=== PATIENT | female | born 1935 | race Caucasian/White ===

== ENCOUNTER → 2017-07-22 09:02 | Outpatient (CLI) | payer MEDICARE, OTHER, SELFPAY ==
[2017-07-22 09:34] LABS: Add Manual Diff / Slide Review NO; Basophils Percent Auto 1.2 % (0-2); Eosinophils Percent Auto 1.8 % (2-4); Hematocrit 43.6 % (36-46); Lymphocytes Percent Auto 38.6 % (25-40); Mean Corpuscular HGB Conc 34.5 % (30-36); Mean Corpuscular Hemoglobin 30.7 PG (26-34); Monocytes Percent Auto 12.3 % (3-14); Neutrophils Absolute Auto 3900 /uL (3000-5900); Neutrophils Percent Auto 46.1 % (50-75); Platelet Count 317 X10^3/uL (150-400); Red Cell Distribution Width 13.4 % (11.6-14.8); White Blood Cell Count 8.5 X10^3/uL (4.5-11.0)
[2017-07-22 10:19] LABS: Alanine Aminotransferase 46 IU/L (9-52); Albumin 4.4 g/dL (3.5-5.0); Albumin Globulin Ratio 1.4 (1.0-2.8); Alkaline Phosphatase 74 U/L (38-126); Aspartate Aminotransferase 39 IU/L (14-36); BUN Creatinine Ratio 20.9 (6-22); Bilirubin Total 0.6 mg/dL (0.2-1.3); Blood Urea Nitrogen 23 mg/dL (7-17); Calcium 9.8 mg/dL (8.4-10.2); Carbon Dioxide 26 mmol/L (22-32); Chloride 103 mmol/L (98-107); Cholesterol 198 mg/dL (140-199); Estimated Glomerular Filt Rate 47.8 mL/min (>60); Globulin 3.1 g/dL (1.7-4.1); Glucose 106 mg/dL (80-110); HDL Cholesterol 41 mg/dL (40-60); HEMOLYSIS < 15 (0-50); LDL Cholesterol Calculated 80 mg/dL (<100); Potassium 3.6 mmol/L (3.4-5.1); Sodium 140 mmol/L (137-145); Total Protein 7.5 g/dL (6.3-8.2); Triglycerides 383 mg/dL (35-150)
== END ==
PROVIDERS: Visit Provider Internal Medicine
DX: E78.2 Mixed hyperlipidemia (principal)
CPT/HCPCS: 36415; 80053; 80061; 85025

== ENCOUNTER → 2017-10-02 13:34 | Outpatient (CLI) | payer MEDICARE, OTHER, SELFPAY ==
--- NOTE | 2017-10-02 | DI.MG.S_ITS ---
BILATERAL DIGITAL SCREENING MAMMOGRAM 3D/2D WITH CAD: 10/02/2017 CLINICAL: Routine screening. Personal history of breast cancer. Comparison is made to exams dated: 08/26/2016 mammogram, 12/29/2014 mammogram, and 12/19/2013 mammogram - [facility]. There are scattered fibroglandular elements in both breasts. Current study was also evaluated with a Computer Aided Detection (CAD) system. There is a focal asymmetry in the left breast at 8 o'clock middle depth. No other significant masses, calcifications, or other findings are seen in either breast. IMPRESSION: INCOMPLETE: NEEDS ADDITIONAL IMAGING EVALUATION The focal asymmetry in the left breast is indeterminate. Additional views with possible ultrasound are recommended. This exam was interpreted at Station ID: [id number]. NOTE: For mammograms, a report in lay terms will be sent to the patient. Approximately 15% of breast malignancies will not be visualized mammographically. In the management of a palpable breast mass, a negative mammogram must not discourage biopsy of a clinically suspicious lesion. Electronically Signed By: Qiana krause/florentino:10/02/2017 14:28:06 letter sent: Additional Imaging Needed ACR BI-RADS Category 0: Incomplete [id number]
== END ==
PROVIDERS: Family Provider Family Medicine; PCP Family Medicine; Visit Provider Internal Medicine
DX: Z12.31 Encounter for screening mammogram for malignant neoplasm of breast (principal); Z85.3 Personal history of malignant neoplasm of breast
CPT/HCPCS: 77063; 77067

== ENCOUNTER → 2017-10-24 12:59 | Outpatient (CLI) | payer MEDICARE, OTHER, SELFPAY ==
--- NOTE | 2017-10-24 13:02 | DI.MG.S_ITS ---
UNILATERAL LEFT DIGITAL DIAGNOSTIC MAMMOGRAM 3D/2D WITH ADDITIONAL VIEWS: 10/24/2017 CLINICAL: Additional evaluation requested from prior study. Comparison is made to exams dated: 10/02/2017 mammogram, 08/26/2016 mammogram, and 12/29/2014 mammogram - [facility]. There are scattered fibroglandular elements in the left breast. There is a focal asymmetry in the left breast at 8 o'clock middle depth. This is seen in additional views. No other significant masses or calcifications are seen in the breast. IMPRESSION: INCOMPLETE: NEEDS ADDITIONAL IMAGING EVALUATION The focal asymmetry in the left breast is indeterminate. An ultrasound is recommended. This exam was interpreted at Station ID: [id number]. NOTE: For mammograms, a report in lay terms will be sent to the patient. Approximately 15% of breast malignancies will not be visualized mammographically. In the management of a palpable breast mass, a negative mammogram must not discourage biopsy of a clinically suspicious lesion. Electronically Signed By: Qiana krause/florentino:10/24/2017 14:48:00 letter sent: Additional Imaging Needed ACR BI-RADS Category 0: Incomplete [id number]
--- NOTE | 2017-10-24 13:02 | DI.US.S_ITS ---
ULTRASOUND OF LEFT BREAST: 10/24/2017 CLINICAL: Patient returns for additional imaging over a suspected mass in the left breast. Comparison is made to exams dated: 10/24/2017 mammogram, 10/02/2017 mammogram, and 08/26/2016 mammogram - [facility]. Color flow ultrasound of the left breast was performed on the areas of interest. Kirkland scale images of the real-time examination were reviewed. There is a 0.5 cm x 0.3 cm x 0.4 cm oval cyst in the left breast at 7 o'clock anterior depth. This oval cyst is hypoechoic. This correlates with mammography findings. IMPRESSION: PROBABLY BENIGN - FOLLOW-UP RECOMMENDED The 0.5 cm x 0.3 cm x 0.4 cm oval cyst in the left breast is consistent with a complicated cyst and is probably benign. A follow-up ultrasound in 6 months is recommended to demonstrate stability. This exam was interpreted at Station ID: [id number]. Electronically Signed By: Qiana krause/:10/24/2017 16:45:26 letter sent: Followup Recommended Ultrasound BI-RADS: 3 Probably benign
== END ==
PROVIDERS: Family Provider Family Medicine; PCP Family Medicine; Visit Provider Internal Medicine
DX: R92.8 Other abnormal and inconclusive findings on diagnostic imaging of breast (principal); N60.02 Solitary cyst of left breast
CPT/HCPCS: 76642; 77065; G0279

== ENCOUNTER → 2018-07-05 08:55 | Outpatient (CLI) | payer MEDICARE, OTHER, SELFPAY ==
--- NOTE | 2018-07-05 08:56 | DI.US.S_ITS ---
LIMITED ULTRASOUND OF LEFT BREAST: 07/05/2018 CLINICAL: 6 month f/u lt. Comparison is made to exam dated: 10/24/2017 [facility]. Color flow and real-time ultrasound of the left breast 7-10 o'clock region were performed. Kirkland scale images of the real-time examination were reviewed. There is a stable benign 0.4 cm x 0.6 cm x 0.2 cm oval minimally complicated cyst in the left breast at 9 o'clock middle depth. This oval cyst is hypoechoic. Color flow imaging demonstrates that there is no vascularity present. No suspicious features. IMPRESSION: BENIGN There is no sonographic evidence of malignancy. The 0.4 cm x 0.6 cm x 0.2 cm oval complicated cyst in the left breast is consistent with complicated cysts and is benign. No significant changes or suspicious features. Return to annual mammogram screening schedule is recommended. Findings and recommendations were conveyed to the patient. This exam was interpreted at Station ID: [id number]. Electronically Signed By: Daria march/:07/05/2018 10:04:46 letter sent: Normal Exam Ultrasound BI-RADS: 2 Benign
== END ==
PROVIDERS: PCP Internal Medicine; Visit Provider Internal Medicine
DX: R92.8 Other abnormal and inconclusive findings on diagnostic imaging of breast (principal); N60.02 Solitary cyst of left breast
CPT/HCPCS: 76642

== ENCOUNTER → 2018-08-16 10:12 | Outpatient (CLI) | payer MEDICARE, OTHER, SELFPAY ==
[2018-08-16 11:18] LABS: Alanine Aminotransferase 50 IU/L (9-52); Albumin 4.2 g/dL (3.5-5.0); Albumin Globulin Ratio 1.4 (1.0-2.8); Alkaline Phosphatase 79 U/L (38-126); Aspartate Aminotransferase 33 IU/L (14-36); BUN Creatinine Ratio 21.8 (6-22); Bilirubin Total 0.4 mg/dL (0.2-1.3); Blood Urea Nitrogen 24 mg/dL (7-17); Carbon Dioxide 29 mmol/L (22-32); Chloride 106 mmol/L (98-107); Estimated Glomerular Filt Rate 47.7 mL/min (>60); Globulin 2.9 g/dL (1.7-4.1); Glucose 95 mg/dL (80-110); HEMOLYSIS < 15 (0-50); Potassium 4.3 mmol/L (3.4-5.1); Sodium 143 mmol/L (137-145); Total Protein 7.1 g/dL (6.3-8.2)
[2018-08-16 11:24] LABS: Add Manual Diff / Slide Review NO; Basophils Absolute Auto 100 /uL (0-100); Basophils Percent Auto 0.8 % (0-2); Eosinophils Absolute Auto 100 /uL (0-450); Hematocrit 45.2 % (36-46); Hemoglobin 15.1 g/dL (12.0-16.0); Lymphocytes Absolute Auto 2700 /uL (1100-4500); Lymphocytes Percent Auto 36.1 % (25-40); Mean Corpuscular HGB Conc 33.5 % (30-36); Mean Corpuscular Hemoglobin 30.2 PG (26-34); Mean Corpuscular Volume 90.2 fL (80-100); Monocytes Absolute Auto 900 /uL (0-900); Monocytes Percent Auto 12.1 % (3-14); Neutrophils Absolute Auto 3700 /uL (1500-7000); Platelet Count 289 X10^3/uL (150-400); Red Blood Cell Count 5.01 X10^6/uL (4.0-5.2); Red Cell Distribution Width 13.6 % (11.6-14.8); White Blood Cell Count 7.5 X10^3/uL (4.5-11.0)
[2018-08-16 11:51] LABS: Free T4, Direct Thyroxine 1.38 ng/dL (0.78-2.19)
[2018-08-16 12:04] LABS: Thyroid Stimulating Hormone 1.31 uIU/mL (0.47-4.68)
== END ==
PROVIDERS: PCP Internal Medicine; Visit Provider Internal Medicine
DX: E03.9 Hypothyroidism, unspecified (principal); I12.9 Hypertensive chronic kidney disease with stage 1 through stage 4 chronic kidney disease, or unspecified chronic kidney disease; N18.3 Chronic kidney disease, stage 3 (moderate)
CPT/HCPCS: 36415; 80053; 84439; 84443; 85025

== ENCOUNTER 2018-09-21 18:30 | Inpatient (IN) | payer MEDICARE, OTHER, SELFPAY ==
[2018-09-21] VITALS (7 sets, daily range): BP systolic 130–179; BP diastolic 41–70; PULSE 87–107; RESP 18–31; TEMP 37–38.3; O2SAT 93–98; BMI 25.7
--- NOTE | 2018-09-21 18:40 | DI.RAD.S_ITS ---
PROCEDURE: XR CHEST 1V INDICATIONS: fever, weakness TECHNIQUE: One view of the chest was acquired. COMPARISON: [facility], , CHEST 1 VIEW, 11/02/2015, 7:13. FINDINGS: Surgical changes and devices: Surgical clips in the left axilla are present.. Lungs and pleura: Minimal streaky bibasilar opacities with slight decreased lung volumes. No focal consolidation. Mild elevation of the left hemidiaphragm. No pleural effusions or pneumothorax. Mediastinum: Mediastinal contours appear normal. Heart size is normal. Bones and chest wall: No suspicious bony lesions. Overlying soft tissues appear unremarkable. IMPRESSION: Minimal streaky bibasilar opacities without focal consolidation. In the setting of slightly decreased lung volumes compared to study dated 11/02/2015, this is favored to represent minimal bibasilar atelectasis. Otherwise, no acute cardiopulmonary abnormalities. Dictated by: Rainer Anne M.D. on 09/21/2018 at 19:25 Approved by: Rainer Anne M.D. on 09/21/2018 at 19:26
[2018-09-21 19:03] LABS: Add Manual Diff / Slide Review NO; Basophils Absolute Auto 100 /uL (0-100); Basophils Percent Auto 0.3 % (0-2); Eosinophils Absolute Auto 0 /uL (0-450); Hematocrit 46.4 % (36-46); Hemoglobin 15.5 g/dL (12.0-16.0); Lymphocytes Absolute Auto 1600 /uL (1100-4500); Mean Corpuscular HGB Conc 33.4 % (30-36); Mean Corpuscular Hemoglobin 29.5 PG (26-34); Mean Corpuscular Volume 88.4 fL (80-100); Monocytes Absolute Auto 1400 /uL (0-900); Monocytes Percent Auto 6.4 % (3-14); Neutrophils Absolute Auto 19400 /uL (1500-7000); Neutrophils Percent Auto 86.3 % (50-75); Platelet Count 321 X10^3/uL (150-400); Red Blood Cell Count 5.25 X10^6/uL (4.0-5.2); Red Cell Distribution Width 13.4 % (11.6-14.8); White Blood Cell Count 22.5 X10^3/uL (4.5-11.0)
--- NOTE | 2018-09-21 19:07 | DI.US.S_ITS ---
PROCEDURE: US PERIPH VENOUS UP EXTREM LT INDICATIONS: PAIN, EDEMA, REDNESS; NO INJURY TECHNIQUE: Real-time imaging, as well as color and pulse Doppler interrogation, was performed of the left upper extremity deep veins from the inferior neck to the antecubital fossa. COMPARISON: None. FINDINGS: The internal jugular vein, visualized portions of the subclavian vein, axillary, and brachial veins are free of intraluminal thrombus. Where physically possible, the veins are normally compressible. Color and pulse Doppler demonstrate normal intraluminal flow, with expected phasicity and pulsatility. Additional scanning of the cephalic and basilic veins of the superficial system demonstrate normal compressibility, without thrombus. IMPRESSION: Negative for deep venous thrombosis of the left upper extremity. Dictated by: Rainer Anne M.D. on 09/21/2018 at 21:31 Approved by: Rainer Anne M.D. on 09/21/2018 at 21:31
[2018-09-21 19:11] LABS: Lactate (Lactic Acid) 2.7 mmol/L (0.7-2.1)
[2018-09-21 19:14] LABS: Alanine Aminotransferase 58 IU/L (9-52); Albumin 4.8 g/dL (3.5-5.0); Albumin Globulin Ratio 1.4 (1.0-2.8); Alkaline Phosphatase 86 U/L (38-126); Aspartate Aminotransferase 61 IU/L (14-36); BUN Creatinine Ratio 19.1 (6-22); Bilirubin Total 0.8 mg/dL (0.2-1.3); Blood Urea Nitrogen 21 mg/dL (7-17); Calcium 9.9 mg/dL (8.4-10.2); Carbon Dioxide 24 mmol/L (22-32); Chloride 100 mmol/L (98-107); Estimated Glomerular Filt Rate 47.7 mL/min (>60); Globulin 3.4 g/dL (1.7-4.1); Glucose 171 mg/dL (80-110); HEMOLYSIS 16 (0-50); Potassium 3.1 mmol/L (3.4-5.1); Sodium 139 mmol/L (137-145); Total Protein 8.2 g/dL (6.3-8.2)
[2018-09-21] MEDS: SODIUM CHLORIDE 0.9% 1,000 ML 1000 ML IV (19:17)
[2018-09-21] MEDS: CEFAZOLIN 1 GM/50 ML FROZ.PIGGY IV (19:17)
[2018-09-21 19:31] LABS: Procalcitonin 0.93 ng/mL (<0.5)
--- NOTE | 2018-09-21 20:00 | ED.FEVER ---
HPI - Fever General Chief Complaint: Fever Stated Complaint: right abd pain/n&v/lt arm edema/fever today Time Seen by Provider: 09/21/18 18:35 Source: patient and family Mode of arrival: ambulatory Limitations: no limitations History of Present Illness HPI Narrative: 83-year-old female nonsmoker with history of hypertension and breast cancer with left upper extremity lymphedema and history of cellulitis (most recently 3 years ago) presents with her and a chief complaint of rapid onset of left arm redness, swelling, pain fever and vomiting over the last 6 hours. She denies any runny nose or sore throat. She denies chest pain or shortness of breath. She denies abdominal pain. She has had no dysuria, frequency or urgency. Related Data Home Medications Medication Instructions Recorded Confirmed aspirin 81 mg tablet,delayed 81 mg PO DAILY 10/24/17 09/21/18 release cephalexin 500 mg capsule 500 mg PO BID 08/16/18 09/21/18 triamterene 37.5 1 tab PO Q OTHER DAY tab 08/16/18 09/21/18 mg-hydrochlorothiazide 25 mg tablet cholecalciferol (vitamin D3) 2,000 4,000 unit PO DAILY cap 08/30/18 09/21/18 unit capsule Previous Rx's Medication Instructions Recorded simvastatin 40 mg tablet 20 mg PO Q DAY #45 tab 01/10/18 levothyroxine 100 mcg tablet 100 mcg PO QAM #90 tab 03/12/18 amlodipine 5 mg tablet 5 mg PO DAILY #30 tab 08/16/18 zolpidem 10 mg tablet 10 mg PO HSP PRN #30 tab 08/31/18 Allergies Allergy/AdvReac Type Severity Reaction Status Date / Time morphine AdvReac Severe Nausea Verified 09/21/18 19:00 Review of Systems Constitutional Denies chills, Denies fever(s), Denies lethargy and Denies weakness Eyes Denies change in vision, Denies eye discharge, Denies irritation and Denies loss of vision ENT Ears, Nose, Mouth, and Throat: Denies change in voice, Denies neck pain and Denies sore throat Cardiovascular Denies chest pain, Denies irregular heart rhythm, Denies lightheadedness, Denies palpitations, Denies dyspnea, Denies dyspnea on exertion and Denies orthopnea Respiratory Denies cough, Denies dyspnea, Denies dyspnea on exertion and Denies wheezing Gastrointestinal Gastrointestinal: Denies abdominal pain, Denies change in bowel habits, Denies diarrhea, Denies nausea and Denies vomiting Genitourinary Denies hematuria, Denies flank pain, Denies urinary incontinence and Denies urinary urgency Musculoskeletal Reports joint swelling, Reports limited range of motion and Denies neck pain Integumentary/Breasts Denies pruritus, Reports erythema, Reports rash, Reports skin pain, Reports skin swelling and Denies wounds Neurologic Denies confusion, Denies loss of vision and Denies weakness Psychiatric Denies anxiety, Denies confusion, Denies depression, Denies homicidal ideation and Denies suicidal ideation Endocrine Denies palpitations Hematologic/Lymphatic Denies easy bruising Allergic/Immunologic Denies wheezing [facility] Medical History (Updated 09/22/18 @ 04:24 by Jermaine Rothman DO) Abnormal mammogram (Chronic) Abnormal LFTs (Chronic) Hypothyroidism (acquired) (Chronic 12/22/10) H/O malignant neoplasm of breast (Chronic) 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) Hypercholesteremia (Chronic) 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) Insomnia (Chronic) Benign essential hypertension (Chronic) Stage 3 chronic kidney disease (Chronic) Lymphedema of upper extremity (Chronic 10/16/14) Appendicitis (Acute) Decreased vision (Chronic) Hypertension (Chronic) Hypothyroidism (Chronic) Breast cancer, left breast (Resolved 1998) Surgical History (Updated 09/21/18 @ 21:25 by Kale Arellano RN) History of tonsillectomy (Acute) History of oophorectomy (Resolved) Status post cholecystectomy (Resolved 1997) Status post hysterectomy (Resolved 1990) Family History Brother Coronary artery disease Social History household members: spouse and caregiver Smoking Status: Never smoker alcohol intake: never Family History Brother Coronary artery disease Social History household members: spouse and caregiver Smoking Status: Never smoker alcohol intake: never Exam Narrative Exam Narrative: GENERAL: 83-year-old female appears stated age, obviously ill and in distress HEAD: Atraumatic. Normocephalic. No temporal or scalp tenderness. EYES: Pupils equal round and reactive. Extraocular motions intact. No scleral icterus. No injection or drainage. ENT: Nose without bleeding, purulent drainage or septal hematoma. Throat without erythema, tonsillar hypertrophy or exudate. Uvula midline. Airway patent. NECK: Trachea midline. No JVD or lymphadenopathy. Supple, nontender, no meningeal signs. CARDIOVASCULAR: Tachycardic but regular rhythm without murmurs, gallops, or rubs. RESPIRATORY: Clear to auscultation. Breath sounds equal bilaterally. No wheezes, rales, or rhonchi. GASTROINTESTINAL: Abdomen soft, non-tender, nondistended. No hepato-splenomegaly, or palpable masses. No guarding. EXTREMITIES: Swelling, redness, warmth and pain to left upper extremity, distal pulses and sensation intact BACK: Nontender without deformity or crepitance. No flank tenderness. NEURO: AOx3. SKIN: No rash other than LUE Initial Vital Signs Initial Vital Signs: Vital Signs Temperature 100.9 F H 09/21/18 18:57 Pulse Rate 107 H 09/21/18 18:57 Respiratory Rate 31 H 09/21/18 18:57 Blood Pressure 179/70 H 09/21/18 18:57 Pulse Oximetry 93 09/21/18 18:57 Course Orders Ordered: ED Orders 09/22/18 05:00 Basic Metabolic Panel Stat Complete Blood Count AUTO DIFF Stat Amlodipine Besylate (Norvasc) 5 mg PO DAILY [facility] Aspirin (Aspirin Ec) 81 mg PO DAILY [facility] Cefazolin Sodium/Dextrose (Ancef) 1 gm in 50 mls @ 200 mls/hr IV Q6HR [facility] Last Infusion: 09/22/18 04:02 Dose: 0 mls/hr Admin: 09/22/18 00:48 Dose: 200 mls/hr Sodium Chloride (Normal Saline 0.9%) 1,000 mls @ 125 mls/hr IV CONT [facility] Last Admin: 09/21/18 22:04 Dose: 125 mls/hr Levothyroxine Sodium (Synthroid) 100 mcg PO QACBREAK [facility] Ondansetron HCl (Zofran) 4 mg IV Q4HR PRN PRN Reason: Nausea And Vomiting Simvastatin (Zocor) 20 mg PO DAILY [facility] Triamterene/HCTZ (Maxide 37.5/25) 1 tab PO Q2D YAMILE Discontinued Medications Cefazolin Sodium/Dextrose (Ancef) 1 gm in 50 mls @ 200 mls/hr IV NOW ONE Stop: 09/21/18 18:55 Last Infusion: 09/21/18 19:44 Dose: 0 mls/hr Admin: 09/21/18 19:17 Dose: 200 mls/hr Sodium Chloride (Normal Saline 0.9%) 1,000 mls @ 1,000 mls/hr IV BOLUS ONE Stop: 09/21/18 20:10 Last Infusion: 09/21/18 20:10 Dose: 0 mls/hr Admin: 09/21/18 19:17 Dose: 1,000 mls/hr Consultations Consultation #1: Dr. Garcia happy to accept on behalf of Dr. Steen Vital Signs - 8 hr 09/21/18 20:39 09/21/18 20:42 09/21/18 20:55 Temperature 98.8 F 98.8 F 98.6 F Pulse Rate 89 87 89 Respiratory Rate 18 18 18 Blood Pressure 130/48 L 161/68 H Blood Pressure [Right Arm] 130/48 L Pulse Oximetry 95 94 94 09/21/18 22:55 09/22/18 00:00 09/22/18 04:03 Temperature 98.6 F 99.1 F 98.1 F Pulse Rate 89 84 86 Respiratory Rate 18 18 18 Blood Pressure 161/68 H 133/63 154/65 H Blood Pressure [Right Arm] Pulse Oximetry 94 93 94 MDM - Fever Lab Data Result diagrams: 09/21/18 18:50 09/21/18 18:50 Lab Results 09/21/18 09/21/18 09/21/18 Range/Units 18:50 18:50 18:50 WBC 22.5 H (4.5-11.0) X10^3/uL RBC 5.25 H (4.0-5.2) X10^6/uL Hgb 15.5 (12.0-16.0) g/dL Hct 46.4 H (36-46) % MCV 88.4 (80-100) fL MCH 29.5 (26-34) PG MCHC 33.4 (30-36) % RDW 13.4 (11.6-14.8) % Plt Count 321 (150-400) X10^3/uL Neut % (Auto) 86.3 H (50-75) % Lymph % (Auto) 7.0 L (25-40) % Mckinley % (Auto) 6.4 (3-14) % Eos % (Auto) 0.0 L (2-4) % Baso % (Auto) 0.3 (0-2) % Neut # (Auto) 04978 H (5907-5507) /uL Lymph # (Auto) 1600 (1304-3783) /uL Mckinley # (Auto) 1400 H (0-900) /uL Eos # (Auto) 0 (0-450) /uL Baso # (Auto) 100 (0-100) /uL Sodium 139 (137-145) mmol/L Potassium 3.1 L (3.4-5.1) mmol/L Chloride 100 (98-107) mmol/L Carbon Dioxide 24 (22-32) mmol/L BUN 21 H (7-17) mg/dL Creatinine 1.10 H (0.52-1.04) mg/dL Estimated GFR 47.7 L (>60) mL/min BUN/Creatinine Ratio 19.1 (6-22) Glucose 171 H (80-110) mg/dL Lactate (0.7-2.1) mmol/L Calcium 9.9 (8.4-10.2) mg/dL Total Bilirubin 0.8 (0.2-1.3) mg/dL AST 61 H (14-36) IU/L ALT 58 H (9-52) IU/L Alkaline Phosphatase 86 (38-126) U/L Total Protein 8.2 (6.3-8.2) g/dL Albumin 4.8 (3.5-5.0) g/dL Globulin 3.4 (1.7-4.1) g/dL Albumin/Globulin Ratio 1.4 (1.0-2.8) Procalcitonin 0.93 H (<0.5) ng/mL 09/21/18 09/21/18 Range/Units 18:50 21:15 WBC (4.5-11.0) X10^3/uL RBC (4.0-5.2) X10^6/uL Hgb (12.0-16.0) g/dL Hct (36-46) % MCV (80-100) fL MCH (26-34) PG MCHC (30-36) % RDW (11.6-14.8) % Plt Count (150-400) X10^3/uL Neut % (Auto) (50-75) % Lymph % (Auto) (25-40) % Mckinley % (Auto) (3-14) % Eos % (Auto) (2-4) % Baso % (Auto) (0-2) % Neut # (Auto) (2885-3672) /uL Lymph # (Auto) (3578-1492) /uL Mckinley # (Auto) (0-900) /uL Eos # (Auto) (0-450) /uL Baso # (Auto) (0-100) /uL Sodium (137-145) mmol/L Potassium (3.4-5.1) mmol/L Chloride (98-107) mmol/L Carbon Dioxide (22-32) mmol/L BUN (7-17) mg/dL Creatinine (0.52-1.04) mg/dL Estimated GFR (>60) mL/min BUN/Creatinine Ratio (6-22) Glucose (80-110) mg/dL Lactate 2.7 H 3.1 H (0.7-2.1) mmol/L Calcium (8.4-10.2) mg/dL Total Bilirubin (0.2-1.3) mg/dL AST (14-36) IU/L ALT (9-52) IU/L Alkaline Phosphatase (38-126) U/L Total Protein (6.3-8.2) g/dL Albumin (3.5-5.0) g/dL Globulin (1.7-4.1) g/dL Albumin/Globulin Ratio (1.0-2.8) Procalcitonin (<0.5) ng/mL Discharge Plan Departure Patient Disposition: Admitted As Inpatient Clinical Impression: Acute hypokalemia Cellulitis Qualifiers: Site of cellulitis: extremity Site of cellulitis of extremity: upper extremity Laterality: left Qualified Code(s): L03.114 - Cellulitis of left upper limb Discharge Date/Time: 09/21/18 20:54 Interventions: ED Discharge Assessment Last Done: 09/21/18 20:42 Referrals: Wayne Steen MD [Primary Care Provider] - Admit Date/Time: 09/21/18 20:12 Admit Provider: Wayne Steen
--- NOTE | 2018-09-21 20:36 | ED_ITS ---
HPI - Fever General Chief Complaint: Fever Stated Complaint: right abd pain/n&v/lt arm edema/fever today Time Seen by Provider: 09/21/18 18:35 Source: patient and family Mode of arrival: ambulatory Limitations: no limitations History of Present Illness HPI Narrative: 83-year-old female nonsmoker with history of hypertension and breast cancer with left upper extremity lymphedema and history of cellulitis (most recently 3 years ago) presents with her and a chief complaint of rapid onset of left arm redness, swelling, pain fever and vomiting over the last 6 hours. She denies any runny nose or sore throat. She denies chest pain or shortness of breath. She denies abdominal pain. She has had no dysuria, frequency or urgency. Related Data Home Medications Medication Instructions Recorded Confirmed aspirin 81 mg tablet,delayed 81 mg PO DAILY 10/24/17 09/21/18 release cephalexin 500 mg capsule 500 mg PO BID 08/16/18 09/21/18 triamterene 37.5 1 tab PO Q OTHER DAY tab 08/16/18 09/21/18 mg-hydrochlorothiazide 25 mg tablet cholecalciferol (vitamin D3) 2,000 4,000 unit PO DAILY cap 08/30/18 09/21/18 unit capsule Previous Rx's Medication Instructions Recorded simvastatin 40 mg tablet 20 mg PO Q DAY #45 tab 01/10/18 levothyroxine 100 mcg tablet 100 mcg PO QAM #90 tab 03/12/18 amlodipine 5 mg tablet 5 mg PO DAILY #30 tab 08/16/18 zolpidem 10 mg tablet 10 mg PO HSP PRN #30 tab 08/31/18 Allergies Allergy/AdvReac Type Severity Reaction Status Date / Time morphine AdvReac Severe Nausea Verified 09/21/18 19:00 Review of Systems Constitutional Denies chills, Denies fever(s), Denies lethargy and Denies weakness Eyes Denies change in vision, Denies eye discharge, Denies irritation and Denies loss of vision ENT Ears, Nose, Mouth, and Throat: Denies change in voice, Denies neck pain and Denies sore throat Cardiovascular Denies chest pain, Denies irregular heart rhythm, Denies lightheadedness, Denies palpitations, Denies dyspnea, Denies dyspnea on exertion and Denies orthopnea Respiratory Denies cough, Denies dyspnea, Denies dyspnea on exertion and Denies wheezing Gastrointestinal Gastrointestinal: Denies abdominal pain, Denies change in bowel habits, Denies diarrhea, Denies nausea and Denies vomiting Genitourinary Denies hematuria, Denies flank pain, Denies urinary incontinence and Denies urinary urgency Musculoskeletal Reports joint swelling, Reports limited range of motion and Denies neck pain Integumentary/Breasts Denies pruritus, Reports erythema, Reports rash, Reports skin pain, Reports skin swelling and Denies wounds Neurologic Denies confusion, Denies loss of vision and Denies weakness Psychiatric Denies anxiety, Denies confusion, Denies depression, Denies homicidal ideation and Denies suicidal ideation Endocrine Denies palpitations Hematologic/Lymphatic Denies easy bruising Allergic/Immunologic Denies wheezing [facility] Medical History (Updated 09/22/18 @ 04:24 by Jermaine Rothman DO) Abnormal mammogram (Chronic) Abnormal LFTs (Chronic) Hypothyroidism (acquired) (Chronic 12/22/10) H/O malignant neoplasm of breast (Chronic) 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) Hypercholesteremia (Chronic) 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) Insomnia (Chronic) Benign essential hypertension (Chronic) Stage 3 chronic kidney disease (Chronic) Lymphedema of upper extremity (Chronic 10/16/14) Appendicitis (Acute) Decreased vision (Chronic) Hypertension (Chronic) Hypothyroidism (Chronic) Breast cancer, left breast (Resolved 1998) Surgical History (Updated 09/21/18 @ 21:25 by Kale rAellano RN) History of tonsillectomy (Acute) History of oophorectomy (Resolved) Status post cholecystectomy (Resolved 1997) Status post hysterectomy (Resolved 1990) Family History Brother Coronary artery disease Social History household members: spouse and caregiver Smoking Status: Never smoker alcohol intake: never Family History Brother Coronary artery disease Social History household members: spouse and caregiver Smoking Status: Never smoker alcohol intake: never Exam Narrative Exam Narrative: GENERAL: 83-year-old female appears stated age, obviously ill and in distress HEAD: Atraumatic. Normocephalic. No temporal or scalp tenderness. EYES: Pupils equal round and reactive. Extraocular motions intact. No scleral icterus. No injection or drainage. ENT: Nose without bleeding, purulent drainage or septal hematoma. Throat without erythema, tonsillar hypertrophy or exudate. Uvula midline. Airway patent. NECK: Trachea midline. No JVD or lymphadenopathy. Supple, nontender, no meningeal signs. CARDIOVASCULAR: Tachycardic but regular rhythm without murmurs, gallops, or rubs. RESPIRATORY: Clear to auscultation. Breath sounds equal bilaterally. No wheezes, rales, or rhonchi. GASTROINTESTINAL: Abdomen soft, non-tender, nondistended. No hepato- splenomegaly, or palpable masses. No guarding. EXTREMITIES: Swelling, redness, warmth and pain to left upper extremity, distal pulses and sensation intact BACK: Nontender without deformity or crepitance. No flank tenderness. NEURO: AOx3. SKIN: No rash other than LUE Initial Vital Signs Initial Vital Signs: Vital Signs Temperature 100.9 F H 09/21/18 18:57 Pulse Rate 107 H 09/21/18 18:57 Respiratory Rate 31 H 09/21/18 18:57 Blood Pressure 179/70 H 09/21/18 18:57 Pulse Oximetry 93 09/21/18 18:57 Course Orders Ordered: ED Orders 09/22/18 05:00 Basic Metabolic Panel Stat Complete Blood Count AUTO DIFF Stat Amlodipine Besylate (Norvasc) 5 mg PO DAILY [facility] Aspirin (Aspirin Ec) 81 mg PO DAILY [facility] Cefazolin Sodium/Dextrose (Ancef) 1 gm in 50 mls @ 200 mls/hr IV Q6HR [facility] Last Infusion: 09/22/18 04:02 Dose: 0 mls/hr Admin: 09/22/18 00:48 Dose: 200 mls/hr Sodium Chloride (Normal Saline 0.9%) 1,000 mls @ 125 mls/hr IV CONT [facility] Last Admin: 09/21/18 22:04 Dose: 125 mls/hr Levothyroxine Sodium (Synthroid) 100 mcg PO QACBREAK [facility] Ondansetron HCl (Zofran) 4 mg IV Q4HR PRN PRN Reason: Nausea And Vomiting Simvastatin (Zocor) 20 mg PO DAILY [facility] Triamterene/HCTZ (Maxide 37.5/25) 1 tab PO Q2D YAMILE Discontinued Medications Cefazolin Sodium/Dextrose (Ancef) 1 gm in 50 mls @ 200 mls/hr IV NOW ONE Stop: 09/21/18 18:55 Last Infusion: 09/21/18 19:44 Dose: 0 mls/hr Admin: 09/21/18 19:17 Dose: 200 mls/hr Sodium Chloride (Normal Saline 0.9%) 1,000 mls @ 1,000 mls/hr IV BOLUS ONE Stop: 09/21/18 20:10 Last Infusion: 09/21/18 20:10 Dose: 0 mls/hr Admin: 09/21/18 19:17 Dose: 1,000 mls/hr Consultations Consultation #1: Dr. Garcia happy to accept on behalf of Dr. Steen Vital Signs - 8 hr 09/21/18 20:39 09/21/18 20:42 09/21/18 20:55 Temperature 98.8 F 98.8 F 98.6 F Pulse Rate 89 87 89 Respiratory Rate 18 18 18 Blood Pressure 130/48 L 161/68 H Blood Pressure [Right Arm] 130/48 L Pulse Oximetry 95 94 94 09/21/18 22:55 09/22/18 00:00 09/22/18 04:03 Temperature 98.6 F 99.1 F 98.1 F Pulse Rate 89 84 86 Respiratory Rate 18 18 18 Blood Pressure 161/68 H 133/63 154/65 H Blood Pressure [Right Arm] Pulse Oximetry 94 93 94 MDM - Fever Lab Data Result diagrams: 09/21/18 18:50 09/21/18 18:50 Lab Results 09/21/18 09/21/18 09/21/18 Range/Units 18:50 18:50 18:50 WBC 22.5 H (4.5-11.0) X10^3/uL RBC 5.25 H (4.0-5.2) X10^6/uL Hgb 15.5 (12.0-16.0) g/dL Hct 46.4 H (36-46) % MCV 88.4 (80-100) fL MCH 29.5 (26-34) PG MCHC 33.4 (30-36) % RDW 13.4 (11.6-14.8) % Plt Count 321 (150-400) X10^3/uL Neut % (Auto) 86.3 H (50-75) % Lymph % (Auto) 7.0 L (25-40) % [place] % (Auto) 6.4 (3-14) % Eos % (Auto) 0.0 L (2-4) % Baso % (Auto) 0.3 (0-2) % Neut # (Auto) 31682 H (0086-6063) /uL Lymph # (Auto) 1600 (1751-4533) /uL [place] # (Auto) 1400 H (0-900) /uL Eos # (Auto) 0 (0-450) /uL Baso # (Auto) 100 (0-100) /uL Sodium 139 (137-145) mmol/L Potassium 3.1 L (3.4-5.1) mmol/L Chloride 100 (98-107) mmol/L Carbon Dioxide 24 (22-32) mmol/L BUN 21 H (7-17) mg/dL Creatinine 1.10 H (0.52-1.04) mg/dL Estimated GFR 47.7 L (>60) mL/min BUN/Creatinine Ratio 19.1 (6-22) Glucose 171 H (80-110) mg/dL Lactate (0.7-2.1) mmol/L Calcium 9.9 (8.4-10.2) mg/dL Total Bilirubin 0.8 (0.2-1.3) mg/dL AST 61 H (14-36) IU/L ALT 58 H (9-52) IU/L Alkaline Phosphatase 86 (38-126) U/L Total Protein 8.2 (6.3-8.2) g/dL Albumin 4.8 (3.5-5.0) g/dL Globulin 3.4 (1.7-4.1) g/dL Albumin/Globulin Ratio 1.4 (1.0-2.8) Procalcitonin 0.93 H (<0.5) ng/mL 09/21/18 09/21/18 Range/Units 18:50 21:15 WBC (4.5-11.0) X10^3/uL RBC (4.0-5.2) X10^6/uL Hgb (12.0-16.0) g/dL Hct (36-46) % MCV (80-100) fL MCH (26-34) PG MCHC (30-36) % RDW (11.6-14.8) % Plt Count (150-400) X10^3/uL Neut % (Auto) (50-75) % Lymph % (Auto) (25-40) % [place] % (Auto) (3-14) % Eos % (Auto) (2-4) % Baso % (Auto) (0-2) % Neut # (Auto) (0126-0693) /uL Lymph # (Auto) (7012-5170) /uL [place] # (Auto) (0-900) /uL Eos # (Auto) (0-450) /uL Baso # (Auto) (0-100) /uL Sodium (137-145) mmol/L Potassium (3.4-5.1) mmol/L Chloride (98-107) mmol/L Carbon Dioxide (22-32) mmol/L BUN (7-17) mg/dL Creatinine (0.52-1.04) mg/dL Estimated GFR (>60) mL/min BUN/Creatinine Ratio (6-22) Glucose (80-110) mg/dL Lactate 2.7 H 3.1 H (0.7-2.1) mmol/L Calcium (8.4-10.2) mg/dL Total Bilirubin (0.2-1.3) mg/dL AST (14-36) IU/L ALT (9-52) IU/L Alkaline Phosphatase (38-126) U/L Total Protein (6.3-8.2) g/dL Albumin (3.5-5.0) g/dL Globulin (1.7-4.1) g/dL Albumin/Globulin Ratio (1.0-2.8) Procalcitonin (<0.5) ng/mL Discharge Plan Departure Patient Disposition: Admitted As Inpatient Clinical Impression: Acute hypokalemia Cellulitis Qualifiers: Site of cellulitis: extremity Site of cellulitis of extremity: upper extremity Laterality: left Qualified Code(s): L03.114 - Cellulitis of left upper limb Discharge Date/Time: 09/21/18 20:54 Interventions: ED Discharge Assessment Last Done: 09/21/18 20:42 Referrals: Wayne Steen MD [Primary Care Provider] - Admit Date/Time: 09/21/18 20:12 Admit Provider: Wayne Steen
[2018-09-21 20:59] LABS: Reflexed Lactate in 2 Hours Y
[2018-09-21 21:35] LABS: Lactate 2HR (Lactic Acid Rflx) 3.1 mmol/L (0.7-2.1)
[2018-09-21] MEDS: SODIUM CHLORIDE 0.9% 1,000 ML 125 ML IV (22:04)
[2018-09-22] VITALS (9 sets, daily range): BP systolic 125–154; BP diastolic 59–70; PULSE 75–86; RESP 16–18; TEMP 36.6–37.4; O2SAT 93–97
[2018-09-22] MEDS: CEFAZOLIN 1 GM/50 ML FROZ.PIGGY IV ×5 (00:48→23:51)
[2018-09-22 05:26] LABS: Hematocrit 39.6 % (36-46); Hemoglobin 13.3 g/dL (12.0-16.0); Mean Corpuscular HGB Conc 33.7 % (30-36); Mean Corpuscular Hemoglobin 29.9 PG (26-34); Mean Corpuscular Volume 88.7 fL (80-100); Platelet Count 248 X10^3/uL (150-400); Red Blood Cell Count 4.47 X10^6/uL (4.0-5.2); Red Cell Distribution Width 13.6 % (11.6-14.8); White Blood Cell Count 25.8 X10^3/uL (4.5-11.0)
[2018-09-22 05:27] LABS: Add Manual Diff / Slide Review YES
[2018-09-22 05:48] LABS: Neutrophils Absolute Manual 19866 /uL (3000-5900); RBC Morphology Normal Morphology; Total Cells Counted 100
[2018-09-22 05:55] LABS: BUN Creatinine Ratio 21.1 (6-22); Blood Urea Nitrogen 19 mg/dL (7-17); Carbon Dioxide 25 mmol/L (22-32); Chloride 105 mmol/L (98-107); Estimated Glomerular Filt Rate > 60.0 mL/min (>60); Glucose 121 mg/dL (80-110); Potassium 2.8 mmol/L (3.4-5.1); Sodium 139 mmol/L (137-145)
[2018-09-22 05:56] LABS: Calcium 8.6 mg/dL (8.4-10.2); HEMOLYSIS < 15 (0-50)
[2018-09-22] MEDS: SODIUM CHLORIDE 0.9% 1,000 ML 125 ML IV (06:17)
[2018-09-22] MEDS: LEVOTHYROXINE 100 MCG TABLET PO (06:19)
--- NOTE | 2018-09-22 08:46 | CM.DANOTE ---
DCP: Case received, EMR reviewed and met with patient. , Harris, at bedside as well. Introduced self and role. Was able to obtain baseline health information from patient. DCP assessment completed with information currently available. Patient is an 83 year old female who admitted yesterday evening to the care of the hospitalist team. PCP: Dr. Steen. Payer: confirmed: Medicare/[employer]. Patient came to the hospital via family vehicle secondary to some left upper edema and redness. Patient has a history of lymphedema. She currently holds diagnosis of cellulitis. Patient stated, she has had this before. Met with her in her room. pleasant, alert and oriented. Currently resides here in [place] with her , Harris. She is independent at home, and currently drives. P: DCP to continue to follow. Patient should be able to go home when she is medically stable. Marina Gustafson RN/Firestopper Technician
[2018-09-22] MEDS: TRIAMTERENE/HCTZ 37.5/25 TABLET 1 CAP PO (09:02)
[2018-09-22] MEDS: AMLODIPINE 5 MG TABLET PO (09:02)
[2018-09-22] MEDS: ASPIRIN EC 81 MG TABLET PO (09:02)
[2018-09-22] MEDS: SIMVASTATIN 20 MG TABLET PO (09:02)
--- NOTE | 2018-09-22 10:21 | PM.HP.1 ---
History of Present Illness Date Patient Seen: 09/22/18 Time Patient Seen: 10:22 Chief complaint: right abd pain/n&v/lt arm edema/fever today Narrative: Left arm cellulitis. Patient admitted last night through the ER for left arm cellulitis. Patient was basically well on she was well Monday morning. She developed chills later in the afternoon. And left arm became swollen red and painful. She also vomited. relates she was sort of confused mentally. She was brought to the emergency room last night found to have swollen left arm consistent with cellulitis and admitted. Patient has history of breast cancer on the left. She has history of chronic lymphedema left arm. Also history of recurrent cellulitis left arm she would be she may have had cellulitis of left arm perhaps up to 8 times. Last episode was 3 years ago which time she treated with oral Keflex and the issue went away. She has only been admitted for left arm cellulitis 1st time which was several years ago. Patient is morning has no nausea at the pain left arms decrease the redness decreased but still present has not resolved. Otherwise patient feels well. Otherwise patient has been healthy. Last seen Dr. Steen perhaps a couple months ago for routine follow-up. 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) Insomnia (Chronic) Benign essential hypertension (Chronic) Stage 3 chronic kidney disease (Chronic) Lymphedema of upper extremity (Chronic 10/16/14) Appendicitis (Acute) Decreased vision (Chronic) Hypertension (Chronic) Hypothyroidism (Chronic) Breast cancer, left breast (Resolved 1998) Surgical History History of tonsillectomy (Acute) History of oophorectomy (Resolved) Status post cholecystectomy (Resolved 1997) Status post hysterectomy (Resolved 1990) Family History Brother Coronary artery disease Social History household members: spouse and caregiver Smoking Status: Never smoker alcohol intake: never Family & Social History Family History Brother Coronary artery disease Social History: household members spouse,caregiver Prior Living Arrangements House Safety & Behavioral: Feels Safe in Current Yes Environment Been Physically Hurt or No Threatened By a Person Suicidal Ideation Description None Suicide Plan Description No Plan Tobacco & Substance use: Smoking Status Never smoker alcohol intake never alcohol intake frequency 0-2 drinks per day Substance Use Type does not use Meds Home Medications Medication Instructions Recorded Confirmed Type aspirin 81 mg tablet,delayed 81 mg PO DAILY 10/24/17 09/21/18 History release simvastatin 40 mg tablet 20 mg PO Q DAY #45 tab 01/10/18 09/21/18 Rx levothyroxine 100 mcg tablet 100 mcg PO QAM #90 tab 03/12/18 09/21/18 Rx amlodipine 5 mg tablet 5 mg PO DAILY #30 tab 08/16/18 09/21/18 Rx cephalexin 500 mg capsule 500 mg PO BID 08/16/18 09/21/18 History triamterene 37.5 1 tab PO Q OTHER DAY tab 08/16/18 09/21/18 History mg-hydrochlorothiazide 25 mg tablet cholecalciferol (vitamin D3) 2,000 4,000 unit PO DAILY cap 08/30/18 09/21/18 History unit capsule zolpidem 10 mg tablet 10 mg PO HSP PRN #30 tab 08/31/18 09/21/18 Rx Allergies Allergy/AdvReac Type Severity Reaction Status Date / Time morphine AdvReac Severe Nausea Verified 09/21/18 19:00 Review of Systems Review of Systems All systems reviewed & are unremarkable except as noted in HPI and below Exam Vital Signs (past 8 hours): - 09/22/18 04:03 09/22/18 08:00 Temperature 98.1 F 98.6 F Pulse Rate 86 75 Respiratory Rate 18 18 Blood Pressure 154/65 H 125/60 Pulse Oximetry 94 94 Oxygen Delivery Method Room Air Oxygen Flow Rate 0 Narrative Exam Narrative: Gen.: Skin: Warm well perfused. No prominent lesions. Nonicteric. HEENT: PERRL., normal EOM, external ears canals TMs normal, nasal mucosa normal and midline septum, oropharynx without lesions. Neck: Trachea midline. Thyroid nontender and not enlarged. Carotids without bruits. No lymphadenopathy Back: No obvious deformity or tenderness. Chest: Clear to P&A. Symmetric. CV: RRR no murmur or gallop. No JVD. Abdomen: No masses bruits tenderness or visceromegaly. Neuro: Cranial nerves II through XII grossly intact. Sensory and motor exams intact. Gait normal. Mental status: Intact for screening Extremities: No cyanosis clubbing or edema Musculoskeletal: No gross deformities Lymphatics: Negative for lymphadenopathy, supraclavicular axillary or inguinal. Left arm is obviously swollen but appears consistent with lymphedema. She has swelling from her shoulder all the way down to her wrist. The redness is circumferential from her wrist up to her shoulder. She has splinter spot on her left thumb that may be the entry site. With her or arm itself is warm and minimally tender but more tender than her normal. Objective Labs Result Diagrams: 09/22/18 05:03 09/22/18 05:03 Labs: Laboratory Results - last 24 hr 09/21/18 09/21/18 09/21/18 18:50 18:50 18:50 WBC 22.5 H RBC 5.25 H Hgb 15.5 Hct 46.4 H MCV 88.4 MCH 29.5 MCHC 33.4 RDW 13.4 Plt Count 321 Neut % (Auto) 86.3 H Lymph % (Auto) 7.0 L [place] % (Auto) 6.4 Eos % (Auto) 0.0 L Baso % (Auto) 0.3 Neut # (Auto) 93372 H Lymph # (Auto) 1600 [place] # (Auto) 1400 H Eos # (Auto) 0 Baso # (Auto) 100 Total Counted Seg Neutrophils % Band Neutrophils % Lymphocytes % (Manual) Atypical Lymphs % Monocytes % (Manual) Neutrophils # (Manual) RBC Morphology Sodium 139 Potassium 3.1 L Chloride 100 Carbon Dioxide 24 BUN 21 H Creatinine 1.10 H Estimated GFR 47.7 L BUN/Creatinine Ratio 19.1 Glucose 171 H Lactate Calcium 9.9 Total Bilirubin 0.8 AST 61 H ALT 58 H Alkaline Phosphatase 86 Total Protein 8.2 Albumin 4.8 Globulin 3.4 Albumin/Globulin Ratio 1.4 Procalcitonin 0.93 H 09/21/18 09/21/18 09/22/18 18:50 21:15 05:03 WBC 25.8 H RBC 4.47 Hgb 13.3 Hct 39.6 MCV 88.7 MCH 29.9 MCHC 33.7 RDW 13.6 Plt Count 248 Neut % (Auto) Not Reportable Lymph % (Auto) Not Reportable [place] % (Auto) Not Reportable Eos % (Auto) Not Reportable Baso % (Auto) Not Reportable Neut # (Auto) Lymph # (Auto) Not Reportable [place] # (Auto) Not Reportable Eos # (Auto) Baso # (Auto) Not Reportable Total Counted 100 Seg Neutrophils % 72.0 H Band Neutrophils % 5.0 Lymphocytes % (Manual) 11.0 L Atypical Lymphs % 2.0 H Monocytes % (Manual) 10.0 Neutrophils # (Manual) 77600 H RBC Morphology Normal morphology Sodium Potassium Chloride Carbon Dioxide BUN Creatinine Estimated GFR BUN/Creatinine Ratio Glucose Lactate 2.7 H 3.1 H Calcium Total Bilirubin AST ALT Alkaline Phosphatase Total Protein Albumin Globulin Albumin/Globulin Ratio Procalcitonin 09/22/18 05:03 WBC RBC Hgb Hct MCV MCH MCHC RDW Plt Count Neut % (Auto) Lymph % (Auto) [place] % (Auto) Eos % (Auto) Baso % (Auto) Neut # (Auto) Lymph # (Auto) [place] # (Auto) Eos # (Auto) Baso # (Auto) Total Counted Seg Neutrophils % Band Neutrophils % Lymphocytes % (Manual) Atypical Lymphs % Monocytes % (Manual) Neutrophils # (Manual) RBC Morphology Sodium 139 Potassium 2.8 L Chloride 105 Carbon Dioxide 25 BUN 19 H Creatinine 0.90 Estimated GFR > 60.0 BUN/Creatinine Ratio 21.1 Glucose 121 H Lactate Calcium 8.6 Total Bilirubin AST ALT Alkaline Phosphatase Total Protein Albumin Globulin Albumin/Globulin Ratio Procalcitonin Labs reviewed as above of concern is her white count went up from yesterday. Remainder of labs normal except she has a potassium of 2.8 cheese will be replaced intravenously. Assessment & Plan Assessment & Plan narrative: 1. Cellulitis of the left arm with pre-existing lymphedema and recurrent cellulitis. Patient has had elevated white count and fever. She does not appear to have issues with sepsis. Primary seem to be localized cellulitis. Discussed with pharmacist about Keflex verses as clindamycin will stay with Kefzol. 2. Pre-existing lymphedema. 3. Pre-existing hyperlipidemia stable. 4. Pre-existing hypertension will withhold her diuretic for the time being as she has hypokalemia. 5. Hypokalemia was to be secondary to her medications. 6. History of left breast cancer. 7. Anticipate another 24 hours of intravenous antibiotics discharge presumably tomorrow on Keflex yet to be determined if her white count goes up then we will change antibiotics Quality VTE Deep Vein Thrombosis/Pulmonary Embolism Present on Admission: No
[2018-09-22] MEDS: POTASSIUM CHLORIDE 60 MEQ in SODIUM CHLORIDE 0.9% 500 ML 88.333 ML IV (11:29)
[2018-09-22] MEDS: ENOXAPARIN 40 MG/0.4 ML SYRINGE SUBCUT (11:29)
--- NOTE | 2018-09-22 16:35 | PC.NURSE ---
Alt skin integrity: Pt reports this is the second time she has had cellulitis. She reports it is taking longer to clear this time then the last time. Lt arm is still swollen and and warm, not overtly red however. Pt reports her arm feels heavy. Denies need of pain meds. Radial pulse present. Lots of family has visited and she has enjoyed them being with her. Cont w/poc.
--- NOTE | 2018-09-22 18:35 | PC.NURSE ---
Evening note: Cindy awake, Ox3, in good spirits, visiting with family. VS stable, RA oxygen 97% Good appetite tonight. Lab came to draw Potassium but her K+ rider is still infusing, about 30 ml to infuse. mri ct tech said she would plan to come back at 1900. Left arm swollen and red, no open wound or drainage observed. RAC IV intact & infusing with no difficutly. Will wait until K+ done before infusing antibiotic (due now) as to not delay potassium or lab draw. Riddhi ambulated to , voided, missing hat. Back to bed. Pt denies current needs/concerns. Encouraged call button use & fall precautions are in place.
[2018-09-22 19:36] LABS: HEMOLYSIS < 15 (0-50); Potassium 3.8 mmol/L (3.4-5.1)
[2018-09-22] MEDS: ZOLPIDEM 5 MG TABLET PO (23:51)
[2018-09-23] VITALS (7 sets, daily range): BP systolic 123–146; BP diastolic 54–71; PULSE 70–75; RESP 16–19; TEMP 36.7–37; O2SAT 92–95
[2018-09-23] MEDS: SODIUM CHLORIDE 0.9% 1,000 ML 125 ML IV (00:50)
[2018-09-23 05:47] LABS: Add Manual Diff / Slide Review NO; Basophils Absolute Auto 100 /uL (0-100); Basophils Percent Auto 0.8 % (0-2); Eosinophils Absolute Auto 0 /uL (0-450); Eosinophils Percent Auto 0.2 % (2-4); Hematocrit 39.3 % (36-46); Hemoglobin 13.1 g/dL (12.0-16.0); Lymphocytes Absolute Auto 3000 /uL (1100-4500); Lymphocytes Percent Auto 17.6 % (25-40); Mean Corpuscular HGB Conc 33.2 % (30-36); Mean Corpuscular Hemoglobin 29.7 PG (26-34); Mean Corpuscular Volume 89.4 fL (80-100); Monocytes Absolute Auto 1600 /uL (0-900); Monocytes Percent Auto 9.4 % (3-14); Neutrophils Absolute Auto 12500 /uL (1500-7000); Platelet Count 230 X10^3/uL (150-400); Red Cell Distribution Width 13.4 % (11.6-14.8); White Blood Cell Count 17.3 X10^3/uL (4.5-11.0)
[2018-09-23] MEDS: CEFAZOLIN 1 GM/50 ML FROZ.PIGGY IV ×3 (05:54→18:32)
[2018-09-23 06:02] LABS: Blood Urea Nitrogen 18 mg/dL (7-17); Calcium 8.5 mg/dL (8.4-10.2); Carbon Dioxide 22 mmol/L (22-32); Chloride 110 mmol/L (98-107); Estimated Glomerular Filt Rate > 60.0 mL/min (>60); Glucose 111 mg/dL (80-110); HEMOLYSIS < 15 (0-50); Potassium 3.6 mmol/L (3.4-5.1); Sodium 140 mmol/L (137-145)
[2018-09-23] MEDS: LEVOTHYROXINE 100 MCG TABLET PO (06:36)
[2018-09-23] MEDS: AMLODIPINE 5 MG TABLET PO (08:55)
[2018-09-23] MEDS: ENOXAPARIN 40 MG/0.4 ML SYRINGE SUBCUT (08:55)
[2018-09-23] MEDS: ASPIRIN EC 81 MG TABLET PO (08:55)
[2018-09-23] MEDS: SIMVASTATIN 20 MG TABLET PO (08:56)
--- NOTE | 2018-09-23 09:54 | PM.PN.1 ---
Subjective Date Patient Seen: 09/23/18 Time Patient Seen: 09:54 Interval history: Cellulitis. Patient feeling better still has some discomfort. Normally she has no discomfort. Additionally left arm is somewhat softer but still has some hard areas in the distal forearm. The redness has decreased. Normally she has no redness. Overall the left arm has improved but has not quite returned to an expected result. Exam Vital Signs (past 8 hours): - 09/23/18 05:00 09/23/18 07:20 Temperature 98.3 F 98.6 F Pulse Rate 70 71 Respiratory Rate 16 16 Blood Pressure 129/57 L 123/61 Pulse Oximetry 92 93 Oxygen Delivery Method Room Air Oxygen Flow Rate 0 Narrative Exam Narrative: Left arm is examined. There is decreased redness decreased erythema the entire arm still some persistence in the distal forearm. Palpation of they are met tender of the forearm the upper arms nontender upper arm is soft the forearm is still moderately tense she has good pulses and appears normal otherwise as per usual. Objective Labs Result Diagrams: 09/23/18 05:26 09/23/18 05:26 Labs: Laboratory Results - last 24 hr 09/22/18 09/23/18 09/23/18 19:15 05:26 05:26 WBC 17.3 H RBC 4.40 Hgb 13.1 Hct 39.3 MCV 89.4 MCH 29.7 MCHC 33.2 RDW 13.4 Plt Count 230 Neut % (Auto) 72.0 Lymph % (Auto) 17.6 L [place] % (Auto) 9.4 Eos % (Auto) 0.2 L Baso % (Auto) 0.8 Neut # (Auto) 39045 H Lymph # (Auto) 3000 [place] # (Auto) 1600 H Eos # (Auto) 0 Baso # (Auto) 100 Sodium 140 Potassium 3.8 3.6 Chloride 110 H Carbon Dioxide 22 BUN 18 H Creatinine 0.90 Estimated GFR > 60.0 BUN/Creatinine Ratio 20.0 Glucose 111 H Calcium 8.5 white count is noted decreased still elevated. Her potassium has normalized Assessment & Plan Assessment & Plan narrative: 1. Left arm cellulitis has improved responding to IV antibiotics. Would benefit from another 24 hours of intravenous antibiotics and then placed on p.o. Keflex and she is discharged tomorrow. Temperature has been normal. Her white count has improved exam general exam has improved but felt like another day of parental antibiotics would be appropriate. 2. Hypokalemia is resolved have discontinued her diuretic. Quality VTE Deep Vein Thrombosis/Pulmonary Embolism Present on Admission: No
--- NOTE | 2018-09-23 16:02 | PC.NURSE ---
Tissue impairment: Lt arm remains swollen and sl pink. Pt thinks it does feel softer and not so heavy. She is moving her arm easier. Has been up in room w/sba and no unsteadiness seen. WBC is improving and that makes her happy. Arm is sl tender but denies need for pain medication. Cont w/poc.
[2018-09-23] MEDS: SODIUM CHLORIDE 0.9% FLUSH 10 ML IV (19:00)
--- NOTE | 2018-09-23 19:40 | PC.NURSE ---
Addendum entered by Bernice Turner R.N. 09/23/18 23:36: No concerns or complaints verbalized this shift. Pt was given ambien for sleep per request. Original Note: Multiple family members present with pt in pt's room. Pt denies pain. Erythema and edema to LUE. Strong tobacco dipper to left hand and palpable radial pulse. IV antibiotic infused as per emar without difficulty. Encouraged to call for needs.
[2018-09-23] MEDS: ZOLPIDEM 5 MG TABLET PO (21:45)
[2018-09-24] VITALS: BP 140/59; PULSE 72; RESP 26; TEMP 36.8; O2SAT 92
[2018-09-24] MEDS: SODIUM CHLORIDE 0.9% FLUSH 10 ML IV ×2 (00:01→09:23)
[2018-09-24 00:57] VITALS: O2SAT 92
[2018-09-24 05:25] VITALS: BP 134/80; PULSE 78; RESP 19; TEMP 36.6; O2SAT 97
[2018-09-24] MEDS: CEFAZOLIN 1 GM/50 ML FROZ.PIGGY IV ×2 (05:44)
[2018-09-24] MEDS: LEVOTHYROXINE 100 MCG TABLET PO (05:49)
[2018-09-24 07:44] VITALS: BP 136/65; PULSE 73; RESP 15; TEMP 36.6; O2SAT 93
[2018-09-24 07:48] VITALS: O2SAT 93
--- NOTE | 2018-09-24 08:27 | PM.DS.1 ---
History of Present Illness Date Patient Seen: 09/24/18 Time Patient Seen: 08:30 Chief complaint: right abd pain/n&v/lt arm edema/fever today Narrative: Patient admitted last night through the ER for left arm cellulitis. Patient was basically well on she was well Monday morning. She developed chills later in the afternoon. And left arm became swollen red and painful. She also vomited. relates she was sort of confused mentally. She was brought to the emergency room last night found to have swollen left arm consistent with cellulitis and admitted. Patient has history of breast cancer on the left. She has history of chronic lymphedema left arm. Also history of recurrent cellulitis left arm she would be she may have had cellulitis of left arm perhaps up to 8 times. Last episode was 3 years ago which time she treated with oral Keflex and the issue went away. She has only been admitted for left arm cellulitis 1st time which was several years ago. Patient is morning has no nausea at the pain left arms decrease the redness decreased but still present has not resolved. Otherwise patient feels well. Otherwise patient has been healthy. {from Dr. Garcia's H&P, 09/22/18} Discharge Providers Date of admission: 09/21/18 20:12 Discharge Date: 09/24/18 Primary care physician: Wayne Steen MD Discharge provider: Wayne Steen MD Summary Discharge Diagnosis: 1. Cellulitis 2. Lymphedema left arm status post mastectomy with lymph node dissection 3. Personal history breast cancer, status post left mastectomy with lymph node dissection left arm 4. Acquired hypothyroidism 5. Hypertension 6. Acute hypokalemia Hospital Course: Patient was admitted after presenting quite ill from her infection which was felt to be due to cellulitis in her arm. She is experience multiple their episodes of similar likely related to her prior lymph node dissection and persistent lymphedema She was placed on IV antibiotics and had rapid improvement in her clinical symptoms. She initially had a low-grade fever and had no further fevers. White count was initially quite elevated but this was improving during the course for hospitalization By the day of discharge the erythema was completely gone. The discomfort was not completely gone but almost. Patient will continue on oral antibiotics as an outpatient to complete 1 weeks additional therapy beyond the IV antibiotics Patient is also minimally hypokalemic upon admission. This was corrected via additional supplementation, and had normalized prior to discharge Patient be seen in clinic in about 1 week following discharge as well Patient's other medical issues were stable no evidence of complication she will continue her usual medications Status at Discharge Cognitive/behavioral status at discharge: at baseline, oriented Functional status at discharge: independent ambulation Overall status at discharge: patient is progressing back to baseline Exam Vital Signs (past 8 hours): - 09/24/18 00:57 09/24/18 05:25 09/24/18 07:44 Temperature 98 F 97.9 F Pulse Rate 78 73 Respiratory Rate 19 15 Blood Pressure 134/80 136/65 Pulse Oximetry 92 97 93 09/24/18 07:48 Temperature Pulse Rate Respiratory Rate Blood Pressure Pulse Oximetry 93 Oxygen Delivery Method Room Air Oxygen Flow Rate 0 Objective Labs Result Diagrams: 09/23/18 05:26 09/23/18 05:26 Discharge Plan Discharge Plan Patient Disposition: Home Discharge Med Rec/Prescriptions Prescriptions: Continued simvastatin [Zocor] 40 mg tablet 20 mg PO Q DAY Qty: 45 RF: 3 levothyroxine 100 mcg tablet 100 mcg PO QAM Qty: 90 RF: 3 zolpidem [Ambien] 10 mg tablet 10 mg PO HSP PRN (Reason: insomnia) Qty: 30 RF: 0 aspirin [Adult Low Dose Aspirin] 81 mg tablet,delayed release (DR/EC) 81 mg PO DAILY RF: 0 cholecalciferol (vitamin D3) 2,000 unit capsule 4,000 unit PO DAILY RF: 0 triamterene-hydrochlorothiazid 37.5-25 mg tablet 1 tab PO Q OTHER DAY RF: 0 amlodipine 5 mg tablet 5 mg PO DAILY Qty: 30 RF: 6 Changed cephalexin 500 mg capsule 500 mg PO QID Qty: 28 RF: 0 Follow up/Referrals: Wayne Steen MD [Primary Care Provider] - 1 Week Provider Discharge Instructions Diet: Diet as Tolerated Skin/Wound/Dressing Care Report to your healthcare provider any signs of infection, such as:: chills, fever, night sweats, increased pain and unusual redness Discharge Data Primary Care Provider: Wayne Steen Attending Provider: Wayne Steen Admit Date/Time: 09/21/18 20:12 Quality VTE Deep Vein Thrombosis/Pulmonary Embolism Present on Admission: No
[2018-09-24] MEDS: ASPIRIN EC 81 MG TABLET PO (09:25)
[2018-09-24] MEDS: AMLODIPINE 5 MG TABLET PO (09:25)
[2018-09-24] MEDS: SIMVASTATIN 20 MG TABLET PO (09:37)
[2018-09-24] MEDS: TRIAMTERENE/HCTZ 37.5/25 TABLET 1 CAP PO (09:37)
--- NOTE | 2018-09-24 09:53 | PC.NURSE ---
Discharge: IV dc'd intact. Reviewed all d/c instructions thoroughly with patient and family. She already has PO Cephalexin at home and understands to take it QID (for as long as Dr Steen told her to take it). Given follow up info and s/sx to call MD with if they arise prior to follow up. Patient verbalized understanding of d/c info and stated no further questions. All personal belongings sent with patient. Taken out to private vehicle via wheelchair by nursing staff.
--- NOTE | 2018-09-24 12:38 | CM.DPC ---
DCP: note: case received today and discussed in Team Rounds. By end of rounds a d/c order had been put in and pt had already left for home/see BOUBACAR Espinal's note.
== END 2018-09-24 09:57 | disposition home or self-care (01) | DRG 603 ==
LOC: ED 20:00 → AC 20:44
PROVIDERS: Family Medicine; Admitting Provider Internal Medicine; Emergency Provider Emergency Medicine; PCP Internal Medicine; Visit Provider Internal Medicine
DX: L03.114 Cellulitis of left upper limb (principal); I97.2 Postmastectomy lymphedema syndrome; E87.6 Hypokalemia; I12.9 Hypertensive chronic kidney disease with stage 1 through stage 4 chronic kidney disease, or unspecified chronic kidney disease; N18.3 Chronic kidney disease, stage 3 (moderate); E03.9 Hypothyroidism, unspecified; E78.5 Hyperlipidemia, unspecified
CPT/HCPCS: 36415; 36591; 71045; 80048; 80053; 83605; 84132; 84145; 85025; 87040; 93005; 93971; 96365; 99284; J1650; J3480

== ENCOUNTER → 2018-11-01 08:54 | Outpatient (CLI) | payer MEDICARE, OTHER, SELFPAY ==
[2018-09-24 08:46] VITALS: BMI 25.7
--- NOTE | 2018-11-01 | DI.MG.S_ITS ---
BILATERAL DIGITAL SCREENING MAMMOGRAM 3D/2D WITH CAD POST LUMPECTOMY: 11/01/2018 CLINICAL: Routine screening. Personal history of left breast cancer. Comparison is made to exams dated: 10/02/2017 mammogram, 08/26/2016 mammogram, and 12/29/2014 mammogram - [facility]. There are scattered fibroglandular elements in both breasts. Current study was also evaluated with a Computer Aided Detection (CAD) system. There are benign calcifications in both breasts. There also are benign post operative findings in the left breast. No significant masses, calcifications, or other findings are seen in either breast. There has been no significant interval change. IMPRESSION: There is no mammographic evidence of malignancy. A 1 year screening mammogram is recommended. This exam was interpreted at Station ID: [id number]. NOTE: For mammograms, a report in lay terms will be sent to the patient. Approximately 15% of breast malignancies will not be visualized mammographically. In the management of a palpable breast mass, a negative mammogram must not discourage biopsy of a clinically suspicious lesion. Electronically Signed By: Rainer siddiqui/florentino:11/01/2018 12:17:40 letter sent: Normal Exam ACR BI-RADS Category 2: Benign Finding(s) 3342F
== END ==
PROVIDERS: PCP Internal Medicine; Visit Provider Internal Medicine
DX: Z12.31 Encounter for screening mammogram for malignant neoplasm of breast (principal); Z85.3 Personal history of malignant neoplasm of breast
CPT/HCPCS: 77063; 77067

== ENCOUNTER 2018-11-21 09:24 | Day surgery (SDC) | payer MEDICARE, OTHER, SELFPAY ==
[2018-09-24 08:46] VITALS: BMI 25.7
--- NOTE | 2018-11-17 13:51 | PM.PREOP ---
Pre-operative Note Interval Note History & Physical reviewed/Exam performed by Physician: Yes Changes to H&P: No
--- NOTE | 2018-11-17 13:51 | PM.OP.1 ---
Operative Date/Time/Diagnoses Date of procedure: 11/21/18 Time of procedure: 10:45 Procedure & Clinicians Procedure: Preoperative diagnoses: 1. Right nuclear sclerotic and cortical cataract. 2. Graves disease. 3. Hypertension. 4. Post treatment for breast cancer 5. Long-term extended contact lens wear use. Postoperative diagnoses: 1. Right cataract removed by phacoemulsification with placement of posterior chamber intraocular lens Procedure: Phacoemulsification with posterior chamber intraocular lens implant Surgeon: Claudette Ardon MD Complications: none Specimen: None Implant: ZCBOO+17.5 Blood loss: None Anesthesia: Retrobulbar with monitored standby Description of procedure: Patient presents with a complaint of decreased vision due to cataract which is affecting activities of daily living. She has problems driving and her has reduced vision. The patient wants surgery to improve vision. The patient was taken to the operating room and given IV sedation. A retrobulbar block consisting of 6 cc of 2% xylocaine without epinephrine mixed half and half with 0.5% Marcaine with 1 cc of hyaluronidase added is placed between the medial and lateral 1/3 of the inferior orbital rim. The eye is manually massaged for 30 sec, prepped using Betadine solution, and draped in the usual sterile fashion. Temporal approach was made, a 1 mm side-port incision was made 90? from the proposed clear corneal incision position. Phenylephrine 1.5% mixed with 1% xylocaine 0.2 cc was placed into the anterior chamber. Viscoat followed by Healon was then placed. A 2.6 mm clear incision with a 2.6 mm blade was placed. She did have persistent ooze from a pannus peripheral capillary due to extended contact lens use. This remained during the case but did not impede surgery. A 360 degree capsulorrhexis style capsulotomy was then performed with a cystitome needle on a Healon. Hydrodelineation and hydrodissection were performed. The phacoemulsification unit is introduced, and sculpting notice used to groove the central lens. It is then removed in chopping mode. Epi nucleus is removed with epinuclear mode and irrigation aspiration was used to remove the peripheral cortex. The posterior capsule is polished. The intraocular lens is selected, inspected, power confirmed, and placed in the posterior chamber. The wound was stromally hydrated and tested for leaks, there was none and it was left sutureless. Vigamox 0.1 cc was placed into the anterior chamber. Kenalog 0.2 cc was placed in the superior subconjunctival space. A drop of antibiotic and was placed and the eye was patched and shielded. The patient was stable and returned to the recovery room in excellent condition. Dictated by: Claudette Ardon MD Copy to: [facility]
[2018-11-21] MEDS: PROPARACAINE 0.5% OPHTH SOL 2 DROPS EYE-OP (09:55)
[2018-11-21] MEDS: CATARACT EYE COMPOUND (10 DROPS/SYRINGE) 3 DROPS EYE-OP (09:58)
[2018-11-21 10:00] VITALS: BP 155/72; PULSE 67; RESP 20; TEMP 36.2; O2SAT 97
[2018-11-21 10:13] VITALS: BMI 25.2
[2018-11-21] MEDS: ERYTHROMYCIN OPHTH 1 GM OINT 1 APPLIC EYE-RIGHT (11:31)
[2018-11-21] MEDS: PHENYLEPHRINE/LIDOCAINE VIAL (OR) 0.2 ML EYE-OP (11:31)
[2018-11-21] MEDS: TRIAMCINOLONE 50 MG/5 ML VIAL INJ (11:31)
[2018-11-21] MEDS: HYALURONATE SODIUM 10 MG/ML SYRINGE INJ (11:32)
[2018-11-21] MEDS: CHONDROIDTIN/SOD HYALURONATE 1.05 ML SYRINGE INTRAOCULA (11:32)
[2018-11-21] MEDS: BALANCED SALT IRRIG SOLN NO.2 500 ML, EPINEPHrine 1 MG IRR (11:33)
[2018-11-21] MEDS: LIDOCAINE 2% 4 ML, BUPIVACAINE 0.5% (PF) 4 ML, HYALURONIDASE 150 UNIT INJ (11:33)
[2018-11-21] MEDS: MOXIFLOXACIN INJ 5 MG/ML VIAL EYE-OP (11:34)
[2018-11-21 12:04] VITALS: BP 156/64; PULSE 66; RESP 15; TEMP 36.1; O2SAT 99
== END 2018-11-21 12:18 | disposition home or self-care (01) ==
LOC: OR 09:25
PROVIDERS: PCP Internal Medicine; Visit Provider Ophthalmology
PROC: (CPT 66984; principal; 2018-11-21 10:45)
DX: H25.811 Combined forms of age-related cataract, right eye (principal); E05.00 Thyrotoxicosis with diffuse goiter without thyrotoxic crisis or storm; I10 Essential (primary) hypertension
CPT/HCPCS: 66984; J0171; J2704; J3301; J3470

== ENCOUNTER → 2019-11-20 08:19 | Outpatient (CLI) | payer MEDICARE, OTHER, SELFPAY ==
[2018-09-24 08:46] VITALS: BMI 25.7
--- NOTE | 2019-11-20 | DI.MG.S_ITS ---
BILATERAL DIGITAL SCREENING MAMMOGRAM 3D/2D WITH CAD POST LUMPECTOMY: 11/20/2019 CLINICAL: Routine screening. Personal history of left breast cancer. Comparison is made to exams dated: 11/01/2018 mammogram, 10/02/2017 mammogram, and 08/26/2016 mammogram - [facility]. There are scattered fibroglandular elements in both breasts. Current study was also evaluated with a Computer Aided Detection (CAD) system. There are benign calcifications in both breasts. There also are benign post operative findings in the left breast. No significant masses, calcifications, or other findings are seen in either breast. There has been no significant interval change. IMPRESSION: BENIGN There is no mammographic evidence of malignancy. A 1 year screening mammogram is recommended. This exam was interpreted at Station ID: [id number]. NOTE: For mammograms, a report in lay terms will be sent to the patient. Approximately 15% of breast malignancies will not be visualized mammographically. In the management of a palpable breast mass, a negative mammogram must not discourage biopsy of a clinically suspicious lesion. Electronically Signed By: Son Sands M.D., jr/florentino:11/20/2019 08:55:04 letter sent: Normal Exam ACR BI-RADS Category 2: Benign Finding(s) 3342F
== END ==
PROVIDERS: PCP Internal Medicine; Referring Provider Internal Medicine; Visit Provider Internal Medicine
DX: Z12.31 Encounter for screening mammogram for malignant neoplasm of breast (principal); Z85.3 Personal history of malignant neoplasm of breast
CPT/HCPCS: 77063; 77067

== ENCOUNTER → 2019-11-29 09:41 | Outpatient (CLI) | payer MEDICARE, OTHER, SELFPAY ==
[2018-09-24 08:46] VITALS: BMI 25.7
[2019-11-29 10:58] LABS: Erythrocyte Sedimentation Rate 1 MM/HR (0-20)
[2019-11-29 11:03] LABS: Alanine Aminotransferase 61 IU/L (<35); Albumin 4.5 g/dL (3.5-5.0); Albumin Globulin Ratio 1.4 (1.0-2.8); Alkaline Phosphatase 88 U/L (38-126); Aspartate Aminotransferase 73 IU/L (14-36); BUN Creatinine Ratio 25.6 (6-22); Bilirubin Total 0.6 mg/dL (0.2-1.3); Bilirubin Unconjugated 0.4 mg/dL (0.0-1.1); Blood Urea Nitrogen 31 mg/dL (7-17); Calcium 10.1 mg/dL (8.4-10.2); Carbon Dioxide 27 mmol/L (22-32); Chloride 105 mmol/L (98-107); Cholesterol 172 mg/dL (140-199); Estimated Glomerular Filt Rate 42.6 mL/min (>60); Globulin 3.2 g/dL (1.7-4.1); Glucose 107 mg/dL (80-110); HDL Cholesterol 36 mg/dL (40-60); HEMOLYSIS < 15 (0-50); LDL Cholesterol Calculated 69 mg/dL (<100); Potassium 3.6 mmol/L (3.4-5.1); Sodium 142 mmol/L (137-145); Total Protein 7.7 g/dL (6.3-8.2); Triglycerides 334 mg/dL (35-150)
[2019-11-29 11:05] LABS: C-Reactive Protein Quant < 0.5 mg/dL (<1.0)
[2019-11-29 12:03] LABS: Free T4, Direct Thyroxine 1.34 ng/dL (0.78-2.19)
[2019-11-29 12:17] LABS: Thyroid Stimulating Hormone 7.26 uIU/mL (0.47-4.68)
== END ==
PROVIDERS: PCP Internal Medicine; Referring Provider Internal Medicine; Visit Provider Internal Medicine
DX: E03.9 Hypothyroidism, unspecified (principal); E78.00 Pure hypercholesterolemia, unspecified; I10 Essential (primary) hypertension; N18.30 Chronic kidney disease, stage 3 unspecified; R94.5 Abnormal results of liver function studies
CPT/HCPCS: 36415; 80048; 80061; 80076; 84439; 84443; 85651; 86140

== ENCOUNTER 2020-02-19 09:00 | Outpatient (RCR) | payer MEDICARE, OTHER, SELFPAY ==
[2018-09-24 08:46] VITALS: BMI 25.7
--- NOTE | 2019-12-26 18:13 | PT.OIE ---
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) Breast cancer, left breast (Resolved 1998) Decreased vision (Chronic) H/O malignant neoplasm of breast (Chronic) Hypercholesteremia (Chronic) Hypertension (Chronic) Hypothyroidism (Chronic) Hypothyroidism (acquired) (Chronic 12/22/10) Insomnia (Chronic) Lymphedema of upper extremity (Chronic 10/16/14) Stage 3 chronic kidney disease (Chronic) 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 Hadley Mckeon DPM Attending Provider Physician Referring Provider Specialty: Podiatry Address: [address] [place] [address], [id number] Email: [email or web address] [facility] Initial Evaluation PT-OP-A Visit Information Start: 12/25/19 15:35 Freq: Status: Active Protocol: Document 12/26/19 11:05 [facility] (Rec: 12/26/19 12:12 [facility] [id number]) Out-Patient Physical Therapy Visit Information Visit Information Visit Type Initial Evaluation Visit Note 03/01 Visit Start Time 11:25 Visit Stop Time 12:00 Total Visit Minutes 35 Visit Number 1 Number of FIELD INVESTIGATOR Visits 0 PT-OP-B Current Condition Start: 12/25/19 15:35 Freq: Status: Active Protocol: Document 12/26/19 11:05 [facility] (Rec: 12/26/19 12:12 [facility] [id number]) Current Condition History of Current Condition Current Complaints gait issues, balance dec History of Current Condition Pt thinks she has a little neuropathy d/t toes numb. Pt saw MD d/t thinking she had plantar fasicitis but it was better by the time seeing the doctor. After seeing MD, pt noted B heel pain after. Pt lives at [facility] so meals and cleaning are taken care of. Sp treprots in general activity is dec d/t laziness' and lack of things going on d/t COVID. reports she does wobble around sometimes. pt reprots heel pain is intermittent. She noted pain during the night in heels. 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 Pt reports sometimes feels like clouds up there (referring to head). Pt does feel like balance is getting a little worse w/wobbling when walking. Pt reports she plays cards with family in high chair and dgt is always concerned about her balance when getting up. Treatment Goals Patient/Caregiver Goals Feel confident with mobility, be able to have greater ease with lower body dressing Personal Factors Other Personal Factors That May Effect back and foot pain, neck pain, Therapy/Recovery dizziness, possible TIAs PT-OP-C Subjective Start: 12/25/19 15:35 Freq: Status: Active Protocol: Document 12/26/19 11:05 [facility] (Rec: 12/26/19 12:12 [facility] [id number]) OP-PT Pain Assessment Location LBP Pain Location Details lumbar region Intensity 4 Scale Used Numeric (0 - 10) Description- Other stiff Frequency Intermittent Other Pain Aggravating Factors staying still and starting moving again Other Pain Alleviating Factors moving around B heel pain Pain Location Details post heel Intensity 4 Scale Used Numeric (0 - 10) Description- Other a couple episodes where pain was bad enough shoe could not be put on Frequency Occasional Other Pain Aggravating Factors get up at night Other Pain Alleviating Factors salve for arthritis PT-OP-D Balance Start: 12/25/19 15:35 Freq: Status: Active Protocol: Document 12/26/19 11:05 [facility] (Rec: 12/26/19 12:12 [facility] [id number]) Balance Tests Robles Balance Test Robles Balance Test Score 44/56 Robles Impairment Rating 20 to 39% Impaired (Score 34- 44) PT-OP-E Functional Tests Start: 12/25/19 15:35 Freq: Status: Active Protocol: Document 12/26/19 11:05 [facility] (Rec: 12/26/19 12:12 [facility] [id number]) Functional Tests 30 Second Sit to Stand Test Score 7 Comments rod chair Dynamic Gait Index (DGI) Score 17/24 DGI Impairment Rating 20 to <40% Impaired (Score 15- 19) Five Times Sit to Stand Test Score 20 sec Comments rod chair Functional Gait Assessment Score 17/30 Functional Gait Assessment Impairment 40 to <60% Impaired (Score 13- Rating 18) PT-OP-G Mobility & Gait Start: 12/25/19 15:35 Freq: Status: Active Protocol: Document 12/26/19 11:05 [facility] (Rec: 12/26/19 12:12 [facility] [id number]) OP Gait Assessment Comments Gait Comments Pt amb with some lat lean w/ occasional vearing off course PT-OP-M Strength Start: 12/25/19 15:35 Freq: Status: Active Protocol: Document 12/26/19 11:05 [facility] (Rec: 12/26/19 12:12 [facility] [id number]) Hip Strength Hip Manual Muscle Testing Right Flexion (L2) 3+ Fair+ Extension (S1) 4 Good External Rotation 4 Good Internal Rotation 4- Good- Left Flexion (L2) 3+ Fair+ Abduction 4- Good- External Rotation 4- Good- Internal Rotation 4 Good Knee Strength Knee Manual Muscle Testing Right Flexion (S2) 5 Normal Extension (L3) 4+ Good+ Left Flexion (S2) 5 Normal Extension (L3) 4+ Good+ Ankle/Foot Strength Ankle and Foot Manual Muscle Testing Right Dorsiflexion (L4) 4 Good Left Dorsiflexion (L4) 4 Good PT-OP-T Assessment and Plan Start: 12/25/19 15:35 Freq: Status: Active Protocol: Document 12/26/19 11:05 [facility] (Rec: 12/26/19 12:12 [facility] [id number]) Physical Therapy Assessment Rehab Potential Rehabilitation Potential Good Evaluation Complexity Number of Personal Factors/Comorbidities 3 or More Number of Body Systems Impaired 4 or More Clinical Presentation at Evaluation Evolving Impairments Impairments Activity Tolerance,Balance, Functional Activities, Functional Mobility,Gait,Pain, Posture,ROM,Soft Tissue Mobility,Strength Goals activities Intermediate Goal (LTG) Pt will report no difficulty with lower body dressing. LTG Duration 02/25/20 strength Short Term Goal (STG) Pt will be indep with HEP STG Duration 01/25/20 Nocturnist Physician Goal (LTG) pt will score at least 4+/5 in all planes of LE MMT to show improved strength in order to give pt more confidence and stability with all of her mobility. LTG Duration 02/25/20 ROBLES Nocturnist Physician Goal (LTG) Pt will improve score to 50/56 to show less liekly to fall in outdoors and community ambulation w/o AD. LTG Duration 02/25/20 balance Short Term Goal (STG) Pt will improve DGI to score of at least 20 to show low risk for falls. STG Duration 01/25/20 Nocturnist Physician Goal (LTG) Pt will improve FGA to 23/30 to show low risk for falls LTG Duration 02/25/20 sit to stand Short Term Goal (STG) Pt will improve 30 sec sit to stand test to able to do 10 in 30 sec. STG Duration 01/25/20 Intermediate Goal (LTG) Pt will be able to do 5x sit to stand test in less than 12 sec to dec risk for falls and show improvement in functional ability LTG Duration 02/25/20 Assessment Summary Assessment Pt presents with intermittent LBP and B foot pain,which MD referred pt for gait training & balance d/t this potentially being the cause of pain. She does show signs of dec balance and dec overall strengtha nd flexibiltiy which likely contributes to pain and pt's c /o feeling wobbly at times. She shows risk for falls based on DGI, ROBLES and FGA and has less than norm average w/sit to stand testing. Pt would benefit from skilled PT to address these deficits. Physical Therapy Plan Frequency and Duration Frequency of Treatment 2x/Week Duration of Treatment 2 months Plan of Care Start Date 12/26/19 Plan of Care End Date 02/25/20 Therapeutic Interventions Therapeutic Interventions Aquatic Therapy,Balance Training,Gait Training,Home Exercise Program,Joint Mobilizations,Manual Therapy, Neuromuscular Re-education, Patient/Caregiver Education, Self-Care/Home Management,Soft Tissue Mobilization,Taping, Therapeutic Activities, Therapeutic Exercises Modalities Cold Pack/Ice Massage,Hot Packs Next Visit Focus/Plan Next Note Type Treatment Note Next Visit Plan set up HEP (standing hip abd, ext, sit to stands, marches by counter or other hip strengthening in pt prefered position), balance exercises, stepper
--- NOTE | 2019-12-26 18:13 | PT.OPPOC ---
Physical, Occupational & Speech Therapy At [facility] Current Diagnoses Low back pain (12/26/19) Pain in right foot (12/26/19) Pain in left foot (12/26/19) Difficulty in walking, not elsewhere classified (12/26/19) Other symptoms and signs involving the nervous system (12/26/19) Weakness (12/26/19) Visit Care Team Role Provider Type Wayne Steen MD Primary Care Provider Physician Specialty: Internal Medicine Address: [address] [place] [address], [address], [address] Email: [email or web address] Hadley Mckeon DPM Attending Provider Physician Referring Provider Specialty: Podiatry Address: [address] [place] [address], [id number] Email: [email or web address] Plan Of Care PT-OP-T Assessment and Plan Start: 12/25/19 15:35 Freq: Status: Active Protocol: Document 12/26/19 11:05 [facility] (Rec: 12/26/19 12:12 [facility] [id number]) Physical Therapy Assessment Rehab Potential Rehabilitation Potential Good Evaluation Complexity Number of Personal Factors/Comorbidities 3 or More Number of Body Systems Impaired 4 or More Clinical Presentation at Evaluation Evolving Impairments Impairments Activity Tolerance,Balance, Functional Activities, Functional Mobility,Gait,Pain, Posture,ROM,Soft Tissue Mobility,Strength Goals activities Residential Goal (LTG) Pt will report no difficulty with lower body dressing. LTG Duration 02/25/20 strength Short Term Goal (STG) Pt will be indep with HEP STG Duration 01/25/20 Glue Maker Goal (LTG) pt will score at least 4+/5 in all planes of LE MMT to show improved strength in order to give pt more confidence and stability with all of her mobility. LTG Duration 02/25/20 ROBLES Residential Goal (LTG) Pt will improve score to 50/56 to show less liekly to fall in outdoors and community ambulation w/o AD. LTG Duration 02/25/20 balance Short Term Goal (STG) Pt will improve DGI to score of at least 20 to show low risk for falls. STG Duration 01/25/20 Glue Maker Goal (LTG) Pt will improve FGA to 23/30 to show low risk for falls LTG Duration 02/25/20 sit to stand Short Term Goal (STG) Pt will improve 30 sec sit to stand test to able to do 10 in 30 sec. STG Duration 01/25/20 Glue Maker Goal (LTG) Pt will be able to do 5x sit to stand test in less than 12 sec to dec risk for falls and show improvement in functional ability LTG Duration 02/25/20 Assessment Summary Assessment Pt presents with intermittent LBP and B foot pain,which MD referred pt for gait training & balance d/t this potentially being the cause of pain. She does show signs of dec balance and dec overall strengtha nd flexibiltiy which likely contributes to pain and pt's c /o feeling wobbly at times. She shows risk for falls based on DGI, ROBLES and FGA and has less than norm average w/sit to stand testing. Pt would benefit from skilled PT to address these deficits. Physical Therapy Plan Frequency and Duration Frequency of Treatment 2x/Week Duration of Treatment 2 months Plan of Care Start Date 12/26/19 Plan of Care End Date 02/25/20 Therapeutic Interventions Therapeutic Interventions Aquatic Therapy,Balance Training,Gait Training,Home Exercise Program,Joint Mobilizations,Manual Therapy, Neuromuscular Re-education, Patient/Caregiver Education, Self-Care/Home Management,Soft Tissue Mobilization,Taping, Therapeutic Activities, Therapeutic Exercises Modalities Cold Pack/Ice Massage,Hot Packs Next Visit Focus/Plan Next Note Type Treatment Note Next Visit Plan set up HEP (standing hip abd, ext, sit to stands, marches by counter or other hip strengthening in pt prefered position), balance exercises, stepper Plan of Care Dates Plan of Care Start Date 12/26/19 Plan of Care End Date 02/25/20 Electronically Signed by: Tasha Lagos, PT 12/26/19 [id number] Please Sign and Return: I have reviewed this Plan of Care and certify that the skilled therapy services above are required to meet the patient?s needs. Physician Signature Date Printed Name and Credentials Clinical Instructor Signature Printed Name and Credentials
--- NOTE | 2019-12-30 10:34 | PT.OTN ---
Current Diagnoses Low back pain (12/30/19) Pain in right foot (12/30/19) Pain in left foot (12/30/19) Difficulty in walking, not elsewhere classified (12/30/19) Other symptoms and signs involving the nervous system (12/30/19) Weakness (12/30/19) Physical Therapy Treatment Note PT-OP-A Visit Information Start: 12/25/19 15:35 Freq: Status: Active Protocol: Document 12/30/19 10:20 MA (Rec: 12/30/19 10:34 MA [id number]) Out-Patient Physical Therapy Visit Information Visit Information Visit Type Treatment Note Visit Start Time 09:28 Visit Stop Time 10:15 Total Visit Minutes 47 Visit Number 2 Number of PROFESSIONAL POKER PLAYER Visits 1 PT-OP-B Current Condition Start: 12/25/19 15:35 Freq: Status: Active Protocol: Document 12/26/19 11:05 [facility] (Rec: 12/26/19 12:12 [facility] [id number]) Current Condition History of Current Condition Current Complaints gait issues, balance dec History of Current Condition Pt thinks she has a little neuropathy d/t toes numb. Pt saw MD d/t thinking she had plantar fasicitis but it was better by the time seeing the doctor. After seeing MD, pt noted B heel pain after. Pt lives at [facility] so meals and cleaning are taken care of. Sp treprots in general activity is dec d/t laziness' and lack of things going on d/t COVID. reports she does wobble around sometimes. pt reprots heel pain is intermittent. She noted pain during the night in heels. 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 Pt reports sometimes feels like clouds up there (referring to head). Pt does feel like balance is getting a little worse w/wobbling when walking. Pt reports she plays cards with family in high chair and dgt is always concerned about her balance when getting up. Treatment Goals Patient/Caregiver Goals Feel confident with mobility, be able to have greater ease with lower body dressing Personal Factors Other Personal Factors That May Effect back and foot pain, neck pain, Therapy/Recovery dizziness, possible TIAs PT-OP-C Subjective Start: 12/25/19 15:35 Freq: Status: Active Protocol: Document 12/30/19 10:20 MA (Rec: 12/30/19 10:34 MA [id number]) OP-PT Subjective Patient Comments Patient Comments Pt has felt lightheaded this morning. She reports trying to walk with her friend over the weekend but after 4 blocks she was too tired and dizzy to continue. Pt states that she used to go to the pool several times a week to work out and feels like since covid happened and the pool closed, she has gotten more out of shape. PT-OP-D Balance Start: 12/25/19 15:35 Freq: Status: Active Protocol: Document 12/26/19 11:05 [facility] (Rec: 12/26/19 12:12 [facility] [id number]) Balance Tests Robles Balance Test Robles Balance Test Score 44/56 Robles Impairment Rating 20 to 39% Impaired (Score 34- 44) PT-OP-E Functional Tests Start: 12/25/19 15:35 Freq: Status: Active Protocol: Document 12/26/19 11:05 [facility] (Rec: 12/26/19 12:12 [facility] [id number]) Functional Tests 30 Second Sit to Stand Test Score 7 Comments rod chair Dynamic Gait Index (DGI) Score 17/24 DGI Impairment Rating 20 to <40% Impaired (Score 15- 19) Five Times Sit to Stand Test Score 20 sec Comments rod chair Functional Gait Assessment Score 17/30 Functional Gait Assessment Impairment 40 to <60% Impaired (Score 13- Rating 18) PT-OP-G Mobility & Gait Start: 12/25/19 15:35 Freq: Status: Active Protocol: Document 12/26/19 11:05 [facility] (Rec: 12/26/19 12:12 [facility] [id number]) OP Gait Assessment Comments Gait Comments Pt amb with some lat lean w/ occasional vearing off course PT-OP-M Strength Start: 12/25/19 15:35 Freq: Status: Active Protocol: Document 12/26/19 11:05 [facility] (Rec: 12/26/19 12:12 [facility] [id number]) Hip Strength Hip Manual Muscle Testing Right Flexion (L2) 3+ Fair+ Extension (S1) 4 Good External Rotation 4 Good Internal Rotation 4- Good- Left Flexion (L2) 3+ Fair+ Abduction 4- Good- External Rotation 4- Good- Internal Rotation 4 Good Knee Strength Knee Manual Muscle Testing Right Flexion (S2) 5 Normal Extension (L3) 4+ Good+ Left Flexion (S2) 5 Normal Extension (L3) 4+ Good+ Ankle/Foot Strength Ankle and Foot Manual Muscle Testing Right Dorsiflexion (L4) 4 Good Left Dorsiflexion (L4) 4 Good PT-OP-Q Treatments Start: 12/25/19 15:35 Freq: Status: Active Protocol: Document 12/30/19 10:20 MA (Rec: 12/30/19 10:34 MA [id number]) Cardio Equipment Recumbent Elliptical (Biodex) Duration (Minutes) 6 Resistance 5 Seat Position 6 Therapeutic Exercises Supine Exercises Piriformis Stretch Side bilateral Reps/Minutes 60 sec sher Comments Tightness L>R Oscar Stretch Side bilateral Reps/Minutes 60 sec sher Bridges Reps/Minutes 2x8 Comments during second set had hip pain and could not continue Prone Exercises Quad Stretch Prone Exercise Name Passive quad stretch by PROFESSIONAL POKER PLAYER Side bilateral Comments L quad is significantly tighter than R Sidelying Exercises Clamshell Side bilateral Reps/Minutes 2x8 each side Comments Left side had mild hip pain which decreased when decreasing ROM Standing Exercises Extension Standing Exercise Name Hip Ext. Side bilateral Reps/Minutes 2x8 Comments Cues to avoid flexing forward Abduction Standing Exercise Name Hip ABD Side bilateral Equipment Used Holding chair back Reps/Minutes 2x8 each side Comments cues to avoid lateral lean Self-Care/Home Management Treatment Education Other Education Added clamshells, hip ext & ABD, oscra stretch, and piriformis stretch to HEP PT-OP-T Assessment and Plan Start: 12/25/19 15:35 Freq: Status: Active Protocol: Document 12/30/19 10:20 MA (Rec: 12/30/19 10:34 MA [id number]) Physical Therapy Assessment Goals activities Buttermaker Helper Goal (LTG) Pt will report no difficulty with lower body dressing. LTG Duration 02/25/20 strength Short Term Goal (STG) Pt will be indep with HEP STG Duration 01/25/20 Halfway Goal (LTG) pt will score at least 4+/5 in all planes of LE MMT to show improved strength in order to give pt more confidence and stability with all of her mobility. LTG Duration 02/25/20 ROBLES Buttermaker Helper Goal (LTG) Pt will improve score to 50/56 to show less liekly to fall in outdoors and community ambulation w/o AD. LTG Duration 02/25/20 balance Short Term Goal (STG) Pt will improve DGI to score of at least 20 to show low risk for falls. STG Duration 01/25/20 Buttermaker Helper Goal (LTG) Pt will improve FGA to 23/30 to show low risk for falls LTG Duration 02/25/20 sit to stand Short Term Goal (STG) Pt will improve 30 sec sit to stand test to able to do 10 in 30 sec. STG Duration 01/25/20 Buttermaker Helper Goal (LTG) Pt will be able to do 5x sit to stand test in less than 12 sec to dec risk for falls and show improvement in functional ability LTG Duration 02/25/20 Assessment Summary Assessment Pt had minor sher hip pain stating it is most likely due to her arthritis and L knee pain over anterior patella. Passive quad stretch showed tightness in L>R. Due to pt feeling light headed, most of session was spent supine. Added hip ext, abd, clamshells , oscar stretch, and piriformis stretch to HEP Physical Therapy Plan Frequency and Duration Frequency of Treatment 2x/Week Duration of Treatment 2 months Plan of Care Start Date 12/26/19 Plan of Care End Date 02/25/20 Therapeutic Interventions Therapeutic Interventions Aquatic Therapy,Balance Training,Gait Training,Home Exercise Program,Joint Mobilizations,Manual Therapy, Neuromuscular Re-education, Patient/Caregiver Education, Self-Care/Home Management,Soft Tissue Mobilization,Taping, Therapeutic Activities, Therapeutic Exercises Modalities Cold Pack/Ice Massage,Hot Packs Next Visit Focus/Plan Next Note Type Treatment Note Next Visit Plan Review HEP; try marches, balance activities, and continue stretching to decrease L knee pain
--- NOTE | 2020-01-03 10:30 | PT.OTN ---
Current Diagnoses Low back pain (01/03/20) Pain in right foot (01/03/20) Pain in left foot (01/03/20) Difficulty in walking, not elsewhere classified (01/03/20) Other symptoms and signs involving the nervous system (01/03/20) Weakness (01/03/20) Physical Therapy Treatment Note PT-OP-A Visit Information Start: 12/25/19 15:35 Freq: Status: Active Protocol: Document 01/03/20 09:56 MA (Rec: 01/03/20 10:45 MA [id number]) Out-Patient Physical Therapy Visit Information Visit Information Visit Type Treatment Note Visit Start Time 09:52 Visit Stop Time 10:30 Total Visit Minutes 38 Visit Number 3 Number of ASSURANCE AUDITOR Visits 2 PT-OP-B Current Condition Start: 12/25/19 15:35 Freq: Status: Active Protocol: Document 12/26/19 11:05 [facility] (Rec: 12/26/19 12:12 [facility] [id number]) Current Condition History of Current Condition Current Complaints gait issues, balance dec History of Current Condition Pt thinks she has a little neuropathy d/t toes numb. Pt saw MD d/t thinking she had plantar fasicitis but it was better by the time seeing the doctor. After seeing MD, pt noted B heel pain after. Pt lives at [facility] so meals and cleaning are taken care of. Sp treprots in general activity is dec d/t laziness' and lack of things going on d/t COVID. reports she does wobble around sometimes. pt reprots heel pain is intermittent. She noted pain during the night in heels. 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 Pt reports sometimes feels like clouds up there (referring to head). Pt does feel like balance is getting a little worse w/wobbling when walking. Pt reports she plays cards with family in high chair and dgt is always concerned about her balance when getting up. 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 When asked about pain today, pt says she always has aches and pains but nothing new to report. Pt had stitches taken out of thumb but says hand stitches are actually disolvable so they did no ttake them out PT-OP-D Balance Start: 12/25/19 15:35 Freq: Status: Active Protocol: Document 12/26/19 11:05 [facility] (Rec: 12/26/19 12:12 [facility] [id number]) Balance Tests Robles Balance Test Robles Balance Test Score 44/56 Robles Impairment Rating 20 to 39% Impaired (Score 34- 44) PT-OP-E Functional Tests Start: 12/25/19 15:35 Freq: Status: Active Protocol: Document 12/26/19 11:05 [facility] (Rec: 12/26/19 12:12 [facility] [id number]) Functional Tests 30 Second Sit to Stand Test Score 7 Comments rod chair Dynamic Gait Index (DGI) Score 17/24 DGI Impairment Rating 20 to <40% Impaired (Score 15- 19) Five Times Sit to Stand Test Score 20 sec Comments rod chair Functional Gait Assessment Score 17/30 Functional Gait Assessment Impairment 40 to <60% Impaired (Score 13- Rating 18) PT-OP-G Mobility & Gait Start: 12/25/19 15:35 Freq: Status: Active Protocol: Document 12/26/19 11:05 [facility] (Rec: 12/26/19 12:12 [facility] [id number]) OP Gait Assessment Comments Gait Comments Pt amb with some lat lean w/ occasional vearing off course PT-OP-M Strength Start: 12/25/19 15:35 Freq: Status: Active Protocol: Document 12/26/19 11:05 [facility] (Rec: 12/26/19 12:12 [facility] [id number]) Hip Strength Hip Manual Muscle Testing Right Flexion (L2) 3+ Fair+ Extension (S1) 4 Good External Rotation 4 Good Internal Rotation 4- Good- Left Flexion (L2) 3+ Fair+ Abduction 4- Good- External Rotation 4- Good- Internal Rotation 4 Good Knee Strength Knee Manual Muscle Testing Right Flexion (S2) 5 Normal Extension (L3) 4+ Good+ Left Flexion (S2) 5 Normal Extension (L3) 4+ Good+ Ankle/Foot Strength Ankle and Foot Manual Muscle Testing Right Dorsiflexion (L4) 4 Good Left Dorsiflexion (L4) 4 Good PT-OP-Q Treatments Start: 12/25/19 15:35 Freq: Status: Active Protocol: Document 01/03/20 09:56 MA (Rec: 01/03/20 10:45 MA [id number]) Cardio Equipment Recumbent Elliptical (Biodex) Duration (Minutes) 6 Resistance 5 Seat Position 6 Other 434 Therapeutic Exercises Supine Exercises Oscar Stretch Side bilateral Reps/Minutes 60 sec sher Standing Exercises Marches Reps/Minutes x20 Comments increased discomfort in L ant. hip Extension Standing Exercise Name Hip Ext. Side bilateral Reps/Minutes 2x10 Comments Cues to avoid flexing forward, decreased ROM on L due to P Abduction Standing Exercise Name Hip ABD Side bilateral Equipment Used Holding chair back Reps/Minutes 2x10 each side Comments cues to avoid lateral lean Manual Therapy Treatment Soft Tissue Mobilization Quads Body Location L Quad Mobilization Type Myofascial Release,Sustained Pressure,Trigger Point Release Intensity/Depth Moderate Body Position Supine PT-OP-T Assessment and Plan Start: 12/25/19 15:35 Freq: Status: Active Protocol: Document 01/03/20 09:56 MA (Rec: 01/03/20 10:45 MA [id number]) Physical Therapy Assessment Goals activities Usp Goal (LTG) Pt will report no difficulty with lower body dressing. LTG Duration 02/25/20 strength Short Term Goal (STG) Pt will be indep with HEP STG Duration 01/25/20 Usp Goal (LTG) pt will score at least 4+/5 in all planes of LE MMT to show improved strength in order to give pt more confidence and stability with all of her mobility. LTG Duration 02/25/20 ROBLES Usp Goal (LTG) Pt will improve score to 50/56 to show less liekly to fall in outdoors and community ambulation w/o AD. LTG Duration 02/25/20 balance Short Term Goal (STG) Pt will improve DGI to score of at least 20 to show low risk for falls. STG Duration 01/25/20 Usp Goal (LTG) Pt will improve FGA to 23/30 to show low risk for falls LTG Duration 02/25/20 sit to stand Short Term Goal (STG) Pt will improve 30 sec sit to stand test to able to do 10 in 30 sec. STG Duration 01/25/20 Machine Assembler Supervisor Goal (LTG) Pt will be able to do 5x sit to stand test in less than 12 sec to dec risk for falls and show improvement in functional ability LTG Duration 02/25/20 Assessment Summary Assessment Pt had anterior hip pain left during standing exercises today and needed verbal cues not to forward flex trunk. After STM, pt had some relief. Added rolling pin self manipulaton to HEP. Physical Therapy Plan Frequency and Duration Frequency of Treatment 2x/Week Duration of Treatment 2 months Plan of Care Start Date 12/26/19 Plan of Care End Date 02/25/20 Therapeutic Interventions Therapeutic Interventions Aquatic Therapy,Balance Training,Gait Training,Home Exercise Program,Joint Mobilizations,Manual Therapy, Neuromuscular Re-education, Patient/Caregiver Education, Self-Care/Home Management,Soft Tissue Mobilization,Taping, Therapeutic Activities, Therapeutic Exercises Modalities Cold Pack/Ice Massage,Hot Packs Next Visit Focus/Plan Next Note Type Treatment Note Next Visit Plan Review HEP, work on balance activities, continue STM to quads to decrease L knee pain
--- NOTE | 2020-01-09 16:50 | PT.OTN ---
Current Diagnoses Low back pain (01/09/20) Pain in right foot (01/09/20) Pain in left foot (01/09/20) Difficulty in walking, not elsewhere classified (01/09/20) Other symptoms and signs involving the nervous system (01/09/20) Weakness (01/09/20) Physical Therapy Treatment Note PT-OP-A Visit Information Start: 12/25/19 15:35 Freq: Status: Active Protocol: Document 01/09/20 16:08 [facility] (Rec: 01/09/20 16:50 [facility] [id number]) Out-Patient Physical Therapy Visit Information Visit Information Visit Type Treatment Note Visit Start Time 16:06 Visit Stop Time 16:45 Total Visit Minutes 39 Visit Number 4 Number of FORESTRY FIRE AID Visits 0 PT-OP-B Current Condition Start: 12/25/19 15:35 Freq: Status: Active Protocol: Document 12/26/19 11:05 [facility] (Rec: 12/26/19 12:12 [facility] [id number]) Current Condition History of Current Condition Current Complaints gait issues, balance dec History of Current Condition Pt thinks she has a little neuropathy d/t toes numb. Pt saw MD d/t thinking she had plantar fasicitis but it was better by the time seeing the doctor. After seeing MD, pt noted B heel pain after. Pt lives at [facility] so meals and cleaning are taken care of. Sp treprots in general activity is dec d/t laziness' and lack of things going on d/t COVID. reports she does wobble around sometimes. pt reprots heel pain is intermittent. She noted pain during the night in heels. 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 Pt reports sometimes feels like clouds up there (referring to head). Pt does feel like balance is getting a little worse w/wobbling when walking. Pt reports she plays cards with family in high chair and dgt is always concerned about her balance when getting up. Treatment Goals Patient/Caregiver Goals Feel confident with mobility, be able to have greater ease with lower body dressing Personal Factors Other Personal Factors That May Effect back and foot pain, neck pain, Therapy/Recovery dizziness, possible TIAs PT-OP-C Subjective Start: 12/25/19 15:35 Freq: Status: Active Protocol: Document 01/09/20 16:08 [facility] (Rec: 01/09/20 16:50 [facility] [id number]) OP-PT Subjective Patient Comments Patient Comments I may not be your most compliant patient PT-OP-D Balance Start: 12/25/19 15:35 Freq: Status: Active Protocol: Document 12/26/19 11:05 [facility] (Rec: 12/26/19 12:12 [facility] [id number]) Balance Tests Robles Balance Test Robles Balance Test Score 44/56 Robles Impairment Rating 20 to 39% Impaired (Score 34- 44) PT-OP-E Functional Tests Start: 12/25/19 15:35 Freq: Status: Active Protocol: Document 12/26/19 11:05 [facility] (Rec: 12/26/19 12:12 [facility] [id number]) Functional Tests 30 Second Sit to Stand Test Score 7 Comments rod chair Dynamic Gait Index (DGI) Score 17/24 DGI Impairment Rating 20 to <40% Impaired (Score 15- 19) Five Times Sit to Stand Test Score 20 sec Comments rod chair Functional Gait Assessment Score 17/30 Functional Gait Assessment Impairment 40 to <60% Impaired (Score 13- Rating 18) PT-OP-G Mobility & Gait Start: 12/25/19 15:35 Freq: Status: Active Protocol: Document 12/26/19 11:05 [facility] (Rec: 12/26/19 12:12 [facility] [id number]) OP Gait Assessment Comments Gait Comments Pt amb with some lat lean w/ occasional vearing off course PT-OP-M Strength Start: 12/25/19 15:35 Freq: Status: Active Protocol: Document 12/26/19 11:05 [facility] (Rec: 12/26/19 12:12 [facility] [id number]) Hip Strength Hip Manual Muscle Testing Right Flexion (L2) 3+ Fair+ Extension (S1) 4 Good External Rotation 4 Good Internal Rotation 4- Good- Left Flexion (L2) 3+ Fair+ Abduction 4- Good- External Rotation 4- Good- Internal Rotation 4 Good Knee Strength Knee Manual Muscle Testing Right Flexion (S2) 5 Normal Extension (L3) 4+ Good+ Left Flexion (S2) 5 Normal Extension (L3) 4+ Good+ Ankle/Foot Strength Ankle and Foot Manual Muscle Testing Right Dorsiflexion (L4) 4 Good Left Dorsiflexion (L4) 4 Good PT-OP-Q Treatments Start: 12/25/19 15:35 Freq: Status: Active Protocol: Document 01/09/20 16:08 [facility] (Rec: 01/09/20 16:50 [facility] [id number]) Cardio Equipment Recumbent Elliptical (Biodex) Duration (Minutes) 6 Resistance 5-6 Seat Position 6 Gym Equipment Shuttle Balance red clips Details fwd & side: WBOS & NBOS Therapeutic Exercises Supine Exercises Piriformis Stretch Side left Comments attempted but stopped d/t pain Standing Exercises stretch Standing Exercise Name hip flexor Side left Reps/Minutes 30 sec Marches Reps/Minutes x20 Extension Standing Exercise Name Hip Ext. Side bilateral Resistance rail Equipment Used L1 Reps/Minutes 2x10 Comments Cues to avoid flexing forward, decreased ROM on L due to P Abduction Standing Exercise Name Hip ABD Side bilateral Equipment Used rail L1 Reps/Minutes 2x10 each side Comments cues to avoid lateral lean Manual Therapy Treatment Soft Tissue Mobilization glutes Body Location L Mobilization Type Rolling Intensity/Depth Moderate Body Position Sidelying Quads Body Location L Quad & ITB Mobilization Type Myofascial Release,Sustained Pressure,Trigger Point Release Intensity/Depth Moderate Body Position Supine Joint Mobilizations hip Joint L Direction inf glide Grade II PT-OP-T Assessment and Plan Start: 12/25/19 15:35 Freq: Status: Active Protocol: Document 01/09/20 16:08 [facility] (Rec: 01/09/20 16:50 [facility] [id number]) Physical Therapy Assessment Goals activities Custodial Goal (LTG) Pt will report no difficulty with lower body dressing. LTG Duration 02/25/20 strength Short Term Goal (STG) Pt will be indep with HEP STG Duration 01/25/20 Cognos Consultant Goal (LTG) pt will score at least 4+/5 in all planes of LE MMT to show improved strength in order to give pt more confidence and stability with all of her mobility. LTG Duration 02/25/20 ROBLES Cognos Consultant Goal (LTG) Pt will improve score to 50/56 to show less liekly to fall in outdoors and community ambulation w/o AD. LTG Duration 02/25/20 balance Short Term Goal (STG) Pt will improve DGI to score of at least 20 to show low risk for falls. STG Duration 01/25/20 Custodial Goal (LTG) Pt will improve FGA to 23/30 to show low risk for falls LTG Duration 02/25/20 sit to stand Short Term Goal (STG) Pt will improve 30 sec sit to stand test to able to do 10 in 30 sec. STG Duration 01/25/20 Cognos Consultant Goal (LTG) Pt will be able to do 5x sit to stand test in less than 12 sec to dec risk for falls and show improvement in functional ability LTG Duration 02/25/20 Assessment Summary Assessment Pt had improved hip ROM after manual treatment but still did have some pinching in L ant hip. Pt did better with exercise and was able to with better form today. Physical Therapy Plan Frequency and Duration Frequency of Treatment 2x/Week Duration of Treatment 2 months Plan of Care Start Date 12/26/19 Plan of Care End Date 02/25/20 Next Visit Focus/Plan Next Note Type Treatment Note Next Visit Plan work on balance activities, continue STM to quads to decrease L knee pain
--- NOTE | 2020-01-24 11:15 | PT.OTN ---
Current Diagnoses Low back pain (01/24/20) Pain in right foot (01/24/20) Pain in left foot (01/24/20) Difficulty in walking, not elsewhere classified (01/24/20) Other symptoms and signs involving the nervous system (01/24/20) Weakness (01/24/20) Physical Therapy Treatment Note PT-OP-A Visit Information Start: 12/25/19 15:35 Freq: Status: Active Protocol: Document 01/24/20 12:25 MA (Rec: 01/24/20 12:48 MA [email or web address]) Out-Patient Physical Therapy Visit Information Visit Information Visit Type Treatment Note Visit Start Time 10:30 Visit Stop Time 11:13 Total Visit Minutes 43 Visit Number 5 Number of GYM INSTRUCTOR Visits 1 PT-OP-B Current Condition Start: 12/25/19 15:35 Freq: Status: Active Protocol: Document 12/26/19 11:05 [facility] (Rec: 12/26/19 12:12 [facility] [id number]) Current Condition History of Current Condition Current Complaints gait issues, balance dec History of Current Condition Pt thinks she has a little neuropathy d/t toes numb. Pt saw MD d/t thinking she had plantar fasicitis but it was better by the time seeing the doctor. After seeing MD, pt noted B heel pain after. Pt lives at [facility] so meals and cleaning are taken care of. Sp treprots in general activity is dec d/t laziness' and lack of things going on d/t COVID. reports she does wobble around sometimes. pt reprots heel pain is intermittent. She noted pain during the night in heels. 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 Pt reports sometimes feels like clouds up there (referring to head). Pt does feel like balance is getting a little worse w/wobbling when walking. Pt reports she plays cards with family in high chair and dgt is always concerned about her balance when getting up. Treatment Goals Patient/Caregiver Goals Feel confident with mobility, be able to have greater ease with lower body dressing Personal Factors Other Personal Factors That May Effect back and foot pain, neck pain, Therapy/Recovery dizziness, possible TIAs PT-OP-C Subjective Start: 12/25/19 15:35 Freq: Status: Active Protocol: Document 01/24/20 12:25 MA (Rec: 01/24/20 12:48 MA [email or web address]) OP-PT Subjective Patient Comments Patient Comments Pt states she has not been doing HEP at home and had a sore throat earlier this week which is why she had to cancel , but she is feeling better now. She fell off her bed but was able to get back up from royer floor. She got down to the floor once and had a lot of trouble getting herself back up-had to use fridge to pull up. PT-OP-D Balance Start: 12/25/19 15:35 Freq: Status: Active Protocol: Document 12/26/19 11:05 [facility] (Rec: 12/26/19 12:12 [facility] [id number]) Balance Tests Robles Balance Test Robles Balance Test Score 44/56 Robles Impairment Rating 20 to 39% Impaired (Score 34- 44) PT-OP-E Functional Tests Start: 12/25/19 15:35 Freq: Status: Active Protocol: Document 01/24/20 12:25 MA (Rec: 01/24/20 12:48 MA [email or web address]) Functional Tests 30 Second Sit to Stand Test Score 8 Comments L knee pain reported Dynamic Gait Index (DGI) Score 17/24 PT-OP-G Mobility & Gait Start: 12/25/19 15:35 Freq: Status: Active Protocol: Document 12/26/19 11:05 [facility] (Rec: 12/26/19 12:12 [facility] [id number]) OP Gait Assessment Comments Gait Comments Pt amb with some lat lean w/ occasional vearing off course PT-OP-M Strength Start: 12/25/19 15:35 Freq: Status: Active Protocol: Document 12/26/19 11:05 [facility] (Rec: 12/26/19 12:12 [facility] [id number]) Hip Strength Hip Manual Muscle Testing Right Flexion (L2) 3+ Fair+ Extension (S1) 4 Good External Rotation 4 Good Internal Rotation 4- Good- Left Flexion (L2) 3+ Fair+ Abduction 4- Good- External Rotation 4- Good- Internal Rotation 4 Good Knee Strength Knee Manual Muscle Testing Right Flexion (S2) 5 Normal Extension (L3) 4+ Good+ Left Flexion (S2) 5 Normal Extension (L3) 4+ Good+ Ankle/Foot Strength Ankle and Foot Manual Muscle Testing Right Dorsiflexion (L4) 4 Good Left Dorsiflexion (L4) 4 Good PT-OP-Q Treatments Start: 12/25/19 15:35 Freq: Status: Active Protocol: Document 01/24/20 12:25 MA (Rec: 01/24/20 12:48 MA [email or web address]) Cardio Equipment Recumbent Elliptical (Biodex) Duration (Minutes) 6 Resistance 4 Seat Position 6 Other 474 Therapeutic Exercises Supine Exercises Oscar Stretch Side left Reps/Minutes 60 sec sher Comments pain in L hip-discont. from HEP Prone Exercises Quad Stretch Prone Exercise Name Passive quad stretch by GYM INSTRUCTOR Side bilateral Reps/Minutes 60 sec Comments Added to HEP instead of Oscar stretch with assist Standing Exercises stretch Standing Exercise Name gastroc stretch Side bilateral Reps/Minutes 2x30 sec Comments help with plantar fascia tightness Manual Therapy Treatment Soft Tissue Mobilization Quads Body Location L Quad & ITB Mobilization Type Myofascial Release,Sustained Pressure,Trigger Point Release Intensity/Depth Moderate Body Position Supine Neuro Re-Education Treatment Balance Activities Airex Details SLS, Double leg eyes open/ closed Surface airex Reps/Duration 2x30 sec SL, 60 sec double leg Comments moderate sway with EC and increased difficulty standing on LLE>RLE. Self-Care/Home Management Treatment Education Patient Education Home Exercise Program,Pain Management Other Education educated pt on importance of HEP and exercise at home. Pt admits she has not been doing anything at home and tends to sit all day. Educated pt on standing gastroc stretch. PT-OP-T Assessment and Plan Start: 12/25/19 15:35 Freq: Status: Active Protocol: Document 01/24/20 12:25 MA (Rec: 01/24/20 12:48 MA [email or web address]) Physical Therapy Assessment Goals activities Longterm Goal (LTG) Pt will report no difficulty with lower body dressing. LTG Duration 02/25/20 strength Short Term Goal (STG) Pt will be indep with HEP 01/24/20- pt is not compliant with HEP exercises STG Duration 01/25/20 Longterm Goal (LTG) pt will score at least 4+/5 in all planes of LE MMT to show improved strength in order to give pt more confidence and stability with all of her mobility. LTG Duration 02/25/20 ROBLES Longterm Goal (LTG) Pt will improve score to 50/56 to show less liekly to fall in outdoors and community ambulation w/o AD. LTG Duration 02/25/20 balance Short Term Goal (STG) Pt will improve DGI to score of at least 20 to show low risk for falls. 01/24/20-pt scored 17/20 on DGI showing she has maintained but not improved STG Duration 01/25/20 Esl Instructor Goal (LTG) Pt will improve FGA to 23/30 to show low risk for falls LTG Duration 02/25/20 sit to stand Short Term Goal (STG) Pt will improve 30 sec sit to stand test to able to do 10 in 30 sec. 01/25/2054-LMSCAQJMFIK-ly increased from 7 to 8 sit<> stands in 30 sec STG Duration 01/25/20 Longterm Goal (LTG) Pt will be able to do 5x sit to stand test in less than 12 sec to dec risk for falls and show improvement in functional ability LTG Duration 02/25/20 Assessment Summary Assessment Pt had increased LOB throughout session. She has been congested this week and stated that she has felt more off balance than usual. Educated pt on how congestion can sometimes affect balance and on the importance of doing HEP to increase strength, endurance, and balance. Pt scored the same on DGI as she did one month ago. Pt was able to increase sit<>stands to 8/ 10 in 30 seconds from 7/10 previously. Pt tends to have more difficulty balancing when turing head horizontally and when closing eyes. Added prone quad stretch with assisting to HEP and discontinued Oscar stretch due to pain. Pt would benefit from therapy to increase endurance and improve dynamic balance Physical Therapy Plan Frequency and Duration Frequency of Treatment 2x/Week Duration of Treatment 2 months Plan of Care Start Date 12/26/19 Plan of Care End Date 02/25/20 Therapeutic Interventions Therapeutic Interventions Aquatic Therapy,Balance Training,Gait Training,Home Exercise Program,Joint Mobilizations,Manual Therapy, Neuromuscular Re-education, Patient/Caregiver Education, Self-Care/Home Management,Soft Tissue Mobilization,Taping, Therapeutic Activities, Therapeutic Exercises Modalities Cold Pack/Ice Massage,Hot Packs Next Visit Focus/Plan Next Note Type Treatment Note Next Visit Plan Check how prone quad stretch with went. Continue working on dynamic balance activities and STM to quads
--- NOTE | 2020-01-30 10:40 | PT.OTN ---
Current Diagnoses Low back pain (01/30/20) Pain in right foot (01/30/20) Pain in left foot (01/30/20) Difficulty in walking, not elsewhere classified (01/30/20) Other symptoms and signs involving the nervous system (01/30/20) Weakness (01/30/20) Physical Therapy Treatment Note PT-OP-A Visit Information Start: 12/25/19 15:35 Freq: Status: Active Protocol: Document 01/30/20 09:11 [facility] (Rec: 01/30/20 10:40 [facility] [id number]) Out-Patient Physical Therapy Visit Information Visit Information Visit Type Treatment Note Visit Note 07/30 Visit Start Time 09:50 Visit Stop Time 10:30 Total Visit Minutes 40 Visit Number 6 Number of ENVELOPE PRESS OPERATOR Visits 0 PT-OP-B Current Condition Start: 12/25/19 15:35 Freq: Status: Active Protocol: Document 12/26/19 11:05 [facility] (Rec: 12/26/19 12:12 [facility] [id number]) Current Condition History of Current Condition Current Complaints gait issues, balance dec History of Current Condition Pt thinks she has a little neuropathy d/t toes numb. Pt saw MD d/t thinking she had plantar fasicitis but it was better by the time seeing the doctor. After seeing MD, pt noted B heel pain after. Pt lives at [facility] so meals and cleaning are taken care of. Sp treprots in general activity is dec d/t laziness' and lack of things going on d/t COVID. reports she does wobble around sometimes. pt reprots heel pain is intermittent. She noted pain during the night in heels. 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 Pt reports sometimes feels like clouds up there (referring to head). Pt does feel like balance is getting a little worse w/wobbling when walking. Pt reports she plays cards with family in high chair and dgt is always concerned about her balance when getting up. Treatment Goals Patient/Caregiver Goals Feel confident with mobility, be able to have greater ease with lower body dressing Personal Factors Other Personal Factors That May Effect back and foot pain, neck pain, Therapy/Recovery dizziness, possible TIAs PT-OP-C Subjective Start: 12/25/19 15:35 Freq: Status: Active Protocol: Document 01/30/20 09:11 [facility] (Rec: 01/30/20 10:40 [facility] [id number]) OP-PT Subjective Patient Comments Patient Comments Pt reprots quad stretch went well Patient Reported Progress Same PT-OP-D Balance Start: 12/25/19 15:35 Freq: Status: Active Protocol: Document 12/26/19 11:05 [facility] (Rec: 12/26/19 12:12 [facility] [id number]) Balance Tests Robles Balance Test Robles Balance Test Score 44/56 Robles Impairment Rating 20 to 39% Impaired (Score 34- 44) PT-OP-E Functional Tests Start: 12/25/19 15:35 Freq: Status: Active Protocol: Document 01/24/20 12:25 MA (Rec: 01/24/20 12:48 MA [email or web address]) Functional Tests 30 Second Sit to Stand Test Score 8 Comments L knee pain reported Dynamic Gait Index (DGI) Score 17/24 PT-OP-G Mobility & Gait Start: 12/25/19 15:35 Freq: Status: Active Protocol: Document 12/26/19 11:05 [facility] (Rec: 12/26/19 12:12 [facility] [id number]) OP Gait Assessment Comments Gait Comments Pt amb with some lat lean w/ occasional vearing off course PT-OP-M Strength Start: 12/25/19 15:35 Freq: Status: Active Protocol: Document 12/26/19 11:05 [facility] (Rec: 12/26/19 12:12 [facility] [id number]) Hip Strength Hip Manual Muscle Testing Right Flexion (L2) 3+ Fair+ Extension (S1) 4 Good External Rotation 4 Good Internal Rotation 4- Good- Left Flexion (L2) 3+ Fair+ Abduction 4- Good- External Rotation 4- Good- Internal Rotation 4 Good Knee Strength Knee Manual Muscle Testing Right Flexion (S2) 5 Normal Extension (L3) 4+ Good+ Left Flexion (S2) 5 Normal Extension (L3) 4+ Good+ Ankle/Foot Strength Ankle and Foot Manual Muscle Testing Right Dorsiflexion (L4) 4 Good Left Dorsiflexion (L4) 4 Good PT-OP-Q Treatments Start: 12/25/19 15:35 Freq: Status: Active Protocol: Document 01/30/20 09:11 [facility] (Rec: 01/30/20 10:40 [facility] [id number]) Cardio Equipment Recumbent Elliptical (Biodex) Duration (Minutes) 6 Resistance 7 Seat Position 6 Gym Equipment Shuttle Balance red clips Details fwd & side: WBOS & NBOS Therapeutic Exercises Standing Exercises Abduction Standing Exercise Name sidestep @rail Side bilateral Reps/Minutes 20ft Manual Therapy Treatment Soft Tissue Mobilization Quads Body Location L Quad medially along VMO & ITB Mobilization Type Myofascial Release,Sustained Pressure,Trigger Point Release Intensity/Depth Moderate Body Position Supine Neuro Re-Education Treatment Balance Activities staggered stance Details B Surface firm Reps/Duration EC & head turn trials head turns Details fwd walking w/horizontal & vertical head turns Reps/Duration 50ft x4 Airex Details SLS then WBOS & NBOS w/EC Surface conti foam PT-OP-T Assessment and Plan Start: 12/25/19 15:35 Freq: Status: Active Protocol: Document 01/30/20 09:11 [facility] (Rec: 01/30/20 10:40 [facility] [id number]) Physical Therapy Assessment Goals activities Assisted Goal (LTG) Pt will report no difficulty with lower body dressing. LTG Duration 02/25/20 strength Short Term Goal (STG) Pt will be indep with HEP 01/24/20- pt is not compliant with HEP exercises STG Duration 01/25/20 Assisted Goal (LTG) pt will score at least 4+/5 in all planes of LE MMT to show improved strength in order to give pt more confidence and stability with all of her mobility. LTG Duration 02/25/20 ROBLES Cold Press Operator Goal (LTG) Pt will improve score to 50/56 to show less liekly to fall in outdoors and community ambulation w/o AD. LTG Duration 02/25/20 balance Short Term Goal (STG) Pt will improve DGI to score of at least 20 to show low risk for falls. 01/24/20-pt scored 17/20 on DGI showing she has maintained but not improved STG Duration 01/25/20 Cold Press Operator Goal (LTG) Pt will improve FGA to 23/30 to show low risk for falls LTG Duration 02/25/20 sit to stand Short Term Goal (STG) Pt will improve 30 sec sit to stand test to able to do 10 in 30 sec. 01/25/2074-[id number] increased from 7 to 8 sit<> stands in 30 sec STG Duration 01/25/20 Cold Press Operator Goal (LTG) Pt will be able to do 5x sit to stand test in less than 12 sec to dec risk for falls and show improvement in functional ability LTG Duration 02/25/20 Assessment Summary Assessment Pt did well with activities today but is most challenged by uneven surfaces. She did well with staggered stance even w/EC & head turn trials but had more LOB during airex and balance board activities. Physical Therapy Plan Frequency and Duration Frequency of Treatment 2x/Week Duration of Treatment 2 months Plan of Care Start Date 12/26/19 Plan of Care End Date 02/25/20 Next Visit Focus/Plan Next Note Type Treatment Note Next Visit Plan work on balance activities, continue STM to quads to decrease L knee pain
--- NOTE | 2020-02-03 13:43 | PT.OTN ---
Current Diagnoses Low back pain (02/03/20) Pain in right foot (02/03/20) Pain in left foot (02/03/20) Difficulty in walking, not elsewhere classified (02/03/20) Other symptoms and signs involving the nervous system (02/03/20) Weakness (02/03/20) Physical Therapy Treatment Note PT-OP-A Visit Information Start: 12/25/19 15:35 Freq: Status: Active Protocol: Document 02/03/20 13:05 [facility] (Rec: 02/03/20 13:43 [facility] [id number]) Out-Patient Physical Therapy Visit Information Visit Information Visit Type Treatment Note Visit Note 08/29 Visit Start Time 13:00 Visit Stop Time 13:41 Total Visit Minutes 41 Visit Number 7 Number of ANIMAL CARE GIVER Visits 0 PT-OP-B Current Condition Start: 12/25/19 15:35 Freq: Status: Active Protocol: Document 12/26/19 11:05 [facility] (Rec: 12/26/19 12:12 [facility] [id number]) Current Condition History of Current Condition Current Complaints gait issues, balance dec History of Current Condition Pt thinks she has a little neuropathy d/t toes numb. Pt saw MD d/t thinking she had plantar fasicitis but it was better by the time seeing the doctor. After seeing MD, pt noted B heel pain after. Pt lives at [facility], [place] so meals and cleaning are taken care of. Sp treprots in general activity is dec d/t laziness' and lack of things going on d/t COVID. reports she does wobble around sometimes. pt reprots heel pain is intermittent. She noted pain during the night in heels. 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 Pt reports sometimes feels like clouds up there (referring to head). Pt does feel like balance is getting a little worse w/wobbling when walking. Pt reports she plays cards with family in high chair and dgt is always concerned about her balance when getting up. Treatment Goals Patient/Caregiver Goals Feel confident with mobility, be able to have greater ease with lower body dressing Personal Factors Other Personal Factors That May Effect back and foot pain, neck pain, Therapy/Recovery dizziness, possible TIAs PT-OP-C Subjective Start: 12/25/19 15:35 Freq: Status: Active Protocol: Document 02/03/20 13:05 [facility] (Rec: 02/03/20 13:43 [facility] [id number]) OP-PT Subjective Patient Comments Patient Comments Pt reports she feels like kaela has been getting her steps in d/t ahving to check in on brother in law down the [place] PT-OP-D Balance Start: 12/25/19 15:35 Freq: Status: Active Protocol: Document 12/26/19 11:05 [facility] (Rec: 12/26/19 12:12 [facility] [id number]) Balance Tests Robles Balance Test Robles Balance Test Score 44/56 Robles Impairment Rating 20 to 39% Impaired (Score 34- 44) PT-OP-E Functional Tests Start: 12/25/19 15:35 Freq: Status: Active Protocol: Document 01/24/20 12:25 MA (Rec: 01/24/20 12:48 MA [email or web address]) Functional Tests 30 Second Sit to Stand Test Score 8 Comments L knee pain reported Dynamic Gait Index (DGI) Score 17/24 PT-OP-G Mobility & Gait Start: 12/25/19 15:35 Freq: Status: Active Protocol: Document 12/26/19 11:05 [facility] (Rec: 12/26/19 12:12 [facility] [id number]) OP Gait Assessment Comments Gait Comments Pt amb with some lat lean w/ occasional vearing off course PT-OP-M Strength Start: 12/25/19 15:35 Freq: Status: Active Protocol: Document 12/26/19 11:05 [facility] (Rec: 12/26/19 12:12 [facility] [id number]) Hip Strength Hip Manual Muscle Testing Right Flexion (L2) 3+ Fair+ Extension (S1) 4 Good External Rotation 4 Good Internal Rotation 4- Good- Left Flexion (L2) 3+ Fair+ Abduction 4- Good- External Rotation 4- Good- Internal Rotation 4 Good Knee Strength Knee Manual Muscle Testing Right Flexion (S2) 5 Normal Extension (L3) 4+ Good+ Left Flexion (S2) 5 Normal Extension (L3) 4+ Good+ Ankle/Foot Strength Ankle and Foot Manual Muscle Testing Right Dorsiflexion (L4) 4 Good Left Dorsiflexion (L4) 4 Good PT-OP-Q Treatments Start: 12/25/19 15:35 Freq: Status: Active Protocol: Document 02/03/20 13:05 [facility] (Rec: 02/03/20 13:43 [facility] [id number]) Cardio Equipment Recumbent Elliptical (Biodex) Duration (Minutes) 6 Resistance 7 Seat Position 6 Gym Equipment Shuttle Balance red clips Comments fwd & side: WBOS & NBOS & wt shifts Therapeutic Exercises Standing Exercises Abduction Standing Exercise Name sidestep @rail Side bilateral Reps/Minutes 20ftx2 Manual Therapy Treatment Soft Tissue Mobilization Quads Body Location L Quad & ITB Mobilization Type Myofascial Release,Sustained Pressure,Trigger Point Release Intensity/Depth Moderate Body Position Supine Neuro Re-Education Treatment Balance Activities tandem Details stance B staggered stance Details B Surface firm Reps/Duration EC & head turn trials head turns Details fwd walking w/horizontal & vertical head turns Reps/Duration 50ft x4 Airex Details SLS then WBOS & NBOS w/EC Surface conti foam PT-OP-T Assessment and Plan Start: 12/25/19 15:35 Freq: Status: Active Protocol: Document 02/03/20 13:05 [facility] (Rec: 02/03/20 13:43 [facility] [id number]) Physical Therapy Assessment Goals activities Usp Goal (LTG) Pt will report no difficulty with lower body dressing. LTG Duration 02/25/20 strength Short Term Goal (STG) Pt will be indep with HEP 01/24/20- pt is not compliant with HEP exercises STG Duration 01/25/20 Production Aide Goal (LTG) pt will score at least 4+/5 in all planes of LE MMT to show improved strength in order to give pt more confidence and stability with all of her mobility. LTG Duration 02/25/20 ROBLES Production Aide Goal (LTG) Pt will improve score to 50/56 to show less liekly to fall in outdoors and community ambulation w/o AD. LTG Duration 02/25/20 balance Short Term Goal (STG) Pt will improve DGI to score of at least 20 to show low risk for falls. 01/24/20-pt scored 17/20 on DGI showing she has maintained but not improved STG Duration 01/25/20 Production Aide Goal (LTG) Pt will improve FGA to 23/30 to show low risk for falls LTG Duration 02/25/20 sit to stand Short Term Goal (STG) Pt will improve 30 sec sit to stand test to able to do 10 in 30 sec. 01/25/2098-[id number] increased from 7 to 8 sit<> stands in 30 sec STG Duration 01/25/20 Production Aide Goal (LTG) Pt will be able to do 5x sit to stand test in less than 12 sec to dec risk for falls and show improvement in functional ability LTG Duration 02/25/20 Assessment Summary Assessment Pt had pain mid balance exercises so did manual mid session which relieved her pain and she performed better with blaance. She does well on firm ground but still is challenged by uneven surfaces or with horizontal head turns with gait Physical Therapy Plan Frequency and Duration Frequency of Treatment 2x/Week Duration of Treatment 2 months Plan of Care Start Date 12/26/19 Plan of Care End Date 02/25/20 Next Visit Focus/Plan Next Note Type Treatment Note Next Visit Plan work on balance activities, continue STM to quads to decrease L knee pain
--- NOTE | 2020-02-05 10:40 | PT.OTN ---
Current Diagnoses Low back pain (02/05/20) Pain in right foot (02/05/20) Pain in left foot (02/05/20) Difficulty in walking, not elsewhere classified (02/05/20) Other symptoms and signs involving the nervous system (02/05/20) Weakness (02/05/20) Physical Therapy Treatment Note PT-OP-A Visit Information Start: 12/25/19 15:35 Freq: Status: Active Protocol: Document 02/05/20 09:53 [facility] (Rec: 02/05/20 10:40 [facility] [id number]) Out-Patient Physical Therapy Visit Information Visit Information Visit Type Treatment Note Visit Note 09/29 Visit Start Time 09:48 Visit Stop Time 10:28 Total Visit Minutes 40 Visit Number 8 Number of COMPUTER TECHNICAL SPECIALIST Visits 0 PT-OP-B Current Condition Start: 12/25/19 15:35 Freq: Status: Active Protocol: Document 12/26/19 11:05 [facility] (Rec: 12/26/19 12:12 [facility] [id number]) Current Condition History of Current Condition Current Complaints gait issues, balance dec History of Current Condition Pt thinks she has a little neuropathy d/t toes numb. Pt saw MD d/t thinking she had plantar fasicitis but it was better by the time seeing the doctor. After seeing MD, pt noted B heel pain after. Pt lives at [facility] so meals and cleaning are taken care of. Sp treprots in general activity is dec d/t laziness' and lack of things going on d/t COVID. reports she does wobble around sometimes. pt reprots heel pain is intermittent. She noted pain during the night in heels. 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 Pt reports sometimes feels like clouds up there (referring to head). Pt does feel like balance is getting a little worse w/wobbling when walking. Pt reports she plays cards with family in high chair and dgt is always concerned about her balance when getting up. Treatment Goals Patient/Caregiver Goals Feel confident with mobility, be able to have greater ease with lower body dressing Personal Factors Other Personal Factors That May Effect back and foot pain, neck pain, Therapy/Recovery dizziness, possible TIAs PT-OP-C Subjective Start: 12/25/19 15:35 Freq: Status: Active Protocol: Document 02/05/20 09:53 [facility] (Rec: 02/05/20 10:40 [facility] [id number]) OP-PT Subjective Patient Comments Patient Comments Pt reports L knee is givng her some trouble. She feels like seh should start using her cream she has at home PT-OP-D Balance Start: 12/25/19 15:35 Freq: Status: Active Protocol: Document 12/26/19 11:05 [facility] (Rec: 12/26/19 12:12 [facility] [id number]) Balance Tests Robles Balance Test Robles Balance Test Score 44/56 Robles Impairment Rating 20 to 39% Impaired (Score 34- 44) PT-OP-E Functional Tests Start: 12/25/19 15:35 Freq: Status: Active Protocol: Document 01/24/20 12:25 [facility] (Rec: 01/24/20 12:48 [facility] [id number]) Functional Tests 30 Second Sit to Stand Test Score 8 Comments L knee pain reported Dynamic Gait Index (DGI) Score 17/24 PT-OP-G Mobility & Gait Start: 12/25/19 15:35 Freq: Status: Active Protocol: Document 12/26/19 11:05 [facility] (Rec: 12/26/19 12:12 [facility] [id number]) OP Gait Assessment Comments Gait Comments Pt amb with some lat lean w/ occasional vearing off course PT-OP-M Strength Start: 12/25/19 15:35 Freq: Status: Active Protocol: Document 12/26/19 11:05 [facility] (Rec: 12/26/19 12:12 [facility] [id number]) Hip Strength Hip Manual Muscle Testing Right Flexion (L2) 3+ Fair+ Extension (S1) 4 Good External Rotation 4 Good Internal Rotation 4- Good- Left Flexion (L2) 3+ Fair+ Abduction 4- Good- External Rotation 4- Good- Internal Rotation 4 Good Knee Strength Knee Manual Muscle Testing Right Flexion (S2) 5 Normal Extension (L3) 4+ Good+ Left Flexion (S2) 5 Normal Extension (L3) 4+ Good+ Ankle/Foot Strength Ankle and Foot Manual Muscle Testing Right Dorsiflexion (L4) 4 Good Left Dorsiflexion (L4) 4 Good PT-OP-Q Treatments Start: 12/25/19 15:35 Freq: Status: Active Protocol: Document 02/05/20 09:53 [facility] (Rec: 02/05/20 10:40 [facility] [id number]) Cardio Equipment Recumbent Stepper (Sci-Fit) Duration (Minutes) 6 Resistance 5 Seat Position 8 Gym Equipment Shuttle Balance red clips Comments fwd & side: WBOS & NBOS fwd: staggered stance B Therapeutic Exercises Standing Exercises Extension Standing Exercise Name Hip Ext. Side bilateral Resistance rail Equipment Used yellow Reps/Minutes 2x10 Comments Cues to avoid flexing forward Abduction Standing Exercise Name sidestep @rail Side bilateral Reps/Minutes 20ftx2 Manual Therapy Treatment Soft Tissue Mobilization Quads Body Location L Quad & ITB Mobilization Type Myofascial Release,Sustained Pressure,Trigger Point Release Intensity/Depth Moderate Body Position Supine Neuro Re-Education Treatment Balance Activities backwards walk Reps/Duration 50ftx2 EC Details fwd walking Reps/Duration 50ftx2 tandem Details stance B staggered stance Details B Surface firm Reps/Duration EC & head turn trials head turns Details fwd walking w/horizontal & vertical head turns Reps/Duration 50ft x2 PT-OP-T Assessment and Plan Start: 12/25/19 15:35 Freq: Status: Active Protocol: Document 02/05/20 09:53 [facility] (Rec: 02/05/20 10:40 [facility] [id number]) Physical Therapy Assessment Goals activities Bridges Supervisor Goal (LTG) Pt will report no difficulty with lower body dressing. LTG Duration 02/25/20 strength Short Term Goal (STG) Pt will be indep with HEP 01/24/20- pt is not compliant with HEP exercises STG Duration 01/25/20 Bridges Supervisor Goal (LTG) pt will score at least 4+/5 in all planes of LE MMT to show improved strength in order to give pt more confidence and stability with all of her mobility. LTG Duration 02/25/20 ROBLES Bridges Supervisor Goal (LTG) Pt will improve score to 50/56 to show less liekly to fall in outdoors and community ambulation w/o AD. LTG Duration 02/25/20 balance Short Term Goal (STG) Pt will improve DGI to score of at least 20 to show low risk for falls. 01/24/20-pt scored 17/20 on DGI showing she has maintained but not improved STG Duration 01/25/20 Custodial Goal (LTG) Pt will improve FGA to 23/30 to show low risk for falls LTG Duration 02/25/20 sit to stand Short Term Goal (STG) Pt will improve 30 sec sit to stand test to able to do 10 in 30 sec. 01/25/2081-FEABMXATZAF-qi increased from 7 to 8 sit<> stands in 30 sec STG Duration 01/25/20 Custodial Goal (LTG) Pt will be able to do 5x sit to stand test in less than 12 sec to dec risk for falls and show improvement in functional ability LTG Duration 02/25/20 Assessment Summary Assessment Pt did better with balance exercises today and cont to tolerate more standing with less c/o knee pain. Improved soft tissue mobility after manual treatment. Physical Therapy Plan Frequency and Duration Frequency of Treatment 2x/Week Duration of Treatment 2 months Plan of Care Start Date 12/26/19 Plan of Care End Date 02/25/20 Next Visit Focus/Plan Next Note Type Treatment Note Next Visit Plan work on balance activities, continue STM to quads to decrease L knee pain
--- NOTE | 2020-02-10 12:20 | PT.OTN ---
Current Diagnoses Low back pain (02/10/20) Pain in right foot (02/10/20) Pain in left foot (02/10/20) Difficulty in walking, not elsewhere classified (02/10/20) Other symptoms and signs involving the nervous system (02/10/20) Weakness (02/10/20) Physical Therapy Treatment Note PT-OP-A Visit Information Start: 12/25/19 15:35 Freq: Status: Active Protocol: Document 02/10/20 11:21 [facility] (Rec: 02/10/20 11:47 [facility] [id number]) Out-Patient Physical Therapy Visit Information Visit Information Visit Type Progress Note Visit Start Time 11:17 Visit Stop Time 11:57 Total Visit Minutes 40 Visit Number 9 Number of HEARING INSTRUMENT SPECIALIST Visits 0 PT-OP-B Current Condition Start: 12/25/19 15:35 Freq: Status: Active Protocol: Document 12/26/19 11:05 [facility] (Rec: 12/26/19 12:12 [facility] [id number]) Current Condition History of Current Condition Current Complaints gait issues, balance dec History of Current Condition Pt thinks she has a little neuropathy d/t toes numb. Pt saw MD d/t thinking she had plantar fasicitis but it was better by the time seeing the doctor. After seeing MD, pt noted B heel pain after. Pt lives at [facility] so meals and cleaning are taken care of. Sp treprots in general activity is dec d/t laziness' and lack of things going on d/t COVID. reports she does wobble around sometimes. pt reprots heel pain is intermittent. She noted pain during the night in heels. 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 Pt reports sometimes feels like clouds up there (referring to head). Pt does feel like balance is getting a little worse w/wobbling when walking. Pt reports she plays cards with family in high chair and dgt is always concerned about her balance when getting up. Treatment Goals Patient/Caregiver Goals Feel confident with mobility, be able to have greater ease with lower body dressing Personal Factors Other Personal Factors That May Effect back and foot pain, neck pain, Therapy/Recovery dizziness, possible TIAs PT-OP-C Subjective Start: 12/25/19 15:35 Freq: Status: Active Protocol: Document 02/10/20 11:21 [facility] (Rec: 02/10/20 11:47 [facility] [id number]) OP-PT Subjective Patient Comments Patient Comments Pt reprots she was erally sore the day of last appt in legs and hips/knees. PT-OP-D Balance Start: 12/25/19 15:35 Freq: Status: Active Protocol: Document 02/10/20 11:21 [facility] (Rec: 02/10/20 11:47 [facility] [id number]) Balance Tests Robles Balance Test Robles Balance Test Score 54 PT-OP-E Functional Tests Start: 12/25/19 15:35 Freq: Status: Active Protocol: Document 02/10/20 11:21 [facility] (Rec: 02/10/20 11:47 [facility] [id number]) Functional Tests 30 Second Sit to Stand Test Score 8 Comments L knee pain reported Dynamic Gait Index (DGI) Score Five Times Sit to Stand Test Score 18 sec Comments rod chair Functional Gait Assessment Score Functional Gait Assessment Impairment 20 to <40% Impaired (Score 19- Rating 24) PT-OP-G Mobility & Gait Start: 12/25/19 15:35 Freq: Status: Active Protocol: Document 12/26/19 11:05 [facility] (Rec: 12/26/19 12:12 [facility] [id number]) OP Gait Assessment Comments Gait Comments Pt amb with some lat lean w/ occasional vearing off course PT-OP-M Strength Start: 12/25/19 15:35 Freq: Status: Active Protocol: Document 02/10/20 11:21 [facility] (Rec: 02/10/20 11:50 [facility] [id number]) Hip Strength Hip Manual Muscle Testing Right Flexion (L2) 3+ Fair+ Extension (S1) 4- Good- Abduction 4+ Good+ External Rotation 5 Normal Internal Rotation 4+ Good+ Left Flexion (L2) 4- Good- Extension (S1) 3+ Fair+ Abduction 4 Good External Rotation 5 Normal Internal Rotation 4+ Good+ Knee Strength Knee Manual Muscle Testing Right Flexion (S2) 5 Normal Extension (L3) 5 Normal Left Flexion (S2) 5 Normal Extension (L3) 4 Good Ankle/Foot Strength Ankle and Foot Manual Muscle Testing Right Dorsiflexion (L4) 5 Normal Plantarflexion (S1) 5 Normal Comments PF tested seated Left Dorsiflexion (L4) 4 Good Plantarflexion (S1) 5 Normal PT-OP-Q Treatments Start: 12/25/19 15:35 Freq: Status: Active Protocol: Document 02/10/20 11:21 [facility] (Rec: 02/10/20 11:47 [facility] [id number]) Cardio Equipment Recumbent Elliptical (Biodex) Duration (Minutes) 6 Resistance 6 Seat Position 6 Therapeutic Exercises Supine Exercises Oscar Stretch Side left Reps/Minutes 30 sec Comments pull opposite knee to chest Sidelying Exercises Clamshell Side bilateral Reps/Minutes 8 each side Standing Exercises Extension Standing Exercise Name Hip Ext. Side bilateral Resistance rail Reps/Minutes 10 Comments Cues to avoid flexing forward Abduction Standing Exercise Name hip abd Side bilateral Reps/Minutes 10 PT-OP-T Assessment and Plan Start: 12/25/19 15:35 Freq: Status: Active Protocol: Document 02/10/20 11:21 [facility] (Rec: 02/10/20 11:47 [facility] [id number]) Physical Therapy Assessment Goals activities Cable Placer Goal (LTG) Pt will report no difficulty with lower body dressing. LTG Duration no difficulty in seated strength Short Term Goal (STG) Pt will be indep with HEP 01/24/20- pt is not compliant with HEP exercises 02/09-does not do as many reps d/t pain STG Duration 02/25/20 Cable Placer Goal (LTG) pt will score at least 4+/5 in all planes of LE MMT to show improved strength in order to give pt more confidence and stability with all of her mobility. 02/09-improving LTG Duration 04/12/20 ROBELS Mcc Goal (LTG) Pt will improve score to 50/56 to show less liekly to fall in outdoors and community ambulation w/o AD. LTG Duration achieved balance Short Term Goal (STG) Pt will improve DGI to score of at least 20 to show low risk for falls. 01/24/20-pt scored 17/20 on DGI showing she has maintained but not improved STG Duration achieved Mcc Goal (LTG) Pt will improve FGA to 23/30 to show low risk for falls 02/09-improving LTG Duration 04/12 sit to stand Short Term Goal (STG) Pt will improve 30 sec sit to stand test to able to do 10 in 30 sec. 01/25/2083-[id number]-tx increased from 7 to 8 sit<> stands in 30 sec 02/09-8x STG Duration 03/11 Cable Placer Goal (LTG) Pt will be able to do 5x sit to stand test in less than 12 sec to dec risk for falls and show improvement in functional ability 02/09-18 sec slight improvement LTG Duration 04/12 Assessment Summary Assessment Pt is making good improement with her balance and strength but has been discouraged by feeling sore after sessions. She would beneift from cont PT to cont to work on balance and strength in order to dec fall risk especailly with head turns. Physical Therapy Plan Frequency and Duration Frequency of Treatment 2x/Week Duration of Treatment 2 months Plan of Care Start Date 02/10/20 Plan of Care End Date 04/12/20 Therapeutic Interventions Therapeutic Interventions Aquatic Therapy,Balance Training,Gait Training,Home Exercise Program,Joint Mobilizations,Manual Therapy, Neuromuscular Re-education, Patient/Caregiver Education, Self-Care/Home Management,Soft Tissue Mobilization,Taping, Therapeutic Activities, Therapeutic Exercises Modalities Cold Pack/Ice Massage,Hot Packs Next Visit Focus/Plan Next Note Type Treatment Note Next Visit Plan work on balance activities, try gentle hip mobs, stay in comfortable range w/ strengthening
--- NOTE | 2020-02-10 12:20 | PT.OPPOC ---
Physical, Occupational & Speech Therapy At [facility] Current Diagnoses Low back pain (02/10/20) Pain in right foot (02/10/20) Pain in left foot (02/10/20) Difficulty in walking, not elsewhere classified (02/10/20) Other symptoms and signs involving the nervous system (02/10/20) Weakness (02/10/20) Visit Care Team Role Provider Type Wayne Steen MD Primary Care Provider Physician Specialty: Internal Medicine Address: [address] [place] [address], [address], [address] Email: [email or web address] Hadley Mckeon DPM Attending Provider Physician Referring Provider Specialty: Podiatry Address: [address] [place] [address], [id number] Email: [email or web address] Plan Of Care PT-OP-T Assessment and Plan Start: 12/25/19 15:35 Freq: Status: Active Protocol: Document 02/10/20 11:21 [facility] (Rec: 02/10/20 11:47 [facility] [id number]) Physical Therapy Assessment Goals activities Logistics Associate Goal (LTG) Pt will report no difficulty with lower body dressing. LTG Duration no difficulty in seated strength Short Term Goal (STG) Pt will be indep with HEP 01/24/20- pt is not compliant with HEP exercises 02/09-does not do as many reps d/t pain STG Duration 02/25/20 Retirement Goal (LTG) pt will score at least 4+/5 in all planes of LE MMT to show improved strength in order to give pt more confidence and stability with all of her mobility. 02/09-improving LTG Duration 04/12/20 ROBLES Retirement Goal (LTG) Pt will improve score to 50/56 to show less liekly to fall in outdoors and community ambulation w/o AD. LTG Duration achieved balance Short Term Goal (STG) Pt will improve DGI to score of at least 20 to show low risk for falls. 01/24/20-pt scored 17/20 on DGI showing she has maintained but not improved STG Duration achieved Logistics Associate Goal (LTG) Pt will improve FGA to to show low risk for falls 02/09-improving LTG Duration 04/12 sit to stand Short Term Goal (STG) Pt will improve 30 sec sit to stand test to able to do 10 in 30 sec. 01/25/2027-[id number] increased from 7 to 8 sit<> stands in 30 sec 02/09-8x STG Duration 03/11 Logistics Associate Goal (LTG) Pt will be able to do 5x sit to stand test in less than 12 sec to dec risk for falls and show improvement in functional ability 02/09-18 sec slight improvement LTG Duration 04/12 Assessment Summary Assessment Pt is making good improement with her balance and strength but has been discouraged by feeling sore after sessions. She would beneift from cont PT to cont to work on balance and strength in order to dec fall risk especailly with head turns. Physical Therapy Plan Frequency and Duration Frequency of Treatment 2x/Week Duration of Treatment 2 months Plan of Care Start Date 02/10/20 Plan of Care End Date 04/12/20 Therapeutic Interventions Therapeutic Interventions Aquatic Therapy,Balance Training,Gait Training,Home Exercise Program,Joint Mobilizations,Manual Therapy, Neuromuscular Re-education, Patient/Caregiver Education, Self-Care/Home Management,Soft Tissue Mobilization,Taping, Therapeutic Activities, Therapeutic Exercises Modalities Cold Pack/Ice Massage,Hot Packs Next Visit Focus/Plan Next Note Type Treatment Note Next Visit Plan work on balance activities, try gentle hip mobs, stay in comfortable range w/ strengthening Plan of Care Dates Plan of Care Start Date 02/10/20 Plan of Care End Date 04/12/20 Electronically Signed by: Tasha Lagos, PT 02/10/20 [id number] Please Sign and Return: I have reviewed this Plan of Care and certify that the skilled therapy services above are required to meet the patient?s needs. Physician Signature Date Printed Name and Credentials Clinical Instructor Signature Printed Name and Credentials
--- NOTE | 2020-02-12 16:00 | PT.OTN ---
Current Diagnoses Low back pain (02/12/20) Pain in right foot (02/12/20) Pain in left foot (02/12/20) Difficulty in walking, not elsewhere classified (02/12/20) Other symptoms and signs involving the nervous system (02/12/20) Weakness (02/12/20) Physical Therapy Treatment Note PT-OP-A Visit Information Start: 12/25/19 15:35 Freq: Status: Active Protocol: Document 02/12/20 15:19 [facility] (Rec: 02/12/20 16:00 [facility] [id number]) Out-Patient Physical Therapy Visit Information Visit Information Visit Type Treatment Note Visit Note 04/01 Visit Start Time 15:16 Visit Stop Time 15:55 Total Visit Minutes 39 Visit Number 10 Number of CLOTH MEASURER Visits 0 PT-OP-B Current Condition Start: 12/25/19 15:35 Freq: Status: Active Protocol: Document 12/26/19 11:05 [facility] (Rec: 12/26/19 12:12 [facility] [id number]) Current Condition History of Current Condition Current Complaints gait issues, balance dec History of Current Condition Pt thinks she has a little neuropathy d/t toes numb. Pt saw MD d/t thinking she had plantar fasicitis but it was better by the time seeing the doctor. After seeing MD, pt noted B heel pain after. Pt lives at [facility] so meals and cleaning are taken care of. Sp treprots in general activity is dec d/t laziness' and lack of things going on d/t COVID. reports she does wobble around sometimes. pt reprots heel pain is intermittent. She noted pain during the night in heels. 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 Pt reports sometimes feels like clouds up there (referring to head). Pt does feel like balance is getting a little worse w/wobbling when walking. Pt reports she plays cards with family in high chair and dgt is always concerned about her balance when getting up. Treatment Goals Patient/Caregiver Goals Feel confident with mobility, be able to have greater ease with lower body dressing Personal Factors Other Personal Factors That May Effect back and foot pain, neck pain, Therapy/Recovery dizziness, possible TIAs PT-OP-C Subjective Start: 12/25/19 15:35 Freq: Status: Active Protocol: Document 02/12/20 15:19 [facility] (Rec: 02/12/20 16:00 [facility] [id number]) OP-PT Subjective Patient Comments Patient Comments Pt reports he did much better after last session. PT-OP-D Balance Start: 12/25/19 15:35 Freq: Status: Active Protocol: Document 02/10/20 11:21 [facility] (Rec: 02/10/20 11:47 [facility] [id number]) Balance Tests Robles Balance Test Robles Balance Test Score 54 PT-OP-E Functional Tests Start: 12/25/19 15:35 Freq: Status: Active Protocol: Document 02/10/20 11:21 [facility] (Rec: 02/10/20 11:47 [facility] [id number]) Functional Tests 30 Second Sit to Stand Test Score 8 Comments L knee pain reported Dynamic Gait Index (DGI) Score Five Times Sit to Stand Test Score 18 sec Comments rod chair Functional Gait Assessment Score Functional Gait Assessment Impairment 20 to <40% Impaired (Score 19- Rating 24) PT-OP-G Mobility & Gait Start: 12/25/19 15:35 Freq: Status: Active Protocol: Document 12/26/19 11:05 [facility] (Rec: 12/26/19 12:12 [facility] [id number]) OP Gait Assessment Comments Gait Comments Pt amb with some lat lean w/ occasional vearing off course PT-OP-M Strength Start: 12/25/19 15:35 Freq: Status: Active Protocol: Document 02/10/20 11:21 [facility] (Rec: 02/10/20 11:50 [facility] [id number]) Hip Strength Hip Manual Muscle Testing Right Flexion (L2) 3+ Fair+ Extension (S1) 4- Good- Abduction 4+ Good+ External Rotation 5 Normal Internal Rotation 4+ Good+ Left Flexion (L2) 4- Good- Extension (S1) 3+ Fair+ Abduction 4 Good External Rotation 5 Normal Internal Rotation 4+ Good+ Knee Strength Knee Manual Muscle Testing Right Flexion (S2) 5 Normal Extension (L3) 5 Normal Left Flexion (S2) 5 Normal Extension (L3) 4 Good Ankle/Foot Strength Ankle and Foot Manual Muscle Testing Right Dorsiflexion (L4) 5 Normal Plantarflexion (S1) 5 Normal Comments PF tested seated Left Dorsiflexion (L4) 4 Good Plantarflexion (S1) 5 Normal PT-OP-Q Treatments Start: 12/25/19 15:35 Freq: Status: Active Protocol: Document 02/12/20 15:19 [facility] (Rec: 02/12/20 16:00 [facility] [id number]) Cardio Equipment Recumbent Stepper (Sci-Fit) Duration (Minutes) 6 Resistance 4 Seat Position 8 Gym Equipment Shuttle Balance red clips Comments fwd & side: WBOS & NBOS fwd: staggered stance B Therapeutic Exercises Supine Exercises Oscar Stretch Side left Reps/Minutes 30 sec Comments pull opposite knee to chest Standing Exercises stretch Standing Exercise Name hip flexor x30sec B Comments around the world B Extension Standing Exercise Name Hip Ext. Side bilateral Resistance rail Reps/Minutes 10 Comments Cues to avoid flexing forward Abduction Standing Exercise Name hip abd Side bilateral Reps/Minutes 10 Neuro Re-Education Treatment Balance Activities backwards walk Reps/Duration 50ftx2 EC Details fwd walking Reps/Duration 50ftx2 tandem Comments 1. stance 2. fwd walk on line 50ftx 2 3. tandem walk 20ftx2 staggered stance Details B Surface firm Reps/Duration EC & head turn trials head turns Details fwd walking w/horizontal & vertical head turns Reps/Duration 50ft x2 Self-Care/Home Management Treatment Education Other Education BP 172/80 after activity, discussed w/pt to monitor symptoms and have nurse at facility check BP later, Call MD if feels off later or BP still really high PT-OP-T Assessment and Plan Start: 12/25/19 15:35 Freq: Status: Active Protocol: Document 02/12/20 15:19 [facility] (Rec: 02/12/20 16:00 [facility] [id number]) Physical Therapy Assessment Goals activities Halfway Goal (LTG) Pt will report no difficulty with lower body dressing. LTG Duration no difficulty in seated strength Short Term Goal (STG) Pt will be indep with HEP 01/24/20- pt is not compliant with HEP exercises 02/09-does not do as many reps d/t pain STG Duration 02/25/20 Halfway Goal (LTG) pt will score at least 4+/5 in all planes of LE MMT to show improved strength in order to give pt more confidence and stability with all of her mobility. 02/09-improving LTG Duration 04/12/20 ROBLES Strapper Goal (LTG) Pt will improve score to 50/56 to show less liekly to fall in outdoors and community ambulation w/o AD. LTG Duration achieved balance Short Term Goal (STG) Pt will improve DGI to score of at least 20 to show low risk for falls. 01/24/20-pt scored 17/20 on DGI showing she has maintained but not improved STG Duration achieved Strapper Goal (LTG) Pt will improve FGA to 23/30 to show low risk for falls 02/09-improving LTG Duration 04/12 sit to stand Short Term Goal (STG) Pt will improve 30 sec sit to stand test to able to do 10 in 30 sec. 01/25/2051-[id number] increased from 7 to 8 sit<> stands in 30 sec 02/09-8x STG Duration 03/11 Strapper Goal (LTG) Pt will be able to do 5x sit to stand test in less than 12 sec to dec risk for falls and show improvement in functional ability 02/09-18 sec slight improvement LTG Duration 04/12 Assessment Summary Assessment Pt did wll with balance exercises today but did fatigue. Pt noted some nausea at end of session so BP checked and was high. Pt's symptoms did resolve before leaving. Physical Therapy Plan Frequency and Duration Frequency of Treatment 2x/Week Duration of Treatment 2 months Plan of Care Start Date 02/10/20 Plan of Care End Date 04/12/20 Next Visit Focus/Plan Next Note Type Treatment Note Next Visit Plan work on balance activities, stay in comfortable range w/ strengthening
--- NOTE | 2020-02-17 12:01 | PT.OTN ---
Current Diagnoses Low back pain (02/17/20) Pain in right foot (02/17/20) Pain in left foot (02/17/20) Difficulty in walking, not elsewhere classified (02/17/20) Other symptoms and signs involving the nervous system (02/17/20) Weakness (02/17/20) Physical Therapy Treatment Note PT-OP-A Visit Information Start: 12/25/19 15:35 Freq: Status: Active Protocol: Document 02/17/20 11:20 [facility] (Rec: 02/17/20 12:00 [facility] [id number]) Out-Patient Physical Therapy Visit Information Visit Information Visit Type Treatment Note Visit Note 04/29 Visit Start Time 11:18 Visit Stop Time 11:58 Total Visit Minutes 40 Visit Number 11 Number of JOB PLACEMENT COUNSELOR Visits 0 PT-OP-B Current Condition Start: 12/25/19 15:35 Freq: Status: Active Protocol: Document 12/26/19 11:05 [facility] (Rec: 12/26/19 12:12 [facility] [id number]) Current Condition History of Current Condition Current Complaints gait issues, balance dec History of Current Condition Pt thinks she has a little neuropathy d/t toes numb. Pt saw MD d/t thinking she had plantar fasicitis but it was better by the time seeing the doctor. After seeing MD, pt noted B heel pain after. Pt lives at [facility] so meals and cleaning are taken care of. Sp treprots in general activity is dec d/t laziness' and lack of things going on d/t COVID. reports she does wobble around sometimes. pt reprots heel pain is intermittent. She noted pain during the night in heels. 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 Pt reports sometimes feels like clouds up there (referring to head). Pt does feel like balance is getting a little worse w/wobbling when walking. Pt reports she plays cards with family in high chair and dgt is always concerned about her balance when getting up. Treatment Goals Patient/Caregiver Goals Feel confident with mobility, be able to have greater ease with lower body dressing Personal Factors Other Personal Factors That May Effect back and foot pain, neck pain, Therapy/Recovery dizziness, possible TIAs PT-OP-C Subjective Start: 12/25/19 15:35 Freq: Status: Active Protocol: Document 02/17/20 11:20 [facility] (Rec: 02/17/20 12:00 [facility] [id number]) OP-PT Subjective Patient Comments Patient Comments Pt noted no inc soreness after last session. PT-OP-D Balance Start: 12/25/19 15:35 Freq: Status: Active Protocol: Document 02/10/20 11:21 [facility] (Rec: 02/10/20 11:47 [facility] [id number]) Balance Tests Robles Balance Test Robles Balance Test Score 54 PT-OP-E Functional Tests Start: 12/25/19 15:35 Freq: Status: Active Protocol: Document 02/10/20 11:21 [facility] (Rec: 02/10/20 11:47 [facility] [id number]) Functional Tests 30 Second Sit to Stand Test Score 8 Comments L knee pain reported Dynamic Gait Index (DGI) Score Five Times Sit to Stand Test Score 18 sec Comments rod chair Functional Gait Assessment Score Functional Gait Assessment Impairment 20 to <40% Impaired (Score 19- Rating 24) PT-OP-G Mobility & Gait Start: 12/25/19 15:35 Freq: Status: Active Protocol: Document 12/26/19 11:05 [facility] (Rec: 12/26/19 12:12 [facility] [id number]) OP Gait Assessment Comments Gait Comments Pt amb with some lat lean w/ occasional vearing off course PT-OP-M Strength Start: 12/25/19 15:35 Freq: Status: Active Protocol: Document 02/10/20 11:21 [facility] (Rec: 02/10/20 11:50 [facility] [id number]) Hip Strength Hip Manual Muscle Testing Right Flexion (L2) 3+ Fair+ Extension (S1) 4- Good- Abduction 4+ Good+ External Rotation 5 Normal Internal Rotation 4+ Good+ Left Flexion (L2) 4- Good- Extension (S1) 3+ Fair+ Abduction 4 Good External Rotation 5 Normal Internal Rotation 4+ Good+ Knee Strength Knee Manual Muscle Testing Right Flexion (S2) 5 Normal Extension (L3) 5 Normal Left Flexion (S2) 5 Normal Extension (L3) 4 Good Ankle/Foot Strength Ankle and Foot Manual Muscle Testing Right Dorsiflexion (L4) 5 Normal Plantarflexion (S1) 5 Normal Comments PF tested seated Left Dorsiflexion (L4) 4 Good Plantarflexion (S1) 5 Normal PT-OP-Q Treatments Start: 12/25/19 15:35 Freq: Status: Active Protocol: Document 02/17/20 11:20 [facility] (Rec: 02/17/20 12:00 [facility] [id number]) Cardio Equipment Recumbent Elliptical (Biodex) Duration (Minutes) 6 Resistance 6 Seat Position 6 Gym Equipment Shuttle Balance red clips Comments fwd & side: WBOS & NBOS fwd: staggered stance B Therapeutic Exercises Supine Exercises Oscar Stretch Side bilateral Reps/Minutes 30 sec Comments pull opposite knee to chest Sidelying Exercises Clamshell Side bilateral Reps/Minutes 8 each side Sitting Exercises stretch Sitting Exercise Name piriformis & HS Side bilateral Reps/Minutes 45 sec ea Standing Exercises stretch Standing Exercise Name hip flexor x30sec B Comments around the world B Neuro Re-Education Treatment Balance Activities EC Details fwd/back walking Reps/Duration 50ftx2 ea tandem Comments 1. stance 2. fwd walk on line 50ftx 2 3. tandem walk 20ftx2 staggered stance Details B Surface firm Reps/Duration EC & head turn trials head turns Details fwd walking w/horizontal & vertical head turns Reps/Duration 50ft x2 PT-OP-T Assessment and Plan Start: 12/25/19 15:35 Freq: Status: Active Protocol: Document 02/17/20 11:20 [facility] (Rec: 02/17/20 12:00 [facility] [id number]) Physical Therapy Assessment Goals activities [employer] Mill And Carriage Operator Goal (LTG) Pt will report no difficulty with lower body dressing. LTG Duration no difficulty in seated strength Short Term Goal (STG) Pt will be indep with HEP 01/24/20- pt is not compliant with HEP exercises 02/09-does not do as many reps d/t pain STG Duration 02/25/20 [employer] And Carriage Operator Goal (LTG) pt will score at least 4+/5 in all planes of LE MMT to show improved strength in order to give pt more confidence and stability with all of her mobility. 02/09-improving LTG Duration 04/12/20 ROBLES [employer] Mill And Carriage Operator Goal (LTG) Pt will improve score to 50/56 to show less liekly to fall in outdoors and community ambulation w/o AD. LTG Duration achieved balance Short Term Goal (STG) Pt will improve DGI to score of at least 20 to show low risk for falls. 01/24/20-pt scored 17/20 on DGI showing she has maintained but not improved STG Duration achieved [facility]ci Goal (LTG) Pt will improve FGA to to show low risk for falls 02/09-improving LTG Duration 04/12 sit to stand Short Term Goal (STG) Pt will improve 30 sec sit to stand test to able to do 10 in 30 sec. 01/25/2064-[id number] increased from 7 to 8 sit<> stands in 30 sec 02/09-8x STG Duration 03/11 Fci Goal (LTG) Pt will be able to do 5x sit to stand test in less than 12 sec to dec risk for falls and show improvement in functional ability 02/09-18 sec slight improvement LTG Duration 04/12 Assessment Summary Assessment Pt did well with exercises today. Mostly challneged with head turns only when turning R . She has difficulty with NBOS activites. Physical Therapy Plan Frequency and Duration Frequency of Treatment 2x/Week Duration of Treatment 2 months Plan of Care Start Date 02/10/20 Plan of Care End Date 04/12/20 Next Visit Focus/Plan Next Note Type Discharge Summary Next Visit Plan prep for dc
--- NOTE | 2020-02-19 09:43 | PT.OTN ---
Current Diagnoses Low back pain (02/19/20) Pain in right foot (02/19/20) Pain in left foot (02/19/20) Difficulty in walking, not elsewhere classified (02/19/20) Other symptoms and signs involving the nervous system (02/19/20) Weakness (02/19/20) Physical Therapy Treatment Note PT-OP-A Visit Information Start: 12/25/19 15:35 Freq: Status: Active Protocol: Document 02/19/20 07:30 [facility] (Rec: 02/19/20 09:39 [facility] [id number]) Out-Patient Physical Therapy Visit Information Visit Information Visit Type Discharge Summary Visit Start Time 09:00 Visit Stop Time 09:41 Total Visit Minutes 41 Visit Number 12 Number of CLIPPER OPERATOR Visits 0 PT-OP-B Current Condition Start: 12/25/19 15:35 Freq: Status: Active Protocol: Document 12/26/19 11:05 [facility] (Rec: 12/26/19 12:12 [facility] [id number]) Current Condition History of Current Condition Current Complaints gait issues, balance dec History of Current Condition Pt thinks she has a little neuropathy d/t toes numb. Pt saw MD d/t thinking she had plantar fasicitis but it was better by the time seeing the doctor. After seeing MD, pt noted B heel pain after. Pt lives at [facility] so meals and cleaning are taken care of. Sp treprots in general activity is dec d/t laziness' and lack of things going on d/t COVID. reports she does wobble around sometimes. pt reprots heel pain is intermittent. She noted pain during the night in heels. 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 Pt reports sometimes feels like clouds up there (referring to head). Pt does feel like balance is getting a little worse w/wobbling when walking. Pt reports she plays cards with family in high chair and dgt is always concerned about her balance when getting up. Treatment Goals Patient/Caregiver Goals Feel confident with mobility, be able to have greater ease with lower body dressing Personal Factors Other Personal Factors That May Effect back and foot pain, neck pain, Therapy/Recovery dizziness, possible TIAs PT-OP-C Subjective Start: 12/25/19 15:35 Freq: Status: Active Protocol: Document 02/19/20 07:30 [facility] (Rec: 02/19/20 09:39 [facility] [id number]) OP-PT Subjective Patient Comments Patient Comments Pt reports doing exericses yesterday PT-OP-D Balance Start: 12/25/19 15:35 Freq: Status: Active Protocol: Document 02/10/20 11:21 [facility] (Rec: 02/10/20 11:47 [facility] [id number]) Balance Tests Robles Balance Test Rboles Balance Test Score 54 PT-OP-E Functional Tests Start: 12/25/19 15:35 Freq: Status: Active Protocol: Document 02/19/20 07:30 [facility] (Rec: 02/19/20 09:39 [facility] [id number]) Functional Tests 30 Second Sit to Stand Test Score 9 Five Times Sit to Stand Test Score 16sec Functional Gait Assessment Score 24 PT-OP-G Mobility & Gait Start: 12/25/19 15:35 Freq: Status: Active Protocol: Document 12/26/19 11:05 [facility] (Rec: 12/26/19 12:12 [facility] [id number]) OP Gait Assessment Comments Gait Comments Pt amb with some lat lean w/ occasional vearing off course PT-OP-M Strength Start: 12/25/19 15:35 Freq: Status: Active Protocol: Document 02/10/20 11:21 [facility] (Rec: 02/10/20 11:50 [facility] [id number]) Hip Strength Hip Manual Muscle Testing Right Flexion (L2) 3+ Fair+ Extension (S1) 4- Good- Abduction 4+ Good+ External Rotation 5 Normal Internal Rotation 4+ Good+ Left Flexion (L2) 4- Good- Extension (S1) 3+ Fair+ Abduction 4 Good External Rotation 5 Normal Internal Rotation 4+ Good+ Knee Strength Knee Manual Muscle Testing Right Flexion (S2) 5 Normal Extension (L3) 5 Normal Left Flexion (S2) 5 Normal Extension (L3) 4 Good Ankle/Foot Strength Ankle and Foot Manual Muscle Testing Right Dorsiflexion (L4) 5 Normal Plantarflexion (S1) 5 Normal Comments PF tested seated Left Dorsiflexion (L4) 4 Good Plantarflexion (S1) 5 Normal PT-OP-Q Treatments Start: 12/25/19 15:35 Freq: Status: Active Protocol: Document 02/19/20 07:30 [facility] (Rec: 02/19/20 09:39 [facility] [id number]) Cardio Equipment Recumbent Elliptical (Biodex) Duration (Minutes) 6 Resistance 6 Seat Position 6 Gym Equipment Shuttle Balance red clips Comments fwd & side: WBOS & NBOS fwd: staggered stance B Therapeutic Exercises Supine Exercises Oscar Stretch Side bilateral Reps/Minutes 30 sec Comments pull opposite knee to chest Bridges Reps/Minutes 3sec holdx5 Sidelying Exercises Clamshell Side bilateral Reps/Minutes 8 each side Sitting Exercises stretch Sitting Exercise Name piriformis & HS Side bilateral Reps/Minutes 45 sec ea Standing Exercises stretch Standing Exercise Name hip flexor x30sec B Extension Standing Exercise Name Hip Ext. Side bilateral Resistance rail Reps/Minutes 10 Comments Cues to avoid flexing forward Abduction Standing Exercise Name hip abd Side bilateral Reps/Minutes 10 PT-OP-T Assessment and Plan Start: 12/25/19 15:35 Freq: Status: Active Protocol: Document 02/19/20 07:30 [facility] (Rec: 02/19/20 09:39 [facility] [id number]) Physical Therapy Assessment Goals activities Prison Goal (LTG) Pt will report no difficulty with lower body dressing. LTG Duration no difficulty in seated strength Short Term Goal (STG) Pt will be indep with HEP 01/24/20- pt is not compliant with HEP exercises 02/09-does not do as many reps d/t pain STG Duration doing exercises every 3rd day. Planning to use gym at [place] Safety Pin Assembling Machine Operator Goal (LTG) pt will score at least 4+/5 in all planes of LE MMT to show improved strength in order to give pt more confidence and stability with all of her mobility. 02/09-improving LTG Duration 04/12/20 ROBLES Prison Goal (LTG) Pt will improve score to 50/56 to show less liekly to fall in outdoors and community ambulation w/o AD. LTG Duration achieved balance Short Term Goal (STG) Pt will improve DGI to score of at least 20 to show low risk for falls. 01/24/20-pt scored 17/20 on DGI showing she has maintained but not improved STG Duration achieved Prison Goal (LTG) Pt will improve FGA to 23/30 to show low risk for falls 02/09-improving LTG Duration 04/12axchieved sit to stand Short Term Goal (STG) Pt will improve 30 sec sit to stand test to able to do 10 in 30 sec. 01/25/2006-[id number] increased from 7 to 8 sit<> stands in 30 sec 02/09-8x STG Duration 9x today Safety Pin Assembling Machine Operator Goal (LTG) Pt will be able to do 5x sit to stand test in less than 12 sec to dec risk for falls and show improvement in functional ability 02/09-18 sec slight improvement LTG Duration 16 sec Assessment Summary Assessment Pt has made good progress with therapy and has been enocuraged to cont HEP, gym exercises and walking on her own to keep building strength & balance. She has chosen to DC PT at this time to cont on her own. Physical Therapy Plan Discharge Physical Therapy Discharge Reasons Patient Request
== END 2020-02-19 13:50 | disposition home or self-care (01) ==
LOC: PHYS 09:00
PROVIDERS: PCP Internal Medicine; Referring Provider Podiatrist; Visit Provider Podiatrist
DX: R26.2 Difficulty in walking, not elsewhere classified (principal); R29.818 Other symptoms and signs involving the nervous system; R53.1 Weakness; M54.5 Low back pain; M79.672 Pain in left foot; M79.671 Pain in right foot
CPT/HCPCS: 97110; 97112; 97140; 97162; 97535

== ENCOUNTER → 2020-05-21 10:35 | Outpatient (CLI) | payer MEDICARE, OTHER, SELFPAY ==
[2018-09-24 08:46] VITALS: BMI 25.7
--- NOTE | 2020-05-21 10:37 | DI.RAD.S_ITS ---
PROCEDURE: XR ACUTE ABDOMEN SERIES INDICATIONS: obstipation TECHNIQUE: One view chest and two views of the abdomen were acquired. COMPARISON: None. FINDINGS: Surgical changes and devices: Cholecystectomy clips.. Chest: Lungs are clear. Heart size is normal. No pleural effusions. No pneumoperitoneum. Abdomen: Bowel gas pattern is normal. Moderate amount of stool seen throughout the colon. No suspicious calcifications. Visualized solid organ contours appear normal. Bones: No suspicious bony lesions. IMPRESSION: Moderate colonic fecal loading. Dictated by: Jodi Jimenez MD, PhD on 05/21/2020 at 11:53 Approved by: Jodi Jimenez MD, PhD on 05/21/2020 at 11:55
[2020-05-21 11:23] LABS: Add Manual Diff / Slide Review NO; Basophils Absolute Auto 0 /uL (0-100); Basophils Percent Auto 0.2 % (0-2); Eosinophils Absolute Auto 100 /uL (0-450); Hemoglobin 16.2 g/dL (12.0-16.0); Lymphocytes Absolute Auto 3500 /uL (1100-4500); Lymphocytes Percent Auto 36.5 % (25-40); Mean Corpuscular HGB Conc 33.2 % (30-36); Mean Corpuscular Hemoglobin 30.5 PG (26-34); Mean Corpuscular Volume 91.9 fL (80-100); Monocytes Absolute Auto 1200 /uL (0-900); Monocytes Percent Auto 12.1 % (3-14); Neutrophils Absolute Auto 4900 /uL (1500-7000); Neutrophils Percent Auto 50.2 % (50-75); Platelet Count 308 X10^3/uL (150-400); Red Blood Cell Count 5.33 X10^6/uL (4.0-5.2); Red Cell Distribution Width 13.7 % (11.6-14.8); White Blood Cell Count 9.7 X10^3/uL (4.5-11.0)
[2020-05-21 11:33] LABS: Alanine Aminotransferase 67 IU/L (<35); Albumin 4.6 g/dL (3.5-5.0); Albumin Globulin Ratio 1.4 (1.0-2.8); Alkaline Phosphatase 75 U/L (38-126); Amylase 66 U/L (30-110); Aspartate Aminotransferase 103 IU/L (14-36); BUN Creatinine Ratio 21.1 (6-22); Bilirubin Total 0.5 mg/dL (0.2-1.3); Blood Urea Nitrogen 26 mg/dL (7-17); Calcium 11.5 mg/dL (8.4-10.2); Carbon Dioxide 27 mmol/L (22-32); Chloride 105 mmol/L (98-107); Estimated Glomerular Filt Rate 41.7 mL/min (>60); Globulin 3.2 g/dL (1.7-4.1); Glucose 108 mg/dL (80-110); HEMOLYSIS < 15 (0-50); Lipase 124 U/L (23-300); Potassium 3.4 mmol/L (3.4-5.1); Sodium 142 mmol/L (137-145); Total Protein 7.8 g/dL (6.3-8.2)
[2020-05-21 12:00] LABS: Free T4, Direct Thyroxine 1.29 ng/dL (0.78-2.19)
== END ==
PROVIDERS: PCP Internal Medicine; Referring Provider Internal Medicine; Visit Provider Internal Medicine
DX: K59.00 Constipation, unspecified (principal); E03.9 Hypothyroidism, unspecified; I10 Essential (primary) hypertension; E78.00 Pure hypercholesterolemia, unspecified; N18.30 Chronic kidney disease, stage 3 unspecified; R06.00 Dyspnea, unspecified; R10.9 Unspecified abdominal pain
CPT/HCPCS: 36415; 74022; 80053; 82150; 83690; 84439; 84443; 85025

== ENCOUNTER 2020-07-27 17:51 | Inpatient (IN) | payer MEDICARE, OTHER, SELFPAY ==
[2018-09-24 08:46] VITALS: BMI 25.7
[2020-07-27] VITALS (14 sets, daily range): BP systolic 127–149; BP diastolic 58–87; PULSE 62–82; RESP 16–18; TEMP 36.4–38.3; O2SAT 92–98; BMI 25.0; BMI 23.1
--- NOTE | 2020-07-27 18:03 | DI.RAD.S_ITS ---
PROCEDURE: XR CHEST 1V INDICATIONS: suspected sepsis TECHNIQUE: One view of the chest was acquired. COMPARISON: [facility], CR, XR CHEST 1V, 09/21/2018, 19:13. FINDINGS: Surgical changes and devices: Surgical clips in the left breast and axilla. Lungs and pleura: Lungs are clear. No pleural effusions or pneumothorax. Mediastinum: Mediastinal contours appear normal. Heart size is normal. Bones and chest wall: No suspicious bony lesions. Overlying soft tissues appear unremarkable. There may be left clavicular fracture of uncertain chronicity versus artifact. IMPRESSION: No acute cardiopulmonary disease. Dictated by: Mejia Rosenbaum M.D. on 07/27/2020 at 18:23 Approved by: Mejia Rosenbaum M.D. on 07/27/2020 at 18:24
[2020-07-27 18:35] LABS: Add Manual Diff / Slide Review NO; Basophils Absolute Auto 0 /uL (0-100); Basophils Percent Auto 0.3 % (0-2); Eosinophils Absolute Auto 0 /uL (0-450); Eosinophils Percent Auto 0.1 % (2-4); Hematocrit 48.7 % (36-46); Hemoglobin 16.2 g/dL (12.0-16.0); Lymphocytes Absolute Auto 2400 /uL (1100-4500); Lymphocytes Percent Auto 19.3 % (25-40); Mean Corpuscular HGB Conc 33.2 % (30-36); Mean Corpuscular Hemoglobin 30.4 PG (26-34); Mean Corpuscular Volume 91.6 fL (80-100); Monocytes Absolute Auto 1800 /uL (0-900); Monocytes Percent Auto 14.5 % (3-14); Neutrophils Absolute Auto 8200 /uL (1500-7000); Neutrophils Percent Auto 65.8 % (50-75); Platelet Count 275 X10^3/uL (150-400); Red Blood Cell Count 5.32 X10^6/uL (4.0-5.2); Red Cell Distribution Width 13.4 % (11.6-14.8); White Blood Cell Count 12.4 X10^3/uL (4.5-11.0)
[2020-07-27 18:48] LABS: Lactate (Lactic Acid) 1.4 mmol/L (0.7-2.1)
[2020-07-27 18:49] LABS: Alanine Aminotransferase 34 IU/L (<35); Albumin 4.4 g/dL (3.5-5.0); Albumin Globulin Ratio 1.2 (1.0-2.8); Alkaline Phosphatase 73 U/L (38-126); Aspartate Aminotransferase 54 IU/L (14-36); BUN Creatinine Ratio 17.8 (6-22); Bilirubin Total 0.7 mg/dL (0.2-1.3); Blood Urea Nitrogen 24 mg/dL (7-17); Calcium 10.1 mg/dL (8.4-10.2); Carbon Dioxide 28 mmol/L (22-32); Chloride 99 mmol/L (98-107); Estimated Glomerular Filt Rate 37.5 mL/min (>60); Globulin 3.8 g/dL (1.7-4.1); Glucose 111 mg/dL (80-110); HEMOLYSIS < 15 (0-50); Lipase 73 U/L (23-300); Potassium 3.2 mmol/L (3.4-5.1); Sodium 138 mmol/L (137-145); Total Protein 8.2 g/dL (6.3-8.2)
[2020-07-27 19:00] LABS: Creatine Kinase 98 U/L (30-135)
--- NOTE | 2020-07-27 19:04 | ED_ITS ---
HPI - Weakness General Chief complaint: Weakness Stated complaint: Weakness Time Seen by Provider: 07/27/20 18:40 Source: patient, family and EMS Mode of arrival: EMS Limitations: no limitations History of Present Illness HPI Narrative: This is a pleasant 85-year-old female comes emergency department with concern for cellulitis in her left upper extremity. Patient has a history of lymphedema in her left upper extremity after having nodes sampled 20 years ago. Patient states she has had several episodes in the past she states typically starts with chills and her arm will feel hot. She has had chills recently. Her arm felt hot on Monday, 1 day prior. She started taking her oral Keflex which had been prescribed prophylactically and she has had possibly 6 doses total. Patient did develop a fever at 104 T-max with 100.9 F here in the emergency department. She has had a decreased appetite. No nausea or vomiting. She said a mild headache. No neck pain. No chest pain or shortness of breath. She denies any abdominal pain. She describes generalized weakness and had difficulty even reaching the bathroom over the last 24 hours. She states her arm does not typically get painful but it did feel very warm yesterday. She typically does not have any color changes. She denies any major GI changes o ther than constipation and she has chronic urinary incontinence but no new dysuria. Patient takes medication for blood pressure, simvastatin as well as the levothyroxine for hypothyroidism. She takes amlodipine, TM/HCTZ and a daily aspirin. Patient also has known chronic kidney disease. She is accompanied by her . Related Data Home Medications Medication Instructions Recorded Confirmed aspirin 81 mg tablet,delayed 81 mg PO DAILY 10/24/17 07/27/20 release cholecalciferol (vitamin D3) 50 4,000 unit PO DAILY cap 08/30/18 07/27/20 mcg (2,000 unit) capsule Previous Rx's Medication Instructions Recorded diclofenac sodium 1 % topical gel 2 gram TOP QID #100 gram 12/10/18 simvastatin 40 mg tablet 20 mg PO DAILY #45 tab 11/29/19 amlodipine 5 mg tablet 5 mg PO DAILY #90 tab 02/17/20 zolpidem 10 mg tablet 10 mg PO HSP PRN #30 tab 02/28/20 levothyroxine 125 mcg tablet 125 mcg PO DAILY #90 tab 05/26/20 triamterene 37.5 1 tab PO DAILY #90 tab 07/23/20 mg-hydrochlorothiazide 25 mg tablet Allergies Allergy/AdvReac Type Severity Reaction Status Date / Time morphine AdvReac Severe Nausea Verified 05/21/20 10:07 Review of Systems Review of Systems ROS Unobtainable: All systems reviewed & are unremarkable except as noted in HPI and below 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) Breast cancer, left breast (1998) Decreased vision H/O malignant neoplasm of breast Hypercholesteremia Hypothyroidism (acquired) (12/22/10) Insomnia Lymphedema of upper extremity (10/16/14) Stage 3 chronic kidney disease Urinary incontinence due to urethral sphincter incompetence Surgical History History of oophorectomy History of tonsillectomy Status post cholecystectomy (1997) Status post hysterectomy (1990) Family History Brother Coronary artery disease Social History household members: spouse and caregiver Smoking Status: Never smoker alcohol intake: never Smoking Status: Never smoker alcohol intake frequency: 0-2 drinks per day Substance Use Type: does not use Exam Narrative Exam Narrative: GENERAL: Alert and oriented x three, well-nourished elderly female in mild distress. HEENT: Head normocephalic, atraumatic, EOMI, pupils reactive, face symmetric, moist mucous membranes NECK: Supple, full range of motion CARDIOVASCULAR: Regular rate and rhythm without murmurs, rubs or gallops. RESPIRATORY: Breath sounds equal bilaterally, no wheezes rales or rhonchi. No tachypnea accessory muscle use. ABDOMEN: Soft, nontender. Normoactive bowel sounds all 4 quadrants. No guarding or rebound, rigidity, no mass. Nondistended. : No CVA tenderness EXTREMITIES: Normal range of motion, no clubbing. Patient does have edema of her left upper extremity in comparison to her right. It is nontender to palpation. There is no obvious erythema but there is warmth to the left upper extremity in comparison to the right. Patient has 2+ radial pulses bilaterally and full range of motion bilaterally. Neurovascularly intact with normal sensation. NEUROLOGICAL: Cranial nerves II through XII grossly intact. Moving all extremities SKIN: Warm, dry, no petechiae, no rashes or lesions. Initial Vital Signs Initial Vital Signs: Vital Signs Pulse Rate 77 07/27/20 17:57 Pulse Oximetry 94 07/27/20 17:57 Scores GCS [place] coma scale eye opening: Spontaneous Luis coma scale verbal response: Orientated [place] coma scale motor response: Obey commands Luis coma scale total score: 15 Course Orders Ordered: ED Orders 07/27/20 18:03 XR chest 1V Stat EKG-12 Lead Stat 07/27/20 18:10 Complete Blood Count AUTO DIFF Stat Comprehensive Metabolic Panel Stat Lactate (Lactic Acid) Stat Lipase Stat Procalcitonin Stat Troponin & CK Cardiac Panel Stat 07/27/20 18:22 Blood Culture Stat 07/27/20 19:22 US periph venous up extrem lt Stat 07/27/20 19:51 Urine Culture Stat Urine Microscopic Stat 07/27/20 21:29 COVID19 - ADMIT ([employer] swab/PCR) Stat Acetaminophen (Acetaminophen 325 Mg Tablet) 650 mg PO Q6HR PRN PRN Reason: Fever/Mild Pain (1-3) Amlodipine Besylate (Amlodipine 5 Mg Tablet) 5 mg PO DAILY [facility] Aspirin (Aspirin Ec 81 Mg Tablet) 81 mg PO DAILY [facility] Clindamycin Phosphate (Cleocin) 900 mg in 50 mls @ 50 mls/hr IV Q6H YAMILE Last Admin: 07/28/20 01:18 Dose: 50 mls/hr Documented by: AARON Sodium Chloride (Normal Saline 0.9%) 250 mls @ 21 mls/hr IV Q24H PRN PRN Reason: Flush Last Admin: 07/28/20 01:18 Dose: 21 mls/hr Documented by: AARON Levothyroxine Sodium (Levothyroxine 125 Mcg Tablet) 125 mcg PO DAILY@0600 [facility] Ondansetron HCl (Ondansetron 4 Mg/2 Ml Inj) 4 mg IV Q4HR PRN PRN Reason: Nausea And Vomiting Triamterene/Hydrochlorothiazide (Triamterene/Hctz 37.5/25 Capsule) 1 cap PO DAILY [facility] Zolpidem Tartrate (Zolpidem 5 Mg Tablet) 5 mg PO BEDTIME PRN PRN Reason: Sleep Last Admin: 07/28/20 01:19 Dose: 5 mg Documented by: AARON Discontinued Medications Acetaminophen (Acetaminophen 325 Mg Tablet) 650 mg PO NOW ONE Stop: 07/27/20 18:42 Last Admin: 07/27/20 19:13 Dose: 650 mg Documented by: [email or web address] Sodium Chloride (Normal Saline 0.9%) 1,000 mls @ 1,000 mls/hr IV BOLUS ONE Stop: 07/27/20 19:02 Last Infusion: 07/27/20 19:13 Dose: 0 mls/hr Documented by: [email or web address] Admin: 07/27/20 19:12 Dose: 1,000 mls/hr Documented by: [email or web address] Clindamycin Phosphate (Cleocin) 900 mg in 50 mls @ 50 mls/hr IV NOW ONE Stop: 07/27/20 20:20 Last Infusion: 07/27/20 20:27 Dose: 0 mls/hr Documented by: [email or web address] Admin: 07/27/20 19:27 Dose: 50 mls/hr Documented by: [email or web address] Sodium Chloride (Normal Saline 0.9%) 1,000 mls @ 125 mls/hr IV CONT YAMILE Last Admin: 07/28/20 00:52 Dose: Not Given Documented by: AARON Reevaluation(s) Reevaluation #1: Patient has difficulty getting to bathroom even. She does not appear to be septic at this time but would probably be appropriate to keep her. Time: 21:14 Consultations Consultation #1: Dr. Shen accepts for observation for possible cellulitis left upper extremity as well as generalized weakness. Cultures are pending. Patient was started on clindamycin IV. She was responsive to Rocephin in the past but has had 6 doses of cephalexin with continued symptoms. Time: 21:43 Vital Signs Vital signs: Vital Signs - 8 hr 07/27/20 19:00 07/27/20 19:13 07/27/20 19:30 Temperature 100.6 F H Pulse Rate 75 82 Blood Pressure Pulse Oximetry 94 94 07/27/20 20:00 07/27/20 20:30 07/27/20 20:51 Temperature Pulse Rate 67 66 62 Blood Pressure 136/62 Pulse Oximetry 94 94 92 07/27/20 21:00 07/27/20 21:22 Temperature 98 F Pulse Rate 62 Blood Pressure Pulse Oximetry 92 MDM - Weakness Lab Data Attestation: I reviewed the patient's lab results. Result diagrams: 07/27/20 18:10 07/27/20 18:10 Labs: Lab Results 07/27/20 07/27/20 07/27/20 Range/Units 18:10 18:10 18:10 WBC 12.4 H (4.5-11.0) X10^3/uL RBC 5.32 H (4.0-5.2) X10^6/uL Hgb 16.2 H (12.0-16.0) g/dL Hct 48.7 H (36-46) % MCV 91.6 (80-100) fL MCH 30.4 (26-34) PG MCHC 33.2 (30-36) % RDW 13.4 (11.6-14.8) % Plt Count 275 (150-400) X10^3/uL Neut % (Auto) 65.8 (50-75) % Lymph % (Auto) 19.3 L (25-40) % [place] % (Auto) 14.5 H (3-14) % Eos % (Auto) 0.1 L (2-4) % Baso % (Auto) 0.3 (0-2) % Neut # (Auto) 8200 H (8956-5287) /uL Lymph # (Auto) 2400 (5722-0661) /uL [place] # (Auto) 1800 H (0-900) /uL Eos # (Auto) 0 (0-450) /uL Baso # (Auto) 0 (0-100) /uL Sodium 138 (137-145) mmol/L Potassium 3.2 L (3.4-5.1) mmol/L Chloride 99 (98-107) mmol/L Carbon Dioxide 28 (22-32) mmol/L BUN 24 H (7-17) mg/dL Creatinine 1.35 H (0.52-1.04) mg/dL Estimated GFR 37.5 L (>60) mL/min BUN/Creatinine Ratio 17.8 (6-22) Glucose 111 H (80-110) mg/dL Lactate 1.4 (0.7-2.1) mmol/L Calcium 10.1 (8.4-10.2) mg/dL Total Bilirubin 0.7 (0.2-1.3) mg/dL AST 54 H (14-36) IU/L ALT 34 (<35) IU/L Alkaline Phosphatase 73 (38-126) U/L Total Creatine Kinase (30-135) U/L CK-MB (CK-2) CK-MB (CK-2) Rel Index Troponin I (0.01-0.034) ng/mL Total Protein 8.2 (6.3-8.2) g/dL Albumin 4.4 (3.5-5.0) g/dL Globulin 3.8 (1.7-4.1) g/dL Albumin/Globulin Ratio 1.2 (1.0-2.8) Lipase 73 (23-300) U/L Procalcitonin 0.58 H (<0.5) ng/mL Urine RBC (0-5/HPF) Urine WBC (0-5/HPF) Ur Squamous Epith Cells (0-5/HPF) Urine Bacteria (None) Ur Culture Indicated? SARS-CoV-2 (PCR) (Negative) 07/27/20 07/27/20 07/27/20 Range/Units 18:10 19:51 21:29 WBC (4.5-11.0) X10^3/uL RBC (4.0-5.2) X10^6/uL Hgb (12.0-16.0) g/dL Hct (36-46) % MCV (80-100) fL MCH (26-34) PG MCHC (30-36) % RDW (11.6-14.8) % Plt Count (150-400) X10^3/uL Neut % (Auto) (50-75) % Lymph % (Auto) (25-40) % [place] % (Auto) (3-14) % Eos % (Auto) (2-4) % Baso % (Auto) (0-2) % Neut # (Auto) (2568-8325) /uL Lymph # (Auto) (2453-8058) /uL [place] # (Auto) (0-900) /uL Eos # (Auto) (0-450) /uL Baso # (Auto) (0-100) /uL Sodium (137-145) mmol/L Potassium (3.4-5.1) mmol/L Chloride (98-107) mmol/L Carbon Dioxide (22-32) mmol/L BUN (7-17) mg/dL Creatinine (0.52-1.04) mg/dL Estimated GFR (>60) mL/min BUN/Creatinine Ratio (6-22) Glucose (80-110) mg/dL Lactate (0.7-2.1) mmol/L Calcium (8.4-10.2) mg/dL Total Bilirubin (0.2-1.3) mg/dL AST (14-36) IU/L ALT (<35) IU/L Alkaline Phosphatase (38-126) U/L Total Creatine Kinase 98 (30-135) U/L CK-MB (CK-2) TNP CK-MB (CK-2) Rel Index TNP Troponin I 0.014 (0.01-0.034) ng/mL Total Protein (6.3-8.2) g/dL Albumin (3.5-5.0) g/dL Globulin (1.7-4.1) g/dL Albumin/Globulin Ratio (1.0-2.8) Lipase (23-300) U/L Procalcitonin (<0.5) ng/mL Urine RBC 1-5/hpf (0-5/HPF) Urine WBC 5-10/hpf H (0-5/HPF) Ur Squamous Epith Cells 0-1 /hpf (0-5/HPF) Urine Bacteria None seen (None) Ur Culture Indicated? Specimen cultured SARS-CoV-2 (PCR) Negative (Negative) Urine Dip Bedside Urine Glucose Negative Bedside Urine Bilirubin - Negative Bedside Urine Ketone - Negative Urine Specific [place] 1.015 Bedside Urine Occult Blood + Bedside Urine pH 7.0 Bedside Urine Protein - Negative Bedside Urine Urobilinogen - Negative Bedside Urine Nitrite - Negative Bedside Urine Leukocytes - Negative Esterase Imaging Data Chest x-ray: Radiologist Impression: [address] [id number] ReportSigned Patient: Cindy Mishra LMR#: [id number]: 8Acct:[id number]/Sex: 85 / FDate of Service: 07/27/20Loc: EDAccession Number: [id number] Procedure: XR chest 1V Ordering Provider: Siri Pa D.O. PROCEDURE: XR CHEST 1V INDICATIONS: suspected sepsis TECHNIQUE: One view of the chest was acquired. COMPARISON: [facility], XR CHEST 1V, 09/21/2018, 19:13. FINDINGS: Surgical changes and devices: Surgical clips in the left breast and axilla. Lungs and pleura: Lungs are clear. No pleural effusions or pneumothorax. Mediastinum: Mediastinal contours appear normal. Heart size is normal. Bones and chest wall: No suspicious bony lesions. Overlying soft tissues appear unremarkable. There may be left clavicular fracture of uncertain chronicity versus artifact. IMPRESSION: No acute cardiopulmonary disease. Dictated by: Mejia Rosenbaum M.D. on 07/27/2020 at 18:23 Approved by: Mejia Rosenbaum M.D. on 07/27/2020 at 18:24 US - DVT: Radiologist Impression: Cindy Mishra 85 F [address] [id number] ReportSigned Patient: Cindy Mishra LMR#: [id number]: 1935cct:[id number]/Sex: 85 / FDate of Service: 07/27/20Loc: EDAccession Number: [id number] Procedure: perip venous up extrem lt Ordering Provider: Divina Hinds D.O. PROCEDURE: US PERIP VENOUS UP EXTREM LT INDICATIONS: swelling, hx fever, lymphedema TECHNIQUE: Real-time imaging, as well as color and pulse Doppler interrogation, was performed of the left upper extremity deep veins from the inferior neck to the antecubital fossa. COMPARISON: [facility], US PERIP VENOUS UP EXTREM LT, 09/21/2018, 20:27. FINDINGS: The internal jugular vein, visualized portions of the subclavian vein, axillary, and brachial veins are free of intraluminal thrombus. Where physically possible, the veins are normally compressible. Color and pulse Doppler demonstrate normal intraluminal flow, with expected phasicity and pulsatility. Additional scanning of the cephalic and basilic veins of the superficial system demonstrate normal compressibility, without thrombus. IMPRESSION: No DVT in the left upper extremity. Dictated by: Mejia Rosenbaum M.D. on 07/27/2020 at 20:41 Approved by: Mejia Rosenbaum M.D. on 07/27/2020 at 20:42 ECG Data Attestation: I personally reviewed and interpreted this ECG as follows: Prior ECG tracings: available for review Interpretation: Sinus rhythm with premature atrial complexes. Rate of 73 LA 166 QRS is 70 QTC 442. Patient has depression in V3, V4 and V5. This appears to be present on prior EKG from 09/21/2018. No elevation appreciated. Lead 3 does appear different from prior EKG. MDM Narrative Medical decision making narrative: This is an 85-year-old female who comes to emergency department with concern for cellulitis in her left upper extremity. Patient states she has had recurrent episodes in the past at times resulting in significant sepsis. Patient has had similar symptoms. She does have some warmth although no obvious erythema. DVT is negative, chest x-ray and urine do not show any definitive changes consisting infection. Blood cultures were obtained. Patient does have a mild hypokalemia. Her chronic renal dysfunction is slightly worsened today. Her AST is elevated at 54 but improved from prior in May with no other changes to her abdominal labs. Procalcitonin is positive. Patient will possibly been able to have been switched an oral antibiotic but with her generalized weakness there is concern for safety and patient was kept for observation. Discharge Plan Departure Patient Disposition: Admitted as Observation Clinical Impression: Cellulitis of arm, left, Weakness Admit Date/Time: 07/27/20 21:52 Admit Provider: Son Shen
[2020-07-27 19:06] LABS: Procalcitonin 0.58 ng/mL (<0.5)
[2020-07-27] MEDS: SODIUM CHLORIDE 0.9% 1,000 ML 1000 ML IV (19:12)
[2020-07-27 19:13] LABS: Troponin I 0.014 ng/mL (0.01-0.034)
[2020-07-27] MEDS: ACETAMINOPHEN 325 MG TABLET 650 MG PO (19:13)
--- NOTE | 2020-07-27 19:22 | DI.US.S_ITS ---
PROCEDURE: US [facility] VENOUS UP EXTREM LT INDICATIONS: swelling, hx fever, lymphedema TECHNIQUE: Real-time imaging, as well as color and pulse Doppler interrogation, was performed of the left upper extremity deep veins from the inferior neck to the antecubital fossa. COMPARISON: [facility], , [facility] VENOUS UP EXTREM LT, 09/21/2018, 20:27. FINDINGS: The internal jugular vein, visualized portions of the subclavian vein, axillary, and brachial veins are free of intraluminal thrombus. Where physically possible, the veins are normally compressible. Color and pulse Doppler demonstrate normal intraluminal flow, with expected phasicity and pulsatility. Additional scanning of the cephalic and basilic veins of the superficial system demonstrate normal compressibility, without thrombus. IMPRESSION: No DVT in the left upper extremity. Dictated by: Mejia Rosenbaum M.D. on 07/27/2020 at 20:41 Approved by: Mejia Rosenbaum M.D. on 07/27/2020 at 20:42
[2020-07-27] MEDS: CLINDAMYCIN 900 MG/50 ML PIGGYBACK 50 MG IV (19:27)
[2020-07-27 19:53] LABS: Bacteria Urine None Seen
[2020-07-27 20:07] LABS: Culture Indicated Urine Specimen Cultured; RBC Urine 1-5/HPF (0-5/HPF); Squamous Epithelial Cell Urine 0-1 /HPF (0-5/HPF); WBC Urine 5-10/HPF (0-5/HPF)
[2020-07-27 22:36] LABS: COVID19 - ADMIT (NP swab/PCR) Negative (Negative)
[2020-07-28] VITALS (9 sets, daily range): BP systolic 96–137; BP diastolic 45–62; PULSE 57–74; RESP 12–16; TEMP 36.1–37.7; O2SAT 93–95
[2020-07-28] MEDS: SODIUM CHLORIDE 0.9% 250 ML 21 ML IV (01:18)
[2020-07-28] MEDS: CLINDAMYCIN 900 MG/50 ML PIGGYBACK 50 MG IV ×4 (01:18→21:00)
[2020-07-28] MEDS: ZOLPIDEM 5 MG TABLET PO (01:19)
--- NOTE | 2020-07-28 02:17 | PC.NURSE ---
Call to Dr. Shen at 0034 regarding patients home medications, diet, and fluids. Orders received, read back.
[2020-07-28] MEDS: LEVOTHYROXINE 125 MCG TABLET PO (05:21)
[2020-07-28] MEDS: ACETAMINOPHEN 325 MG TABLET 650 MG PO (05:47)
--- NOTE | 2020-07-28 07:38 | PM.HP.1 ---
History of Present Illness History of Present Illness Date Patient Seen: 07/28/20 Time Patient Seen: 07:38 Chief complaint: Weakness Narrative: 85-year-old female admitted via emergency department with cellulitis of left upper extremity. Patient is status post lymph node dissection for breast cancer in that arm and has had several episodes of infection previously. Symptoms started about 24 -48 hours prior to admission. She does have oral antibiotics at home which she takes in this setting and she took maybe 6 doses but had persistent symptoms including fever generalized weakness and chills. Normally she has had the sudden onset of more severe pain and swelling in the arm this time was more weakness with borderline fever. In the ER she was found to be modestly hypokalemic as well as elevated white blood cell count and minimally elevated temperature. She had findings in the left upper extremity consistent with cellulitis with increased warmth. 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) Breast cancer, left breast (1998) Decreased vision H/O malignant neoplasm of breast Hypercholesteremia Hypothyroidism (acquired) (12/22/10) Insomnia Lymphedema of upper extremity (10/16/14) Stage 3 chronic kidney disease Urinary incontinence due to urethral sphincter incompetence Surgical History History of oophorectomy History of tonsillectomy Status post cholecystectomy (1997) Status post hysterectomy (1990) Family & Social History Family History Brother Coronary artery disease Social History: household members spouse,caregiver Prior Living Arrangements [facility] Safety & Behavioral: Feels Safe in Current Yes Environment Been Physically Hurt or No Threatened By a Person Suicidal Ideation Description None Suicide Plan Description No Plan Tobacco & Substance use: Smoking Status Never smoker alcohol intake never alcohol intake frequency 0-2 drinks per day Substance Use Type does not use Meds Home Medications and Allergies Home Medications Medication Instructions Recorded Confirmed Type aspirin 81 mg tablet,delayed 81 mg PO DAILY 10/24/17 07/27/20 History release cholecalciferol (vitamin D3) 50 4,000 unit PO DAILY cap 08/30/18 07/27/20 History mcg (2,000 unit) capsule diclofenac sodium 1 % topical gel 2 gram TOP QID #100 gram 12/10/18 07/27/20 Rx simvastatin 40 mg tablet 20 mg PO DAILY #45 tab 11/29/19 07/27/20 Rx amlodipine 5 mg tablet 5 mg PO DAILY #90 tab 02/17/20 07/27/20 Rx zolpidem 10 mg tablet 10 mg PO HSP PRN #30 tab 02/28/20 07/27/20 Rx levothyroxine 125 mcg tablet 125 mcg PO DAILY #90 tab 05/26/20 07/27/20 Rx triamterene 37.5 1 tab PO DAILY #90 tab 07/23/20 07/27/20 Rx mg-hydrochlorothiazide 25 mg tablet Allergies Allergy/AdvReac Type Severity Reaction Status Date / Time morphine AdvReac Severe Nausea Verified 05/21/20 10:07 Review of Systems Constitutional Constitutional: Reports chills, Denies excessive sweating, Reports fever(s), Denies headache(s), Reports weakness, Denies weight gain and Denies weight loss Eyes Eyes: Denies change in vision, Denies itchy eyes, Denies loss of vision and Denies other visual disturbances ENT Ears, Nose, Mouth, and Throat: No change in voice, No dysphagia, No dizziness, No otalgia, No headache(s), No hoarseness, No lip swelling, No neck pain, No sore throat, No throat swelling and No tongue swelling Cardiovascular Cardiovascular: Denies chest pain, Denies syncope, Denies rapid heart rate, Denies irregular heart rhythm, Denies palpitations, Denies dyspnea, Denies dyspnea on exertion and Denies slow heart rate Respiratory Respiratory: Denies chest congestion, Denies cough, Denies hemoptysis, Denies dyspnea, Denies dyspnea on exertion, Denies stridor and Denies wheezing Gastrointestinal Gastrointestinal: Denies abdominal pain, Denies bloating, Denies change in bowel habits, Denies change in stool character, Denies dysphagia, Denies nausea, Denies vomiting and Denies hematemesis Genitourinary Genitourinary: Denies hematuria, Denies urinary frequency and Denies difficulty voiding Musculoskeletal Musculoskeletal: Denies abnormal gait and Denies neck pain Integumentary/Breasts Skin/Breast: Denies bleeding lesions, Denies change in pigmentation, Denies changing lesions, Denies new lesions, Denies rash, Denies skin swelling, Denies sores and Denies jaundice Neurologic Neurologic: Denies abnormal speech, Denies abnormal gait, Denies behavioral changes, Denies confusion, Denies dizziness, Denies syncope, Denies headache(s), Denies loss of vision, Denies memory loss, Denies seizure-like activity, Denies paresthesias and Reports weakness Psychiatric Psychiatric: Denies behavioral changes, Denies change in appetite, Denies confusion, Denies difficulty concentrating, Denies auditory hallucinations, Denies memory loss, Denies mood swings and Denies suicidal ideation Endocrine Endocrine: Denies excessive sweating, Denies flushing, Denies polyuria and Denies palpitations Hematologic/Lymphatic Hematologic/Lymphatic: Denies easy bleeding, Denies easy bruising and Denies lymphadenopathy Allergic/Immunologic Allergic/Immunologic: Denies urticaria, Denies itchy eyes, Denies lip swelling, Denies throat swelling, Denies tongue swelling and Denies wheezing Exam Vital Signs (past 8 hours): - 07/28/20 00:28 07/28/20 05:31 07/28/20 05:47 Temperature 98.5 F 99.8 F H 99.8 F H Pulse Rate 69 74 Respiratory Rate 16 16 Blood Pressure 137/60 131/62 Pulse Oximetry 94 94 07/28/20 06:20 Temperature 99.3 F Pulse Rate Respiratory Rate Blood Pressure Pulse Oximetry Oxygen Delivery Method Room Air Oxygen Flow Rate 0 Narrative Exam Narrative: Elderly female who looks mildly ill lying in hospital bed HEENT-unremarkable Neck-no lymphadenopathy no bruits Lungs-clear with good breath sounds Heart-regular rate and rhythm no murmur Abdomen-benign Extremities-no cyanosis clubbing. Left upper extremity edema chronic, left upper extremity significantly warmer than right with sort of a diaphoretic feel to it without tenderness or redness Objective Labs Result Diagrams: 07/27/20 18:10 07/27/20 18:10 Labs: Laboratory Results - last 24 hr 07/27/20 07/27/20 07/27/20 18:10 18:10 18:10 WBC 12.4 H RBC 5.32 H Hgb 16.2 H Hct 48.7 H MCV 91.6 MCH 30.4 MCHC 33.2 RDW 13.4 Plt Count 275 Neut % (Auto) 65.8 Lymph % (Auto) 19.3 L Sunflower % (Auto) 14.5 H Eos % (Auto) 0.1 L Baso % (Auto) 0.3 Neut # (Auto) 8200 H Lymph # (Auto) 2400 Sunflower # (Auto) 1800 H Eos # (Auto) 0 Baso # (Auto) 0 Sodium 138 Potassium 3.2 L Chloride 99 Carbon Dioxide 28 BUN 24 H Creatinine 1.35 H Estimated GFR 37.5 L BUN/Creatinine Ratio 17.8 Glucose 111 H Lactate 1.4 Calcium 10.1 Total Bilirubin 0.7 AST 54 H ALT 34 Alkaline Phosphatase 73 Total Creatine Kinase CK-MB (CK-2) CK-MB (CK-2) Rel Index Troponin I Total Protein 8.2 Albumin 4.4 Globulin 3.8 Albumin/Globulin Ratio 1.2 Lipase 73 Procalcitonin 0.58 H Urine RBC Urine WBC Ur Squamous Epith Cells Urine Bacteria Ur Culture Indicated? SARS-CoV-2 (PCR) 07/27/20 07/27/20 07/27/20 18:10 19:51 21:29 WBC RBC Hgb Hct MCV MCH MCHC RDW Plt Count Neut % (Auto) Lymph % (Auto) Sunflower % (Auto) Eos % (Auto) Baso % (Auto) Neut # (Auto) Lymph # (Auto) Sunflower # (Auto) Eos # (Auto) Baso # (Auto) Sodium Potassium Chloride Carbon Dioxide BUN Creatinine Estimated GFR BUN/Creatinine Ratio Glucose Lactate Calcium Total Bilirubin AST ALT Alkaline Phosphatase Total Creatine Kinase 98 CK-MB (CK-2) TNP CK-MB (CK-2) Rel Index TNP Troponin I 0.014 Total Protein Albumin Globulin Albumin/Globulin Ratio Lipase Procalcitonin Urine RBC 1-5/hpf Urine WBC 5-10/hpf H Ur Squamous Epith Cells 0-1 /hpf Urine Bacteria None seen Ur Culture Indicated? Specimen cultured SARS-CoV-2 (PCR) Negative Assessment & Plan Assessment & Plan narrative: 1. Cellulitis in arm with lymphedema status post lymph node dissection-continue parental antibiotics. Minimal elevation of white count with left shift but normal lactate. Borderline elevated procalcitonin. Vital signs are okay. I do not believe she has sepsis at this point. Continue with the parental antibiotics and some gentle supportive IV fluids and continue to observe. This is a bit atypical presentation for her with the previous episodes of cellulitis she has had. She clearly has an infection but urine and chest x-ray were both normal. I think the findings on exam strongly suggest the arm as a source of infection and hopefully with correction of her electrolytes and to parental antibiotic she will do much better very quickly, as is often the case in the setting 2. Weakness-likely secondary to her age combined with her significant infection as above. Hopefully this will rapidly resolve as we treat her infection adequately 3. Hypokalemia-patient hypokalemic likely on the basis of her diuretic therapy despite the combo with triamterene. Will give oral potassium and recheck tomorrow. Maybe contributing to her overall weakness. 4. Patient's other medical problems include chronic kidney disease hypothyroidism hyperlipidemia hypertension etcetera. All seems stable continue patient's usual medications. 5. VTE prophylaxis-patient would benefit from Lovenox which I will initiate 6. Code status-patient should be full code in the event of sudden cardiac or respiratory arrest, per her wishes.
[2020-07-28] MEDS: POTASSIUM CHLORIDE 20 MEQ TAB 40 MEQ PO ×2 (07:56→17:25)
[2020-07-28] MEDS: ASPIRIN EC 81 MG TABLET PO (08:22)
[2020-07-28] MEDS: AMLODIPINE 5 MG TABLET PO (08:23)
[2020-07-28] MEDS: ENOXAPARIN 40 MG/0.4 ML SYRINGE SUBCUT (09:29)
--- NOTE | 2020-07-28 13:40 | CM.DANOTE ---
Patient is an 85 year old female who was admitted on 07/27/20 for Weakness. Pt has [employer] and [employer] for insurance and her PCP is Dr. Steen. EMR was reviewed. Per MD, pt with post op lymph node disection for breast CA and has a hx of infections. Pt admitted for cellulitis and given IV-Abx after failed outpt oral abx. SW met bedside with pt and explained role and she confirms that she lives with her at [facility] and has lots of local family support (3 adult Dtrs, one adult son, and many grand and great grandchildren). Pt states all the adults in the family are COVID vaccinated and they have been able to spend time outdoors with each other. Pt states she is typically active and independent but the past 3 days she had no appetite and could not eat and barely tolerate fluids. Pt states she is feeling better but not back to baseline. Pt denies any hx of HH or SNF and preference is home back to [facility] via family POV when stable. Pt's DPOA is on file in her EMR but believes it's her son as her DPOA. Plan: SW to follow closely to confirm plan of d/c home with spouse and supportive local family is safe and any further identified discharge planning needs. ASCENCION Berger Discharge Planning/Care Management CM Discharge Assessment Start: 07/28/20 13:39 Freq: Status: Active Protocol: Document 07/28/20 13:39 BF (Rec: 07/28/20 13:40 BF [id number]) Discharge Planning Assessment Assigned Packaging Tech ASCENCION Alberts DPOA/Assigned Designee Name son Advance Directives? Yes: DPOA and Health Directive , POLST Advance Directives on File Yes History Provided By Patient,Family Member,Medical Record Has Patient been admitted in last 30 No days? Prior Living Arrangements Group Home Facility Household Members spouse Type of transporation used prior to Relies on Others admit Facility Name Admitted From: [facility] Willing to Return to Facility? Yes Independent with ADL's Yes Is patient alert and oriented? Yes Needs Assistance With Home Chores / Shopping Caregiver for Another No Barriers to Discharge No Discharge Plan Home Transportation Arrangement Family can provide transport at d/c Referrals Initiated None needed Whiteboard Updated in Patient Room with Yes name and ext. # of Packaging Tech Review Status In Process Please Provide Date Initial DC 07/28/20 Assessment Was Performed Next Review Type Continued Stay Review
--- NOTE | 2020-07-28 21:55 | PC.NURSE ---
Pt had relatively uneventful evening. Denies discomfort. HL x 2 RAC & RFA intact/patent. Left arm slightly swollen per pt but not as it was on admit. Condition remains essentially unchanged. Call light w/in reach, bed alarm on for pt safety. Continue w/plan of care.
[2020-07-29 00:05] VITALS: BP 125/58; PULSE 65; RESP 16; TEMP 36.7; O2SAT 94
[2020-07-29] MEDS: ZOLPIDEM 5 MG TABLET PO (00:34)
[2020-07-29] MEDS: CLINDAMYCIN 900 MG/50 ML PIGGYBACK 50 MG IV ×2 (00:36→06:54)
[2020-07-29] MEDS: LEVOTHYROXINE 125 MCG TABLET PO (05:04)
[2020-07-29 05:11] VITALS: BP 106/66; PULSE 60; RESP 14; TEMP 36.4; O2SAT 93
[2020-07-29 05:55] LABS: BUN Creatinine Ratio 20.5 (6-22); Blood Urea Nitrogen 25 mg/dL (7-17); Calcium 8.7 mg/dL (8.4-10.2); Carbon Dioxide 24 mmol/L (22-32); Chloride 105 mmol/L (98-107); Estimated Glomerular Filt Rate 42.1 mL/min (>60); Glucose 101 mg/dL (80-110); HEMOLYSIS < 15 (0-50); Potassium 3.7 mmol/L (3.4-5.1); Sodium 138 mmol/L (137-145)
[2020-07-29 08:00] VITALS: BP 117/58; PULSE 63; RESP 18; TEMP 36.4; O2SAT 94
--- NOTE | 2020-07-29 08:23 | P.DS_ITS ---
History of Present Illness History of Present Illness Chief complaint: Weakness Narrative: 85-year-old female admitted via emergency department with cellulitis of left upper extremity. Patient is status post lymph node dissection for breast cancer in that arm and has had several episodes of infection previously. Symptoms started about 24 -48 hours prior to admission. She does have oral antibiotics at home which she takes in this setting and she took maybe 6 doses but had persistent symptoms including fever generalized weakness and chills. Normally she has had the sudden onset of more severe pain and swelling in the arm this time was more weakness with borderline fever. In the ER she was found to be modestly hypokalemic as well as elevated white blood cell count and minimally elevated temperature. She had findings in the left upper extremity consistent with cellulitis with increased warmth. Was elected to admit her for continued parental antibiotics given her failure to improve with oral antibiotics at home Discharge Providers Provider Date of admission: 07/28/20 08:51 Discharge Date: 07/29/20 Primary care physician: Wayne Steen MD Discharge provider: Wayne Steen MD Summary Hospital Course Discharge Diagnosis: 1. Cellulitis left upper extremity, organism not identified 2. Lymphedema left upper extremity status post lymph node dissection for breast cancer in the distant past 3. Hypokalemia, resolved 4. Weakness 5. Hypertension 6. Hypothyroidism on replacement 7. Chronic renal failure stage 3 a Hospital Course: Patient presented to [facility] as above with severe weakness found to have hypokalemia probable cellulitis with obvious evidence of bacterial infection. She was treated with parental antibiotics and improved rapidly. She was minimally febrile in the ER and became afebrile during hospitalization Her strength improved significantly she felt like she was at least 90% back to normal up on her feet She was given oral potassium replacement and with this her potassium improved significantly back to normal Her blood pressure was somewhat low during the duration of her hospitalization. Amlodipine was held and will continue to be held as an outpatient till she can be seen by her PCP Status at Discharge Cognitive/behavioral status at discharge: at baseline, oriented Functional status at discharge: independent ambulation Overall status at discharge: patient is progressing back to baseline Exam Vital Signs (past 8 hours): - 07/29/20 05:11 Temperature 97.6 F Pulse Rate 60 Respiratory Rate 14 Blood Pressure 106/66 Pulse Oximetry 93 Oxygen Delivery Method Room Air Oxygen Flow Rate 0 Narrative Exam Narrative: HEENT-unremarkable Neck-lymphadenopathy Lungs-clear Heart-regular rate and rhythm Abdomen-benign Extremities-warmth and diaphoresis of left upper extremity completely resolved, swelling still present consistent with baseline Objective Labs Result Diagrams: 07/27/20 18:10 07/29/20 05:40 Labs: Laboratory Results - last 24 hr 07/29/20 05:40 Sodium 138 Potassium 3.7 Chloride 105 Carbon Dioxide 24 BUN 25 H Creatinine 1.22 H Estimated GFR 42.1 L BUN/Creatinine Ratio 20.5 Glucose 101 Calcium 8.7 PFSH Medical History Abnormal LFTs Abnormal mammogram Appendicitis Benign essential hypertension 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) Breast cancer, left breast (1998) Decreased vision H/O malignant neoplasm of breast Hypercholesteremia Hypothyroidism (acquired) (12/22/10) Insomnia Lymphedema of upper extremity (10/16/14) Stage 3 chronic kidney disease Urinary incontinence due to urethral sphincter incompetence Surgical History History of oophorectomy History of tonsillectomy Status post cholecystectomy (1997) Status post hysterectomy (1990) Family History Brother Coronary artery disease Social History household members: spouse Smoking Status: Never smoker alcohol intake: never Discharge Assessment & Plan Assessment and Plan Plan of Treatment: Patient will continue on clindamycin to complete another 1 week course of this orally Patient will hold her amlodipine because of modest hypotension until seen in the outpatient clinic Patient will continue with her triamterene hydrochlorothiazide without additional potassium supplementation with plans to repeat this as an outpatient Patient will continue all of her other usual medications Discharge Plan Discharge Plan Patient Disposition: Home Discharge orders & Medications Prescriptions: New clindamycin HCl 300 mg capsule 300 mg PO TID 7 Days Qty: 21 RF: 0 Continued zolpidem [Ambien] 10 mg tablet 10 mg PO HSP PRN (Reason: insomnia) Qty: 30 RF: 2 levothyroxine 125 mcg tablet 125 mcg PO DAILY Qty: 90 RF: 4 triamterene-hydrochlorothiazid 37.5-25 mg tablet 1 tab PO DAILY Qty: 90 RF: 1 aspirin [Adult Low Dose Aspirin] 81 mg tablet,delayed release (DR/EC) 81 mg PO DAILY RF: 0 cholecalciferol (vitamin D3) 2,000 unit capsule 4,000 unit PO DAILY RF: 0 diclofenac sodium [Voltaren] 1 % gel 2 gram TOP QID Qty: 100 RF: 4 simvastatin 40 mg tablet 20 mg PO DAILY Qty: 45 RF: 3 Discontinued amlodipine 5 mg tablet 5 mg PO DAILY Qty: 90 RF: 1 Follow up/Referrals: Wayne Steen MD [Primary Care Provider] - 1 Week (7-10 days, 15 min appt viraj, let FMA know this) Discharge Health Status Multidrug resistant organism: No MDRO Diet/Activity/Treatments Diet: Diet as Tolerated Discharge Data Primary Care Provider: Wayne Steen
[2020-07-29] MEDS: ASPIRIN EC 81 MG TABLET PO (08:26)
[2020-07-29] MEDS: POTASSIUM CHLORIDE 20 MEQ TAB 40 MEQ PO (08:26)
--- NOTE | 2020-07-29 10:01 | PC.NURSE ---
Pt A&Ox3, VSS, afebrile on RA. LS CTA. PO intake good, denies pain n/v. She ambulates with steady gait to BR. MD Steen at bedside this a.m. discussing plan of care, lab results and medications. Cleared for discharge home. She verbalizes understanding of instructions and follow up appointment in approximately 10 days. Education provided on diagnosis and medications. CRYSTALLOGRAPHER escorted patient via w/ch with to private vehicle with all of her belongings.
--- NOTE | 2020-07-29 10:28 | CM.DPC ---
DCP Discharge Home Per MD, pt improved significantly on IV-Abx and potassium and is medically stable to d/c home today with outpt follow up and no identified barriers to discharge. Per RN, no concerns and pt was agreeable to d/c home this morning. SW observed pt getting discharge instructions and spouse arrived bedside to transport home today but SW was in rounds with hospitalist but pt waved and agreeable with home to [facility] this morning. ASCENCION Berger
== END 2020-07-29 10:00 | disposition home or self-care (01) | DRG 603 ==
LOC: ED 21:43 → AC 21:52
PROVIDERS: Emergency Medicine; Admitting Provider Family Medicine; Emergency Provider Emergency Medicine; PCP Internal Medicine; Visit Provider Internal Medicine
DX: L03.114 Cellulitis of left upper limb (principal); E87.6 Hypokalemia; I12.9 Hypertensive chronic kidney disease with stage 1 through stage 4 chronic kidney disease, or unspecified chronic kidney disease; N18.30 Chronic kidney disease, stage 3 unspecified; E78.5 Hyperlipidemia, unspecified; E03.9 Hypothyroidism, unspecified; I97.2 Postmastectomy lymphedema syndrome; Z20.822 Contact with and (suspected) exposure to COVID-19
CPT/HCPCS: 36415; 71045; 80048; 80053; 81003; 81015; 82550; 83605; 83690; 84145; 84484; 85025; 87040; 87086; 87635; 93005; 93971; 96365; 99222; 99238; 99285; C9803; G0378; J1650

== ENCOUNTER → 2020-08-13 15:51 | Outpatient (CLI) | payer MEDICARE, OTHER, SELFPAY ==
[2020-07-27 22:37] VITALS: BMI 23.1
[2020-08-13 16:13] LABS: Add Manual Diff / Slide Review NO; Basophils Absolute Auto 100 /uL (0-100); Basophils Percent Auto 1.1 % (0-2); Eosinophils Absolute Auto 100 /uL (0-450); Eosinophils Percent Auto 1.3 % (2-4); Hematocrit 44.8 % (36-46); Hemoglobin 15.2 g/dL (12.0-16.0); Lymphocytes Absolute Auto 3400 /uL (1100-4500); Lymphocytes Percent Auto 39.2 % (25-40); Mean Corpuscular Hemoglobin 30.8 PG (26-34); Mean Corpuscular Volume 90.7 fL (80-100); Monocytes Absolute Auto 1100 /uL (0-900); Monocytes Percent Auto 12.7 % (3-14); Neutrophils Absolute Auto 4000 /uL (1500-7000); Neutrophils Percent Auto 45.7 % (50-75); Platelet Count 298 X10^3/uL (150-400); Red Blood Cell Count 4.93 X10^6/uL (4.0-5.2); Red Cell Distribution Width 13.4 % (11.6-14.8); White Blood Cell Count 8.7 X10^3/uL (4.5-11.0)
[2020-08-13 16:24] LABS: Alanine Aminotransferase 52 IU/L (<35); Albumin Globulin Ratio 1.2 (1.0-2.8); Alkaline Phosphatase 94 U/L (38-126); Aspartate Aminotransferase 66 IU/L (14-36); BUN Creatinine Ratio 15.2 (6-22); Bilirubin Total 0.3 mg/dL (0.2-1.3); Blood Urea Nitrogen 16 mg/dL (7-17); Calcium 9.6 mg/dL (8.4-10.2); Carbon Dioxide 25 mmol/L (22-32); Chloride 108 mmol/L (98-107); Estimated Glomerular Filt Rate 50.1 mL/min (>60); Globulin 3.3 g/dL (1.7-4.1); Glucose 116 mg/dL (80-110); HEMOLYSIS 25 (0-50); Potassium 3.3 mmol/L (3.4-5.1); Sodium 142 mmol/L (137-145); Total Protein 7.3 g/dL (6.3-8.2)
[2020-08-13 16:45] LABS: Erythrocyte Sedimentation Rate 37 MM/HR (0-20)
[2020-08-13 16:56] LABS: Free T3, Triiodothyronine Free 3.12 pg/mL (2.77-5.27); Free T4, Direct Thyroxine 1.67 ng/dL (0.78-2.19)
[2020-08-13 17:10] LABS: Thyroid Stimulating Hormone 0.576 uIU/mL (0.47-4.68)
== END ==
PROVIDERS: PCP Internal Medicine; Referring Provider Internal Medicine; Visit Provider Internal Medicine
DX: E03.9 Hypothyroidism, unspecified (principal); I10 Essential (primary) hypertension; L03.114 Cellulitis of left upper limb; R53.1 Weakness
CPT/HCPCS: 36415; 80053; 84439; 84443; 84481; 85025; 85651

== ENCOUNTER → 2020-09-17 12:13 | Outpatient (CLI) | payer MEDICARE, OTHER, SELFPAY ==
[2020-07-27 22:37] VITALS: BMI 23.1
--- NOTE | 2020-09-17 12:17 | DI.RAD.S_ITS ---
PROCEDURE: XR FACIAL BONES MIN 3V INDICATIONS: FACIAL TRAUMA/FALL TECHNIQUE: 3 views of the facial bones were acquired. COMPARISON: None. FINDINGS: Sinuses: Visualized sinuses demonstrate no air-fluid levels or mucosal thickening. Bones: No fractures. No suspicious bony lesions. Orbital rims and zygomatic arches appear intact. Soft tissues: No suspicious soft tissue densities. IMPRESSION: No fracture radiographically identified. Dictated by: Ethan Mensah M.D. on 09/17/2020 at 13:27 Approved by: Ethan Mensah M.D. on 09/17/2020 at 13:28
== END ==
PROVIDERS: PCP Internal Medicine; Referring Provider Physician Assistant; Visit Provider Physician Assistant
DX: S09.93XA Unspecified injury of face, initial encounter (principal); W19.XXXA Unspecified fall, initial encounter
CPT/HCPCS: 70150

== ENCOUNTER → 2020-11-24 16:43 | Outpatient (CLI) | payer MEDICARE, OTHER, SELFPAY ==
[2020-07-27 22:37] VITALS: BMI 23.1
--- NOTE | 2020-11-24 16:45 | DI.MG.S_ITS ---
BILATERAL DIGITAL SCREENING MAMMOGRAM 3D/2D WITH CAD: 11/24/2020 CLINICAL: Routine screening. Personal history of left breast cancer. Comparison is made to exams dated: 11/20/2019 mammogram, 11/01/2018 mammogram, 10/24/2017 mammogram, and 10/02/2017 mammogram - [facility]. There are scattered fibroglandular elements in both breasts. Current study was also evaluated with a Computer Aided Detection (CAD) system. There is a new oval equal density mass with an indistinct and circumscribed margin in the left breast at 9 o'clock anterior depth. There also is irregular equal density architectural distortion with an indistinct margin and coarse dystrophic calcifications in the left axillary tail. This correlates with surgery. There are surgical clips, a post-surgical scar, skin retraction, thickening, and trabecular thickening associated with the architectural distortion. No other significant masses, calcifications, or other findings are seen in either breast. IMPRESSION: INCOMPLETE: NEEDS ADDITIONAL IMAGING EVALUATION The new oval equal density mass in the left breast at 9 o'clock anterior depth is indeterminate. Mediolateral and spot compression views as well as additional views with possible ultrasound are recommended. The irregular equal density architectural distortion in the left axillary tail is consistent with a previous surgery and is benign. This exam was interpreted at Station ID: [id number]. NOTE: For mammograms, a report in lay terms will be sent to the patient. Approximately 15% of breast malignancies will not be visualized mammographically. In the management of a palpable breast mass, a negative mammogram must not discourage biopsy of a clinically suspicious lesion. Electronically Signed By: Luis watson/florentino:11/25/2020 08:35:07 letter sent: Additional Imaging Needed ACR BI-RADS Category 0: Incomplete [id number]
== END ==
PROVIDERS: PCP Internal Medicine; Referring Provider Internal Medicine; Visit Provider Internal Medicine
DX: Z12.31 Encounter for screening mammogram for malignant neoplasm of breast (principal); Z85.3 Personal history of malignant neoplasm of breast
CPT/HCPCS: 77063; 77067

== ENCOUNTER 2020-11-30 09:59 | Emergency (ER) | payer MEDICARE, OTHER, SELFPAY ==
[2020-07-27 22:37] VITALS: BMI 23.1
[2020-11-30] VITALS (7 sets, daily range): BP systolic 177–222; BP diastolic 79–89; PULSE 65–75; RESP 16–18; TEMP 37; O2SAT 93–97
--- NOTE | 2020-11-30 10:12 | ED.GENADULT ---
HPI - General Adult General Chief complaint: Neuro Symptoms/Deficit Stated complaint: Pain in face Time Seen by Provider: 11/30/20 10:03 Source: patient Mode of arrival: Ambulatory Limitations: no limitations History of Present Illness HPI narrative: Patient is an 85-year-old female who is here for evaluation of pain in the right side of her face. It does seem to come and go. No recent trauma. Couple days ago she had pain in her right ear which is where the symptoms started and she went to the walk-in clinic. She did have her ears cleaned of cerumen. She states that since then the symptoms have continued/worsened. She points to the right side of her face but specifically to her right temporal region as the source of her pain. No rashes. No vision changes. No hearing changes. No sore throat. No fevers. No headache. Related Data Home Medications Medication Instructions Recorded Confirmed aspirin 81 mg tablet,delayed 81 mg PO DAILY 10/24/17 11/28/20 release (Adult Low Dose Aspirin) cholecalciferol (vitamin D3) 50 4,000 unit PO DAILY cap 08/30/18 11/28/20 mcg (2,000 unit) capsule Previous Rx's Medication Instructions Recorded diclofenac sodium 1 % topical gel 2 gram TOP QID #100 gram 12/10/18 (Voltaren) simvastatin 40 mg tablet 20 mg PO DAILY #45 tab 11/29/19 levothyroxine 125 mcg tablet 125 mcg PO DAILY #90 tab 05/26/20 triamterene 37.5 1 tab PO DAILY #90 tab 07/23/20 mg-hydrochlorothiazide 25 mg tablet zolpidem 10 mg tablet (Ambien) 10 mg PO HSP PRN #30 tab 08/17/20 ofloxacin 0.3 % ear drops 10 drp EAR-RIGHT DAILY 5 Days #10 11/28/20 ml acyclovir 800 mg tablet 800 mg PO 5XD 7 Days #35 tab 11/30/20 Allergies Allergy/AdvReac Type Severity Reaction Status Date / Time morphine AdvReac Severe Nausea Verified 11/28/20 12:07 Review of Systems Constitutional Constitutional: Reports as per HPI and Reports system reviewed and no additional complaints, except as documented Eyes Eyes: Reports as per HPI and Reports system reviewed and no additional complaints, except as documented ENT Ears, Nose, Mouth, and Throat: Reports system reviewed and no additional complaints, except as documented and Reports as per HPI Cardiovascular Cardiovascular: Reports as per HPI and Reports system reviewed and no additional complaints, except as documented Respiratory Respiratory: Reports as per HPI and Reports system reviewed and no additional complaints, except as documented Gastrointestinal Gastrointestinal: Reports system reviewed and no additional complaints, except as documented Musculoskeletal Musculoskeletal: Reports system reviewed and no additional complaints, except as documented Integumentary/Breasts Skin/Breast: Reports system reviewed and no additional complaints, except as documented Neurologic Neurologic: Reports system reviewed and no additional complaints, except as documented Hematologic/Lymphatic On Anticoagulants: No 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) Breast cancer, left breast (1998) Decreased vision H/O malignant neoplasm of breast Hypercholesteremia Hypothyroidism (acquired) (12/22/10) Insomnia Lymphedema of upper extremity (10/16/14) Stage 3 chronic kidney disease Urinary incontinence due to urethral sphincter incompetence Surgical History History of oophorectomy History of tonsillectomy Status post cholecystectomy (1997) Status post hysterectomy (1990) Family History Brother Coronary artery disease Social History household members: spouse Smoking Status: Never smoker alcohol intake: never Smoking Status: Never smoker alcohol intake frequency: 0-2 drinks per day Substance Use Type: does not use Exam Initial Vital Signs Initial Vital Signs: Vital Signs Temperature 98.6 F 11/30/20 10:00 Pulse Rate 75 11/30/20 10:00 Respiratory Rate 18 11/30/20 10:00 Blood Pressure 222/89 H 11/30/20 10:00 Pulse Oximetry 95 11/30/20 10:00 Const General: cooperative, healthy appearing and comfortable [facility] Head: normal to inspection, normocephalic, No contusion and No scalp lesion Ears: hearing grossly normal bilaterally and TM's normal bilaterally Nose: external nose normal Face and sinus: face symmetric and tenderness (Right temporal region) Teeth and gingiva: dentition normal Throat: posterior oropharynx normal Eyes General: appearance normal, both eyes and all related structures Resp Effort & Inspection: normal respiratory effort Cardio Rate: regular rate Skin Other: Patient does have a clumped rash just lateral to the corner of the right mouth. There are no vesicles seen however I do have some appearance of ruptured vesicles. Neuro General: patient alert, patient awake, patient oriented x3 and moves all extremities Extrem General: normal to inspection and capillary refill normal Psych Appearance: grossly normal and well kempt Course Orders Ordered: ED Orders 11/30/20 10:35 Basic Metabolic Panel Stat C-Reactive Protein Quant Stat Complete Blood Count AUTO DIFF Stat Erythrocyte Sedimentation Rate Stat Discontinued Medications Hydrocodone Bitart/Acetaminophen (Hydrocodone/Acet 5/325 Tablet) 1 tab PO NOW ONE Stop: 11/30/20 10:32 Last Admin: 11/30/20 10:36 Dose: 1 tab Documented by: UBALDO Vital Signs Vital signs: Vital Signs - 8 hr 11/30/20 10:00 11/30/20 10:16 11/30/20 10:30 Temperature 98.6 F Pulse Rate 75 68 65 Respiratory Rate 18 Blood Pressure 222/89 H Pulse Oximetry 95 93 93 11/30/20 10:31 11/30/20 10:38 11/30/20 11:00 Temperature Pulse Rate 65 65 Respiratory Rate Blood Pressure 177/79 H 199/79 H Pulse Oximetry 94 94 11/30/20 12:03 Temperature Pulse Rate 70 Respiratory Rate 16 Blood Pressure 179/85 H Pulse Oximetry 97 Medical Decision Making Lab Data Lab results reviewed: Yes I reviewed the patient's lab results. Result diagrams: 11/30/20 10:35 11/30/20 10:35 Labs: Lab Results 11/30/20 11/30/20 Range/Units 10:35 10:35 WBC 7.7 (4.5-11.0) X10^3/uL RBC 5.40 H (4.0-5.2) X10^6/uL Hgb 16.4 H (12.0-16.0) g/dL Hct 49.0 H (36-46) % MCV 90.7 (80-100) fL MCH 30.4 (26-34) PG MCHC 33.5 (30-36) % RDW 13.3 (11.6-14.8) % Plt Count 239 (150-400) X10^3/uL Neut % (Auto) 49.6 L (50-75) % Lymph % (Auto) 37.2 (25-40) % George % (Auto) 11.0 (3-14) % Eos % (Auto) 1.8 L (2-4) % Baso % (Auto) 0.4 (0-2) % Neut # (Auto) 3800 (0852-6310) /uL Lymph # (Auto) 2900 (3137-0762) /uL George # (Auto) 800 (0-900) /uL Eos # (Auto) 100 (0-450) /uL Baso # (Auto) 0 (0-100) /uL ESR 6 (0-20) MM/HR Sodium 139 (137-145) mmol/L Potassium 3.5 (3.4-5.1) mmol/L Chloride 104 (98-107) mmol/L Carbon Dioxide 27 (22-32) mmol/L BUN 21 H (7-17) mg/dL Creatinine 0.97 (0.52-1.04) mg/dL Estimated GFR 54.8 L (>60) mL/min BUN/Creatinine Ratio 21.6 (6-22) Glucose 114 H (80-110) mg/dL Calcium 10.0 (8.4-10.2) mg/dL C-Reactive Protein 0.5 (<1.0) mg/dL MDM Narrative Medical decision making narrative: Patient's ESR and CRP are unremarkable. I feel that temporal arteritis is unlikely. She has no vision changes. She does have a rash on the right side of her mouth that does not have specific vesicles however otherwise looks very concerning for shingles. This very well could explain her symptoms. Her right ear is unremarkable. No vesicle seen on the exam. I have low suspicion for CVA. Low suspicion for TIA. Given the rash on the right side of face will start her on antiviral medications. I feel patient could be safely discharged home with this course of treatment. I did discuss strict return precautions with her. She expressed understanding and agreement. Discharge Plan Departure Patient Disposition: Home Clinical Impression: Acute facial pain, Rash Instructions: DI for Shingles Activity Restrictions/Additional Instructions: I have a high suspicion that your presentation today is because of shingles. There does appear to be a rash just to the right side of your mouth. I do believe that we should start your on treatment for shingles. I also recommend you contact your primary doctor for a follow-up. Return to the emergency department for any new or worsening symptoms Prescriptions: New acyclovir 800 mg tablet 800 mg PO 5XD 7 Days Qty: 35 RF: 0 No Action ofloxacin 0.3 % drops 10 drp EAR-RIGHT DAILY 5 Days Qty: 10 RF: 0 levothyroxine 125 mcg tablet 125 mcg PO DAILY Qty: 90 RF: 4 triamterene-hydrochlorothiazid 37.5-25 mg tablet 1 tab PO DAILY Qty: 90 RF: 1 zolpidem [Ambien] 10 mg tablet 10 mg PO HSP PRN (Reason: insomnia) Qty: 30 RF: 2 aspirin [Adult Low Dose Aspirin] 81 mg tablet,delayed release (DR/EC) 81 mg PO DAILY RF: 0 cholecalciferol (vitamin D3) 2,000 unit capsule 4,000 unit PO DAILY RF: 0 diclofenac sodium [Voltaren] 1 % gel 2 gram TOP QID Qty: 100 RF: 4 simvastatin 40 mg tablet 20 mg PO DAILY Qty: 45 RF: 3 Referrals: Wayne Steen MD [Primary Care Provider] -
[2020-11-30] MEDS: HYDROCODONE/ACET 5/325 TABLET 1 TAB PO (10:36)
[2020-11-30 10:42] LABS: Add Manual Diff / Slide Review NO; Basophils Absolute Auto 0 /uL (0-100); Basophils Percent Auto 0.4 % (0-2); Eosinophils Absolute Auto 100 /uL (0-450); Eosinophils Percent Auto 1.8 % (2-4); Hemoglobin 16.4 g/dL (12.0-16.0); Lymphocytes Absolute Auto 2900 /uL (1100-4500); Lymphocytes Percent Auto 37.2 % (25-40); Mean Corpuscular HGB Conc 33.5 % (30-36); Mean Corpuscular Hemoglobin 30.4 PG (26-34); Mean Corpuscular Volume 90.7 fL (80-100); Monocytes Absolute Auto 800 /uL (0-900); Neutrophils Absolute Auto 3800 /uL (1500-7000); Neutrophils Percent Auto 49.6 % (50-75); Platelet Count 239 X10^3/uL (150-400); Red Cell Distribution Width 13.3 % (11.6-14.8); White Blood Cell Count 7.7 X10^3/uL (4.5-11.0)
[2020-11-30 10:58] LABS: BUN Creatinine Ratio 21.6 (6-22); Blood Urea Nitrogen 21 mg/dL (7-17); C-Reactive Protein Quant 0.5 mg/dL (<1.0); Carbon Dioxide 27 mmol/L (22-32); Chloride 104 mmol/L (98-107); Estimated Glomerular Filt Rate 54.8 mL/min (>60); Glucose 114 mg/dL (80-110); HEMOLYSIS < 15 (0-50); Potassium 3.5 mmol/L (3.4-5.1); Sodium 139 mmol/L (137-145)
[2020-11-30 11:05] LABS: Erythrocyte Sedimentation Rate 6 MM/HR (0-20)
== END 2020-11-30 12:05 | disposition home or self-care (01) ==
PROVIDERS: Emergency Provider Emergency Medicine; PCP Internal Medicine
DX: R51.9 Headache, unspecified (principal); R21 Rash and other nonspecific skin eruption
CPT/HCPCS: 36415; 80048; 85025; 85651; 86140; 99283

== ENCOUNTER → 2020-12-18 14:23 | Outpatient (CLI) | payer MEDICARE, OTHER, SELFPAY ==
[2020-07-27 22:37] VITALS: BMI 23.1
--- NOTE | 2020-12-18 | DI.MG.S_ITS ---
UNILATERAL LEFT DIGITAL DIAGNOSTIC MAMMOGRAM 3D/2D WITH ADDITIONAL VIEWS: 12/18/2020 CLINICAL: Additional evaluation requested from prior study. Comparison is made to exams dated: 11/24/2020 mammogram, 11/20/2019 mammogram, 11/01/2018 mammogram, and 10/02/2017 mammogram - [facility]. There are scattered fibroglandular elements in left breast. There is an oval mass with a circumscribed margin in the left breast at 9 o'clock anterior depth. There also is a possible oval asymmetry with a circumscribed margin in the left breast posterior depth superior region seen on the mediolateral oblique view only. Finding is seen only on tomography. No other significant masses or calcifications are seen in the breast. IMPRESSION: INCOMPLETE: NEEDS ADDITIONAL IMAGING EVALUATION The oval mass in the left breast at 9 o'clock anterior depth resembles a cyst and is indeterminate. The possible oval asymmetry in the left breast posterior depth superior region seen on the mediolateral oblique view only resembles a cyst and is indeterminate. A targeted ultrasound is recommended and will immediately follow. This exam was interpreted at Station ID: [id number]. NOTE: For mammograms, a report in lay terms will be sent to the patient. Approximately 15% of breast malignancies will not be visualized mammographically. In the management of a palpable breast mass, a negative mammogram must not discourage biopsy of a clinically suspicious lesion. Electronically Signed By: Remy Ross M.D. slc/:12/18/2020 15:09:08 ACR BI-RADS Category 0: Incomplete [id number]
--- NOTE | 2020-12-18 14:24 | DI.US.S_ITS ---
LIMITED ULTRASOUND OF LEFT BREAST AND AXILLA: 12/18/2020 CLINICAL: Patient returns today to evaluate two focal asymmetries in the left breast. Comparison is made to exams dated: 12/18/2020 mammogram, 11/24/2020 mammogram, 11/20/2019 mammogram, 11/01/2018 mammogram, 07/05/2018 ultrasound, and 10/24/2017 [facility]. Remote history of left breast cancer. Color flow and real-time ultrasound of the left breast 9 o'clock, and axilla regions were performed. [place] scale images of the real-time examination were reviewed. There is a 0.6 cm x 0.6 cm x 0.4 cm oval cyst in the left breast at 9 o'clock middle depth 4 cm from the nipple. This oval cyst is hypoechoic with a well-defined boundary. Color flow imaging demonstrates that there is vascularity present. (Previously measured 0.6 cm x 0.4 cm x 0.2 cm 9:00 and 7 cm from the nipple on 07/05/2018 if this is the same cyst). No mass in the 10:00 region at site of possible asymmetry. No significant abnormalities were seen sonographically in the left axilla. IMPRESSION: SUSPICIOUS OF MALIGNANCY The 0.6 cm x 0.6 cm x 0.4 cm complex cyst with blood flow in the left breast is at a low suspicion for malignancy. An ultrasound guided biopsy is recommended. Exam findings were discussed with the patient by Dr. Ethan Mensah. This exam was interpreted at Station ID: [id number]. Electronically Signed By: Remy Ross M.D. slc/:12/18/2020 16:24:54 letter sent: Biopsy Required Ultrasound BI-RADS: 4a Low suspicion for malignancy
== END ==
PROVIDERS: PCP Internal Medicine; Referring Provider Internal Medicine; Visit Provider Internal Medicine
DX: R92.8 Other abnormal and inconclusive findings on diagnostic imaging of breast (principal); N60.02 Solitary cyst of left breast
CPT/HCPCS: 76642; 77065; G0279

== ENCOUNTER → 2020-12-31 09:06 | Outpatient (CLI) | payer MEDICARE, OTHER, SELFPAY ==
[2020-07-27 22:37] VITALS: BMI 23.1
--- NOTE | 2020-12-31 | DI.MG.S_ITS ---
UNILATERAL LEFT DIGITAL DIAGNOSTIC MAMMOGRAM 3D/2D POST-NEEDLE BIOPSY: 12/31/2020 CLINICAL: Left breast post clip. Comparison is made to exams dated: 12/18/2020 ultrasound, 12/18/2020 mammogram, and 11/24/2020 mammogram - [facility]. There are scattered fibroglandular elements in left breast. There is a biopsy marker in the left breast at 9:00 position at the biopsy site. IMPRESSION: POST PROCEDURE MAMMOGRAM FOR MARKER PLACEMENT A biopsy marker in the left breast at the biopsy site. This exam was interpreted at Station ID: [id number]. NOTE: For mammograms, a report in lay terms will be sent to the patient. Approximately 15% of breast malignancies will not be visualized mammographically. In the management of a palpable breast mass, a negative mammogram must not discourage biopsy of a clinically suspicious lesion. Electronically Signed By: Mejia Rosenbaum M.D. fx/:12/31/2020 10:32:49 ACR BI-RADS Category Post-procedure mammogram for marker placement
--- NOTE | 2020-12-31 | PATH_ITS ---
[facility] Accession Number: [id number] . 01 Material submitted: . breast - LEFT BREAST MASS 9:00 4 CMFN . 02 Diagnosis: A. Left Breast Mass, 9 o'clock, 4 cm from the Nipple: Invasive (ductal) carcinoma, grade 2 of 3 ([place] combined histologic grade, total score 6/9), with the following features: 1. Nuclear pleomorphism: Intermediate. (2/3) 2. Mitotic rate: Low. (1/3) 3. Tubular differentiation: Little or none. (3/3) 4. Size of invasive carcinoma: Present on two cores, single large dimension of 4.5 mm in this sample. 5. Ductal carcinoma in situ: Absent. 6. Calcifications: Present, in association with invasive carcinoma. 7. Lymphatic invasion: Not identified in this specimen. 8. Prognostic markers: - Estrogen receptor: Positive (more than 95% tumor cells staining, strong intensity). - Progesterone receptor: Positive (more than 85% tumor cells staining, strong intensity). - HER2: Negative for protein overexpression by immunohistochemistry (0-1+). [facility] 01/05/2021 [facility] Local . 02 Electronically signed: . Shakila Shields MD, Pathologist NPI- [id number] . 01 Gross description: . Received one formalin-filled container, labeled with the patient's name and designated left breast mass 9 o'clock 4 cm FN. The specimen is received with a plastic filter in container, sample loose in container and consists of multiple yellow-rod portions of soft tissue which range in size from 0.1 x 0.1 x 0.1 cm to 1.0 x 0.3 x 0.3 cm. The specimen is filtered and entirely submitted in one cassette. Possible collection date and time: 12/31/2020 at 10:14. Total fixation time: Approximately 17 hours. (DC:[id number]) /[facility]R 01/01/2021 0332 Local . 02 Microscopic: . A panel of immunostains is performed on block A1 in order to evaluate the invasive carcinoma with appropriately staining external controls. The carcinoma demonstrates the following immunoprofile: . GATA3: Diffusely positive. P63: Positive within tumor cells. Smooth Muscle Myosin: Negative at periphery. Synaptophysin: Negative. Chromogranin: Negative. . Predictive marker immunohistochemical studies are performed on block A1 with the invasive carcinoma showing the following results: . Estrogen receptor (SP1): Positive (More than 95% tumor cells staining, strong intensity). Progesterone receptor (1E2): Positive (More than 85% tumor cells staining, strong intensity). Her2 (4B5): Negative for protein overexpression by immunohistochemistry (0-1+). . Internal controls for ER and TN are positive. Cold ischemic time is <5 minutes. The scoring criteria for breast biomarkers by immunohistochemistry is based on the ASCO/CAP guidelines (Zulma AC et al, J Clin Oncol: 2017Aug 29;36(20):1524-6531 and Castañeda ME et al, Arch Pathol Lab Med: 2009;134(6):907-22). Deparaffinized sections of formalin fixed tissue (along with appropriate positive controls) are incubated with the above antibody(s). Using the automated [place]isle stainer, tissue is incubated with the designated antibody which is then localized by a non-biotin, dual polymer detection system. The external controls are reviewed for appropriate reactivity and found to be adequate. Results on the target cell population are indicated above. These tests have not been validated on decalcified tissue. This test was developed and its performance characteristics determined by [employer]. It has not been cleared or approved by the U.S. Food and Drug Administration. The FDA has determined that such clearance or approval is not necessary. This test is used for clinical purposes. It should not be regarded as investigational or for research. . 02 Pathologist provided ICD-10: C50.912 . 02 CPT . 673806, [id number], I29102, 288557, 911446, 269165 Performed at: 01 [facility] [address] [id number] MD Luis Irvin MD Phone: [phone] Performed at: 02 [facility] [id number] [place] [id number] MD Terri Oscar MD Phone: [phone]
--- NOTE | 2020-12-31 09:09 | DI.US.S_ITS ---
ULTRASOUND GUIDED BIOPSY LEFT BREAST USING VACUUM DEVICE WITH POST MAMMOGRAPHIC AND ULTRASOUND IMAGIN12/31/2020 CLINICAL: Left breast mass. PATIENT CONSENT: Risks (minor bleeding, infection, vasovagal reaction and repeat procedure), benefits and alternatives were explained to the patient and written informed consent was obtained. Correlation is made to exams dated: 12/18/2020 ultrasound, 12/18/2020 mammogram, 11/24/2020 mammogram, and 11/20/2019 mammogram - [facility]. An ultrasound guided biopsy using real-time ultrasound was performed for the oval mass located in the left breast at 9 o'clock. This was described on the previous ultrasound report. The skin was prepped in the usual manner. Local anesthetic was administered to the access site. The abnormality was approached from the lateral aspect. A 13 gauge biopsy needle was placed adjacent to the abnormality under ultrasound guidance. Once the needle was documented to be in the correct location, six specimens were obtained using the Mammotome biopsy system. Post procedure mammographic and ultrasound imaging demonstrates the clip at the targeted area. The specimens were sent to the laboratory for pathological analysis. IMPRESSION: ULTRASOUND GUIDED BIOPSY MALIGNANT Ultrasound guided biopsy of the mass in the left breast was successful. WPathology indicates malignant invasive ductal carcinoma (ID). Pathology results are concordant with mammography and ultrasound findings. Surgical and oncologic consultation are recommended. This exam was interpreted at Station ID: [id number]. Mejia puentes,ddp/:01/07/2021 17:06:23
== END ==
PROVIDERS: PCP Internal Medicine; Referring Provider Internal Medicine; Visit Provider Internal Medicine
DX: C50.812 Malignant neoplasm of overlapping sites of left female breast (principal); Z17.0 Estrogen receptor positive status [ER+]
CPT/HCPCS: 19083; 77065

== ENCOUNTER → 2021-05-26 13:25 | Outpatient (CLI) | payer MEDICARE, OTHER, SELFPAY ==
[2020-07-27 22:37] VITALS: BMI 23.1
[2021-05-26 14:21] LABS: Add Manual Diff / Slide Review NO; Basophils Absolute Auto 100 /uL (0-100); Basophils Percent Auto 0.8 % (0-2); Eosinophils Absolute Auto 100 /uL (0-450); Eosinophils Percent Auto 0.9 % (2-4); Hemoglobin 15.9 g/dL (12.0-16.0); Lymphocytes Absolute Auto 3900 /uL (1100-4500); Mean Corpuscular HGB Conc 33.9 % (30-36); Mean Corpuscular Volume 88.5 fL (80-100); Monocytes Absolute Auto 1000 /uL (0-900); Monocytes Percent Auto 11.4 % (3-14); Neutrophils Absolute Auto 3800 /uL (1500-7000); Neutrophils Percent Auto 42.9 % (50-75); Platelet Count 274 X10^3/uL (150-400); Red Blood Cell Count 5.31 X10^6/uL (4.0-5.2); Red Cell Distribution Width 13.2 % (11.6-14.8); White Blood Cell Count 8.8 X10^3/uL (4.5-11.0)
[2021-05-26 14:32] LABS: BUN Creatinine Ratio 21.4 (6-22); Blood Urea Nitrogen 24 mg/dL (7-17); Calcium 10.1 mg/dL (8.4-10.2); Carbon Dioxide 26 mmol/L (22-32); Chloride 105 mmol/L (98-107); Estimated Glomerular Filt Rate 46.3 mL/min (>60); Glucose 102 mg/dL (80-110); HEMOLYSIS < 15 (0-50); Magnesium 2.2 mg/dL (1.6-2.3); Potassium 3.6 mmol/L (3.4-5.1); Sodium 143 mmol/L (137-145)
== END ==
PROVIDERS: PCP Internal Medicine; Referring Provider Internal Medicine; Visit Provider Internal Medicine
DX: C50.912 Malignant neoplasm of unspecified site of left female breast (principal); R55 Syncope and collapse; I10 Essential (primary) hypertension; N18.31 Chronic kidney disease, stage 3a; E83.42 Hypomagnesemia
CPT/HCPCS: 36415; 80048; 83735; 85025

== ENCOUNTER 2021-08-16 10:58 | Emergency (ER) | payer MEDICARE, OTHER, SELFPAY ==
[2020-07-27 22:37] VITALS: BMI 23.1
[2021-08-16 11:15] VITALS: BP 149/68; PULSE 71; RESP 16; TEMP 36.5; O2SAT 95; BMI 25.7
[2021-08-16 12:55] VITALS: BP 146/65; PULSE 67; RESP 18; O2SAT 96
[2021-08-16] MEDS: DOXYCYCLINE HYCLATE 100 MG TABLET PO (13:02)
[2021-08-16] MEDS: ACETAMINOPHEN 325 MG TABLET 650 MG PO (13:02)
--- NOTE | 2021-08-16 13:47 | ED.SKABFB ---
HPI - Skin/Abscess/Foreign Bdy <Terri Wright, [facility] - Last Filed: 08/16/21 14:56> General Chief complaint: Skin/Abscess/Foreign Body Stated complaint: Left foot pain x 3 days- no injury Time Seen by Provider: 08/16/21 12:07 Mode of arrival: Family Vehicle History of Present Illness HPI narrative: This is an 86-year-old female presents to the emergency department with left foot swelling and pain mostly over the last two days but it started three days ago. She denies any recent injury, denies stepping on any foreign body, having any toenail problems, or any open wound on her foot. She denies any injury to her lower extremity, denies any swelling above her foot and ankle. She denies any history of diabetes, sensation changes, any new weakness, she denies any fever chills. She endorses increased fatigue, foot pain especially when attempting to ambulate, swelling and redness with a rash over the lateral dorsum of foot. She denies any redness or swelling, rash up her ankle or leg. She denies any injury from an animal. States that her last tetanus vaccination was within 12 years. Related Data Home Medications Medication Instructions Recorded Confirmed aspirin 81 mg tablet,delayed 81 mg PO DAILY 10/24/17 07/02/21 release (Adult Low Dose Aspirin) cholecalciferol (vitamin D3) 50 4,000 unit PO DAILY 08/30/18 07/02/21 mcg (2,000 unit) capsule Previous Rx's Medication Instructions Recorded diclofenac sodium 1 % topical gel 2 gram topical QID #100 grams 12/10/18 (Voltaren) amlodipine 5 mg tablet 5 mg PO DAILY #90 tabs 12/25/20 simvastatin 40 mg tablet 20 mg PO DAILY #45 tabs 01/04/21 gabapentin 300 mg capsule 300 mg PO DAILY #90 caps 04/12/21 anastrozole 1 mg tablet 1 mg PO DAILY #30 tabs 04/27/21 levothyroxine 125 mcg tablet 125 mcg PO DAILY #90 tabs 07/05/21 zolpidem 10 mg tablet (Ambien) 10 mg PO HSP PRN insomnia #30 tabs 07/26/21 triamterene 37.5 1 tab PO DAILY #90 tabs 08/09/21 mg-hydrochlorothiazide 25 mg tablet doxycycline hyclate 100 mg capsule 100 mg PO BID cellulitis 7 days 08/16/21 #14 caps Allergies Allergy/AdvReac Type Severity Reaction Status Date / Time morphine AdvReac Severe Nausea Verified 08/16/21 11:18 Review of Systems <LUCRETIA Rayo - Last Filed: 08/16/21 14:56> Review of Systems Narrative: General: denies fever, chills, malaise, sweats, endorses slight fatigue over the last two days Head/Neck: denies headache, neck pain, dizziness Eyes: denies visual changes, eye pain Cardio: denies chest pain, palpitations, edema Respiratory: denies dyspnea, cough, orthopnea GI: denies abdominal pain, nausea, vomiting, or diarrhea : denies dysuria, hematuria, urinary retention, frequency or incontinence MSK: Left foot pain and swelling, primarily on the dorsum of her foot, denies any other joint pain or muscle weakness Skin: denies rash, itching, skin lesions or other Neuro: denies numbness, tingling Patient History <LUCRETIA Rayo - Last Filed: 08/16/21 14:56> Medical History Abnormal LFTs Abnormal mammogram Appendicitis Benign essential hypertension 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) Breast cancer Breast cancer, left breast (1998) Decreased vision H/O malignant neoplasm of breast Hypercholesteremia Hypothyroidism (acquired) (12/22/10) Insomnia Lymphedema of upper extremity (10/16/14) Stage 3 chronic kidney disease Urinary incontinence due to urethral sphincter incompetence Surgical History History of oophorectomy History of tonsillectomy S/P lumpectomy, left breast (03/30/21) S/P mastectomy Status post cholecystectomy (1997) Status post hysterectomy (1990) Family History Brother Coronary artery disease Social History household members: spouse Smoking Status: Never smoker alcohol intake: never Smoking Status: Never smoker alcohol intake frequency: 0-2 drinks per day Substance Use Type: does not use Exam <EDUARDO RayoP - Last Filed: 08/16/21 14:56> Narrative Exam Narrative: Independently reviewed vitals signs and nursing notes. General: cooperative, comfortable, in no acute distress, well groomed Head: atraumatic, symmetrical facial expressions Neck: supple Eyes: equal round and reactive, EOMI, conjunctiva normal Nose: nares patent, no rhinorrhea Mouth/Throat: moist mucus membranes Cardiovascular: regular rate and rhythm, no peripheral edema, warm extremities Respiratory: normal effort, able to speak in complete sentences, no audible wheezing, stridor, or rales. No retractions or tachypnea. GI: abdomen soft, nontender to palpation, nondistended, no masses, no exquisite tenderness with exam, without guarding or rebound. MSK: moves all extremities, neurovascularly intact, no weakness, normal tone Skin: brisk capillary refill, mild erythema to the dorsum of her left forefoot extending through her midfoot and to bilateral, moderate edema to her whole foot without any ecchymosis, open wound, significant erythema, PT and DP pulses are 2+, mildly diminished dorsiflexion due to pain, full range of motion of her toes, and plantar extension. No significant tenderness over bilateral malleoli, proximal 5th metatarsal. No toenail injury, erythema. Neuro: normal speech and cognition, A&O x3 Psych: mental status is grossly normal, congruent mood, normal affect, pleasant and cooperative Initial Vital Signs Initial Vital Signs: Vital Signs Temperature 97.7 F 08/16/21 11:15 Pulse Rate 71 08/16/21 11:15 Respiratory Rate 16 08/16/21 11:15 Blood Pressure 149/68 H 08/16/21 11:15 Pulse Oximetry 95 08/16/21 11:15 Oxygen Delivery Method 08/16/21 11:15 <Siri Pa DO - Last Filed: 08/17/21 07:18> Initial Vital Signs Initial Vital Signs: Vital Signs Temperature 97.7 F 08/16/21 11:15 Pulse Rate 71 08/16/21 11:15 Respiratory Rate 16 08/16/21 11:15 Blood Pressure 149/68 H 08/16/21 11:15 Pulse Oximetry 95 08/16/21 11:15 Oxygen Delivery Method 08/16/21 11:15 Scores <LUCRETIA Rayo - Last Filed: 08/16/21 14:56> Thaddeus Criteria for DVT Active Cancer (Treatment within 6 months): No Bedridden recently >3 days or major surgery within 4 weeks: No Calf Swelling >3cm compared to other leg: No Collateral (nonvericose) superficial veins present: No Entire leg swollen: No Localized tenderness along the deep vein system: No Pitting edema, confined to symtomatic leg: No Paralysis, paresis, or recent plaster immobilization of ext: No Previously documented DVT: No Alternative dx to DVT as likely or more likely: Yes Thaddeus criteria for DVT: -2 <Siri Pa DO - Last Filed: 08/17/21 07:18> Thaddeus Criteria for DVT Justo' criteria for DVT: -2 Course <LUCRETIA Rayo - Last Filed: 08/16/21 14:56> Orders Ordered: Discontinued Medications Acetaminophen (Acetaminophen 325 Mg Tablet) 650 mg PO NOW ONE Stop: 08/16/21 12:53 Last Admin: 08/16/21 13:02 Dose: 650 mg Documented By: INOCENTE Doxycycline Hyclate (Doxycycline Hyclate 100 Mg Tablet) 100 mg PO NOW ONE Stop: 08/16/21 12:53 Last Admin: 08/16/21 13:02 Dose: 100 mg Documented By: INOCENTE Vital Signs Vital signs: Vital Signs - 8 hr 08/16/21 11:15 08/16/21 12:55 Temperature 97.7 F Pulse Rate 71 67 Respiratory Rate 16 18 Blood Pressure 149/68 H 146/65 H Pulse Oximetry 95 96 Oxygen Delivery Method Room Air <Siri Pa DO - Last Filed: 08/17/21 07:18> Orders Ordered: Discontinued Medications Acetaminophen (Acetaminophen 325 Mg Tablet) 650 mg PO NOW ONE Stop: 08/16/21 12:53 Last Admin: 08/16/21 13:02 Dose: 650 mg Documented By: INOCENTE Doxycycline Hyclate (Doxycycline Hyclate 100 Mg Tablet) 100 mg PO NOW ONE Stop: 08/16/21 12:53 Last Admin: 08/16/21 13:02 Dose: 100 mg Documented By: INOCENTE Vital Signs Vital signs: Vital Signs - 8 hr 08/16/21 11:15 08/16/21 12:55 Temperature 97.7 F Pulse Rate 71 67 Respiratory Rate 16 18 Blood Pressure 149/68 H 146/65 H Pulse Oximetry 95 96 Oxygen Delivery Method Room Air MDM - Skin/Abscess/Foreign Bdy <Terri LUCRETIA Watt - Last Filed: 08/16/21 14:56> [facility] Narrative Medical decision making narrative: This is an 86-year-old female who is not on any anticoagulants, presents to the emergency department for left foot edema, pain and erythema which started approximately three days ago without traumatic insult. Patient states that she had a rash on the dorsum of her forefoot which was itchy and started about three days ago, the swelling and redness has worsened where she has pain with ambulation due to the swelling. Dorsiflexion is slightly limited due to pain but plantar extension is intact without deficit, PT and DP pulses are 2+, brisk cap refill without any wound or abscess. There is no fluctuance or significant erythema. There is moderate edema to her whole foot which stops at her malleoli, mild erythema, slightly pink in color primarily on the dorsum of her foot. Tenderness to palpation without significant pain. Patient was treated with doxycycline and Tylenol in the emergency department, encouraged to stay hydrated, she was prescribed seven days of b.i.d. doxycycline and encouraged to return to the emergency department for any worsening of her swelling, redness, any streaking up her leg, worsening of her pain, or other change. She was given a referral to Podiatry and [facility] for Dr. Cobian for follow-up. Patient states that she has seen foot and ankle providers at [facility] in the past and was hoping to go back there. Patient is appropriate and amenable to discharge home. Vital signs are stable on repeat examination is unremarkable. Patient has been informed of results. Patient has been given strict return to ER precautions for any new or worsening symptoms. Patient understands to follow up closely with outpatient providers as instructed. Patient understands plan and agrees to discharge home. All questions and concerns answered at this time. Discharge Plan Departure Patient Disposition: Home Clinical Impression: Cellulitis Qualifiers: Site of cellulitis: extremity Site of cellulitis of extremity: lower extremity Laterality: left Qualified Code(s): L03.116 - Cellulitis of left lower limb Instructions: DI for Cellulitis -- Adult Activity Restrictions/Additional Instructions: *You have been diagnosed with cellulitis of your left foot. This is concerning if it gets worse rapidly, if you start feeling any worse, have a fever or chills, please come back to the emergency department immediately. Please hydrate, rest, keep your foot elevated, ice packs as this is comfortable. Please take doxycycline twice a day for the next seven days, try to limit walking with your foot until it is not painful any longer. Please follow-up with Podiatry/and or Dr. Steen next week for a recheck. Please take Tylenol 650 mg every 6 hours as needed for fever, I hope it heals quickly. Feel better soon. *What to do: *Please continue to take your regular medications as directed. [x ] New medication prescriptions sent to your pharmacy: [[facility]] [ ] New medication written as a paper prescription [ ] No new medications given *Please follow up with your primary care provider in 2-3 days, call for an appointment. Let them know you were seen in the Emergency Department and that we asked that you be seen for follow-up. We will electronically transmit a record of today's note if your PCP is in our system *If you do not have a primary care provider please contact [phone] to establish care with one of [facility] primary care providers. *Return to Emergency Department if you should have any new, worsening or concerning symptoms, such as [fever greater than 101F, chills, worsening pain, persistent vomiting or other bothersome symptoms] Prescriptions: New doxycycline hyclate 100 mg capsule 100 mg PO BID 7 Days Qty: 14 0RF No Action amlodipine 5 mg tablet 5 mg PO DAILY Qty: 90 3RF simvastatin 40 mg tablet 20 mg PO DAILY Qty: 45 3RF gabapentin 300 mg capsule 300 mg PO DAILY Qty: 90 3RF levothyroxine 125 mcg tablet 125 mcg PO DAILY Qty: 90 3RF zolpidem [Ambien] 10 mg tablet 10 mg PO HSP PRN (Reason: insomnia) Qty: 30 1RF Label Comments: 1/2 tablet at night prn triamterene-hydrochlorothiazid 37.5-25 mg tablet 1 tab PO DAILY Qty: 90 1RF aspirin [Adult Low Dose Aspirin] 81 mg tablet,delayed release (DR/EC) 81 mg PO DAILY cholecalciferol (vitamin D3) 2,000 unit capsule 4,000 unit PO DAILY diclofenac sodium [Voltaren] 1 % gel 2 gram TOP QID Qty: 100 4RF Rx Instructions: apply to single elbow, wrist or hand; for hand includes palm/fingers/back of hand anastrozole 1 mg Tablet 1 mg PO DAILY Qty: 30 11RF Referrals: Kenzie Powell DPM [Physician] - Suly Jacobson MD [Physician] - Wayne Steen MD [Primary Care Provider] - Visit Report Forms: Patient Portal/API <Siri Pa DO - Last Filed: 08/17/21 07:18> Cosign ED Attending Maryature Attestation: I was immediately available in the department for consultation. Documentation has been reviewed. I agree with assessment and plan.
== END 2021-08-16 13:05 | disposition home or self-care (01) ==
PROVIDERS: Emergency Provider Nurse Practitioner Critical Care Medicine; PCP Internal Medicine
DX: L03.116 Cellulitis of left lower limb (principal)
CPT/HCPCS: 99283; 99284

== ENCOUNTER 2021-09-03 06:26 | Emergency (ER) | payer MEDICARE, OTHER, SELFPAY ==
[2020-07-27 22:37] VITALS: BMI 23.1
[2021-09-03] VITALS (7 sets, daily range): BP systolic 150–191; BP diastolic 71–96; PULSE 67–75; RESP 16; TEMP 36.8; O2SAT 93–97; BMI 24.1
--- NOTE | 2021-09-03 07:41 | ED.EXTPRO ---
HPI - Extremity Problem General Chief complaint: Extremity Problem,Nontraumatic Stated complaint: right foot pain Time Seen by Provider: 09/03/21 06:58 Source: patient and EMS Mode of arrival: EMS Limitations: no limitations History of Present Illness HPI Narrative: Patient developed pain to the right lateral ankle yesterday. Pain shoots up her leg. She denies injury. She has a recent history of left foot cellulitis. She thinks she may have recurrent cellulitis. She has no erythema or swelling to the foot. She has pain focused in lateral malleolus. Pain shoots up the leg, but there is no edema or erythema in the leg proximal to the ankle. She has no history of gout. She says she subjectively had fever last night. She denies URI symptoms, cough or congestion. She has no GI symptoms. Related Data Home Medications Medication Instructions Recorded Confirmed aspirin 81 mg tablet,delayed 81 mg PO DAILY 10/24/17 08/19/21 release (Adult Low Dose Aspirin) cholecalciferol (vitamin D3) 50 4,000 unit PO DAILY 08/30/18 08/19/21 mcg (2,000 unit) capsule Previous Rx's Medication Instructions Recorded diclofenac sodium 1 % topical gel 2 gram topical QID #100 grams 12/10/18 (Voltaren) amlodipine 5 mg tablet 5 mg PO DAILY #90 tabs 12/25/20 simvastatin 40 mg tablet 20 mg PO DAILY #45 tabs 01/04/21 gabapentin 300 mg capsule 300 mg PO DAILY #90 caps 04/12/21 anastrozole 1 mg tablet 1 mg PO DAILY #30 tabs 04/27/21 levothyroxine 125 mcg tablet 125 mcg PO DAILY #90 tabs 07/05/21 zolpidem 10 mg tablet (Ambien) 10 mg PO HSP PRN insomnia #30 tabs 07/26/21 triamterene 37.5 1 tab PO DAILY #90 tabs 08/09/21 mg-hydrochlorothiazide 25 mg tablet colchicine 0.6 mg tablet 0.6 mg PO DAILY #10 tabs 09/03/21 prednisone 20 mg tablet 40 mg PO DAILY 5 days #10 tabs 09/03/21 Allergies Allergy/AdvReac Type Severity Reaction Status Date / Time morphine AdvReac Severe Nausea Verified 08/19/21 11:16 Review of Systems Constitutional Constitutional: Denies body ache(s), Denies chills and Denies fever(s) ENT Ears, Nose, Mouth, and Throat: Denies sinus pressure and Denies sore throat Cardiovascular Cardiovascular: Denies chest pain and Denies dyspnea Respiratory Respiratory: Denies cough and Denies dyspnea Musculoskeletal Musculoskeletal: Reports as per HPI Integumentary/Breasts Skin/Breast: Denies rash Neurologic Comments: Pain shooting up her right leg. 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) Breast cancer Breast cancer, left breast (1998) Decreased vision H/O malignant neoplasm of breast Hypercholesteremia Hypothyroidism (acquired) (12/22/10) Insomnia Lymphedema of upper extremity (10/16/14) Stage 3 chronic kidney disease Urinary incontinence due to urethral sphincter incompetence Surgical History History of oophorectomy History of tonsillectomy S/P lumpectomy, left breast (03/30/21) S/P mastectomy Status post cholecystectomy (1997) Status post hysterectomy (1990) Family History Brother Coronary artery disease Social History household members: spouse Smoking Status: Never smoker alcohol intake: never Smoking Status: Never smoker alcohol intake frequency: 0-2 drinks per day Substance Use Type: does not use Exam Initial Vital Signs Initial Vital Signs: Vital Signs Temperature 98.3 F 09/03/21 06:32 Pulse Rate 73 09/03/21 06:32 Respiratory Rate 16 09/03/21 06:32 Blood Pressure 150/72 H 09/03/21 06:32 Pulse Oximetry 95 09/03/21 06:32 Oxygen Delivery Method 09/03/21 06:32 Const General: cooperative, healthy appearing and comfortable Back/Spine/Pelvis Back: normal to inspection and No back tenderness Skin General: no rashes or lesions noted Neuro General: patient alert and patient awake Extrem Other: Right leg motor and sensory exam is normal. Right SLR is normal. She has erythema/warmth over the right lateral malleolus. There is no edema to the site. No is no evidence of cellulitis or lymphangitis. The right dorsalis pedis pulses normal. Course Course Additional Information: The patient has exam suggesting gout, her uric acid levels elevated. She is treated with Toradol, Prednisone and colchicine. She is not symptom free but she has improved prior to discharge. She was discharged on Advil, prednisone and colchicine. Orders Ordered: ED Orders 09/03/21 08:55 CBC Auto Diff [Complete Blood Count AUTO DIFF] Stat CMP [Comprehensive Metabolic Panel] Stat CRP [C-Reactive Protein Quant] Stat Uric Acid Stat Urinalysis and Microscopic Stat Discontinued Medications Colchicine (Colchicine 0.6 Mg Tablet) 0.6 mg PO NOW ONE Stop: 09/03/21 10:04 Last Admin: 09/03/21 10:16 Dose: 0.6 mg Documented By: CTS Ketorolac Tromethamine (Ketorolac 30 Mg/Ml Vial) 15 mg IV NOW ONE Stop: 09/03/21 10:04 Last Admin: 09/03/21 10:15 Dose: 15 mg Documented By: CTS Prednisone (Prednisone 20 Mg Tablet) 40 mg PO NOW ONE Stop: 09/03/21 10:04 Last Admin: 09/03/21 10:15 Dose: 40 mg Documented By: CTS Vital Signs Vital signs: Vital Signs - 8 hr 09/03/21 06:32 09/03/21 07:49 09/03/21 07:52 Temperature 98.3 F Pulse Rate 73 73 Respiratory Rate 16 Blood Pressure 150/72 H 191/96 H Pulse Oximetry 95 97 Oxygen Delivery Method Room Air 09/03/21 07:52 09/03/21 08:00 09/03/21 08:00 Temperature Pulse Rate 75 73 Respiratory Rate Blood Pressure 173/81 H Pulse Oximetry 96 95 Oxygen Delivery Method 09/03/21 08:30 09/03/21 08:30 09/03/21 09:00 Temperature Pulse Rate 67 Respiratory Rate Blood Pressure 165/71 H 169/73 H Pulse Oximetry 94 Oxygen Delivery Method 09/03/21 09:00 09/03/21 09:30 09/03/21 09:30 Temperature Pulse Rate 74 74 Respiratory Rate Blood Pressure 163/72 H Pulse Oximetry 95 93 Oxygen Delivery Method MDM - Extremity (Nontraumatic) Lab Data Result diagrams: 09/03/21 08:55 09/03/21 08:55 Labs: Lab Results 09/03/21 09/03/21 09/03/21 Range/Units 08:55 08:55 08:55 WBC 11.0 (4.5-11.0) X10^3/uL RBC 4.94 (4.0-5.2) X10^6/uL Hgb 14.9 (12.0-16.0) g/dL Hct 44.0 (36-46) % MCV 89.0 (80-100) fL MCH 30.2 (26-34) PG MCHC 33.9 (30-36) % RDW 13.2 (11.6-14.8) % Plt Count 253 (150-400) X10^3/uL Neut % (Auto) 60.2 (50-75) % Lymph % (Auto) 26.5 (25-40) % [place] % (Auto) 12.0 (3-14) % Eos % (Auto) 0.5 L (2-4) % Baso % (Auto) 0.8 (0-2) % Neut # (Auto) 6600 (8869-6778) /uL Lymph # (Auto) 2900 (0593-2332) /uL [place] # (Auto) 1300 H (0-900) /uL Eos # (Auto) 100 (0-450) /uL Baso # (Auto) 100 (0-100) /uL Sodium 141 (137-145) mmol/L Potassium 3.3 L (3.4-5.1) mmol/L Chloride 105 (98-107) mmol/L Carbon Dioxide 27 (22-32) mmol/L BUN 19 H (7-17) mg/dL Creatinine 0.95 (0.52-1.04) mg/dL Estimated GFR 59 L (>60) mL/min BUN/Creatinine Ratio 20.0 (6-22) Glucose 110 (80-110) mg/dL Uric Acid 8.3 H (2.5-6.2) mg/dL Calcium 10.0 (8.4-10.2) mg/dL Total Bilirubin 0.4 (0.2-1.3) mg/dL AST 44 H (14-36) IU/L ALT 28 (<35) IU/L Alkaline Phosphatase 82 (38-126) U/L C-Reactive Protein 0.8 (<1.0) mg/dL Total Protein 7.0 (6.3-8.2) g/dL Albumin 4.1 (3.5-5.0) g/dL Globulin 2.9 (1.7-4.1) g/dL Albumin/Globulin Ratio 1.4 (1.0-2.8) Urine Color Yellow Urine Appearance Clear Urine pH 7.0 (4.5-8.0) Ur Specific [place] 1.015 (1.000-1.035) Urine Protein Negative (Negative) Urine Glucose (UA) Negative (Negative) g/dL Urine Ketones Negative (NEGATIVE) Urine Occult Blood Negative (Negative) Urine Nitrate Negative (Negative) Urine Bilirubin Negative (NEGATIVE) Urine Urobilinogen 0.2 (0.2) E.U./dL Ur Leukocyte Esterase Negative (NEGATIVE) Urine RBC None seen (0-5/HPF) Urine WBC None seen (0-5/HPF) Ur Squamous Epith Cells None seen (0-5/HPF) Urine Bacteria None seen (None) Ur Culture Indicated? Cult not indicated Discharge Plan Departure Patient Disposition: Home Clinical Impression: Gout Instructions: Gout Activity Restrictions/Additional Instructions: Prednisone 40 mg daily for 5 days. Colchicine 1 tablet daily, stop once the pain resolves. Advil 2 tablets every 6 hours as needed for pain. Stop this medication once the pain resolves. Follow-up with your doctor in about 1 week for repeat evaluation. Return here as necessary. Prescriptions: New colchicine 0.6 mg tablet 0.6 mg PO DAILY Qty: 10 0RF prednisone 20 mg tablet 40 mg PO DAILY 5 Days Qty: 10 0RF No Action amlodipine 5 mg tablet 5 mg PO DAILY Qty: 90 3RF simvastatin 40 mg tablet 20 mg PO DAILY Qty: 45 3RF gabapentin 300 mg capsule 300 mg PO DAILY Qty: 90 3RF levothyroxine 125 mcg tablet 125 mcg PO DAILY Qty: 90 3RF zolpidem [Ambien] 10 mg tablet 10 mg PO HSP PRN (Reason: insomnia) Qty: 30 1RF Label Comments: 1/2 tablet at night prn triamterene-hydrochlorothiazid 37.5-25 mg tablet 1 tab PO DAILY Qty: 90 1RF aspirin [Adult Low Dose Aspirin] 81 mg tablet,delayed release (DR/EC) 81 mg PO DAILY cholecalciferol (vitamin D3) 2,000 unit capsule 4,000 unit PO DAILY diclofenac sodium [Voltaren] 1 % gel 2 gram TOP QID Qty: 100 4RF Rx Instructions: apply to single elbow, wrist or hand; for hand includes palm/fingers/back of hand anastrozole 1 mg Tablet 1 mg PO DAILY Qty: 30 11RF Referrals: Wayne Steen MD [Primary Care Provider] -
[2021-09-03 09:02] LABS: Add Manual Diff / Slide Review NO; Basophils Absolute Auto 100 /uL (0-100); Basophils Percent Auto 0.8 % (0-2); Eosinophils Absolute Auto 100 /uL (0-450); Eosinophils Percent Auto 0.5 % (2-4); Hemoglobin 14.9 g/dL (12.0-16.0); Lymphocytes Absolute Auto 2900 /uL (1100-4500); Lymphocytes Percent Auto 26.5 % (25-40); Mean Corpuscular HGB Conc 33.9 % (30-36); Mean Corpuscular Hemoglobin 30.2 PG (26-34); Monocytes Absolute Auto 1300 /uL (0-900); Neutrophils Absolute Auto 6600 /uL (1500-7000); Neutrophils Percent Auto 60.2 % (50-75); Platelet Count 253 X10^3/uL (150-400); Red Blood Cell Count 4.94 X10^6/uL (4.0-5.2); Red Cell Distribution Width 13.2 % (11.6-14.8)
[2021-09-03 09:03] LABS: Appearance Urine UA CLEAR; Bilirubin Urine UA NEGATIVE (NEGATIVE); Color Urine UA YELLOW; Glucose Urine UA NEGATIVE (Negative); Ketones Urine UA NEGATIVE (NEGATIVE); Leukocyte Esterase Urine UA NEGATIVE (NEGATIVE); Nitrite Urine UA NEGATIVE (Negative); Occult Blood Urine UA NEGATIVE (Negative); Protein Urine UA NEGATIVE (Negative); Specific Gravity Urine UA 1.015 (1.000-1.035); Urobilinogen Urine UA 0.2 E.U./dL (0.2)
[2021-09-03 09:10] LABS: Bacteria Urine None Seen; Culture Indicated Urine Cult Not Indicated; RBC Urine None Seen (0-5/HPF); Squamous Epithelial Cell Urine None Seen (0-5/HPF); WBC Urine None Seen (0-5/HPF)
[2021-09-03 09:16] LABS: Alanine Aminotransferase 28 IU/L (<35); Albumin 4.1 g/dL (3.5-5.0); Albumin Globulin Ratio 1.4 (1.0-2.8); Alkaline Phosphatase 82 U/L (38-126); Aspartate Aminotransferase 44 IU/L (14-36); Bilirubin Total 0.4 mg/dL (0.2-1.3); Blood Urea Nitrogen 19 mg/dL (7-17); C-Reactive Protein Quant 0.8 mg/dL (<1.0); Carbon Dioxide 27 mmol/L (22-32); Chloride 105 mmol/L (98-107); Estimated Glomerular Filt Rate 59 mL/min (>60); Globulin 2.9 g/dL (1.7-4.1); Glucose 110 mg/dL (80-110); HEMOLYSIS < 15 (0-50); Potassium 3.3 mmol/L (3.4-5.1); Sodium 141 mmol/L (137-145); Uric Acid 8.3 mg/dL (2.5-6.2)
[2021-09-03] MEDS: predniSONE 20 MG TABLET 40 MG PO (10:15)
[2021-09-03] MEDS: KETOROLAC 30 MG/ML VIAL 15 MG IV (10:15)
[2021-09-03] MEDS: COLCHICINE 0.6 MG TABLET PO (10:16)
== END 2021-09-03 11:25 | disposition home or self-care (01) ==
PROVIDERS: Emergency Provider Emergency Medicine; PCP Internal Medicine
DX: M10.9 Gout, unspecified (principal)
CPT/HCPCS: 36415; 80053; 81001; 84550; 85025; 86140; 96374; 99284; J1885

== ENCOUNTER → 2021-12-21 08:04 | Outpatient (CLI) | payer MEDICARE, OTHER, SELFPAY ==
[2020-07-27 22:37] VITALS: BMI 23.1
[2021-12-21 11:30] LABS: Free T4, Direct Thyroxine 1.59 ng/dL (0.78-2.19)
== END ==
PROVIDERS: PCP Internal Medicine; Referring Provider Internal Medicine; Visit Provider Internal Medicine
DX: E03.9 Hypothyroidism, unspecified (principal); E78.00 Pure hypercholesterolemia, unspecified; I10 Essential (primary) hypertension; N18.31 Chronic kidney disease, stage 3a
CPT/HCPCS: 36415; 84439; 84443

== ENCOUNTER → 2022-07-06 12:23 | Outpatient (CLI) | payer MEDICARE, OTHER, SELFPAY ==
[2020-07-27 22:37] VITALS: BMI 23.1
[2022-07-06 14:06] LABS: BUN Creatinine Ratio 18.3 (6-22); Blood Urea Nitrogen 17 mg/dL (7-17); Carbon Dioxide 27 mmol/L (22-32); Chloride 102 mmol/L (98-107); Estimated Glomerular Filt Rate > 60 mL/min (>60); Glucose 102 mg/dL (80-110); HEMOLYSIS < 15 (0-50); Magnesium 2.4 mg/dL (1.6-2.3); Potassium 3.2 mmol/L (3.4-5.1); Sodium 141 mmol/L (137-145); Uric Acid 8.6 mg/dL (2.5-6.2)
== END ==
PROVIDERS: PCP Internal Medicine; Referring Provider Internal Medicine; Visit Provider Internal Medicine
DX: E87.6 Hypokalemia (principal); M10.9 Gout, unspecified
CPT/HCPCS: 36415; 80048; 83735; 84550

== ENCOUNTER 2022-08-11 13:22 | Inpatient (IN) | payer MEDICARE, OTHER, SELFPAY ==
[2020-07-27 22:37] VITALS: BMI 23.1
[2022-08-11] VITALS (20 sets, daily range): BP systolic 126–185; BP diastolic 52–106; PULSE 75–122; RESP 17–44; TEMP 36.7–39.7; O2SAT 90–98; BMI 27.4; BMI 26.1
[2022-08-11 13:46] LABS: Add Manual Diff / Slide Review NO; Basophils Absolute Auto 200 /uL (0-100); Basophils Percent Auto 0.8 % (0-2); Eosinophils Absolute Auto 100 /uL (0-450); Eosinophils Percent Auto 0.3 % (2-4); Hematocrit 49.9 % (36-46); Hemoglobin 16.9 g/dL (12.0-16.0); Lymphocytes Absolute Auto 6300 /uL (1100-4500); Lymphocytes Percent Auto 30.9 % (25-40); Mean Corpuscular HGB Conc 33.8 % (30-36); Mean Corpuscular Hemoglobin 30.4 PG (26-34); Mean Corpuscular Volume 89.8 fL (80-100); Monocytes Absolute Auto 1500 /uL (0-900); Monocytes Percent Auto 7.2 % (3-14); Neutrophils Absolute Auto 12400 /uL (1500-7000); Neutrophils Percent Auto 60.8 % (50-75); Platelet Count 354 X10^3/uL (150-400); Red Blood Cell Count 5.56 X10^6/uL (4.0-5.2); Red Cell Distribution Width 14.4 % (11.6-14.8); White Blood Cell Count 20.4 X10^3/uL (4.5-11.0)
[2022-08-11 13:53] LABS: Alanine Aminotransferase 62 IU/L (<35); Albumin 5.1 g/dL (3.5-5.0); Albumin Globulin Ratio 1.2 (1.0-2.8); Alkaline Phosphatase 153 U/L (38-126); Aspartate Aminotransferase 90 IU/L (14-36); BUN Creatinine Ratio 15.3 (6-22); Bilirubin Total 0.7 mg/dL (0.2-1.3); Blood Urea Nitrogen 15 mg/dL (7-17); Calcium 10.4 mg/dL (8.4-10.2); Carbon Dioxide 23 mmol/L (22-32); Chloride 102 mmol/L (98-107); Creatine Kinase 84 U/L (30-135); Estimated Glomerular Filt Rate 57 mL/min (>60); Globulin 4.1 g/dL (1.7-4.1); Glucose 129 mg/dL (80-110); HEMOLYSIS 34 (0-50); Potassium 3.7 mmol/L (3.4-5.1); Sodium 143 mmol/L (137-145); Total Protein 9.2 g/dL (6.3-8.2)
[2022-08-11 14:03] LABS: Lactate (Lactic Acid) 5.2 mmol/L (0.7-2.1)
[2022-08-11 14:05] LABS: Troponin I < 0.012 ng/mL (0.01-0.034)
[2022-08-11 14:10] LABS: Procalcitonin 0.13 ng/mL (<0.5)
[2022-08-11] MEDS: cefTRIAXone 2,000 MG in SODIUM CHLORIDE 0.9% 100 ML 200 MG IV (14:14)
[2022-08-11] MEDS: SODIUM CHLORIDE 0.9% 2,177.25 ML 725.75 ML IV (14:14)
--- NOTE | 2022-08-11 14:16 | ED_ITS ---
HPI - Sepsis General Chief Complaint: Fever Mode of arrival: EMS Source: patient and EMS Limitations: no limitations Evaluation Sepsis Screen: Possible Sepsis Risk Sepsis Infection Criteria Present: Suspected New Infection Narrative: 87-year-old female nonsmoker with history of hypertension, hyperlipidemia, gout, left sided breast CA treated with lumpectomy and radiation as well as known left-sided lymphedema with prior visits for cellulitis and sepsis presents by EMS with a chief complaint of fever, shaking chills and left arm pain over the past day or so. She denies any headache, blurred vision. She has no runny nose, sore throat or cough. She denies chest pain, abdominal pain, diarrhea or constipation. She denies dysuria, frequency or urgency. She took a single dose of Keflex at home and then called EMS. Her T-max is 103? 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) Breast cancer Breast cancer, left breast (1998) Decreased vision H/O malignant neoplasm of breast Hypercholesteremia Hypothyroidism (acquired) (12/22/10) Insomnia Lymphedema of upper extremity (10/16/14) Mild cognitive impairment Stage 3 chronic kidney disease Urinary incontinence due to urethral sphincter incompetence Surgical History History of oophorectomy History of tonsillectomy S/P lumpectomy, left breast (03/30/21) S/P mastectomy Status post cholecystectomy (1997) Status post hysterectomy (1990) Family History Brother Coronary artery disease Social History household members: spouse Smoking Status: Never smoker alcohol intake: never Smoking Status: Never smoker alcohol intake frequency: 0-2 drinks per day Substance Use Type: does not use Exam Narrative Exam Narrative: GENERAL: [87] year old patient appears stated age. Well-developed patient, in obviously ill, trembling, clear rigors HEAD: Atraumatic. Normocephalic. EYES: Pupils equal round and reactive. Extraocular motions intact. No scleral icterus. No injection or drainage. ENT: Nose without bleeding, purulent drainage. Throat without erythema, tonsillar hypertrophy or exudate. Airway patent. NECK: Trachea midline. Non tender CARDIOVASCULAR: Tachycardic but regular rhythm without murmurs, gallops, or rubs. RESPIRATORY: Clear to auscultation. Breath sounds equal bilaterally. No wheezes, rales, or rhonchi. GASTROINTESTINAL: Abdomen soft, non-tender, nondistended. EXTREMITIES: Left upper extremity swollen compared to right, no obvious erythema or warmth, she does complain of some tenderness BACK: Nontender without deformity or crepitance. No flank tenderness. NEURO: AOx3. SKIN: No rash or erythema of visible areas Initial Vital Signs Initial Vital Signs: Vital Signs Pulse Rate 119 H 08/11/22 13:27 Pulse Oximetry 94 08/11/22 13:27 Course Orders Ordered: Acetaminophen (Acetaminophen 325 Mg Tablet) 650 mg PO Q6H PRN PRN Reason: Fever/Mild Pain (1-3) Last Admin: 08/12/22 07:55 Dose: 650 mg Documented By: Admin: 08/11/22 22:46 Dose: 650 mg Documented By: Admin: 08/11/22 16:48 Dose: 650 mg Documented By: SB Amlodipine Besylate (Amlodipine 5 Mg Tablet) 5 mg PO DAILY FOR[facility]LY [facility], [facility]1983 Last Admin: 08/12/22 09:51 Dose: 5 mg Documented By: SB Anastrozole (Anastrozole 1 Mg Tablet) 1 mg PO DAILY FOR[facility]LY [facility], [facility]1983 Last Admin: 08/12/22 09:51 Dose: 1 mg Documented By: SB Atorvastatin Calcium (Atorvastatin 20 Mg Tablet) 10 mg PO DAILY FOR[facility]LY [facility], [facility]1983 Last Admin: 08/12/22 09:51 Dose: 10 mg Documented By: SB Enoxaparin Sodium (Enoxaparin 40 Mg/0.4 Ml Syringe) 40 mg SUBCUT DAILY FOR[facility], [facility]1983 Last Admin: 08/12/22 09:52 Dose: 40 mg Documented By: SB Ceftriaxone Sodium 2,000 mg/ (Sodium Chloride) 100 mls @ 200 mls/hr IV Q24H YAMILE Sodium Chloride (Normal Saline 0.9%) 1,000 mls @ 75 mls/hr IV CONT FOR[facility]LY [facility], [facility]–1983 Last Infusion: 08/12/22 07:50 Dose: 75 mls/hr Documented By: Admin: 08/12/22 02:59 Dose: 100 mls/hr Documented By: Infusion: 08/12/22 02:59 Dose: 100 mls/hr Documented By: Admin: 08/11/22 17:14 Dose: 100 mls/hr Documented By: WARNER Levothyroxine Sodium (Levothyroxine 125 Mcg Tablet) 125 mcg PO DAILY@0600 FOR[facility], [facility] Last Admin: 08/12/22 06:53 Dose: 125 mcg Documented By: MS Naloxone HCl (Naloxone 0.4 Mg/Ml Vial) 0.2 mg IV Q2MIN PRN PRN Reason: Opiate Reversal Oxycodone HCl (Oxycodone Ir 5 Mg Tablet) 5 mg PO Q3H PRN PRN Reason: Pain, Moderate (4-6) Potassium Chloride (Potassium Chloride 20 Meq Tab) 40 meq PO BIDWM [facility], [facility] Last Admin: 08/12/22 07:53 Dose: 40 meq Documented By: WARNER Quetiapine Fumarate (Quetiapine 25 Mg Tablet) 25 mg PO BEDTIME FOR[facility], [facility] Last Admin: 08/11/22 20:02 Dose: 25 mg Documented By: Vitamin D (Cholecalciferol (Vitamin D3) 1,000 Unit Tablet) 4,000 unit PO DAILY [facility], [facility] Last Admin: 08/12/22 09:51 Dose: 4,000 unit Documented By: WARNER Discontinued Medications Ceftriaxone Sodium 2,000 mg/ (Sodium Chloride) 100 mls @ 200 mls/hr IV NOW ONE Stop: 08/11/22 13:53 Last Infusion: 08/11/22 14:56 Dose: 0 mls/hr Documented By: Admin: 08/11/22 14:14 Dose: 200 mls/hr Documented By: SMITH Sodium Chloride (Normal Saline 0.9%) 2,177.25 mls @ 725.75 mls/hr 30 ml/kg infuse over 3 hr (2177.25 ml) IV NOW ONE Stop: 08/11/22 16:59 Last Admin: 08/11/22 14:14 Dose: 725.75 mls/hr Documented By: NR Ketorolac Tromethamine (Ketorolac 30 Mg/Ml Vial) 10 mg IV NOW ONE Stop: 08/11/22 14:17 Last Admin: 08/11/22 15:15 Dose: 10 mg Documented By: NR Vital Signs Vital signs: Vital Signs - 8 hr 08/11/22 13:32 08/11/22 13:27 08/11/22 13:28 Temperature 103.4 F H Pulse Rate 117 H 119 H Respiratory Rate 28 H Blood Pressure 173/81 H 173/81 H Pulse Oximetry 94 94 Oxygen Delivery Method Room Air 08/11/22 13:28 08/11/22 13:30 08/11/22 13:50 Temperature Pulse Rate 112 H 109 H Respiratory Rate Blood Pressure 185/106 H Pulse Oximetry 92 93 Oxygen Delivery Method 08/11/22 13:50 08/11/22 14:00 08/11/22 14:00 Temperature Pulse Rate 122 H 104 H Respiratory Rate 32 H 32 H Blood Pressure 166/90 H Pulse Oximetry 94 93 Oxygen Delivery Method 08/11/22 15:15 08/11/22 14:10 08/11/22 14:10 Temperature 99.2 F Pulse Rate 103 H Respiratory Rate 34 H Blood Pressure 155/67 H Pulse Oximetry 93 Oxygen Delivery Method 08/11/22 14:20 08/11/22 14:20 08/11/22 14:30 Temperature Pulse Rate 99 H Respiratory Rate 31 H Blood Pressure 156/70 H 157/68 H Pulse Oximetry 92 Oxygen Delivery Method 08/11/22 14:30 08/11/22 14:40 08/11/22 14:40 Temperature Pulse Rate 97 H 100 H Respiratory Rate 34 H 29 H Blood Pressure 161/71 H Pulse Oximetry 91 92 Oxygen Delivery Method 08/11/22 14:50 08/11/22 14:50 08/11/22 15:00 Temperature Pulse Rate 102 H Respiratory Rate 44 H Blood Pressure 176/73 H 159/67 H Pulse Oximetry 94 Oxygen Delivery Method 08/11/22 15:00 08/11/22 15:10 08/11/22 15:10 Temperature Pulse Rate 99 H 100 H Respiratory Rate 33 H 37 H Blood Pressure 160/70 H Pulse Oximetry 92 93 Oxygen Delivery Method 08/11/22 15:20 08/11/22 15:20 Temperature Pulse Rate 95 H Respiratory Rate 25 H Blood Pressure 146/64 H Pulse Oximetry 93 Oxygen Delivery Method Sepsis Evaluation (ED) Triage Screening Sepsis Screen: Possible Sepsis Risk Level 1 - Infection Sepsis Infection Criteria Present: Suspected New Infection Response It is my opinion that his patient have a likely infectious etiology for meeting sepsis criteria: Does Fluid calculation based on 30 mL/kg within 1hr of criteria: ABW used Antibiotics initiated within 1 hr of Sepis dx: Yes Tissue Perfusion Reassessed within 6 hrs of infusion start time: Yes Date of Tissue Perfusion Reassessment completed: 08/11/22 Time Tissue Perfusion Reassessment completed: 16:00 MDM - Sepsis Lab Data 08/12/22 05:00 08/12/22 05:00 Labs: Lab Results 08/11/22 08/11/22 08/11/22 Range/Units 13:26 13:26 13:26 WBC 20.4 H (4.5-11.0) X10^3/uL RBC 5.56 H (4.0-5.2) X10^6/uL Hgb 16.9 H (12.0-16.0) g/dL Hct 49.9 H (36-46) % MCV 89.8 (80-100) fL MCH 30.4 (26-34) PG MCHC 33.8 (30-36) % RDW 14.4 (11.6-14.8) % Plt Count 354 (150-400) X10^3/uL Neut % (Auto) 60.8 (50-75) % Lymph % (Auto) 30.9 (25-40) % Ector % (Auto) 7.2 (3-14) % Eos % (Auto) 0.3 L (2-4) % Baso % (Auto) 0.8 (0-2) % Neut # (Auto) 49385 H (5049-5884) /uL Lymph # (Auto) 6300 H (5011-5715) /uL Ector # (Auto) 1500 H (0-900) /uL Eos # (Auto) 100 (0-450) /uL Baso # (Auto) 200 H (0-100) /uL Sodium 143 (137-145) mmol/L Potassium 3.7 (3.4-5.1) mmol/L Chloride 102 (98-107) mmol/L Carbon Dioxide 23 (22-32) mmol/L BUN 15 (7-17) mg/dL Creatinine 0.98 (0.52-1.04) mg/dL Estimated GFR 57 L (>60) mL/min BUN/Creatinine Ratio 15.3 (6-22) Glucose 129 H (80-110) mg/dL Lactate 5.2 H* (0.7-2.1) mmol/L Calcium 10.4 H (8.4-10.2) mg/dL Total Bilirubin 0.7 (0.2-1.3) mg/dL AST 90 H (14-36) IU/L ALT 62 H (<35) IU/L Alkaline Phosphatase 153 H (38-126) U/L Total Creatine Kinase 84 (30-135) U/L CK-MB (CK-2) TNP CK-MB (CK-2) Rel Index TNP Troponin I < 0.012 (0.01-0.034) ng/mL Total Protein 9.2 H (6.3-8.2) g/dL Albumin 5.1 H (3.5-5.0) g/dL Globulin 4.1 (1.7-4.1) g/dL Albumin/Globulin Ratio 1.2 (1.0-2.8) Procalcitonin 0.13 (<0.5) ng/mL A.calcoaceticus-baumannii cmplx PCR (Not Detect) Chlamy pneumoniae PCR (Not Detect) Adenovirus (PCR) (Not Detect) Bacteroides fragilis (Not Detect) B. pertussis DNA (PCR) (Not Detecte) B.parapertussis DNA PCR (Not Detecte) Madhavi albicans (PCR) (Not Detect) Madhavi auris (PCR) (Not Detect) C. glabrata (PCR) (Not Detect) C. krusei (PCR) (Not Detect) C. parapsilosis (PCR) (Not Detect) C. tropicalis (PCR) (Not Detect) Coronavirus OC43 (PCR) (Not Detect) Coronavirus HKU1 (PCR) (Not Detect) Coronavirus 229E (PCR) (Not Detect) SARS-CoV-2 (PCR) (Not Detecte) Coronavirus NL63 (PCR) (Not Detect) C. neoform/gattii (PCR) (Not Detect) Enterobacterales (PCR) (Not Detect) E. cloacae complex PCR (Not Detect) Enterococc faecalis PCR (Not Detect) Enterococc faecium PCR (Not Detect) E. coli (PCR) (Not Detect) H. influenzae (PCR) (Not Detect) Human Metapneumovir PCR (Not Detect) Influenza Type A (PCR) (Not Detect) Influenza Type B (PCR) (Not Detect) Klebsiella aerogenes (PCR) (Not Detect) Klebsiella oxytoca PCR (Not Detect) Klebsiella pneumoniae (Not Detect) List. monocytogenes PCR (Not Detect) M. pneumoniae (PCR) (Not Detect) N. meningitidis (PCR) (Not Detect) Parainfluenza 1 (PCR) (Not Detect) Parainfluenza 2 (PCR) (Not Detect) Parainfluenza 3 (PCR) (Not Detect) Parainfluenza 4 (PCR) (Not Detect) Proteus species (PCR) (Not Detect) RSV (PCR) (Not Detect) Entero/Rhino (PCR) (Not Detect) Salmonella spp. (PCR) (Not Detect) Serratia marcescens PCR (Not Detect) Staphylococcus sp PCR (Not Detect) Staph aureus (PCR) (Not Detect) Staph epidermidis (PCR) (Not Detect) Staph lugdunensis PCR (Not Detect) S. maltophilia (PCR) (Not Detect) Streptococcus sp PCR (Not Detect) Group A Strep (PCR) (Not Detect) Strep agalactiae (PCR) (Not Detect) Strep pneumoniae (PCR) (Not Detect) P. aeruginosa (PCR) (Not Detect) 08/11/22 08/11/22 Range/Units 13:26 14:12 WBC (4.5-11.0) X10^3/uL RBC (4.0-5.2) X10^6/uL Hgb (12.0-16.0) g/dL Hct (36-46) % MCV (80-100) fL MCH (26-34) PG MCHC (30-36) % RDW (11.6-14.8) % Plt Count (150-400) X10^3/uL Neut % (Auto) (50-75) % Lymph % (Auto) (25-40) % Ector % (Auto) (3-14) % Eos % (Auto) (2-4) % Baso % (Auto) (0-2) % Neut # (Auto) (7234-7116) /uL Lymph # (Auto) (6593-1653) /uL Ector # (Auto) (0-900) /uL Eos # (Auto) (0-450) /uL Baso # (Auto) (0-100) /uL Sodium (137-145) mmol/L Potassium (3.4-5.1) mmol/L Chloride (98-107) mmol/L Carbon Dioxide (22-32) mmol/L BUN (7-17) mg/dL Creatinine (0.52-1.04) mg/dL Estimated GFR (>60) mL/min BUN/Creatinine Ratio (6-22) Glucose (80-110) mg/dL Lactate (0.7-2.1) mmol/L Calcium (8.4-10.2) mg/dL Total Bilirubin (0.2-1.3) mg/dL AST (14-36) IU/L ALT (<35) IU/L Alkaline Phosphatase (38-126) U/L Total Creatine Kinase (30-135) U/L CK-MB (CK-2) CK-MB (CK-2) Rel Index Troponin I (0.01-0.034) ng/mL Total Protein (6.3-8.2) g/dL Albumin (3.5-5.0) g/dL Globulin (1.7-4.1) g/dL Albumin/Globulin Ratio (1.0-2.8) Procalcitonin (<0.5) ng/mL A.calcoaceticus-baumannii cmplx PCR Not detected (Not Detect) Chlamy pneumoniae PCR Not detected (Not Detect) Adenovirus (PCR) Not detected (Not Detect) Bacteroides fragilis Not detected (Not Detect) B. pertussis DNA (PCR) Not detected (Not Detecte) B.parapertussis DNA PCR Not detected (Not Detecte) Madhavi albicans (PCR) Not detected (Not Detect) Madhavi auris (PCR) Not detected (Not Detect) C. glabrata (PCR) Not detected (Not Detect) C. krusei (PCR) Not detected (Not Detect) C. parapsilosis (PCR) Not detected (Not Detect) C. tropicalis (PCR) Not detected (Not Detect) Coronavirus OC43 (PCR) Not detected (Not Detect) Coronavirus HKU1 (PCR) Not detected (Not Detect) Coronavirus 229E (PCR) Not detected (Not Detect) SARS-CoV-2 (PCR) Not detected (Not Detecte) Coronavirus NL63 (PCR) Not detected (Not Detect) C. neoform/gattii (PCR) Not detected (Not Detect) Enterobacterales (PCR) Not detected (Not Detect) E. cloacae complex PCR Not detected (Not Detect) Enterococc faecalis PCR Not detected (Not Detect) Enterococc faecium PCR Not detected (Not Detect) E. coli (PCR) Not detected (Not Detect) H. influenzae (PCR) Not detected (Not Detect) Human Metapneumovir PCR Not detected (Not Detect) Influenza Type A (PCR) Not detected (Not Detect) Influenza Type B (PCR) Not detected (Not Detect) Klebsiella aerogenes (PCR) Not detected (Not Detect) Klebsiella oxytoca PCR Not detected (Not Detect) Klebsiella pneumoniae Not detected (Not Detect) List. monocytogenes PCR Not detected (Not Detect) M. pneumoniae (PCR) Not detected (Not Detect) N. meningitidis (PCR) Not detected (Not Detect) Parainfluenza 1 (PCR) Not detected (Not Detect) Parainfluenza 2 (PCR) Not detected (Not Detect) Parainfluenza 3 (PCR) Not detected (Not Detect) Parainfluenza 4 (PCR) Not detected (Not Detect) Proteus species (PCR) Not detected (Not Detect) RSV (PCR) Not detected (Not Detect) Entero/Rhino (PCR) Not detected (Not Detect) Salmonella spp. (PCR) Not detected (Not Detect) Serratia marcescens PCR Not detected (Not Detect) Staphylococcus sp PCR Not detected (Not Detect) Staph aureus (PCR) Not detected (Not Detect) Staph epidermidis (PCR) Not detected (Not Detect) Staph lugdunensis PCR Not detected (Not Detect) S. maltophilia (PCR) Not detected (Not Detect) Streptococcus sp PCR Detected H (Not Detect) Group A Strep (PCR) Not detected (Not Detect) Strep agalactiae (PCR) Not detected (Not Detect) Strep pneumoniae (PCR) Not detected (Not Detect) P. aeruginosa (PCR) Not detected (Not Detect) MDM Narrative Medical decision making narrative: 87-year-old female presents as sepsis wrists, tachycardic, tachypneic, rigors and fever as high as 103. She states she is been having some left arm pain but otherwise no specific complaints. Labs demonstrate leukocytosis and left shift. She is treated for severe sepsis with 30 milliliters/kilogram of IV fluids, blood cultures, lactate and early antibiotics. Chest x-ray without clear a bnormality. Patient has not yet produced urine. Discussed with primary care provider (Dr. Steen), he is quick to agree to bring patient on his service in his writing orders. Patient understands and agrees with the diagnosis and plan Discharge Plan Departure Patient Disposition: Admitted As Inpatient Clinical Impression: Left arm cellulitis Sepsis Qualifiers: Sepsis acute organ dysfunction status: unspecified Admit Date/Time: 08/11/22 15:33 Admit Provider: Wayne Steen
--- NOTE | 2022-08-11 14:54 | PM.HP.1 ---
History of Present Illness History of Present Illness Date Patient Seen: 08/11/22 Time Patient Seen: 14:54 Chief complaint: weak/fever/vomiting Narrative: 87-year-old female well known to me presented to the emergency department today with generalized weakness fevers and some GI symptoms. She also is having left arm pain. Is status post left mastectomy with lymph node dissection and chronic left arm lymphedema and has had several significant infections of her left arm presenting much like this which is why she came to the ER after taking a dose of Keflex at home . Patient denies any urinary tract symptoms. Maybe has had some cough although none since she came to the hospital. No other clear infectious symptoms ER evaluation demonstrates leukocytosis and probably a bit of hemoconcentration as well as an elevated lactate level. She appears to be a bit volume depleted. 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) Breast cancer Breast cancer, left breast (1998) Decreased vision H/O malignant neoplasm of breast Hypercholesteremia Hypothyroidism (acquired) (12/22/10) Insomnia Lymphedema of upper extremity (10/16/14) Mild cognitive impairment Stage 3 chronic kidney disease Urinary incontinence due to urethral sphincter incompetence Surgical History History of oophorectomy History of tonsillectomy S/P lumpectomy, left breast (03/30/21) S/P mastectomy Status post cholecystectomy (1997) Status post hysterectomy (1990) Family History Brother Coronary artery disease Social History household members: spouse Smoking Status: Never smoker alcohol intake: never Meds Home Medications and Allergies Home Medications Medication Instructions Recorded Confirmed Type amlodipine 5 mg tablet 5 mg PO DAILY #90 tabs 01/03/22 08/11/22 Rx simvastatin 40 mg tablet 20 mg PO DAILY #45 tabs 01/03/22 08/11/22 Rx anastrozole 1 mg tablet 1 mg PO DAILY #30 tabs 05/16/22 08/11/22 Rx levothyroxine 125 mcg tablet 125 mcg PO DAILY #90 tabs 07/05/22 08/11/22 Rx quetiapine 25 mg tablet 25 mg PO BEDTIME #60 tabs 07/05/22 08/11/22 Rx nortriptyline 10 mg capsule 10 mg PO BEDTIME 08/11/22 08/11/22 History Allergies Allergy/AdvReac Type Severity Reaction Status Date / Time morphine AdvReac Severe Nausea Verified 08/11/22 13:36 Review of Systems Review of Systems ROS: Yes All systems reviewed with the patient and are negative except as otherwise documented Exam Vital Signs (past 8 hours): - 08/11/22 13:32 08/11/22 13:27 08/11/22 13:28 Temperature 103.4 F H Pulse Rate 117 H 119 H Respiratory Rate 28 H Blood Pressure 173/81 H 173/81 H Pulse Oximetry 94 94 Oxygen Delivery Method Room Air 08/11/22 13:28 08/11/22 13:30 08/11/22 13:50 Temperature Pulse Rate 112 H 109 H Respiratory Rate Blood Pressure 185/106 H Pulse Oximetry 92 93 Oxygen Delivery Method 08/11/22 13:50 08/11/22 14:00 08/11/22 14:00 Temperature Pulse Rate 122 H 104 H Respiratory Rate 32 H 32 H Blood Pressure 166/90 H Pulse Oximetry 94 93 Oxygen Delivery Method Oxygen Delivery Method Room Air Narrative Exam Narrative: Non acutely ill-appearing elderly female lying in hospital bed HEENT-unremarkable Lungs-clear with good breath sounds Heart-regular rate and rhythm Abdomen-benign positive bowel tones soft nontender nondistended Extremities-chronic lymphedema present left upper extremity with mild erythema. Possibly slightly warmer than other extremities Neuro-alert oriented to self person place. No focal findings. Gait not tested Objective Labs 08/12/22 05:00 08/12/22 05:00 Labs: Laboratory Results - last 24 hr 08/11/22 08/11/22 08/11/22 13:26 13:26 13:26 WBC 20.4 H RBC 5.56 H Hgb 16.9 H Hct 49.9 H MCV 89.8 MCH 30.4 MCHC 33.8 RDW 14.4 Plt Count 354 Neut % (Auto) 60.8 Lymph % (Auto) 30.9 [place] % (Auto) 7.2 Eos % (Auto) 0.3 L Baso % (Auto) 0.8 Neut # (Auto) 32753 H Lymph # (Auto) 6300 H Frederick # (Auto) 1500 H Eos # (Auto) 100 Baso # (Auto) 200 H Sodium 143 Potassium 3.7 Chloride 102 Carbon Dioxide 23 BUN 15 Creatinine 0.98 Estimated GFR 57 L BUN/Creatinine Ratio 15.3 Glucose 129 H Lactate 5.2 H* Calcium 10.4 H Total Bilirubin 0.7 AST 90 H ALT 62 H Alkaline Phosphatase 153 H Total Creatine Kinase 84 CK-MB (CK-2) TNP CK-MB (CK-2) Rel Index TNP Troponin I < 0.012 Total Protein 9.2 H Albumin 5.1 H Globulin 4.1 Albumin/Globulin Ratio 1.2 Procalcitonin 0.13 Assessment & Plan Assessment & Plan narrative: 1. Sepsis, likely source left arm cellulitis secondary to lymphedema-parental antibiotics well as IV fluids per usual protocol. Start with ceftriaxone which is been given in the ER already and continue that for now. Blood cultures have been obtained and will follow those for direction of antibiotic therapy or failing that continue probably was third generation cephalosporin for 7-10 days total treatment. Do not believe there is another source of infection but still awaiting urine. Chest x-ray probably does not show a pneumonia but depending on clinical course consider repeat after rehydration 2. chronic renal failure stage 3 chronically. She will be receiving IV fluids as above will follow along carefully with her renal function based on blood work etcetera 3. Hypertension-patient's blood pressure bit on the high side. Okay to continue her usual medications. 4. Cognitive dysfunction-patient probably with element of an early dementia. May affect her behavior here in the hospital. Watch for abnormal behaviors delirium etcetera 5. Breast cancer-patient with recurrent breast cancer, status post surgery. Now on aromatase inhibitor as only treatment. Has declined further therapy beyond this. Followed by local oncology 6. Abnormal LFTs-again demonstrated as before. No evidence of progression and no clear etiology for this at this point. We have elected not to investigate this to any great detail 7. Code status-patient has previously requested full code as documented in her POLST form from 2019. She continues to request efforts at resuscitation in the event of a sudden cardiac or respiratory arrest 8. VTE prophylaxis-Lovenox appropriate and ordered
[2022-08-11] MEDS: KETOROLAC 30 MG/ML VIAL 10 MG IV (15:15)
--- NOTE | 2022-08-11 15:32 | DI.RAD.S_ITS ---
PROCEDURE: XR CHEST 1V INDICATIONS: sepsis TECHNIQUE: One view of the chest was acquired. COMPARISON: [facility], CR, XR CHEST 1V, 07/27/2020, 18:07. FINDINGS: Surgical changes and devices: Left axillary clips. Lungs and pleura: Very minimal appearance of coarsening within the right base. Mediastinum: Mediastinal contours appear normal. Heart size is normal. Bones and chest wall: No suspicious bony lesions. Overlying soft tissues appear unremarkable. IMPRESSION: Minimal right basilar coarsening. This could represent dependent change versus developing pneumonia and/or atelectasis. Dictated by: Yvrose Franklin M.D. on 08/11/2022 at 16:24 Approved by: Yvrose Franklin M.D. on 08/11/2022 at 16:24
[2022-08-11 15:34] LABS: Reflexed Lactate in 2 Hours Y
[2022-08-11 16:15] LABS: Adenovirus Not Detected (Not Detect); B. parapertussis Not Detected (Not Detecte); Bordetella pertussis Not Detected (Not Detecte); Chlamydophila pneumoniae Not Detected (Not Detect); Coronavirus 229E Not Detected (Not Detect); Coronavirus HKU1 Not Detected (Not Detect); Coronavirus NL 63 Not Detected (Not Detect); Coronavirus OC43 Not Detected (Not Detect); Human Metapneumovirus Not Detected (Not Detect); Human Rhinovirus/Enterovirus Not Detected (Not Detect); Influenza A Not Detected (Not Detect); Influenza B Not Detected (Not Detect); Mycoplasma pneumoniae Not Detected (Not Detect); Parainfluenza Virus 1 Not Detected (Not Detect); Parainfluenza Virus 2 Not Detected (Not Detect); Parainfluenza Virus 3 Not Detected (Not Detect); Parainfluenza Virus 4 Not Detected (Not Detect); Respiratory Syncytial Virus Not Detected (Not Detect); SARS- CoV-2 Not Detected (Not Detecte)
[2022-08-11] MEDS: ACETAMINOPHEN 325 MG TABLET 650 MG PO ×2 (16:48→22:46)
[2022-08-11 17:07] LABS: Appearance Urine UA CLEAR; Bilirubin Urine UA NEGATIVE (NEGATIVE); Color Urine UA YELLOW; Glucose Urine UA NEGATIVE (Negative); Ketones Urine UA NEGATIVE (NEGATIVE); Leukocyte Esterase Urine UA NEGATIVE (NEGATIVE); Nitrite Urine UA NEGATIVE (Negative); Occult Blood Urine UA NEGATIVE (Negative); Protein Urine UA NEGATIVE (Negative); Specific Gravity Urine UA 1.015 (1.000-1.035); Urobilinogen Urine UA 0.2 E.U./dL (0.2)
[2022-08-11] MEDS: SODIUM CHLORIDE 0.9% 1,000 ML 100 ML IV (17:14)
[2022-08-11 17:16] LABS: Bacteria Urine None Seen; Culture Indicated Urine Cult Not Indicated; RBC Urine None Seen (0-5/HPF); Squamous Epithelial Cell Urine None Seen (0-5/HPF); WBC Urine None Seen (0-5/HPF)
[2022-08-11] MEDS: QUETIAPINE 25 MG TABLET PO (20:02)
[2022-08-12] MEDS: SODIUM CHLORIDE 0.9% 1,000 ML 100 ML IV (02:59)
[2022-08-12 05:09] VITALS: BP 122/54; PULSE 73; RESP 16; TEMP 37.1; O2SAT 94
[2022-08-12 05:32] LABS: Add Manual Diff / Slide Review NO; Basophils Absolute Auto 100 /uL (0-100); Basophils Percent Auto 0.5 % (0-2); Eosinophils Absolute Auto 0 /uL (0-450); Eosinophils Percent Auto 0.1 % (2-4); Hemoglobin 13.4 g/dL (12.0-16.0); Lymphocytes Absolute Auto 3200 /uL (1100-4500); Lymphocytes Percent Auto 16.7 % (25-40); Mean Corpuscular HGB Conc 33.4 % (30-36); Mean Corpuscular Volume 89.8 fL (80-100); Monocytes Absolute Auto 1800 /uL (0-900); Monocytes Percent Auto 9.2 % (3-14); Neutrophils Absolute Auto 14000 /uL (1500-7000); Neutrophils Percent Auto 73.5 % (50-75); Platelet Count 213 X10^3/uL (150-400); Red Blood Cell Count 4.46 X10^6/uL (4.0-5.2); Red Cell Distribution Width 14.3 % (11.6-14.8); White Blood Cell Count 19.1 X10^3/uL (4.5-11.0)
[2022-08-12 05:41] LABS: BUN Creatinine Ratio 15.1 (6-22); Blood Urea Nitrogen 16 mg/dL (7-17); Calcium 8.3 mg/dL (8.4-10.2); Carbon Dioxide 23 mmol/L (22-32); Chloride 106 mmol/L (98-107); Estimated Glomerular Filt Rate 51 mL/min (>60); Glucose 115 mg/dL (80-110); HEMOLYSIS < 15 (0-50); Potassium 3.2 mmol/L (3.4-5.1); Sodium 138 mmol/L (137-145)
[2022-08-12] MEDS: LEVOTHYROXINE 125 MCG TABLET PO (06:53)
--- NOTE | 2022-08-12 07:30 | PM.PN.1 ---
Subjective Subjective Date Patient Seen: 08/12/22 Time Patient Seen: 06:58 Interval history: Uneventful night overnight Afebrile since presentation in the ER yesterday Labs show similar white count but normalization of her hemoglobin hematocrit. Mild hypokalemia. Blood pressure stable Exam Vital Signs (past 8 hours): - 08/12/22 05:09 Temperature 98.8 F Pulse Rate 73 Respiratory Rate 16 Blood Pressure 122/54 L Pulse Oximetry 94 Oxygen Flow Rate 0 Oxygen Delivery Method Room Air Oxygen Flow Rate 0 Objective Labs 08/12/22 05:00 08/12/22 05:00 Labs: Laboratory Results - last 24 hr 08/11/22 08/11/22 08/11/22 13:26 13:26 13:26 WBC 20.4 H RBC 5.56 H Hgb 16.9 H Hct 49.9 H MCV 89.8 MCH 30.4 MCHC 33.8 RDW 14.4 Plt Count 354 Neut % (Auto) 60.8 Lymph % (Auto) 30.9 [place] % (Auto) 7.2 Eos % (Auto) 0.3 L Baso % (Auto) 0.8 Neut # (Auto) 04214 H Lymph # (Auto) 6300 H [place] # (Auto) 1500 H Eos # (Auto) 100 Baso # (Auto) 200 H Sodium 143 Potassium 3.7 Chloride 102 Carbon Dioxide 23 BUN 15 Creatinine 0.98 Estimated GFR 57 L BUN/Creatinine Ratio 15.3 Glucose 129 H Lactate 5.2 H* Calcium 10.4 H Total Bilirubin 0.7 AST 90 H ALT 62 H Alkaline Phosphatase 153 H Total Creatine Kinase 84 CK-MB (CK-2) TNP CK-MB (CK-2) Rel Index TNP Troponin I < 0.012 Total Protein 9.2 H Albumin 5.1 H Globulin 4.1 Albumin/Globulin Ratio 1.2 Procalcitonin 0.13 Urine Color Urine Appearance Urine pH Ur Specific [place] Urine Protein Urine Glucose (UA) Urine Ketones Urine Occult Blood Urine Nitrate Urine Bilirubin Urine Urobilinogen Ur Leukocyte Esterase Urine RBC Urine WBC Ur Squamous Epith Cells Urine Bacteria Ur Culture Indicated? Chlamy pneumoniae PCR Adenovirus (PCR) B. pertussis DNA (PCR) B.parapertussis DNA PCR Coronavirus OC43 (PCR) Coronavirus HKU1 (PCR) Coronavirus 229E (PCR) SARS-CoV-2 (PCR) Coronavirus NL63 (PCR) Human Metapneumovir PCR Influenza Type A (PCR) Influenza Type B (PCR) M. pneumoniae (PCR) Parainfluenza 1 (PCR) Parainfluenza 2 (PCR) Parainfluenza 3 (PCR) Parainfluenza 4 (PCR) RSV (PCR) Entero/Rhino (PCR) 08/11/22 08/11/22 08/11/22 14:12 16:30 17:05 WBC RBC Hgb Hct MCV MCH MCHC RDW Plt Count Neut % (Auto) Lymph % (Auto) [place] % (Auto) Eos % (Auto) Baso % (Auto) Neut # (Auto) Lymph # (Auto) [place] # (Auto) Eos # (Auto) Baso # (Auto) Sodium Potassium Chloride Carbon Dioxide BUN Creatinine Estimated GFR BUN/Creatinine Ratio Glucose Lactate 3.0 H Calcium Total Bilirubin AST ALT Alkaline Phosphatase Total Creatine Kinase CK-MB (CK-2) CK-MB (CK-2) Rel Index Troponin I Total Protein Albumin Globulin Albumin/Globulin Ratio Procalcitonin Urine Color Yellow Urine Appearance Clear Urine pH 6.0 Ur Specific [place] 1.015 Urine Protein Negative Urine Glucose (UA) Negative Urine Ketones Negative Urine Occult Blood Negative Urine Nitrate Negative Urine Bilirubin Negative Urine Urobilinogen 0.2 Ur Leukocyte Esterase Negative Urine RBC None seen Urine WBC None seen Ur Squamous Epith Cells None seen Urine Bacteria None seen Ur Culture Indicated? Cult not indicated Chlamy pneumoniae PCR Not detected Adenovirus (PCR) Not detected B. pertussis DNA (PCR) Not detected B.parapertussis DNA PCR Not detected Coronavirus OC43 (PCR) Not detected Coronavirus HKU1 (PCR) Not detected Coronavirus 229E (PCR) Not detected SARS-CoV-2 (PCR) Not detected Coronavirus NL63 (PCR) Not detected Human Metapneumovir PCR Not detected Influenza Type A (PCR) Not detected Influenza Type B (PCR) Not detected M. pneumoniae (PCR) Not detected Parainfluenza 1 (PCR) Not detected Parainfluenza 2 (PCR) Not detected Parainfluenza 3 (PCR) Not detected Parainfluenza 4 (PCR) Not detected RSV (PCR) Not detected Entero/Rhino (PCR) Not detected 08/12/22 08/12/22 05:00 05:00 WBC 19.1 H RBC 4.46 Hgb 13.4 Hct 40.0 MCV 89.8 MCH 30.0 MCHC 33.4 RDW 14.3 Plt Count 213 Neut % (Auto) 73.5 Lymph % (Auto) 16.7 L [place] % (Auto) 9.2 Eos % (Auto) 0.1 L Baso % (Auto) 0.5 Neut # (Auto) 87009 H Lymph # (Auto) 3200 [place] # (Auto) 1800 H Eos # (Auto) 0 Baso # (Auto) 100 Sodium 138 Potassium 3.2 L Chloride 106 Carbon Dioxide 23 BUN 16 Creatinine 1.06 H Estimated GFR 51 L BUN/Creatinine Ratio 15.1 Glucose 115 H Lactate Calcium 8.3 L Total Bilirubin AST ALT Alkaline Phosphatase Total Creatine Kinase CK-MB (CK-2) CK-MB (CK-2) Rel Index Troponin I Total Protein Albumin Globulin Albumin/Globulin Ratio Procalcitonin Urine Color Urine Appearance Urine pH Ur Specific [place] Urine Protein Urine Glucose (UA) Urine Ketones Urine Occult Blood Urine Nitrate Urine Bilirubin Urine Urobilinogen Ur Leukocyte Esterase Urine RBC Urine WBC Ur Squamous Epith Cells Urine Bacteria Ur Culture Indicated? Chlamy pneumoniae PCR Adenovirus (PCR) B. pertussis DNA (PCR) B.parapertussis DNA PCR Coronavirus OC43 (PCR) Coronavirus HKU1 (PCR) Coronavirus 229E (PCR) SARS-CoV-2 (PCR) Coronavirus NL63 (PCR) Human Metapneumovir PCR Influenza Type A (PCR) Influenza Type B (PCR) M. 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) Breast cancer Breast cancer, left breast (1998) Decreased vision H/O malignant neoplasm of breast Hypercholesteremia Hypothyroidism (acquired) (12/22/10) Insomnia Lymphedema of upper extremity (10/16/14) Mild cognitive impairment Stage 3 chronic kidney disease Urinary incontinence due to urethral sphincter incompetence Surgical History History of oophorectomy History of tonsillectomy S/P lumpectomy, left breast (03/30/21) S/P mastectomy Status post cholecystectomy (1997) Status post hysterectomy (1990) Family History Brother Coronary artery disease Social History household members: spouse Smoking Status: Never smoker alcohol intake: never Assessment & Plan Assessment & Plan narrative: 1. Cellulitis left arm-continue with parental antibiotics. Clinically no worrisome perhaps slightly improved as she is been afebrile etcetera 2. Fluids/electrolytes-can decrease IV fluids at this point. I think we have replaced her missing IV fluids. Will need to replace her potassium will do that orally and plan to recheck tomorrow 3. Hypertension-patient's blood pressure bit on the high side. Okay to continue her usual medications. Blood pressure improved at this point. No change in therapy for today 4. Cognitive dysfunction-patient probably with element of an early dementia. Not an active issue at this time, hopefully stays that way 5. Breast cancer-patient with recurrent breast cancer, status post surgery. Continue patient's aromatase inhibitor Quality VTE Deep Vein Thrombosis/Pulmonary Embolism Present on Admission: No
[2022-08-12 07:44] LABS: Acinetobacter calcoa-baumannii Not Detected (Not Detect); Enterococcus faecalis Not Detected (Not Detect); Enterococcus faecium Not Detected (Not Detect); Listeria monocytogenes Not Detected (Not Detect); Staphylococcus epidermidis Not Detected (Not Detect); Staphylococcus lugdunensis Not Detected (Not Detect); Staphylococcus species Not Detected (Not Detect); Streptococcus agalactiae (Gr B Not Detected (Not Detect); Streptococcus pneumonia Not Detected (Not Detect); Streptococcus pyogenes (Gr A) Not Detected (Not Detect); Streptococcus species DETECTED (Not Detect)
[2022-08-12 07:45] LABS: Bacteroides fragilis Not Detected (Not Detect); Candida albicans Not Detected (Not Detect); Candida auris Not Detected (Not Detect); Candida glabrata Not Detected (Not Detect); Candida krusei Not Detected (Not Detect); Candida parapsilosis Not Detected (Not Detect); Candida tropicalis Not Detected (Not Detect); Cryptococcus neoformans/gatti Not Detected (Not Detect); Enterobacter cloacae complex Not Detected (Not Detect); Enterobacterales Not Detected (Not Detect); Haemophilus influenzae Not Detected (Not Detect); Klebsiella aerogenes Not Detected (Not Detect); Neisseria meningitidis Not Detected (Not Detect); Proteus species Not Detected (Not Detect); Pseudomonas aeruginosa Not Detected (Not Detect); Salmonella species Not Detected (Not Detect); Serratia marcescens Not Detected (Not Detect); Stenotrophomonas maltophilia Not Detected (Not Detect)
[2022-08-12] MEDS: POTASSIUM CHLORIDE 20 MEQ TAB 40 MEQ PO ×2 (07:53→16:42)
[2022-08-12] MEDS: ACETAMINOPHEN 325 MG TABLET 650 MG PO ×2 (07:55→16:42)
[2022-08-12 08:00] VITALS: O2SAT 91
[2022-08-12 09:20] VITALS: BP 114/45; PULSE 76; RESP 16; TEMP 36.7; O2SAT 91
[2022-08-12] MEDS: ATORVASTATIN 20 MG TABLET 10 MG PO (09:51)
[2022-08-12] MEDS: ANASTROZOLE 1 MG TABLET PO (09:51)
[2022-08-12] MEDS: CHOLECALCIFEROL (VITAMIN D3) 1,000 UNIT TABLET 4000 UNIT PO (09:51)
[2022-08-12] MEDS: AMLODIPINE 5 MG TABLET PO (09:51)
[2022-08-12] MEDS: ENOXAPARIN 40 MG/0.4 ML SYRINGE SUBCUT (09:52)
--- NOTE | 2022-08-12 11:15 | PC.NURSE ---
Day shift: Pt's blood culture came back positive for gram positive cocci. Notified MD Steen who said that the IV antibx she is already on is a good choice for this infection. Pt states decreased pain in L arm with acetaminophen, elevation and ice. Pt reported headache at beginning of shift, improved with APAP. No n/v. OOB with 1PA to commode. PIV running NS at 75. Will continue to monitor.
--- NOTE | 2022-08-12 11:53 | CM.DANOTE ---
Patient is an 87 yo female who was admitted on 08/11/22 for Weakness. Pt has [facility] and [employer] for insurance and her PCP is Dr. Wayne Steen. EMR was reviewed. Per MD, pt with remote hx of mastectomy and admitted now for Sepsis/Cellulitis and to have IV-Abx and fluids and awaiting culture results. SW met bedside with pt and explained role and she confirms she lives at [facility] on the [facility] with her spouse and has two local supportive adult Dtrs. Pt is active and independent with ADLs, does not use DME for ambulation, and still drives. Pt denies any hx of HH or SNF. Pt thinks her spouse and Dtr are her DPOAs. Pt does not anticipate any needs at d/c and preference is to return to [facility] independent via spouse POV. Pt states spouse has Parkinsons but is still very active and independent and can assist if needed. Pt confirms that she is established with Dr. Pena and [facility] but is not receiving any current or future tx. Plan: SW to follow closely for plan of discharge back to [facility] via spouse POV when medically stable and any further identified discharge planning needs. ASCENCION Berger Discharge Planning/Care Management CM Discharge Assessment Start: 08/12/22 11:51 Freq: Status: Active Protocol: Document 08/12/22 11:52 BF (Rec: 08/12/22 11:52 BF [id number]) Discharge Planning Assessment Assigned Pickle Cutter ASCENCION Alberts DPOA/Assigned Designee Name spouse and Dtr Advance Directives? Yes: DPOA and Health Directive , POLST Advance Directives on File Yes History Provided By Patient,Family Member,Medical Record Has Patient been admitted in last 30 No days? Prior Living Arrangements [facility] Household Members spouse Type of transporation used prior to Drives own vehicle admit Independent with ADL's Yes Is patient alert and oriented? Yes Caregiver for Another No Barriers to Discharge No Discharge Plan Home Transportation Arrangement Family can provide transport at d/c Referrals Initiated None needed Whiteboard Updated in Patient Room with Yes name and ext. # of Pickle Cutter Review Status In Process Please Provide Date Initial DC 08/12/22 Assessment Was Performed Next Review Type Continued Stay Review
[2022-08-12] MEDS: cefTRIAXone 2,000 MG in SODIUM CHLORIDE 0.9% 100 ML 200 MG IV (12:25)
[2022-08-12] MEDS: SODIUM CHLORIDE 0.9% 1,000 ML 75 ML IV (15:03)
--- NOTE | 2022-08-12 18:26 | PC.NURSE ---
Day shift: Patient's labs came back at 0700 with critical lab value that blood culture showed gram positive cocci. Notified MD Steen at 0800 as he was rounding. reported that patient's current antibiotic is effective for treating this. Pt A&Ox4. No confusion. Pt had no n/v today. No fevers or chills. Pain adequately controlled with PO APAP. L arm remains swollen and warm. Strong radial pulse. No numbness. Pt OOB with SBA. IV fluids - NS @ 75. Pt's spouse and and son at bedside today. Plan for likely discharge sometime over the weekend. Will continue to monitor.
[2022-08-12 20:20] VITALS: BP 128/52; PULSE 71; RESP 18; TEMP 36.9; O2SAT 93
[2022-08-12] MEDS: QUETIAPINE 25 MG TABLET PO (21:42)
[2022-08-12 22:18] VITALS: O2SAT 93
[2022-08-13] VITALS (8 sets, daily range): BP systolic 129–156; BP diastolic 50–68; PULSE 73–80; RESP 16–18; TEMP 36.8–37.2; O2SAT 91–95
[2022-08-13] MEDS: SODIUM CHLORIDE 0.9% 1,000 ML 75 ML IV ×2 (03:49→18:45)
[2022-08-13] MEDS: LEVOTHYROXINE 125 MCG TABLET PO (05:22)
--- NOTE | 2022-08-13 05:34 | PC.NURSE ---
Patient has been resting in bed most of the shift. Denied any pain. Has been A&O, calm and cooperative.
[2022-08-13 07:24] LABS: Hematocrit 38.8 % (36-46); Hemoglobin 12.8 g/dL (12.0-16.0); Mean Corpuscular Hemoglobin 30.1 PG (26-34); Mean Corpuscular Volume 91.3 fL (80-100); Platelet Count 188 X10^3/uL (150-400); Red Blood Cell Count 4.25 X10^6/uL (4.0-5.2); Red Cell Distribution Width 14.4 % (11.6-14.8); White Blood Cell Count 14.3 X10^3/uL (4.5-11.0)
[2022-08-13 07:37] LABS: HEMOLYSIS < 15 (0-50); Potassium 3.8 mmol/L (3.4-5.1)
[2022-08-13] MEDS: ENOXAPARIN 40 MG/0.4 ML SYRINGE SUBCUT (10:03)
[2022-08-13] MEDS: CHOLECALCIFEROL (VITAMIN D3) 1,000 UNIT TABLET 4000 UNIT PO (10:03)
[2022-08-13] MEDS: ANASTROZOLE 1 MG TABLET PO (10:04)
[2022-08-13] MEDS: ATORVASTATIN 20 MG TABLET 10 MG PO (10:04)
[2022-08-13] MEDS: POTASSIUM CHLORIDE 20 MEQ TAB 40 MEQ PO ×2 (10:04→18:40)
[2022-08-13] MEDS: AMLODIPINE 5 MG TABLET PO (10:05)
--- NOTE | 2022-08-13 12:39 | DI.RAD.S_ITS ---
PROCEDURE: XR CHEST 2V INDICATIONS: pleurisy TECHNIQUE: 2 views of the chest were acquired. COMPARISON: [facility], , XR CHEST 1V, 08/11/2022, 15:29. FINDINGS: Surgical changes and devices: None. Lungs and pleura: Lungs are clear. No pleural effusions or pneumothorax. Small bilateral pleural effusions. Mediastinum: Mediastinal contours are normal. Heart size is normal. Bones and chest wall: No suspicious bony abnormalities. Soft tissues appear unremarkable. IMPRESSION: 1. No acute cardiopulmonary abnormality. 2. Small bilateral pleural effusions. Dictated by: Jeff Negro M.D. on 08/13/2022 at 12:21 Approved by: Jeff Negro M.D. on 08/13/2022 at 12:22
--- NOTE | 2022-08-13 12:40 | P.PN_ITS ---
Subjective Subjective Date Patient Seen: 08/13/22 Time Patient Seen: 12:40 Interval history: Patient feels that she is slow to respond to antibiotics at this time. Overall she is feeling much better and not having a fever. Her brings up that she is not having as much heat or erythema of the left upper extremity and she agrees to this. It is still quite swollen but has improved. Patient does complain of some chest tightness when she takes a deep breath but no chest pain and no shortness a breath and no palpitations or lightheadedness or dizziness. Exam Vital Signs (past 8 hours): - 08/13/22 08:22 Temperature 98.8 F Pulse Rate 80 Respiratory Rate 16 Blood Pressure 143/54 H Pulse Oximetry 93 Oxygen Flow Rate 0 Oxygen Delivery Method Room Air Oxygen Flow Rate 0 Narrative Exam Narrative: Delightful 87-year-old woman who looks younger than her stated age. Alert and oriented x3 and a good historian. HEENT is unremarkable, mucous membranes moist and pink Neck: Supple without adenopathy or thyromegaly Chest: Clear to auscultation without wheezes rhonchi or crackles Cor: Regular rate and rhythm distant S1-S2 Abdomen: Positive bowel sounds, soft, nontender, nondistended Left upper extremity with swelling primarily in the over the humerus and elbow. There is mild erythema and mild calor. There is swelling and some induration. There is no evidence of drainage or abscess. 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) Breast cancer Breast cancer, left breast (1998) Decreased vision H/O malignant neoplasm of breast Hypercholesteremia Hypothyroidism (acquired) (12/22/10) Insomnia Lymphedema of upper extremity (10/16/14) Mild cognitive impairment Stage 3 chronic kidney disease Urinary incontinence due to urethral sphincter incompetence Surgical History History of oophorectomy History of tonsillectomy S/P lumpectomy, left breast (03/30/21) S/P mastectomy Status post cholecystectomy (1997) Status post hysterectomy (1990) Family History Brother Coronary artery disease Social History household members: spouse Smoking Status: Never smoker alcohol intake: never Assessment & Plan Assessment & Plan narrative: Pleasant 87-year-old female who is on hospital day 2. Really for a left upper extremity cellulitis due to lymphedema secondary to radical mastectomy. She is improving slowly Assessment & Plan narrative: 1. Cellulitis left arm-continue with parental antibiotics.? 1 blood culture shows Gram-positive cocci strep alpha hemolyticus which is often a contaminant and I suspect that this is likely the case. In any event I think she is responding to the ceftriaxone and this would be continued even if this were a true bacteremia. Patient was concerned that she was not responding but she is afebrile and no longer having tachycardia in her white count has gone from 2219- 14. We will continue and reassess tomorrow. 2. Fluids/electrolytes-can decrease IV fluids at this point.? I think we have replaced her missing IV fluids.? Potassium is normal. We will recheck in a.m.. 3. Hypertension-patient's blood pressure bit on the high side.? Okay to continue her usual medications.? Blood pressure improved at this point.? No change in therapy for today 4.? Cognitive dysfunction-patient probably with element of an early dementia.? Not an active issue at this time, hopefully stays that way. Continue with Seroquel at bedtime 5.? Breast cancer-patient with recurrent breast cancer, status post surgery.? Continue patient's aromatase inhibitor 6. Some pleuritic chest pain. With some subtle changes on chest x-ray. Plan will go ahead and repeat chest x-ray and change course pending these results. Assessment 7. Hypothyroidism Plan: Continue outpatient thyroid medication Disposition: Possible discharge tomorrow. Would anticipate discharge to home. 55 minutes spent with patient reviewing chart meeting with patient and her discussing with pharmacy forming a plan and documentation Quality VTE Deep Vein Thrombosis/Pulmonary Embolism Present on Admission: No
[2022-08-13] MEDS: cefTRIAXone 2,000 MG in SODIUM CHLORIDE 0.9% 100 ML 200 MG IV (13:57)
[2022-08-13] MEDS: QUETIAPINE 25 MG TABLET PO (20:40)
[2022-08-14 02:24] VITALS: BP 136/58; PULSE 69; RESP 18; TEMP 36.8; O2SAT 92
[2022-08-14] MEDS: ACETAMINOPHEN 325 MG TABLET 650 MG PO (04:04)
[2022-08-14 04:14] VITALS: BP 155/65; PULSE 78; RESP 18; TEMP 35.7; O2SAT 91
[2022-08-14] MEDS: LEVOTHYROXINE 125 MCG TABLET PO (05:46)
[2022-08-14 06:09] LABS: Add Manual Diff / Slide Review NO; Basophils Absolute Auto 100 /uL (0-100); Basophils Percent Auto 0.9 % (0-2); Eosinophils Absolute Auto 100 /uL (0-450); Eosinophils Percent Auto 0.9 % (2-4); Hematocrit 39.3 % (36-46); Hemoglobin 12.9 g/dL (12.0-16.0); Lymphocytes Absolute Auto 3200 /uL (1100-4500); Lymphocytes Percent Auto 25.5 % (25-40); Mean Corpuscular HGB Conc 32.9 % (30-36); Mean Corpuscular Volume 91.2 fL (80-100); Monocytes Absolute Auto 1300 /uL (0-900); Monocytes Percent Auto 10.1 % (3-14); Neutrophils Absolute Auto 7900 /uL (1500-7000); Neutrophils Percent Auto 62.6 % (50-75); Platelet Count 201 X10^3/uL (150-400); Red Blood Cell Count 4.31 X10^6/uL (4.0-5.2); Red Cell Distribution Width 14.5 % (11.6-14.8); White Blood Cell Count 12.6 X10^3/uL (4.5-11.0)
[2022-08-14 06:23] LABS: Blood Urea Nitrogen 10 mg/dL (7-17); Calcium 8.6 mg/dL (8.4-10.2); Carbon Dioxide 21 mmol/L (22-32); Chloride 111 mmol/L (98-107); Estimated Glomerular Filt Rate > 60 mL/min (>60); Glucose 105 mg/dL (80-110); HEMOLYSIS < 15 (0-50); Potassium 4.1 mmol/L (3.4-5.1); Sodium 139 mmol/L (137-145)
--- NOTE | 2022-08-14 06:25 | PC.NURSE ---
assistant shift supervisor RN had Pt's 2 nights ago, at begging of shift RN noted improved edema in left hand +1, but left forearm appeared same as before 2+ edema firm no pitting edema. Erythema had improved, but still warm to touch. Upper arm bicep appears to be more swollen than before and warm to touch. Reassessed Pt arm at end of shift, arm appears to be same 2+ edema but no longer firm, no pitting edema, still warm to touch, and mild improvement on erythema. Pt stated she thinks it feels much better and looks about the same from start of assistant shift supervisor. Pt wishes to go home, but verbalized concern that she isn't responding as quickly to the antibiotics as she has in the past. Pt understood that she may need further treatment and will speak with M.D. about care plan.
[2022-08-14 07:00] VITALS: O2SAT 92
[2022-08-14] MEDS: SODIUM CHLORIDE 0.9% 1,000 ML 75 ML IV (07:38)
[2022-08-14] MEDS: ANASTROZOLE 1 MG TABLET PO (08:36)
[2022-08-14] MEDS: POTASSIUM CHLORIDE 20 MEQ TAB 40 MEQ PO (08:36)
[2022-08-14] MEDS: CHOLECALCIFEROL (VITAMIN D3) 1,000 UNIT TABLET 4000 UNIT PO (08:36)
[2022-08-14] MEDS: ATORVASTATIN 20 MG TABLET 10 MG PO (08:36)
[2022-08-14] MEDS: ENOXAPARIN 40 MG/0.4 ML SYRINGE SUBCUT (08:36)
[2022-08-14] MEDS: AMLODIPINE 5 MG TABLET PO (08:36)
[2022-08-14 08:44] VITALS: BP 133/45; PULSE 65; RESP 15; TEMP 36.5; O2SAT 91
--- NOTE | 2022-08-14 11:38 | P.DS_ITS ---
History of Present Illness History of Present Illness Date Patient Seen: 08/14/22 Time Patient Seen: 11:38 Chief complaint: weak/fever/vomiting Discharge Providers Provider Date of admission: 08/11/22 15:33 Discharge Date: 08/14/22 Primary care physician: Wayne Steen MD Discharge provider: Saima Hyatt MD Summary Hospital Course Discharge Diagnosis: Left upper extremity cellulitis with 1 positive blood culture suspect this was contaminant and clinically improving with IV antibiotics Lymphedema Pleural effusions bilateral, suspect fluid overload. Treated with Lasix today Hypokalemia improved. Hypertension stable Hypothyroidism stable Hyperlipidemia stable Hospital Course: Patient admitted to the hospital with cellulitis due to radical mastectomy with left upper extremity lymphedema. Patient was treated with IV ceftriaxone and slowly improved. She had some evidence of pleural effusions was treated with Lasix on the day of discharge. She had hypokalemia and was replaced adequately but will need follow-up with this as an outpatient. She is discharged home on hospital day 3. Stable and improved condition on Augmentin and probiotics and will follow-up with her PCP, Dr. Steen next week. Status at Discharge Cognitive/behavioral status at discharge: oriented Functional status at discharge: independent ambulation Overall status at discharge: patient is progressing back to baseline Exam Vital Signs (past 8 hours): - 08/14/22 04:14 08/14/22 07:00 08/14/22 08:44 Temperature 96.2 F L 97.7 F Pulse Rate 78 65 Respiratory Rate 18 15 Blood Pressure 155/65 H 133/45 L Pulse Oximetry 91 92 91 Oxygen Delivery Method Room Air Oxygen Flow Rate 1 0 1 Oxygen Delivery Method Room Air Oxygen Flow Rate 1 Narrative Exam Narrative: Afebrile vital signs are stable HEENT is unremarkable Neck is supple Chest: Clear to auscultation with slightly decreased breath sounds bilateral bases Cor: Regular rate and rhythm without a murmur Abdomen benign. Lower extremity shows 1+ pitting edema pretibial bilateral worse from yesterday Left upper extremity shows marked decrease in swelling and erythema and warmth. Objective Labs 08/14/22 05:20 08/14/22 05:20 Labs: Laboratory Results - last 24 hr 08/11/22 08/14/22 08/14/22 13:26 05:20 05:20 WBC 12.6 H RBC 4.31 Hgb 12.9 Hct 39.3 MCV 91.2 MCH 30.0 MCHC 32.9 RDW 14.5 Plt Count 201 Neut % (Auto) 62.6 Lymph % (Auto) 25.5 [place] % (Auto) 10.1 Eos % (Auto) 0.9 L Baso % (Auto) 0.9 Neut # (Auto) 7900 H Lymph # (Auto) 3200 [place] # (Auto) 1300 H Eos # (Auto) 100 Baso # (Auto) 100 Sodium 139 Potassium 4.1 Chloride 111 H Carbon Dioxide 21 L BUN 10 Creatinine 0.83 Estimated GFR > 60 BUN/Creatinine Ratio 12.0 Glucose 105 Lactate 5.2 H* Calcium 8.6 PFSH Medical History Abnormal LFTs Abnormal mammogram Appendicitis Benign essential hypertension 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) Breast cancer Breast cancer, left breast (1998) Decreased vision H/O malignant neoplasm of breast Hypercholesteremia Hypothyroidism (acquired) (12/22/10) Insomnia Lymphedema of upper extremity (10/16/14) Mild cognitive impairment Stage 3 chronic kidney disease Urinary incontinence due to urethral sphincter incompetence Surgical History History of oophorectomy History of tonsillectomy S/P lumpectomy, left breast (03/30/21) S/P mastectomy Status post cholecystectomy (1997) Status post hysterectomy (1990) Family History Brother Coronary artery disease Social History household members: spouse Smoking Status: Never smoker alcohol intake: never Discharge Assessment & Plan Assessment and Plan Assessment: Assessment & Plan narrative: Pleasant 87-year-old female who is on hospital day 3.left upper extremity cell ulitis due to lymphedema secondary to radical mastectomy.? She is improving Assessment & Plan narrative: 1. Cellulitis left arm-continue with parental antibiotics.? 1 blood culture shows Gram-positive cocci strep alpha hemolyticus which is often a contaminant and I suspect that this is likely the case.? In any event I think she is responding to the ceftriaxone and this would be continued even if this were a true bacteremia.? Patient feeling much better today. Will give dose of ceftriaxone today and then will discharge home on Augmentin 875 mg twice daily b.i.d.. Prescription was sent to [facility]. Patient should take probiotics. She should have a follow-up appointment with Dr. Steen. This should be next week. 2. Fluids/electrolytes-can decrease IV fluids at this point.? Patient was having a little bit of pleuritic chest pain with inspiration x-ray shows bilateral small pleural effusions. I suspect fluid overload looking at her I's and O's. We will go ahead and give a dose of Lasix. Her potassium is normal. But we will need to check this next week. She will call or come in with concerns will follow up with Dr. Steen with a BMP prior. 3. Hypertension-patient's blood pressure bit on the high side.? Okay to continue her usual medications.? Blood pressure improved at this point.? No change in therapy for today 4.? Cognitive dysfunction-patient probably with element of an early dementia.? Not an active issue at this time, hopefully stays that way.? Continue with Ser oquel at bedtime 5.? Breast cancer-patient with recurrent breast cancer, status post surgery.? Continue patient's aromatase inhibitor 6. Some pleuritic chest pain.? With some subtle changes on chest x-ray.? Repeat chest x-ray shows pleural effusion. Will give Lasix today and follow up as outpatient. Assessment 7. Hypothyroidism Plan: Continue outpatient thyroid medication Time spent in discharge is 35 minutes Discharge Plan Discharge Plan Patient Disposition: Home Discharge orders & Medications Prescriptions: New amoxicillin-pot clavulanate 875-125 mg Tablet 1 tab PO BID Qty: 14 0RF Continued simvastatin 40 mg tablet 20 mg PO DAILY Qty: 45 3RF amlodipine 5 mg tablet 5 mg PO DAILY Qty: 90 3RF levothyroxine 125 mcg tablet 125 mcg PO DAILY Qty: 90 3RF quetiapine 25 mg tablet 25 mg PO BEDTIME Qty: 60 3RF anastrozole 1 mg Tablet 1 mg PO DAILY Qty: 30 11RF nortriptyline 10 mg capsule 10 mg PO BEDTIME Patient Comments: TAKE ONE CAPSULE BY MOUTH NIGHTLY AT BEDTIME Follow up/Referrals: Wayne Steen MD [Primary Care Provider] - Diet/Activity/Treatments Diet: Diet as Tolerated Visit Report/Discharge Packet Instructions: Blood Culture Stand Alone Forms: Patient Portal/API, Stroke Signs & Symptoms Discharge Data Primary Care Provider: Wayne Steen VTE Deep Vein Thrombosis/Pulmonary Embolism Present on Admission: No
[2022-08-14] MEDS: FUROSEMIDE 40 MG TABLET PO (12:00)
[2022-08-14] MEDS: cefTRIAXone 2,000 MG in SODIUM CHLORIDE 0.9% 100 ML 200 MG IV (12:48)
--- NOTE | 2022-08-14 14:14 | PC.NURSE ---
IV removed, discussed s/s of stroke, infection, and antibiotic use. Discussed home safety and when to follow up. No further questions. Pt wheeled out via w/c to private vehicle with family by TEST TUBE MAKER.
== END 2022-08-14 14:17 | disposition home or self-care (01) | DRG 603 ==
LOC: ED 13:51 → AC 15:34
PROVIDERS: Family Medicine; Admitting Provider Internal Medicine; Emergency Provider Emergency Medicine; PCP Internal Medicine; Referring Provider Emergency Medicine; Visit Provider Internal Medicine
DX: L03.114 Cellulitis of left upper limb (principal); J90 Pleural effusion, not elsewhere classified; N18.30 Chronic kidney disease, stage 3 unspecified; I89.0 Lymphedema, not elsewhere classified; I12.9 Hypertensive chronic kidney disease with stage 1 through stage 4 chronic kidney disease, or unspecified chronic kidney disease; C50.912 Malignant neoplasm of unspecified site of left female breast; E03.9 Hypothyroidism, unspecified; E87.6 Hypokalemia; E78.5 Hyperlipidemia, unspecified; Z20.822 Contact with and (suspected) exposure to COVID-19
CPT/HCPCS: 36415; 71045; 71046; 80048; 80053; 81001; 82550; 83605; 84132; 84145; 84484; 85025; 85027; 87040; 87077; 87154; 87186; 87633; 96365; 96375; 99223; 99232; 99284; 99285; J0696; J1650; J1885

== ENCOUNTER 2022-11-25 07:01 | Observation (INO) | payer MEDICARE, OTHER, SELFPAY ==
[2022-08-11 16:28] VITALS: BMI 26.1
[2022-11-25] VITALS (34 sets, daily range): BP systolic 120–175; BP diastolic 56–124; PULSE 60–77; RESP 12–26; TEMP 36.1–36.4; O2SAT 92–99; BMI 24.9
--- NOTE | 2022-11-25 07:31 | DI.RAD.S_ITS ---
PROCEDURE: XR FOOT RT MIN 3V INDICATIONS: Pain/swelling TECHNIQUE: 3 views of the foot were acquired. COMPARISON: [facility], , FOOT 3V RIGHT, 07/01/2014, 8:23. FINDINGS: Bones: New expansile bony lesion in the head of the 4th proximal phalanx measuring 1.0 centimeter. Hallux valgus. Plantar calcaneal enthesophyte. Soft tissues: No tibiotalar joint effusion. Achilles tendon appears normal. IMPRESSION: New expansile bony lesion in the head of the 4th proximal phalanx measuring 1.0 centimeters. 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 Consider nonurgent MRI with contrast for further characterization. Dictated by: Sly Barker M.D. on 11/25/2022 at 8:22 Approved by: Sly Barker M.D. on 11/25/2022 at 8:25
--- NOTE | 2022-11-25 07:31 | DI.CT.S_ITS ---
PROCEDURE: CT CERVICAL SPINE WO CON INDICATIONS: fall TECHNIQUE: Noncontrast 3 mm thick sections acquired from the skull base to the T4 level. Sagittal and coronal reformats were then constructed. For radiation dose reduction, the following was used: automated exposure control, adjustment of mA and/or kV according to patient size. COMPARISON: None. FINDINGS: Image quality: Excellent. Bones: No fractures or dislocations. Visualized superior ribs are intact. Soft tissues: Prevertebral soft tissues are normal in thickness. No paravertebral hematomas. No apical pneumothoraces. IMPRESSION: No visulalized fracture. Dictated by: Yvrose Franklin M.D. on 11/25/2022 at 8:24 Approved by: Yvrose Franklin M.D. on 11/25/2022 at 8:25
--- NOTE | 2022-11-25 07:32 | DI.RAD.S_ITS ---
PROCEDURE: XR CHEST 1V INDICATIONS: fall TECHNIQUE: One view of the chest was acquired. COMPARISON: [facility], CR, XR CHEST 2V, 08/13/2022, 12:41. [facility], CR, XR CHEST 1V, 08/11/2022, 15:29. FINDINGS: Surgical changes and devices: Left chest wall surgical clips. Lungs and pleura: Lungs are clear. No pleural effusions or pneumothorax. Mediastinum: Mediastinal contours appear normal. Heart size is normal. Bones and chest wall: No suspicious bony lesions. Overlying soft tissues appear unremarkable. IMPRESSION: Portable chest within normal limits for age. Dictated by: Sly Barker M.D. on 11/25/2022 at 8:22 Approved by: Sly Barker M.D. on 11/25/2022 at 8:22
--- NOTE | 2022-11-25 07:32 | DI.CT.S_ITS ---
PROCEDURE: CT HEAD/BRAIN WO CON INDICATIONS: fall TECHNIQUE: Noncontrast 4.5 mm thick angled axial sections acquired from the foramen magnum to the vertex, with coronal and sagittal reformats. For radiation dose reduction, the following was used: automated exposure control, adjustment of mA and/or kV according to patient size. COMPARISON: None. FINDINGS: Image quality: Excellent. CSF spaces: Basal cisterns are patent. No extra-axial fluid collections. The ventricles are symmetric in size and shape. Brain: No intracranial bleeds or masses. There is cerebral volume loss for age, with resultant ventricular and sulcal prominence. There are periventricular and deep white matter chronic small vessel ischemic changes. There is intracranial internal carotid artery atherosclerosis. Skull and face: Calvarium and visualized facial bones appear intact, without suspicious lesions. Sinuses: Visualized sinuses demonstrate fluid in the left sphenoid sinus. IMPRESSION: 1. No acute intracranial process. 2. Moderate atrophy and chronic microvascular ischemic changes. Dictated by: Yvrose Franklin M.D. on 11/25/2022 at 8:23 Approved by: Yvrose Franklin M.D. on 11/25/2022 at 8:24
--- NOTE | 2022-11-25 07:45 | ED_ITS ---
HPI - Fall General Chief Complaint: Fall Stated Complaint: GLF Time Seen by Provider: 11/25/22 07:14 Source: patient and EMS Mode of arrival: EMS History of Present Illness HPI Narrative: Patient brought in by ambulance from home. Patient has history of dementia according to family. Patient brought in from [facility] independent living, patient lives with . They have a studio style apartment. states she fell asleep in a recliner last night. This is not unusual. In the past couple of days she is had cough cold congestion. Yesterday morning she got out of bed and she is very weak and dizzy when she got up. She did not fall down. She never had headache chest pain abdominal pain numbness tingling or unilateral weakness. No slurred speech or facial droop. That is also consistent with this morning's episode. She did improve yesterday with the generalized weakness and dizziness. No recent nausea vomiting diarrhea or urinary complaints. This morning she states she does recall trying to get out of the recliner and she felt very dizzy and fell to the floor. It is carpeted. Denies any pain or injury from this. She remained awake. heard her fall and found her on the floor. He did manage to get her off the floor onto a sofa. He then called 911. Patient has had cognitive baseline, daughters at bedside, is at bedside. Patient thinks she is been maintaining a good diet and hydration. Patient also complains of ongoing many weeks of right foot pain and swelling. They have seen Dr. Steen, primary care for this problem. Was given steroids and it did resolve. She had another episode and was given steroids but it did not work. No prior definitive history of gout. Has diffuse generalized dorsal foot pain and swelling. No known injury to this foot. Fast exam is negative. Patient denies any head pain neck pain limb pain from falling this morning. Patient is not on any blood thinners Patient is full code Related Data Home Medications Medication Instructions Recorded Confirmed nortriptyline 10 mg capsule 10 mg PO BEDTIME 08/11/22 11/25/22 Previous Rx's Medication Instructions Recorded amlodipine 5 mg tablet 5 mg PO DAILY #90 tabs 01/03/22 simvastatin 40 mg tablet 20 mg (1/2 x 40 mg) PO DAILY #45 01/03/22 tabs anastrozole 1 mg tablet 1 mg PO DAILY #30 tabs 05/16/22 levothyroxine 125 mcg tablet 125 mcg PO DAILY #90 tabs 07/05/22 quetiapine 25 mg tablet 25 mg PO BEDTIME #60 tabs 07/05/22 triamterene 37.5 1 tab PO DAILY #90 tabs 08/15/22 mg-hydrochlorothiazide 25 mg tablet Allergies Allergy/AdvReac Type Severity Reaction Status Date / Time morphine AdvReac Severe Nausea Verified 09/02/22 13:57 Review of Systems Review of Systems Narrative: GENERAL: negative chills, fatigue, malaise, fever, sweats. HEENT: negative sinus pain, ear pain, sore throat RESPIRATORY: negative dyspnea, positive cough CARDIOVASCULAR: negative chest pain, palpitations GASTROINTESTINAL: negative nausea, vomiting, abdominal pain : negative dysuria, frequency, hematuria MUSCULOSKELETAL: Positive foot muscle or bony pain SKIN: negative rash, skin lesions NEUROLOGIC: negative weakness, numbness, positive dizziness ROS Unobtainable: All systems reviewed & are unremarkable except as noted in HPI and below Patient History Medical History Mild cognitive impairment Breast cancer Appendicitis Abnormal mammogram Abnormal LFTs Hypothyroidism (acquired) (12/22/10) H/O malignant neoplasm of breast 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) Hypercholesteremia Urinary incontinence due to urethral sphincter incompetence Insomnia Benign essential hypertension Decreased vision Breast cancer, left breast (1998) Lymphedema of upper extremity (10/16/14) Stage 3 chronic kidney disease Surgical History S/P lumpectomy, left breast (03/30/21) S/P mastectomy History of tonsillectomy History of oophorectomy Status post hysterectomy (1990) Status post cholecystectomy (1997) Family History Brother Coronary artery disease Social History household members: spouse Smoking Status: Never smoker alcohol intake: never Smoking Status: Never smoker alcohol intake frequency: 0-2 drinks per day Substance Use Type: does not use Exam Narrative Exam Narrative: GENERAL: in no distress, not toxic not dyspneic HEAD: Normocephalic. No facial abrasion bruises nontender scalp and face and skull. No crepitus or step-off of the skull EYES: Pupils equal round ENT: Mucous membranes moist. NECK: Trachea midline. CARDIOVASCULAR: Regular rate and rhythm RESPIRATORY: Clear to auscultation. Breath sounds equal bilaterally. No wheezes, rales, or rhonchi. GASTROINTESTINAL: Abdomen soft, non-tender EXTREMITIES: No gross deformities. Nontender bilateral shoulders elbows wrists pelvis hips knees and ankles. There is mild edema to the dorsum of the right foot compared to the left. Foot is warm soft and pink strong pedal pulse light touch intact to foot and toes. Wiggles toes. Nontender ankle. BACK: No flank tenderness. NEURO: Patient is awake alert oriented to self event family date of where she lives. Clear speech no facial droop light touch intact bilateral face hands and feet strong equal gate agent. Negative pronator drift. Lift each leg independently. SKIN: Warm and dry PSYCH: Not anxious, is cooperative Initial Vital Signs Initial Vital Signs: Vital Signs Temperature 96.9 F L 11/25/22 07:06 Pulse Rate 63 11/25/22 07:06 Respiratory Rate 17 11/25/22 07:06 Blood Pressure 150/66 H 11/25/22 07:06 Pulse Oximetry 95 11/25/22 07:06 Oxygen Delivery Method Room Air 11/25/22 07:06 Course Orders Ordered: ED Orders 11/25/22 09:40 Urinalysis and Microscopic Stat Urine Culture Stat 11/25/22 11:58 CT angio head and neck Stat MR head/brain wo con Stat Acetaminophen (Acetaminophen 325 Mg Tablet) 650 mg PO Q6H PRN PRN Reason: Fever/Mild Pain (1-3) Amlodipine Besylate (Amlodipine 5 Mg Tablet) 5 mg PO DAILY [facility] Aspirin (Aspirin Ec 325 Mg Tablet) 325 mg PO DAILY [facility] Last Admin: 11/25/22 16:58 Dose: 325 mg Documented By: RIDGE Atorvastatin Calcium (Atorvastatin 20 Mg Tablet) 10 mg PO DAILY [facility] Enoxaparin Sodium (Enoxaparin 40 Mg/0.4 Ml Syringe) 40 mg SUBCUT DAILY [facility] Last Admin: 11/25/22 16:58 Dose: 40 mg Documented By: RIDGE Levothyroxine Sodium (Levothyroxine 125 Mcg Tablet) 125 mcg PO DAILY@0600 [facility] Naloxone HCl (Naloxone 0.4 Mg/Ml Vial) 0.2 mg IV Q2MIN PRN PRN Reason: Opiate Reversal Nortriptyline HCl (Nortriptyline 10 Mg Capsule) 10 mg PO BEDTIME [facility] Triamterene/Hydrochlorothiazide (Triamterene/Hctz 37.5/25 Capsule) 1 cap PO DAILY [facility] Last Admin: 11/25/22 16:57 Dose: 1 cap Documented By: RIDGE Discontinued Medications Aspirin (Aspirin Ec 325 Mg Tablet) 325 mg PO DAILY [facility] Last Admin: 11/25/22 13:30 Dose: Not Given Documented By: RIDGE Enoxaparin Sodium (Enoxaparin 40 Mg/0.4 Ml Syringe) 40 mg SUBCUT DAILY [facility] Last Admin: 11/25/22 13:30 Dose: Not Given Documented By: RIDGE Sodium Chloride (Normal Saline 0.9%) 500 mls @ 1,000 mls/hr IV BOLUS ONE Stop: 11/25/22 08:45 Last Infusion: 11/25/22 09:21 Dose: Infused Documented By: Admin: 11/25/22 08:34 Dose: 1,000 mls/hr Documented By: MIAN Sodium Chloride (Normal Saline 0.9%) 500 mls @ 1,000 mls/hr IV BOLUS ONE Stop: 11/25/22 11:20 Last Infusion: 11/25/22 12:50 Dose: Infused Documented By: Admin: 11/25/22 11:09 Dose: 1,000 mls/hr Documented By: INOCENTE Ondansetron HCl (Ondansetron 4 Mg/2 Ml Inj) 4 mg IV NOW ONE Stop: 11/25/22 10:23 Last Admin: 11/25/22 10:30 Dose: 4 mg Documented By: ELISABETH Triamterene/Hydrochlorothiazide (Triamterene/Hctz 37.5/25 Capsule) 1 cap PO DAILY [facility] Last Admin: 11/25/22 13:30 Dose: Not Given Documented By: RIDGE Vital Signs Vital signs: Vital Signs - 8 hr 11/25/22 11:00 11/25/22 11:01 11/25/22 11:01 Pulse Rate 64 64 Respiratory Rate 18 14 Blood Pressure 154/63 H Pulse Oximetry 93 92 11/25/22 11:08 11/25/22 11:08 11/25/22 11:45 Pulse Rate 62 71 Respiratory Rate 17 14 Blood Pressure 145/66 H Pulse Oximetry 94 93 11/25/22 11:47 11/25/22 11:47 11/25/22 12:00 Pulse Rate 66 62 Respiratory Rate 17 22 Blood Pressure 175/74 H Pulse Oximetry 94 96 11/25/22 12:01 11/25/22 12:01 11/25/22 12:24 Pulse Rate 64 Respiratory Rate 23 Blood Pressure 159/65 H 136/63 Pulse Oximetry 96 11/25/22 12:24 11/25/22 12:30 11/25/22 12:30 Pulse Rate 67 65 Respiratory Rate 20 21 Blood Pressure 143/66 H Pulse Oximetry 93 94 11/25/22 12:44 11/25/22 12:44 11/25/22 12:46 Pulse Rate 69 66 Respiratory Rate 19 23 Blood Pressure 140/124 H Pulse Oximetry 95 95 11/25/22 12:46 11/25/22 13:00 11/25/22 13:00 Pulse Rate 63 Respiratory Rate 24 Blood Pressure 166/72 H 146/64 H Pulse Oximetry 95 MDM - Fall Lab Data 11/25/22 08:30 11/25/22 08:30 Labs: Lab Results 11/25/22 11/25/22 11/25/22 Range/Units 08:00 08:30 09:40 WBC 8.9 (4.5-11.0) X10^3/uL RBC 5.01 (4.0-5.2) X10^6/uL Hgb 15.1 (12.0-16.0) g/dL Hct 44.8 (36-46) % MCV 89.5 (80-100) fL MCH 30.2 (26-34) PG MCHC 33.8 (30-36) % RDW 14.5 (11.6-14.8) % Plt Count 285 (150-400) X10^3/uL Neut % (Auto) 45.5 L (50-75) % Lymph % (Auto) 37.9 (25-40) % Loup % (Auto) 14.0 (3-14) % Eos % (Auto) 1.7 L (2-4) % Baso % (Auto) 0.9 (0-2) % Neut # (Auto) 4000 (5364-5813) /uL Lymph # (Auto) 3400 (9286-3300) /uL Loup # (Auto) 1200 H (0-900) /uL Eos # (Auto) 100 (0-450) /uL Baso # (Auto) 100 (0-100) /uL Sodium 141 (137-145) mmol/L Potassium 3.3 L (3.4-5.1) mmol/L Chloride 104 (98-107) mmol/L Carbon Dioxide 30 (22-32) mmol/L BUN 22 H (7-17) mg/dL Creatinine 1.06 H (0.52-1.04) mg/dL Estimated GFR 51 L (>60) mL/min BUN/Creatinine Ratio 20.8 (6-22) Glucose 126 H (80-110) mg/dL Uric Acid 9.0 H (2.5-6.2) mg/dL Calcium 11.0 H (8.4-10.2) mg/dL Total Bilirubin 0.4 (0.2-1.3) mg/dL AST 69 H (14-36) IU/L ALT 56 H (<35) IU/L Alkaline Phosphatase 107 (38-126) U/L Total Creatine Kinase 44 (30-135) U/L Troponin I < 0.012 (0.01-0.034) ng/mL Total Protein 7.7 (6.3-8.2) g/dL Albumin 4.2 (3.5-5.0) g/dL Globulin 3.5 (1.7-4.1) g/dL Albumin/Globulin Ratio 1.2 (1.0-2.8) Urine Color Yellow Urine Appearance Clear Urine pH 5.5 (4.5-8.0) Ur Specific [place] 1.010 (1.000-1.035) Urine Protein Negative (Negative) Urine Glucose (UA) Negative (Negative) g/dL Urine Ketones Negative (NEGATIVE) Urine Occult Blood Negative (Negative) Urine Nitrate Negative (Negative) Urine Bilirubin Negative (NEGATIVE) Urine Urobilinogen 0.2 (0.2) E.U./dL Ur Leukocyte Esterase Trace H (NEGATIVE) Urine RBC None seen (0-5/HPF) Urine WBC 1-5/hpf (0-5/HPF) Ur Squamous Epith Cells 0-1 /hpf (0-5/HPF) Urine Bacteria None seen (None) Ur Culture Indicated? Specimen cultured Chlamy pneumoniae PCR Not detected (Not Detect) Adenovirus (PCR) Not detected (Not Detect) B.parapertussis DNA PCR Not detected (Not Detecte) Coronavirus OC43 (PCR) Not detected (Not Detect) Coronavirus HKU1 (PCR) Not detected (Not Detect) Coronavirus 229E (PCR) Not detected (Not Detect) SARS-CoV-2 (PCR) Not detected (Not Detecte) Coronavirus NL63 (PCR) Not detected (Not Detect) Human Metapneumovir PCR Not detected (Not Detect) Influenza A (H1) PCR Not detected (Not Detect) Influenza A (PCR) Not detected (Not Detect) Influenza A (H3) PCR Not detected (Not Detect) Influenza Type B (PCR) Not detected (Not Detect) M. pneumoniae (PCR) Not detected (Not Detect) Parainfluenza 1 (PCR) Not detected (Not Detect) Parainfluenza 2 (PCR) Not detected (Not Detect) Parainfluenza 3 (PCR) Not detected (Not Detect) Parainfluenza 4 (PCR) Not detected (Not Detect) RSV (PCR) Not detected (Not Detect) Entero/Rhino (PCR) Not detected (Not Detect) Urine Dip Bedside Urine Glucose Negative Bedside Urine Bilirubin - Negative Bedside Urine Ketone - Negative Urine Specific Webster 1.010 Bedside Urine Occult Blood - Negative Bedside Urine pH 6.0 Bedside Urine Protein - Negative Bedside Urine Urobilinogen - Negative Bedside Urine Nitrite - Negative Bedside Urine Leukocytes - Negative Esterase Imaging Data CT scan - head: Radiologist's Impression: [address] [address] [address] Scan Report Signed Patient: Cindy Mishra MR#: [id number] : 1935 Acct:[id number] Age/Sex: 87 / F Date of Service: 11/25/22 Loc: ED Accession Number: [id number] Procedure: CT head/brain wo con Ordering Provider: Harris Mays MD PROCEDURE: CT HEAD/BRAIN WO CON INDICATIONS: fall TECHNIQUE: Noncontrast 4.5 mm thick angled axial sections acquired from the foramen magnum to the vertex, with coronal and sagittal reformats. For radiation dose reduction, the following was used: automated exposure control, adjustment of mA and/or kV according to patient size. COMPARISON: None. FINDINGS: Image quality: Excellent. CSF spaces: Basal cisterns are patent. No extra-axial fluid collections. The ventricles are symmetric in size and shape. Brain: No intracranial bleeds or masses. There is cerebral volume loss for age, with resultant ventricular and sulcal prominence. There are periventricular and deep white matter chronic small vessel ischemic changes. There is intracranial internal carotid artery atherosclerosis. Skull and face: Calvarium and visualized facial bones appear intact, without suspicious lesions. Sinuses: Visualized sinuses demonstrate fluid in the left sphenoid sinus. IMPRESSION: 1. No acute intracranial process. 2. Moderate atrophy and chronic microvascular ischemic changes. Dictated by: Yvrose Franklin M.D. on 11/25/2022 at 8:23 Approved by: Yvrose Franklin M.D. on 11/25/2022 at 8:24 CT - cervical spine: Radiologist's Impression: [place] [address] CT Scan Report Signed Patient: Cindy Mishra MR#: [id number] : 1935 Acct:[id number] Age/Sex: 87 / F Date of Service: 11/25/22 Loc: ED Accession Number: [id number] Procedure: CT cervical spine wo con Ordering Provider: Harris Mays MD PROCEDURE: CT CERVICAL SPINE WO CON INDICATIONS: fall TECHNIQUE: Noncontrast 3 mm thick sections acquired from the skull base to the T4 level. Sagittal and coronal reformats were then constructed. For radiation dose reduction, the following was used: automated exposure control, adjustment of mA and/or kV according to patient size. COMPARISON: None. FINDINGS: Image quality: Excellent. Bones: No fractures or dislocations. Visualized superior ribs are intact. Soft tissues: Prevertebral soft tissues are normal in thickness. No paravertebral hematomas. No apical pneumothoraces. IMPRESSION: No visulalized fracture. Dictated by: Yvrose Franklin M.D. on 11/25/2022 at 8:24 Approved by: Yvrose Franklin M.D. on 11/25/2022 at 8:25 Chest x-ray: Radiologist's Impression: [address] [address] XRay Report Signed Patient: Cindy Mishra MR#: [id number] : 1935 Acct:[id number] Age/Sex: 87 / F Date of Service: 11/25/22 Loc: ED Accession Number: [id number] Procedure: XR chest 1V Ordering Provider: Harris Mays MD PROCEDURE: XR CHEST 1V INDICATIONS: fall TECHNIQUE: One view of the chest was acquired. COMPARISON: [facility], CR, XR CHEST 2V, 08/13/2022, 12:41. [facility], CR, XR CHEST 1V, 08/11/2022, 15:29. FINDINGS: Surgical changes and devices: Left chest wall surgical clips. Lungs and pleura: Lungs are clear. No pleural effusions or pneumothorax. Mediastinum: Mediastinal contours appear normal. Heart size is normal. Bones and chest wall: No suspicious bony lesions. Overlying soft tissues appear unremarkable. IMPRESSION: Portable chest within normal limits for age. Dictated by: Sly Barker M.D. on 11/25/2022 at 8:22 Approved by: Sly Barker M.D. on 11/25/2022 at 8:22 Extremity x-ray #1: Radiologist's Impression: [place] [address] XRay Report Signed Patient: Cindy Mishra MR#: [id number] : 1935 Acct:[id number] Age/Sex: 87 / F Date of Service: 11/25/22 Loc: ED Accession Number: [id number] Procedure: XR foot RT min 3V Ordering Provider: Harris Mays MD PROCEDURE: XR FOOT RT MIN 3V INDICATIONS: Pain/swelling TECHNIQUE: 3 views of the foot were acquired. COMPARISON: [facility], , FOOT 3V RIGHT, 07/01/2014, 8:23. FINDINGS: Bones: New expansile bony lesion in the head of the 4th proximal phalanx measuring 1.0 centimeter. Hallux valgus. Plantar calcaneal enthesophyte. Soft tissues: No tibiotalar joint effusion. Achilles tendon appears normal. IMPRESSION: New expansile bony lesion in the head of the 4th proximal phalanx measuring 1.0 centimeters. 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 Consider nonurgent MRI with contrast for further characterization. Dictated by: Sly Barker M.D. on 11/25/2022 at 8:22 Approved by: Sly Barker M.D. on 11/25/2022 at 8:25 CTA - brain/neck: Radiologist's Impression: [address] [address] [address] Scan Report Signed Patient: Cindy Mishra MR#: [id number] : 1935 Acct:[id number] Age/Sex: 87 / F Date of Service: 11/25/22 Loc: 90A-1 Accession Number: [id number] Procedure: CT angio head and neck Ordering Provider: Harris Mays MD PROCEDURE: CT ANGIO HEAD AND NECK INDICATIONS: Dizziness/ataxia TECHNIQUE: After the administration of intravenous contrast, 1 mm thick sections acquired from the aortic arch through the [place] of [place]. 3-dimensional uzppoce-mayxsnqxw-rzyalcuegd (MIP) and/or volume rendering reformats were acquired of the central intracranial vasculature and neck separately. For radiation dose reduction, the following was used: automated exposure control, adjustment of mA and/or kV according to patient size. COMPARISON: [facility], CT, CT CERVICAL SPINE WO CON, 11/25/2022, 7:50. [facility], CT, CT HEAD/BRAIN WO CON, 11/25/2022, 7:50. FINDINGS: Image quality: Diagnostic. BRAIN: Please see separately dictated CT head report of 11/25/2022.. HEAD CT ANGIOGRAPHY: Anterior circulation: Intracranial internal carotid arteries are normal in size and flow. The flow within the paired anterior cerebral arteries is normal and symmetric. The flow within the middle cerebral arteries is normal and symmetric. The anterior communicating artery is seen. No aneurysms are seen. Posterior circulation: Left vertebral artery dominance. Visualized portions of the vertebral arteries demonstrate normal caliber, and join to form a normal appearing basilar artery. Flow within the posterior cerebral arteries is normal and symmetric. No aneurysms are seen. NECK CT ANGIOGRAPHY: Carotid system: The great vessels demonstrate a conventional anatomy as they arise from the aortic arch. The origins of the common carotid arteries appear patent. The common carotid arteries demonstrate normal caliber and courses. The bifurcation regions are both widely patent. The internal carotid arteries demonstrate normal calibers and courses. Posterior circulation: The origins of the vertebral arteries both appear widely patent. The more superior extracranial portions of both vertebral arteries also demonstrate normal courses and calibers. They join to form a normal appearing basilar artery. Soft tissues: Visualized neck soft tissues demonstrate no suspicious abnormalities. Bones: No suspicious bony lesions. Visualized cervical spine appears normally aligned. IMPRESSION: Please see separately dictated CT head report of 11/25/2022. No areas of hemodynamically significant stenosis, vascular occlusion or aneurysmal dilation within the anterior or posterior circulation. No areas of hemodynamically significant stenosis, vascular occlusion or aneurysmal dilation within the posterior circulation. Any quantitative measurements of stenosis were performed using NASCET criteria. Dictated by: Yvrose Franklin M.D. on 11/25/2022 at 13:05 Approved by: Yvrose Franklin M.D. on 11/25/2022 at 13:[address] [facility] Narrative Medical decision making narrative: Patient brought in by ambulance from home. Patient has history of dementia according to family. Patient brought in from [facility] independent living, patient lives with . They have a studio style apartment. states she fell asleep in a recliner last night. This is not unusual. In the past couple of days she is had cough cold congestion. Yesterday morning she got out of bed and she is very weak and dizzy when she got up. She did not fall down. She never had headache chest pain abdominal pain numbness tingling or unilateral weakness. No slurred speech or facial droop. That is also consistent with this morning's episode. She did improve yesterday with the generalized weakness and dizziness. No recent nausea vomiting diarrhea or urinary complaints. This morning she states she does recall trying to get out of the recliner and she felt very dizzy and fell to the floor. It is carpeted. Denies any pain or injury from this. She remained awake. heard her fall and found her on the floor. He did manage to get her off the floor onto a sofa. He then called 911. Patient has had cognitive baseline, daughters at bedside, is at bedside. Patient thinks she is been maintaining a good diet and hydration. Patient also complains of ongoing many weeks of right foot pain and swelling. They have seen Dr. Steen, primary care for this problem. Was given steroids and it did resolve. She had another episode and was given steroids but it did not work. No prior definitive history of gout. Has diffuse generalized dorsal foot pain and swelling. No known injury to this foot. Fast exam is negative. Patient denies any head pain neck pain limb pain from falling this morning. Patient is not on any blood thinners Patient is full code After history and exam CBC CMP EKG troponin CT head CT cervical spine urinalysis respiratory panel orthostatics urinalysis [facility] CC: Weakness/fall Complicating co-morbidities: Dementia Data collected from: EMS daughter Medical records reviewed: No recent visit for this complaint Differential considered: Includes but not limited to stroke arrhythmia dehydration UTI viral infection Exam documented above, pertinent findings include: Diffuse tenderness to right foot, fast exam is neck Lab Test results independently reviewed as above. Pertinent findings: Independently reviewed EKG normal sinus rhythm rate [address] elevation or depression Imaging studies independently reviewed: CT head CT cervical spine no acute finding. Chest x-ray no acute finding CT angio head and neck no acute finding X-ray foot no acute finding, new expansile bony lesion in the head of the 4th proximal phalanx 1 cm Consultations: 12:[address] Son Shen, on-call for Dr. Steen, will admit patient Treatments: Normal saline Re-evaluations: 8:00 a.m.. Patient was orthostatic with systolic going down, patient was symptomatic and dizzy. Please see nurse notes. Reviewed with patient and family, they agree for admission for continued dizziness and ataxia. Discussion: Appropriate for admission. Patient still symptomatic despite IV fluid hydration. Patient may have TIA/stroke. MRI is pending. Patient will need admission as patient is still ataxic Diagnosis: Ataxia Discharge Plan Departure Patient Disposition: Admitted as Observation Clinical Impression: Ataxia Admit Date/Time: 11/25/22 13:00 Admit Provider: Son Shen
--- NOTE | 2022-11-25 07:47 | PC.NURSE ---
Patient left department with diagnostic certified composites technician to CT and X-ray.
[2022-11-25] MEDS: SODIUM CHLORIDE 0.9% 500 ML 1000 ML IV ×2 (08:34→11:09)
[2022-11-25 08:39] LABS: Add Manual Diff / Slide Review NO; Basophils Absolute Auto 100 /uL (0-100); Basophils Percent Auto 0.9 % (0-2); Eosinophils Absolute Auto 100 /uL (0-450); Eosinophils Percent Auto 1.7 % (2-4); Hematocrit 44.8 % (36-46); Hemoglobin 15.1 g/dL (12.0-16.0); Lymphocytes Absolute Auto 3400 /uL (1100-4500); Lymphocytes Percent Auto 37.9 % (25-40); Mean Corpuscular HGB Conc 33.8 % (30-36); Mean Corpuscular Hemoglobin 30.2 PG (26-34); Mean Corpuscular Volume 89.5 fL (80-100); Monocytes Absolute Auto 1200 /uL (0-900); Neutrophils Absolute Auto 4000 /uL (1500-7000); Neutrophils Percent Auto 45.5 % (50-75); Platelet Count 285 X10^3/uL (150-400); Red Blood Cell Count 5.01 X10^6/uL (4.0-5.2); Red Cell Distribution Width 14.5 % (11.6-14.8); White Blood Cell Count 8.9 X10^3/uL (4.5-11.0)
[2022-11-25 08:50] LABS: Alanine Aminotransferase 56 IU/L (<35); Albumin 4.2 g/dL (3.5-5.0); Albumin Globulin Ratio 1.2 (1.0-2.8); Alkaline Phosphatase 107 U/L (38-126); Aspartate Aminotransferase 69 IU/L (14-36); BUN Creatinine Ratio 20.8 (6-22); Bilirubin Total 0.4 mg/dL (0.2-1.3); Blood Urea Nitrogen 22 mg/dL (7-17); Carbon Dioxide 30 mmol/L (22-32); Chloride 104 mmol/L (98-107); Estimated Glomerular Filt Rate 51 mL/min (>60); Globulin 3.5 g/dL (1.7-4.1); Glucose 126 mg/dL (80-110); HEMOLYSIS 24 (0-50); Potassium 3.3 mmol/L (3.4-5.1); Sodium 141 mmol/L (137-145); Total Protein 7.7 g/dL (6.3-8.2)
[2022-11-25 09:02] LABS: Troponin I < 0.012 ng/mL (0.01-0.034)
[2022-11-25 09:26] LABS: Adenovirus Not Detected (Not Detect); Coronavirus 229E Not Detected (Not Detect); Coronavirus HKU1 Not Detected (Not Detect); Coronavirus NL 63 Not Detected (Not Detect); Coronavirus OC43 Not Detected (Not Detect); Human Metapneumovirus Not Detected (Not Detect); Human Rhinovirus/Enterovirus Not Detected (Not Detect); SARS- CoV-2 Not Detected (Not Detecte)
[2022-11-25 09:27] LABS: B. parapertussis Not Detected (Not Detecte); Bordetella pertussis Not Detected (Not Detect); Chlamydophila pneumoniae Not Detected (Not Detect); Influenza A(No subj detected) Not Detected (Not Detect); Influenza B Not Detected (Not Detect); Mycoplasma pneumoniae Not Detected (Not Detect); Parainfluenza Virus 1 Not Detected (Not Detect); Parainfluenza Virus 2 Not Detected (Not Detect); Parainfluenza Virus 3 Not Detected (Not Detect); Parainfluenza Virus 4 Not Detected (Not Detect); Respiratory Syncytial Virus Not Detected (Not Detect)
[2022-11-25 10:00] LABS: Appearance Urine UA CLEAR; Bilirubin Urine UA NEGATIVE (NEGATIVE); Color Urine UA YELLOW; Glucose Urine UA NEGATIVE (Negative); Ketones Urine UA NEGATIVE (NEGATIVE); Leukocyte Esterase Urine UA TRACE (NEGATIVE); Nitrite Urine UA NEGATIVE (Negative); Occult Blood Urine UA NEGATIVE (Negative); Protein Urine UA NEGATIVE (Negative); Urobilinogen Urine UA 0.2 E.U./dL (0.2)
[2022-11-25 10:01] LABS: pH Urine UA 5.5 (4.5-8.0)
[2022-11-25 10:03] LABS: Bacteria Urine None Seen; Culture Indicated Urine Specimen Cultured; RBC Urine None Seen (0-5/HPF); Squamous Epithelial Cell Urine 0-1 /HPF (0-5/HPF); WBC Urine 1-5/HPF (0-5/HPF)
[2022-11-25] MEDS: ONDANSETRON 4 MG/2 ML INJ IV (10:30)
[2022-11-25 11:05] LABS: Creatine Kinase 44 U/L (30-135)
--- NOTE | 2022-11-25 11:58 | DI.CT.S_ITS ---
PROCEDURE: CT ANGIO HEAD AND NECK INDICATIONS: Dizziness/ataxia TECHNIQUE: After the administration of intravenous contrast, 1 mm thick sections acquired from the aortic arch through the [place]. 3-dimensional lqtyxby-axwyvafva-bcodkeuowz (MIP) and/or volume rendering reformats were acquired of the central intracranial vasculature and neck separately. For radiation dose reduction, the following was used: automated exposure control, adjustment of mA and/or kV according to patient size. COMPARISON: [facility], CT, CT CERVICAL SPINE WO CON, 11/25/2022, 7:50. [facility], CT, CT HEAD/BRAIN WO CON, 11/25/2022, 7:50. FINDINGS: Image quality: Diagnostic. BRAIN: Please see separately dictated CT head report of 11/25/2022.. HEAD CT ANGIOGRAPHY: Anterior circulation: Intracranial internal carotid arteries are normal in size and flow. The flow within the paired anterior cerebral arteries is normal and symmetric. The flow within the middle cerebral arteries is normal and symmetric. The anterior communicating artery is seen. No aneurysms are seen. Posterior circulation: Left vertebral artery dominance. Visualized portions of the vertebral arteries demonstrate normal caliber, and join to form a normal appearing basilar artery. Flow within the posterior cerebral arteries is normal and symmetric. No aneurysms are seen. NECK CT ANGIOGRAPHY: Carotid system: The great vessels demonstrate a conventional anatomy as they arise from the aortic arch. The origins of the common carotid arteries appear patent. The common carotid arteries demonstrate normal caliber and courses. The bifurcation regions are both widely patent. The internal carotid arteries demonstrate normal calibers and courses. Posterior circulation: The origins of the vertebral arteries both appear widely patent. The more superior extracranial portions of both vertebral arteries also demonstrate normal courses and calibers. They join to form a normal appearing basilar artery. Soft tissues: Visualized neck soft tissues demonstrate no suspicious abnormalities. Bones: No suspicious bony lesions. Visualized cervical spine appears normally aligned. IMPRESSION: Please see separately dictated CT head report of 11/25/2022. No areas of hemodynamically significant stenosis, vascular occlusion or aneurysmal dilation within the anterior or posterior circulation. No areas of hemodynamically significant stenosis, vascular occlusion or aneurysmal dilation within the posterior circulation. Any quantitative measurements of stenosis were performed using NASCET criteria. Dictated by: Yvrose Franklin M.D. on 11/25/2022 at 13:05 Approved by: Yvrose Franklin M.D. on 11/25/2022 at 13:08
--- NOTE | 2022-11-25 11:58 | DI.MRI.S_ITS ---
PROCEDURE: MR HEAD/BRAIN WO CON INDICATIONS: Dizziness/ataxia TECHNIQUE: Non-contrast axial T1 spin echo, axial T2 fast spin echo, sagittal and axial FLAIR, coronal T2 fast spin echo, axial gradient echo, axial diffusion and ADC through the brain. COMPARISON: [facility], CT, CT ANGIO HEAD AND NECK, 11/25/2022, 12:12. [facility], CT, CT CERVICAL SPINE WO CON, 11/25/2022, 7:50. [facility], CT, CT HEAD/BRAIN WO CON, 11/25/2022, 7:50. FINDINGS: Image quality: Excellent. CSF spaces: Ventricles appear symmetric in size and shape. Basal cisterns are patent. No extra-axial fluid collections. Brain: No intracranial bleeds or mass effects. There is cerebral volume loss for age. There are periventricular and deep white matter chronic small vessel ischemic changes. Brainstem appears normal. Diffusion-weighted images show no acute ischemic insults. No chronic ischemic insults. Normal intravascular flow voids are present. Skull and face: Calvarial bone marrow is normal in signal. Orbits are normal. Sinuses: Sinuses and mastoids are clear. IMPRESSION: 1. No acute intracranial process. 2. Moderate atrophy and chronic microvascular ischemic changes. Dictated by: Yvrose Franklin M.D. on 11/25/2022 at 15:47 Approved by: Yvrose Franklin M.D. on 11/25/2022 at 15:48
--- NOTE | 2022-11-25 13:15 | PM.HP.1 ---
History of Present Illness History of Present Illness Date Patient Seen: 11/25/22 Time Patient Seen: 13:15 Chief complaint: GLF Narrative: Patient is an 87-year-old female patient has a history of hypertension hypothyroidism hypercholesterolemia breast cancer mild cognitive impairment stage 3 chronic kidney disease and urinary incontinence. Patient lives at [facility] with her . She was brought into the emergency department via ambulance. Patient states sometimes she gets up in the middle night and goes and sleeps in her chair. Usually after getting sleepy she will go back to bed but this time she fell asleep in her chair. Her went out in the morning and patient was in the chair and he joined her sitting in the chair the next thing he knew that she was laying on the ground. Patient was unsure and unaware of how she got to the ground. The went over and helped her get up and move her to the couch says that she was a little bit groggy. At that time he became concerned and called 911. Patient states that she felt a little bit lightheaded and dizzy and has some blurry vision. She says she is currently feeling a little bit lightheaded and dizzy and when discussed blurry vision she says she sees double. She is not had problems with double vision before. In last week or so she says she is been in her normal state of health. She is not very mobile are active. She is had some chronic problems with her foot due to gout she thinks. She is not had any chest pain palpitations shortness of breath. No swelling. She says she eats regularly and has good bowel movements. She recognizes her daughter she knows she is at [facility]. 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) Hypercholesteremia Urinary incontinence due to urethral sphincter incompetence Insomnia Benign essential hypertension Decreased vision Breast cancer, left breast (1998) Lymphedema of upper extremity (10/16/14) Stage 3 chronic kidney disease Surgical History S/P lumpectomy, left breast (03/30/21) S/P mastectomy History of tonsillectomy History of oophorectomy Status post hysterectomy (1990) Status post cholecystectomy (1997) Family History Brother Coronary artery disease Social History household members: spouse Smoking Status: Never smoker alcohol intake: never Meds Home Medications and Allergies Home Medications Medication Instructions Recorded Confirmed Type amlodipine 5 mg tablet 5 mg PO DAILY #90 tabs 01/03/22 11/25/22 Rx simvastatin 40 mg tablet 20 mg (1/2 x 40 mg) PO DAILY #45 01/03/22 11/25/22 Rx tabs anastrozole 1 mg tablet 1 mg PO DAILY #30 tabs 05/16/22 11/25/22 Rx levothyroxine 125 mcg tablet 125 mcg PO DAILY #90 tabs 07/05/22 11/25/22 Rx quetiapine 25 mg tablet 25 mg PO BEDTIME #60 tabs 07/05/22 11/25/22 Rx nortriptyline 10 mg capsule 10 mg PO BEDTIME 08/11/22 11/25/22 History triamterene 37.5 1 tab PO DAILY #90 tabs 08/15/22 11/25/22 Rx mg-hydrochlorothiazide 25 mg tablet Allergies Allergy/AdvReac Type Severity Reaction Status Date / Time morphine AdvReac Severe Nausea Verified 09/02/22 13:57 Exam Vital Signs (past 8 hours): - 11/25/22 07:06 11/25/22 07:06 11/25/22 07:30 Temperature 96.9 F L Pulse Rate 63 61 Pulse Rate [Orthostatic Lying] Pulse Rate [Orthostatic Sitting] Pulse Rate [Orthostatic Standing] Respiratory Rate 17 Blood Pressure 150/66 H 153/68 H Blood Pressure [Orthostatic Lying] Blood Pressure [Orthostatic Sitting] Blood Pressure [Orthostatic Standing] Pulse Oximetry 95 94 Oxygen Delivery Method Room Air 11/25/22 07:30 11/25/22 07:58 11/25/22 07:58 Temperature Pulse Rate 65 61 Pulse Rate [Orthostatic Lying] Pulse Rate [Orthostatic Sitting] Pulse Rate [Orthostatic Standing] Respiratory Rate 26 H 20 Blood Pressure 161/70 H Blood Pressure [Orthostatic Lying] Blood Pressure [Orthostatic Sitting] Blood Pressure [Orthostatic Standing] Pulse Oximetry 94 Oxygen Delivery Method 11/25/22 08:00 11/25/22 08:00 11/25/22 08:01 Temperature Pulse Rate 60 Pulse Rate [Orthostatic Lying] 60 Pulse Rate [Orthostatic Sitting] 62 Pulse Rate [Orthostatic Standing] 65 Respiratory Rate 15 Blood Pressure 142/67 H Blood Pressure [Orthostatic Lying] 136/62 Blood Pressure [Orthostatic Sitting] 151/67 H Blood Pressure [Orthostatic Standing] 130/65 Pulse Oximetry Oxygen Delivery Method 11/25/22 08:03 11/25/22 08:03 11/25/22 08:08 Temperature Pulse Rate 60 Pulse Rate [Orthostatic Lying] Pulse Rate [Orthostatic Sitting] Pulse Rate [Orthostatic Standing] Respiratory Rate 12 Blood Pressure 136/62 151/67 H Blood Pressure [Orthostatic Lying] Blood Pressure [Orthostatic Sitting] Blood Pressure [Orthostatic Standing] Pulse Oximetry Oxygen Delivery Method 11/25/22 08:08 11/25/22 08:10 11/25/22 08:10 Temperature Pulse Rate 63 65 Pulse Rate [Orthostatic Lying] Pulse Rate [Orthostatic Sitting] Pulse Rate [Orthostatic Standing] Respiratory Rate 21 19 Blood Pressure 143/66 H Blood Pressure [Orthostatic Lying] Blood Pressure [Orthostatic Sitting] Blood Pressure [Orthostatic Standing] Pulse Oximetry Oxygen Delivery Method 11/25/22 08:11 11/25/22 08:11 11/25/22 08:30 Temperature Pulse Rate 66 62 Pulse Rate [Orthostatic Lying] Pulse Rate [Orthostatic Sitting] Pulse Rate [Orthostatic Standing] Respiratory Rate 19 16 Blood Pressure 141/65 H Blood Pressure [Orthostatic Lying] Blood Pressure [Orthostatic Sitting] Blood Pressure [Orthostatic Standing] Pulse Oximetry Oxygen Delivery Method 11/25/22 08:35 11/25/22 08:35 11/25/22 09:00 Temperature Pulse Rate 64 64 Pulse Rate [Orthostatic Lying] Pulse Rate [Orthostatic Sitting] Pulse Rate [Orthostatic Standing] Respiratory Rate 22 17 Blood Pressure 175/75 H Blood Pressure [Orthostatic Lying] Blood Pressure [Orthostatic Sitting] Blood Pressure [Orthostatic Standing] Pulse Oximetry Oxygen Delivery Method 11/25/22 09:00 11/25/22 09:27 11/25/22 09:27 Temperature Pulse Rate 64 Pulse Rate [Orthostatic Lying] Pulse Rate [Orthostatic Sitting] Pulse Rate [Orthostatic Standing] Respiratory Rate 20 Blood Pressure 160/69 H 169/73 H Blood Pressure [Orthostatic Lying] Blood Pressure [Orthostatic Sitting] Blood Pressure [Orthostatic Standing] Pulse Oximetry 96 Oxygen Delivery Method 11/25/22 09:30 11/25/22 09:30 11/25/22 10:00 Temperature Pulse Rate 64 Pulse Rate [Orthostatic Lying] Pulse Rate [Orthostatic Sitting] Pulse Rate [Orthostatic Standing] Respiratory Rate 23 Blood Pressure 167/77 H 165/74 H Blood Pressure [Orthostatic Lying] Blood Pressure [Orthostatic Sitting] Blood Pressure [Orthostatic Standing] Pulse Oximetry 96 Oxygen Delivery Method 11/25/22 10:00 11/25/22 10:30 11/25/22 10:30 Temperature Pulse Rate 62 65 Pulse Rate [Orthostatic Lying] Pulse Rate [Orthostatic Sitting] Pulse Rate [Orthostatic Standing] Respiratory Rate 23 21 Blood Pressure 167/72 H Blood Pressure [Orthostatic Lying] Blood Pressure [Orthostatic Sitting] Blood Pressure [Orthostatic Standing] Pulse Oximetry 93 94 Oxygen Delivery Method 11/25/22 11:00 11/25/22 11:01 11/25/22 11:01 Temperature Pulse Rate 64 64 Pulse Rate [Orthostatic Lying] Pulse Rate [Orthostatic Sitting] Pulse Rate [Orthostatic Standing] Respiratory Rate 18 14 Blood Pressure 154/63 H Blood Pressure [Orthostatic Lying] Blood Pressure [Orthostatic Sitting] Blood Pressure [Orthostatic Standing] Pulse Oximetry 93 92 Oxygen Delivery Method 11/25/22 11:08 11/25/22 11:08 11/25/22 11:45 Temperature Pulse Rate 62 71 Pulse Rate [Orthostatic Lying] Pulse Rate [Orthostatic Sitting] Pulse Rate [Orthostatic Standing] Respiratory Rate 17 14 Blood Pressure 145/66 H Blood Pressure [Orthostatic Lying] Blood Pressure [Orthostatic Sitting] Blood Pressure [Orthostatic Standing] Pulse Oximetry 94 93 Oxygen Delivery Method 11/25/22 11:47 11/25/22 11:47 11/25/22 12:00 Temperature Pulse Rate 66 62 Pulse Rate [Orthostatic Lying] Pulse Rate [Orthostatic Sitting] Pulse Rate [Orthostatic Standing] Respiratory Rate 17 22 Blood Pressure 175/74 H Blood Pressure [Orthostatic Lying] Blood Pressure [Orthostatic Sitting] Blood Pressure [Orthostatic Standing] Pulse Oximetry 94 96 Oxygen Delivery Method 11/25/22 12:01 11/25/22 12:01 11/25/22 12:24 Temperature Pulse Rate 64 Pulse Rate [Orthostatic Lying] Pulse Rate [Orthostatic Sitting] Pulse Rate [Orthostatic Standing] Respiratory Rate 23 Blood Pressure 159/65 H 136/63 Blood Pressure [Orthostatic Lying] Blood Pressure [Orthostatic Sitting] Blood Pressure [Orthostatic Standing] Pulse Oximetry 96 Oxygen Delivery Method 11/25/22 12:24 11/25/22 12:30 11/25/22 12:30 Temperature Pulse Rate 67 65 Pulse Rate [Orthostatic Lying] Pulse Rate [Orthostatic Sitting] Pulse Rate [Orthostatic Standing] Respiratory Rate 20 21 Blood Pressure 143/66 H Blood Pressure [Orthostatic Lying] Blood Pressure [Orthostatic Sitting] Blood Pressure [Orthostatic Standing] Pulse Oximetry 93 94 Oxygen Delivery Method 11/25/22 12:44 11/25/22 12:44 11/25/22 12:46 Temperature Pulse Rate 69 66 Pulse Rate [Orthostatic Lying] Pulse Rate [Orthostatic Sitting] Pulse Rate [Orthostatic Standing] Respiratory Rate 19 23 Blood Pressure 140/124 H Blood Pressure [Orthostatic Lying] Blood Pressure [Orthostatic Sitting] Blood Pressure [Orthostatic Standing] Pulse Oximetry 95 95 Oxygen Delivery Method 11/25/22 12:46 11/25/22 13:00 11/25/22 13:00 Temperature Pulse Rate 63 Pulse Rate [Orthostatic Lying] Pulse Rate [Orthostatic Sitting] Pulse Rate [Orthostatic Standing] Respiratory Rate 24 Blood Pressure 166/72 H 146/64 H Blood Pressure [Orthostatic Lying] Blood Pressure [Orthostatic Sitting] Blood Pressure [Orthostatic Standing] Pulse Oximetry 95 Oxygen Delivery Method Oxygen Delivery Method Room Air Narrative Exam Narrative: General: Alert oriented to person place has a hard time with day HEENT pupils equal round and reactive extraocular muscles are intact there is no nystagmus oral mucosa is moist neck is supple Cardio S1-S2 regular rate and rhythm no significant appreciated murmurs. Respiratory no wheezes or crackles normal respiratory effort Abdomen soft nontender no rebound or guarding extremities full range of motion warm dry perfused Neurologic good strength in upper lower extremities no focal neurological deficits Objective Labs 11/25/22 08:30 11/25/22 08:30 Labs: Laboratory Results - last 24 hr 11/25/22 11/25/22 11/25/22 08:00 08:30 09:40 WBC 8.9 RBC 5.01 Hgb 15.1 Hct 44.8 MCV 89.5 MCH 30.2 MCHC 33.8 RDW 14.5 Plt Count 285 Neut % (Auto) 45.5 L Lymph % (Auto) 37.9 [place] % (Auto) 14.0 Eos % (Auto) 1.7 L Baso % (Auto) 0.9 Neut # (Auto) 4000 Lymph # (Auto) 3400 [place] # (Auto) 1200 H Eos # (Auto) 100 Baso # (Auto) 100 Sodium 141 Potassium 3.3 L Chloride 104 Carbon Dioxide 30 BUN 22 H Creatinine 1.06 H Estimated GFR 51 L BUN/Creatinine Ratio 20.8 Glucose 126 H Uric Acid 9.0 H Calcium 11.0 H Total Bilirubin 0.4 AST 69 H ALT 56 H Alkaline Phosphatase 107 Total Creatine Kinase 44 Troponin I < 0.012 Total Protein 7.7 Albumin 4.2 Globulin 3.5 Albumin/Globulin Ratio 1.2 Urine Color Yellow Urine Appearance Clear Urine pH 5.5 Ur Specific [place] 1.010 Urine Protein Negative Urine Glucose (UA) Negative Urine Ketones Negative Urine Occult Blood Negative Urine Nitrate Negative Urine Bilirubin Negative Urine Urobilinogen 0.2 Ur Leukocyte Esterase Trace H Urine RBC None seen Urine WBC 1-5/hpf Ur Squamous Epith Cells 0-1 /hpf Urine Bacteria None seen Ur Culture Indicated? Specimen cultured Chlamy pneumoniae PCR Not detected Adenovirus (PCR) Not detected B.parapertussis DNA PCR Not detected Coronavirus OC43 (PCR) Not detected Coronavirus HKU1 (PCR) Not detected Coronavirus 229E (PCR) Not detected SARS-CoV-2 (PCR) Not detected Coronavirus NL63 (PCR) Not detected Human Metapneumovir PCR Not detected Influenza A (H1) PCR Not detected Influenza A (PCR) Not detected Influenza A (H3) PCR Not detected Influenza Type B (PCR) Not detected M. pneumoniae (PCR) Not detected Parainfluenza 1 (PCR) Not detected Parainfluenza 2 (PCR) Not detected Parainfluenza 3 (PCR) Not detected Parainfluenza 4 (PCR) Not detected RSV (PCR) Not detected Entero/Rhino (PCR) Not detected Assessment & Plan Assessment and plan (1) Ataxia: Status: Acute (2) Double vision: Status: Acute Plan Patient with double vision and ataxic gait. Patient had in the emergency department laboratory tests done which were unrevealing she had a normal white blood cell count she has some mild chronic kidney disease normal electrolytes and chronically elevated LFTs. Her troponin and CPK was negative her urinalysis is negative for infection. Patient had a CT scan no areas of hemodynamic stenosis no areas of vascular occlusion CT shows chronic ischemic changes with no mass occupying lesion. Patient will be admitted to the hospital for further evaluation and workup. Concerning that this maybe a cerebral injury or in insult or related to cardiovascular problems. She will be placed on telemetry monitoring. She had a CT and CT angiogram. She will need an MRI and an echocardiogram to rule out any central neurological lesions. The good news is that her carotids look good without significant stenosis. Will place her back on her statin medication blood pressure control and a full-strength aspirin Hypertension patient will be placed on her triamterene hydrochlorothiazide and amlodipine will monitor closely her blood pressure management Hyperlipidemia patient will be placed on her simvastatin at 40 mg once a day. Remote history of breast cancer will place patient on her letrozole 1 mg daily. Mood disorder. Patient will be given quetiapine at night as needed. Disposition and plan patient is full code. Patient will be placed on Lovenox. Will order an MRI echocardiogram and telemetry monitoring for 24 hours
--- NOTE | 2022-11-25 13:26 | DI.ECHO.S_ITS ---
[facility]---------+ [facility] +---------+ : : [address] [place] : : : : [id number] : : : : Phone: [phone] Echocardiogram Report + + :Name: TAYLOR GONZALEZ Study Date: 11/25/2022 Height: 64 in : :[facility] ReadingLocation: Weight: 143 lb : : Gender: Female BSA: 1.7 m2 : :: 1935 Age: 87 yrs BP: 120/58 mmHg: :Reason For Study: TIA : :Ordering Physician: CRYSTAL, : :ALEXANDRA Performed By: Laina Brown : :Referring: ALEXANDRA ROJAS : + + Interpretation Summary The ejection fraction is estimated to be 65-70%. Diastolic parameters suggest probable normal left ventricular diastolic function and normal filling pressures. The right ventricle is normal in size and function. There is mild aortic regurgitation. The right ventricular systolic pressure is estimated to be at least 26 mmHg based on an estimated right atrial pressure of 3 mm Hg. The ascending aorta is mildly enlarged, 3.8 cm. Procedure: A two-dimensional transthoracic echocardiogram with color flow and Doppler was performed. The study quality was technically adequate. There is no prior echocardiogram noted for this patient. The patient was in normal sinus rhythm during the exam. Left Ventricle: The left ventricle is normal in size. The ejection fraction is estimated to be 65-70%. Diastolic parameters suggest probable normal left ventricular diastolic function and normal filling pressures. Right Ventricle: The right ventricle is normal in size and function. Atria: The left atrial size is normal. Right atrial size is normal. There is no Doppler evidence for an interatrial shunt. Mitral Valve: The mitral valve is normal. There is no mitral valve stenosis. There is trace mitral regurgitation. Aortic Valve: The aortic valve is trileaflet. The aortic valve opens well. There is no aortic valve stenosis. There is mild aortic regurgitation. Tricuspid Valve: The tricuspid valve is normal. There is no tricuspid stenosis. There is trace tricuspid regurgitation. The right ventricular systolic pressure is estimated to be at least 26 mmHg based on an estimated right atrial pressure of 3 mm Hg. Pulmonic Valve: The pulmonic valve leaflets are thin and pliable; valve motion is normal. There is no pulmonic valvular stenosis. There is mild pulmonic regurgitation. Great Vessels: The aortic root is normal size. The ascending aorta is mildly enlarged. The pulmonary artery is normal size. The IVC is of normal diameter and collapses greater than 50% with a sniff. This suggests a low right atrial pressure of 3 mm Hg. Pericardium/ Pleura There is no pericardial effusion. There is no pleural effusion. MMode/2D Measurements & Calculations LVIDd: 3.5 cm LVOT diam: 1.8 cm LVIDs: 2.2 cm Ao root diam: 2.6 cm FS: 37.1 % asc Aorta Diam: 3.8 cm IVSd: 1.2 cm LVPWd: 0.90 cm LV [place]. diameter/BSA (cm/m^2): 2.1 LV sys. diameter/BSA (cm/m^2): 1.3 LA A2 area: 12.5 cm2 RA long axis: 4.5 cm LA A4 area: 11.3 cm2 RA area: 8.5 cm2 LA length (vol): 4.4 cm RA vol: 13.7 ml LA vol: 27.5 ml RA : 8.1 ml/m2 LA vol index: 16.2 ml/m2 RVD1 (basal): 2.8 cm LVLs ap4: 5.8 cm LVLd ap2: 6.3 cm TAPSE_phl: 2.3 cm LVLs ap2: 5.4 cm Doppler Measurements & Calculations Ao V2 max: 120.0 cm/sec LVOT Max Clint: 110.3 cm/sec Ao V2 mean: 84.2 cm/sec LV V1 max P.9 mmHg Ao max P.0 mmHg LV V1 VTI: 25.0 cm Ao mean P.0 mmHg ANTHONY(I,D): 2.4 cm2 Ao V2 VTI: 27.0 cm ANTHONY(V,D): 2.3 cm2 sev ratio: 0.93 ANTHONY indexed to BSA (cm^2/m^2): 1.4 MV E max clint: 49.0 cm/sec TR max clint: 241.0 cm/sec MV A max clint: 119.0 cm/sec TR max P.2 mmHg MV E/A: 0.41 PA V2 max: 104.0 cm/sec Med Peak E' Clint: 7.1 cm/sec PA V2 mean: 70.0 cm/sec E/E' med: 6.9 PA mean P.0 mmHg Lat Peak E' Clint: 6.7 cm/sec PA pr(Accel): 32.6 mmHg E/E' lat: 7.3 E/e' average: 7.1 MV dec time: 0.29 sec SV(LVOT): 63.7 ml AV P1/2t-pr_phl: 415.1 msec AV VR_phl: 0.92 ANTHONY(VTI)/BSA_phl: 1.4 Reading Physician:04:56 PM
--- NOTE | 2022-11-25 13:30 | PC.NURSE ---
MRI approx 1800
[2022-11-25] MEDS: TRIAMTERENE/HCTZ 37.5/25 CAPSULE 1 CAP PO (16:57)
[2022-11-25] MEDS: ASPIRIN EC 325 MG TABLET PO (16:58)
[2022-11-25] MEDS: ENOXAPARIN 40 MG/0.4 ML SYRINGE SUBCUT (16:58)
--- NOTE | 2022-11-25 17:25 | PC.NURSE ---
Patient arrived to room 209 this afternoon at approximately 1400. She is A&Ox4. VSS, afebrile on RA (SBP sligtly elevated).She calls appropriately for assistance and able to walk with one person with slightly unsteady gait this afternoon to [facility].MRI completed and echo completed. Patient tolerating dinner well. Daughters supportive at bedside. NSR on telemetry. Bed alarm on, items/call light within reach. Continuous monitoring.
[2022-11-25] MEDS: NORTRIPTYLINE 10 MG CAPSULE PO (20:53)
[2022-11-25] MEDS: BENZOCAINE/MENTHOL 1 LOZ PKT 1 EACH PO ×2 (22:24→23:51)
[2022-11-26 04:09] VITALS: BP 124/54; PULSE 68; RESP 17; TEMP 36.3; O2SAT 96
[2022-11-26] MEDS: LEVOTHYROXINE 125 MCG TABLET PO (06:02)
--- NOTE | 2022-11-26 07:40 | P.DS_ITS ---
History of Present Illness History of Present Illness Chief complaint: GLF Narrative: Patient is an 87-year-old female patient has a history of hypertension hypothyroidism hypercholesterolemia breast cancer mild cognitive impairment stage 3 chronic kidney disease and urinary incontinence. Patient lives at [facility] with her . She was brought into the emergency department via ambulance. Patient states sometimes she gets up in the middle night and goes and sleeps in her chair. Usually after getting sleepy she will go back to bed but this time she fell asleep in her chair. Her went out in the morning and patient was in the chair and he joined her sitting in the chair the next thing he knew that she was laying on the ground. Patient was unsure and unaware of how she got to the ground. The went over and helped her get up and move her to the couch says that she was a little bit groggy. At that time he became concerned and called 911. Patient states that she felt a little bit lightheaded and dizzy and has some blurry vision. She says she is currently feeling a little bit lightheaded and dizzy and when discussed blurry vision she says she sees double. She is not had problems with double vision before. In last week or so she says she is been in her normal state of health. She is not very mobile are active. She is had some chronic problems with her foot due to gout she thinks. She is not had any chest pain palpitations shortness of breath. No swelling. She says she eats regularly and has good bowel movements. She recognizes her daughter she knows she is at [facility]. Discharge Providers Provider Date of admission: 11/25/22 13:00 Discharge Date: 11/26/22 Primary care physician: Wayne Steen MD Consults: 11/25/22 13:24 Consult to Physical Therapy Evaluate & Treat Comment: Physician Instructions: Evaluate and Treat Discharge provider: Son Shen MD Summary Hospital Course Discharge Diagnosis: Transient neurological event Hypertension Hyperlipidemia Breast cancer history Hospital Course: Please see H& P intake for complete details. Patient was admitted to the hospital for a fall with weakness and dizziness and diplopia concerning for potential neurological injury. Patient was admitted to the hospital for 24 hours for further evaluation and workup during hospital stay vital signs were stable patient ambulated well with physical therapy. Patient had an MRI which showed no acute cerebral injury no significant carotid artery disease telemetry monitoring showed no significant heart irregularities arrhythmias as well as a normal echocardiogram for her age. The time of discharge patient was ambulating eating well ready for discharge. She will follow up with Dr. Steen in 7 days Exam Vital Signs (past 8 hours): - 11/26/22 04:09 Temperature 97.4 F L Pulse Rate 68 Respiratory Rate 17 Blood Pressure 124/54 L Pulse Oximetry 96 Oxygen Delivery Method Room Air Oxygen Flow Rate 0 Narrative Exam Narrative: Gen.: Alert and oriented x3 no apparent distress. HEENT: NCAT PERRLA tympanic membranes are clear nares are patent oral mucosa is moist no tonsillar hypertrophy neck is supple without lymphadenopathy no thyroid enlargement. Cardio: S1-S2 regular rate and rhythm no murmurs appreciated. Respiratory: Lungs are clear to auscultation no wheezes or crackles normal respiratory effort. Abdomen: Soft nontender no rebound or guarding no liver spleen enlargement no appreciable hernias Extremities: Full range of motion no appreciable weakness no cyanosis or edema. Neurologic: Grossly intact. Objective Labs 11/25/22 08:30 11/25/22 08:30 Labs: Laboratory Results - last 24 hr 11/25/22 11/25/22 11/25/22 08:00 08:30 09:40 WBC 8.9 RBC 5.01 Hgb 15.1 Hct 44.8 MCV 89.5 MCH 30.2 MCHC 33.8 RDW 14.5 Plt Count 285 Neut % (Auto) 45.5 L Lymph % (Auto) 37.9 [place] % (Auto) 14.0 Eos % (Auto) 1.7 L Baso % (Auto) 0.9 Neut # (Auto) 4000 Lymph # (Auto) 3400 [place] # (Auto) 1200 H Eos # (Auto) 100 Baso # (Auto) 100 Sodium 141 Potassium 3.3 L Chloride 104 Carbon Dioxide 30 BUN 22 H Creatinine 1.06 H Estimated GFR 51 L BUN/Creatinine Ratio 20.8 Glucose 126 H Uric Acid 9.0 H Calcium 11.0 H Total Bilirubin 0.4 AST 69 H ALT 56 H Alkaline Phosphatase 107 Total Creatine Kinase 44 Troponin I < 0.012 Total Protein 7.7 Albumin 4.2 Globulin 3.5 Albumin/Globulin Ratio 1.2 Urine Color Yellow Urine Appearance Clear Urine pH 5.5 Ur Specific [place] 1.010 Urine Protein Negative Urine Glucose (UA) Negative Urine Ketones Negative Urine Occult Blood Negative Urine Nitrate Negative Urine Bilirubin Negative Urine Urobilinogen 0.2 Ur Leukocyte Esterase Trace H Urine RBC None seen Urine WBC 1-5/hpf Ur Squamous Epith Cells 0-1 /hpf Urine Bacteria None seen Ur Culture Indicated? Specimen cultured Chlamy pneumoniae PCR Not detected Adenovirus (PCR) Not detected B.parapertussis DNA PCR Not detected Coronavirus OC43 (PCR) Not detected Coronavirus HKU1 (PCR) Not detected Coronavirus 229E (PCR) Not detected SARS-CoV-2 (PCR) Not detected Coronavirus NL63 (PCR) Not detected Human Metapneumovir PCR Not detected Influenza A (H1) PCR Not detected Influenza A (PCR) Not detected Influenza A (H3) PCR Not detected Influenza Type B (PCR) Not detected M. pneumoniae (PCR) Not detected Parainfluenza 1 (PCR) Not detected Parainfluenza 2 (PCR) Not detected Parainfluenza 3 (PCR) Not detected Parainfluenza 4 (PCR) Not detected RSV (PCR) Not detected Entero/Rhino (PCR) Not detected PFSH Medical History Mild cognitive impairment Breast cancer Appendicitis Abnormal mammogram Abnormal LFTs Hypothyroidism (acquired) (12/22/10) H/O malignant neoplasm of breast 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) Hypercholesteremia Urinary incontinence due to urethral sphincter incompetence Insomnia Benign essential hypertension Decreased vision Breast cancer, left breast (1998) Lymphedema of upper extremity (10/16/14) Stage 3 chronic kidney disease Surgical History S/P lumpectomy, left breast (03/30/21) S/P mastectomy History of tonsillectomy History of oophorectomy Status post hysterectomy (1990) Status post cholecystectomy (1997) Family History Brother Coronary artery disease Social History household members: spouse Smoking Status: Never smoker alcohol intake: never Discharge Plan Discharge Plan Patient Disposition: Home Provider Discharge Comment: Follow-up Dr. Steen in 1 week Discharge orders & Medications Prescriptions: New aspirin 325 mg Tablet,Delayed Release (Dr/Ec) 325 mg PO DAILY Qty: 30 0RF Continued simvastatin 40 mg tablet 20 mg PO DAILY Qty: 45 3RF amlodipine 5 mg tablet 5 mg PO DAILY Qty: 90 3RF levothyroxine 125 mcg tablet 125 mcg PO DAILY Qty: 90 3RF triamterene-hydrochlorothiazid 37.5-25 mg tablet 1 tab PO DAILY Qty: 90 3RF quetiapine 25 mg tablet 25 mg PO BEDTIME Qty: 60 3RF anastrozole 1 mg Tablet 1 mg PO DAILY Qty: 30 11RF nortriptyline 10 mg capsule 10 mg PO BEDTIME Patient Comments: TAKE ONE CAPSULE BY MOUTH NIGHTLY AT BEDTIME Follow up/Referrals: Wayne Steen MD [Primary Care Provider] - Visit Report/Discharge Packet Stand Alone Forms: Patient Portal/API, Stroke Signs & Symptoms Discharge Data Primary Care Provider: Wayne Steen Attending Provider: Son Shen Admit Date/Time: 11/25/22 13:00 Quality VTE Deep Vein Thrombosis/Pulmonary Embolism Present on Admission: No
--- NOTE | 2022-11-26 09:39 | PC.NURSE ---
Pt A/O, denies discomfort. Orders for D/C received. HL discontinued intact, Home instructions given Pt escorted by staff via W/C to waiting vehicle D/C in stable condition
--- NOTE | 2022-11-26 10:24 | PT.IIE ---
Current Diagnoses Diplopia (11/25/22) Ataxia, unspecified (11/25/22) Surgical History (Last Reviewed 11/25/22 @ 13:18 by Son Shen MD) History of oophorectomy History of tonsillectomy S/P lumpectomy, left breast (03/30/21) S/P mastectomy Status post cholecystectomy (1997) Status post hysterectomy (1990) Medical History (Last Reviewed 11/25/22 @ 13:18 by Son Shen MD) Abnormal LFTs Abnormal mammogram Appendicitis Benign essential hypertension 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) Breast cancer Breast cancer, left breast (1998) Decreased vision H/O malignant neoplasm of breast Hypercholesteremia Hypothyroidism (acquired) (12/22/10) Insomnia Lymphedema of upper extremity (10/16/14) Mild cognitive impairment Stage 3 chronic kidney disease Urinary incontinence due to urethral sphincter incompetence Physical Therapy Inpatient Evaluation/Re-Eval M1 PT/OT-IP Prior Functional Status Start: 11/26/22 08:08 Freq: NEEDED Status: Discharge Protocol: Document 11/26/22 09:00 AMB (Rec: 11/26/22 10: AMB [id number]) Medical Review Prior Functional Status Medical History Reviewed Yes Mobility and Gait Ambulates without AD, does have a history of falls on uneven surfaces Social History Household Members spouse Living Arrangements Other Employment Status Retired Additional Social History Comment Lives at [facility] with her , there are two floors of stairs which she does for exercise on occassion , but there is also an elevator M2 PT-IP Current Condition Start: 11/26/22 08:08 Freq: NEEDED Status: Discharge Protocol: Document 11/26/22 09:00 AMB (Rec: 11/26/22 10:23 AMB [id number]) Physical Therapy Current Condition Current Condition Evaluation Date 11/26/22 Treatment Diagnosis fall Onset Date 11/25/22 M3 PT-IP Subjective Start: 11/26/22 08:08 Freq: NEEDED Status: Discharge Protocol: Document 11/26/22 09:00 AMB (Rec: 11/26/22 10:23 AMB [id number]) Subjective Physical Therapy Visit Type Type Initial Evaluation Visit Start Time 09:00 Visit Stop Time 09:20 Total Visit Minutes 20 Physical Therapy Visit Comments Patient Comments Pt is hoping to go home, her and two daughters are present in the room during evaluation M4 PT-IP Mobility and Gait Start: 11/26/22 08:08 Freq: NEEDED Status: Discharge Protocol: Document 11/26/22 09:00 AMB (Rec: 11/26/22 10: AMB [id number]) PT-Bed Mobility Assessment Rolling Level of Assist Standby Assistance Supine to Sit Supine to Sit Standby Assistance PT-Transfer Assessment Sit to and From Stand Sit to and from Stand Independent Equipment Transfer Assistive Device Gait Belt Transfers Transfer Destination Bed Transfer Technique Stand Step Pivot Transfer Ability Level of Assist Independent Comments Mobility Comments Cindy gets up with ease independently Gait Assessment Gait Gait Assistance Required: Standby Assistance Distance (Feet) 200 Assistive Devices Assistive Device Gait Belt Gait Deviations General Gait Pattern Decreased Feet Clearance Comments Gait Comments Cindy states that she tries to make sure that she lifts her feet up with walking, she does have some chronic foot pain, and does have a history of falling when she doesn't lift her feet. She is able to ambulate without assistive device over smooth terrain without any loss of balance at this time. PT-Balance Assessment Sitting Balance and Reactions Static Sitting Balance Ability Good Dynamic Sitting Balance Ability Good Standing Balance and Reactions Static Standing Balance Ability Fair Dynamic Standing Balance Ability Fair Comments Other Balance Tests/Deviations/Treatment NBOS- good. NBOS EC- wobbles : close SBA needed for 10 seconds. M5 PT-IP Objective Assessments Start: 11/26/22 08:08 Freq: NEEDED Status: Discharge Protocol: Document 11/26/22 09:00 AMB (Rec: 11/26/22 10: AMB [id number]) Orientation Orientation/Cognition Level of Alertness Alert Gross Range of Motion Upper Extremity ROM Assessment Within Functional Limits Lower Extremity ROM Assessment Within Functional Limits M6 PT-IP Treatment Start: 11/26/22 08:08 Freq: NEEDED Status: Discharge Protocol: Document 11/26/22 09:00 AMB (Rec: 11/26/22 10: AMB [id number]) Physical Therapy Treatment Education Education Provided Safety Other Treatments Other Treatment Performed Discussed fall risk factors. Encouraged night light use. Encouraged FWW or cane when up at night. M7 PT-IP Assessment and Plan Start: 11/26/22 08:08 Freq: NEEDED Status: Discharge Protocol: Document 11/26/22 09:00 AMB (Rec: 11/26/22 10:23 AMB [id number]) PT Summary Assessment and Plan Potential Rehabilitation Potential Good Status of Condition at Evaluation Stable Summary Impairments Balance,Gait,Activity Tolerance Assessment Summary Cindy was brought to the hospital by ambulance when her found her down on the ground. It sounds as if she fell of of the chair she was sleeping in. At this time she appears at her baseline functional status. Educated patient and family in appropriate fall reduction strategies. Goals Bed Mobility Goal Independent Transfer Goal Independent Gait Goal Independent Gait Distance 200 Days to Meet Goals 1 Frequency of Treatment Frequency Of Treatment Once a Day Treatment Plan Physical Therapy Treatment Plan Transfer Training,Gait Training,Therapeutic Exercise Recommendations To Nursing Amount of Assist Needed Standby Assistance Discharge Recommendations PT Discharge Recommendations Home with Assistance Transportation Needs at Discharge Wheelchair/Cabulance
--- NOTE | 2022-11-26 10:30 | CM.DANOTE ---
DCP Assessment Note: Patient is a 87yo F here following a spell of being dizzy/lightheaded/groggy PCP Dr. Enio Degroot Medicare and Justin VEGAS reviewed EMR. Per chart, patient cleared to d/c home today. PURCHASING COORDINATOR entered room and introduced self and role. Patient accompanied by and daughters at bedside. Patient appeared A/Ox3, patient did not know date or month. Patient reports IADLs/drives at baseline. Uses no DME. Reports living at [facility] with Harris ([phone]). Reports feeling much better today and is excited to go home. Transport with daughters. Plan: d/c home today with family support. No needs at this time. CM team will continue to follow as needed. ASCENCION Menjivar Discharge Planning/Care Management CM Discharge Assessment Start: 11/26/22 10:13 Freq: Status: Active Protocol: Document 11/26/22 10:13 (Rec: 11/26/22 10:30 [id number]) Discharge Planning Assessment Assigned Oyster Worker ASCENCION Prasad DPOA/Assigned Designee Name Harris Mishra (spouse Contact Information [phone] Advance Directives? Yes: DPOA and Health Directive , POLST Advance Directives on File Yes History Provided By Patient,Family Member,Medical Record Prior Living Arrangements Other Comment [facility] Household Members spouse Type of transporation used prior to Relies on Others admit Willing to Return to Facility? Yes Independent with ADL's Yes Is patient alert and oriented? No: not oriented to date Discharge Plan Home Transportation Arrangement Family can provide transport at d/c Referrals Initiated None needed Whiteboard Updated in Patient Room with Yes name and ext. # of Oyster Worker Review Status In Process Next Review Type Continued Stay Review
== END 2022-11-26 09:39 | disposition home or self-care (01) ==
LOC: ED 07:14 → AC 13:01
PROVIDERS: Admitting Provider Family Medicine; Emergency Provider Emergency Medicine; PCP Internal Medicine; Referring Provider Emergency Medicine; Visit Provider Family Medicine
DX: R42 Dizziness and giddiness (principal); H53.2 Diplopia; F03.90 Unspecified dementia, unspecified severity, without behavioral disturbance, psychotic disturbance, mood disturbance, and anxiety; W19.XXXA Unspecified fall, initial encounter; Y92.098 Other place in other non-institutional residence as the place of occurrence of the external cause; I10 Essential (primary) hypertension; E78.5 Hyperlipidemia, unspecified; N18.30 Chronic kidney disease, stage 3 unspecified; E03.9 Hypothyroidism, unspecified; R32 Unspecified urinary incontinence; Z11.52 Encounter for screening for COVID-19
CPT/HCPCS: 36415; 70450; 70496; 70498; 70551; 71045; 72125; 73630; 80053; 81001; 81003; 82550; 84484; 84550; 85025; 87077; 87086; 87186; 87633; 93005; 93306; 96361; 96372; 96374; 97161; 99222; 99238; 99284; 99285; G0378; J1650; J2405; Q9967

== ENCOUNTER → 2022-12-05 16:28 | Outpatient (CLI) | payer MEDICARE, OTHER, SELFPAY ==
[2022-11-25 13:55] VITALS: BMI 24.9
[2022-12-05 18:18] LABS: BUN Creatinine Ratio 18.3 (6-22); Blood Urea Nitrogen 19 mg/dL (7-17); Calcium 10.5 mg/dL (8.4-10.2); Carbon Dioxide 27 mmol/L (22-32); Chloride 103 mmol/L (98-107); Estimated Glomerular Filt Rate 53 mL/min (>60); Glucose 194 mg/dL (80-110); HEMOLYSIS < 15 (0-50); Potassium 3.1 mmol/L (3.4-5.1); Sodium 142 mmol/L (137-145); Uric Acid 9.4 mg/dL (2.5-6.2)
== END ==
PROVIDERS: PCP Internal Medicine; Referring Provider Internal Medicine; Visit Provider Internal Medicine
DX: I10 Essential (primary) hypertension (principal); M10.9 Gout, unspecified
CPT/HCPCS: 36415; 80048; 84550

== ENCOUNTER → 2022-12-06 12:05 | Outpatient (CLI) | payer MEDICARE, OTHER, SELFPAY ==
[2022-11-25 13:55] VITALS: BMI 24.9
--- NOTE | 2022-12-06 12:06 | DI.MRI.S_ITS ---
PROCEDURE: MR FOOT RT WO/W CON INDICATIONS: bone mass/breast cancer TECHNIQUE: Noncontrast coronal T1 spin echo and STIR, sagittal T1 spin echo with fat saturation and STIR, axial T1 spin echo and T2 fast spin echo with fat saturation. After the administration of contrast, axial/sagittal/coronal T1 spin echo with fat saturation through the right foot. COMPARISON: [facility], CR, XR FOOT RT MIN 3V, 11/25/2022, 7:45. FINDINGS: Image quality: Excellent. Bones: As seen on previous right foot radiograph, there is and expansile heterogeneously T2 hyperintense and T1 hypointense structure involving dorsal and lateral aspect of 4th middle phalangeal head and neck region and measures up to 1.1 cm in size. There is no pathologic fracture. No adjacent marrow edema or abnormal periosteal reaction. After IV contrast infusion, heterogeneous contrast enhancement within this lesion is noted. Osteoarthritic changes are noted throughout right foot. No other area of abnormal intraosseous enhancement. No acute fracture or dislocation. No metatarsal stress fractures. Soft tissues: No soft tissue masses are visualized. The scanned muscles demonstrate normal overall bulk and internal signal. He extensor and flexor tendons are intact. Lisfranc ligament and joint is intact. IMPRESSION: 1. Expansile heterogeneously T1 hypointense and T2 hyperintense structure involving head and neck of 4th middle phalanx and measures 1.1 cm in size. No surrounding soft tissue edema or pathologic fracture is seen. Heterogeneous contrast enhancement within this lesion is noted. Finding likely represent benign process such as enchondroma. Slow growing malignant process cannot be entirely excluded. Radiographic follow-up is recommended. 2. No adjacent soft tissue mass or abnormal enhancement. No abnormal intramuscular enhancement. 3. No right foot fracture or dislocation. No other area of abnormal intraosseous enhancement. 4. Tendons and ligaments of forefoot are grossly intact. Dictated by: Dirk Monzon M.D. on 12/06/2022 at 16:21 Approved by: Dirk Monzon M.D. on 12/06/2022 at 16:26
== END ==
PROVIDERS: PCP Internal Medicine; Referring Provider Internal Medicine; Visit Provider Internal Medicine
DX: C50.919 Malignant neoplasm of unspecified site of unspecified female breast (principal); R22.40 Localized swelling, mass and lump, unspecified lower limb; M89.8X9 Other specified disorders of bone, unspecified site
CPT/HCPCS: 73720

== ENCOUNTER → 2022-12-30 12:23 | Outpatient (CLI) | payer MEDICARE, OTHER, SELFPAY ==
[2022-11-25 13:55] VITALS: BMI 24.9
[2022-12-30 13:37] LABS: BUN Creatinine Ratio 15.8 (6-22); Blood Urea Nitrogen 15 mg/dL (7-17); Calcium 11.1 mg/dL (8.4-10.2); Carbon Dioxide 36 mmol/L (22-32); Chloride 98 mmol/L (98-107); Estimated Glomerular Filt Rate 59 mL/min (>60); Glucose 88 mg/dL (80-110); HEMOLYSIS < 15 (0-50); Potassium 3.3 mmol/L (3.4-5.1); Sodium 142 mmol/L (137-145)
== END ==
PROVIDERS: PCP Internal Medicine; Referring Provider Internal Medicine; Visit Provider Internal Medicine
DX: M10.9 Gout, unspecified (principal); E87.6 Hypokalemia
CPT/HCPCS: 36415; 80048; 84550

== ENCOUNTER → 2023-03-14 14:20 | Outpatient (CLI) | payer MEDICARE, OTHER, SELFPAY ==
[2023-03-14 14:11] VITALS: BMI 24.9
--- NOTE | 2023-03-14 14:23 | DI.RAD.S_ITS ---
PROCEDURE: XR KNEE LT 3V INDICATIONS: knee pain TECHNIQUE: 3 views of the knee were acquired. COMPARISON: [facility], , KNEE 3V LEFT, 11/04/2015, 15:25. FINDINGS: Bones: No acute fractures or dislocations. No suspicious bony lesions. There is moderate to severe joint space narrowing at the medial femorotibial compartment with subchondral sclerosis and marginal osteophyte formation. [id number] joint space narrowing is seen at the lateral and anterior compartments. Subchondral osteophyte formation is seen at the lateral femoral condyle. Soft tissues: Small joint effusion. No suspicious soft tissue calcifications. Ossified intra-articular loose body is seen projecting over the intercondylar notch. IMPRESSION: 1. 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 2. Small joint effusion. Ossified intra-articular loose body projects over the intercondylar notch. Approved by: Vinny Marie M.D. on 03/14/2023 at 16:12
[2023-03-14 15:46] LABS: BUN Creatinine Ratio 20.4 (6-22); Blood Urea Nitrogen 21 mg/dL (7-17); Calcium 10.7 mg/dL (8.4-10.2); Carbon Dioxide 25 mmol/L (22-32); Chloride 104 mmol/L (98-107); Estimated Glomerular Filt Rate 53 mL/min (>60); Glucose 117 mg/dL (80-110); HEMOLYSIS 24 (0-50); Potassium 4.8 mmol/L (3.4-5.1); Sodium 139 mmol/L (137-145)
== END ==
PROVIDERS: PCP Internal Medicine; Referring Provider Internal Medicine; Visit Provider Internal Medicine
DX: M17.12 Unilateral primary osteoarthritis, left knee (principal); M25.462 Effusion, left knee; M23.42 Loose body in knee, left knee; M25.562 Pain in left knee; I10 Essential (primary) hypertension
CPT/HCPCS: 36415; 73562; 80048

== ENCOUNTER → 2023-08-18 15:40 | Outpatient (CLI) | payer MEDICARE, OTHER, SELFPAY ==
[2023-03-14 14:11] VITALS: BMI 24.9
[2023-08-18 16:29] LABS: Add Manual Diff / Slide Review NO; Basophils Absolute Auto 100 /uL (0-100); Basophils Percent Auto 0.7 % (0-2); Eosinophils Absolute Auto 100 /uL (0-450); Hematocrit 48.3 % (36-46); Hemoglobin 16.5 g/dL (12.0-16.0); Lymphocytes Absolute Auto 4100 /uL (1100-4500); Lymphocytes Percent Auto 42.4 % (25-40); Mean Corpuscular HGB Conc 34.2 % (30-36); Mean Corpuscular Hemoglobin 31.2 PG (26-34); Mean Corpuscular Volume 91.2 fL (80-100); Monocytes Absolute Auto 1300 /uL (0-900); Monocytes Percent Auto 13.7 % (3-14); Neutrophils Absolute Auto 4100 /uL (1500-7000); Neutrophils Percent Auto 42.2 % (50-75); Platelet Count 275 X10^3/uL (150-400); Red Blood Cell Count 5.29 X10^6/uL (4.0-5.2); Red Cell Distribution Width 13.3 % (11.6-14.8); White Blood Cell Count 9.7 X10^3/uL (4.5-11.0)
[2023-08-18 16:32] LABS: Alanine Aminotransferase 52 IU/L (<35); Albumin 4.7 g/dL (3.5-5.0); Albumin Globulin Ratio 1.4 (1.0-2.8); Alkaline Phosphatase 112 U/L (38-126); Aspartate Aminotransferase 49 IU/L (14-36); BUN Creatinine Ratio 21.3 (6-22); Bilirubin Total 0.5 mg/dL (0.2-1.3); Blood Urea Nitrogen 26 mg/dL (7-17); Calcium 10.2 mg/dL (8.4-10.2); Carbon Dioxide 24 mmol/L (22-32); Chloride 109 mmol/L (98-107); Estimated Glomerular Filt Rate 43 mL/min (>60); Globulin 3.3 g/dL (1.7-4.1); Glucose 117 mg/dL (80-110); HEMOLYSIS 26 (0-50); Potassium 4.3 mmol/L (3.4-5.1); Sodium 140 mmol/L (137-145)
[2023-08-18 16:52] LABS: Free T4, Direct Thyroxine 1.57 ng/dL (0.78-2.19)
[2023-08-18 17:06] LABS: Thyroid Stimulating Hormone 0.448 uIU/mL (0.47-4.68)
== END ==
PROVIDERS: PCP Internal Medicine; Referring Provider Internal Medicine; Visit Provider Internal Medicine
DX: I10 Essential (primary) hypertension (principal); E03.9 Hypothyroidism, unspecified; E78.00 Pure hypercholesterolemia, unspecified; R94.5 Abnormal results of liver function studies; D64.9 Anemia, unspecified
CPT/HCPCS: 36415; 80053; 84439; 84443; 85025

== ENCOUNTER → 2024-02-12 14:22 | Outpatient (CLI) | payer MEDICARE, OTHER, SELFPAY ==
[2023-03-14 14:11] VITALS: BMI 24.9
--- NOTE | 2024-02-12 14:24 | DI.RAD.S_ITS ---
PROCEDURE: XR ACUTE ABDOMEN SERIES INDICATIONS: nausea and vomiting TECHNIQUE: One view chest and two views of the abdomen were acquired. COMPARISON: [facility], , XR ACUTE ABDOMEN SERIES, 05/21/2020, 10:42. FINDINGS: Surgical changes and devices: Surgical clips project over the right upper quadrant. Chest: Lungs are clear. Heart size is normal. No pleural effusions. No pneumoperitoneum. Abdomen: Bowel gas pattern is normal. No suspicious calcifications. Visualized solid organ contours appear normal. Bones: No suspicious bony lesions. Mild dextroconvex curvature and multilevel degenerative changes in the spine. IMPRESSION: Nonspecific nonobstructive bowel gas pattern. No pneumoperitoneum. No acute cardiopulmonary abnormality. Approved by: Vinny Marie M.D. on 02/12/2024 at 17:47
[2024-02-12 15:20] LABS: Add Manual Diff / Slide Review NO; Basophils Absolute Auto 100 /uL (0-100); Basophils Percent Auto 0.9 % (0-2); Eosinophils Absolute Auto 100 /uL (0-450); Eosinophils Percent Auto 0.9 % (2-4); Hematocrit 48.7 % (36-46); Hemoglobin 16.1 g/dL (12.0-16.0); Lymphocytes Absolute Auto 3900 /uL (1100-4500); Lymphocytes Percent Auto 33.6 % (25-40); Mean Corpuscular HGB Conc 33.1 % (30-36); Mean Corpuscular Hemoglobin 31.1 PG (26-34); Mean Corpuscular Volume 93.9 fL (80-100); Monocytes Absolute Auto 1300 /uL (0-900); Monocytes Percent Auto 11.4 % (3-14); Neutrophils Absolute Auto 6200 /uL (1500-7000); Neutrophils Percent Auto 53.2 % (50-75); Platelet Count 314 X10^3/uL (150-400); Red Blood Cell Count 5.18 X10^6/uL (4.0-5.2); Red Cell Distribution Width 13.6 % (11.6-14.8); White Blood Cell Count 11.7 X10^3/uL (4.5-11.0)
[2024-02-12 15:56] LABS: Alanine Aminotransferase 67 IU/L (<35); Albumin 4.6 g/dL (3.5-5.0); Albumin Globulin Ratio 1.6 (1.0-2.8); Alkaline Phosphatase 131 U/L (38-126); Aspartate Aminotransferase 77 IU/L (14-36); BUN Creatinine Ratio 16.8 (6-22); Bilirubin Total 0.5 mg/dL (0.2-1.3); Blood Urea Nitrogen 21 mg/dL (7-17); C-Reactive Protein Quant < 0.5 mg/dL (<1.0); Calcium 10.7 mg/dL (8.4-10.2); Carbon Dioxide 25 mmol/L (22-32); Chloride 103 mmol/L (98-107); Estimated Glomerular Filt Rate 42 mL/min (>60); Globulin 2.8 g/dL (1.7-4.1); Glucose 163 mg/dL (80-110); HEMOLYSIS < 15 (0-50); Potassium 4.9 mmol/L (3.4-5.1); Sodium 138 mmol/L (137-145); Total Protein 7.4 g/dL (6.3-8.2)
[2024-02-12 16:06] LABS: Free T4, Direct Thyroxine 0.95 ng/dL (0.78-2.19)
[2024-02-12 16:20] LABS: Thyroid Stimulating Hormone 6.33 uIU/mL (0.47-4.68)
[2024-02-12 16:32] LABS: Erythrocyte Sedimentation Rate 6 MM/HR (0-20)
== END ==
PROVIDERS: PCP Internal Medicine; Referring Provider Internal Medicine; Visit Provider Internal Medicine
DX: I12.9 Hypertensive chronic kidney disease with stage 1 through stage 4 chronic kidney disease, or unspecified chronic kidney disease (principal); N18.30 Chronic kidney disease, stage 3 unspecified; E03.9 Hypothyroidism, unspecified; R94.5 Abnormal results of liver function studies
CPT/HCPCS: 36415; 74022; 80053; 84439; 84443; 85025; 85651; 86140

== ENCOUNTER → 2024-07-24 10:07 | Outpatient (CLI) | payer MEDICARE, OTHER, SELFPAY ==
[2023-03-14 14:11] VITALS: BMI 24.9
[2024-07-24 13:00] LABS: Appearance Urine UA CLEAR; Bilirubin Urine UA NEGATIVE (NEGATIVE); Color Urine UA YELLOW; Glucose Urine UA NEGATIVE (Negative); Ketones Urine UA NEGATIVE (NEGATIVE); Leukocyte Esterase Urine UA NEGATIVE (NEGATIVE); Nitrite Urine UA NEGATIVE (Negative); Occult Blood Urine UA NEGATIVE (Negative); Protein Urine UA NEGATIVE (Negative); Urobilinogen Urine UA 0.2 E.U./dL (0.2)
[2024-07-24 13:03] LABS: pH Urine UA 5.5 (4.5-8.0)
[2024-07-24 13:05] LABS: Bacteria Urine None Seen; Culture Indicated Urine Cult Not Indicated; RBC Urine None Seen (0-5/HPF); Squamous Epithelial Cell Urine None Seen (0-5/HPF); Urine Volume 10mL (spun); WBC Urine None Seen (0-5/HPF)
== END ==
PROVIDERS: PCP Internal Medicine; Visit Provider Obstetrics & Gynecology Gynecology
DX: N39.3 Stress incontinence (female) (male) (principal)
CPT/HCPCS: 81001

== ENCOUNTER 2024-11-25 07:32 | Inpatient (IN) | payer MEDICARE, OTHER, SELFPAY ==
[2023-03-14 14:11] VITALS: BMI 24.9
[2024-11-25] VITALS (19 sets, daily range): BP systolic 120–174; BP diastolic 60–74; PULSE 67–87; RESP 13–38; TEMP 35.8–36.4; O2SAT 92–97; BMI 25.9
--- NOTE | 2024-11-25 07:44 | DI.CT.S_ITS ---
PROCEDURE: CT ANGIO HEAD AND NECK INDICATIONS: aphasia TECHNIQUE: After the administration of intravenous contrast, 1 mm thick sections acquired from the aortic arch through the [place] of [place]. 3-dimensional lkdmlgs-pmchzfcnx-yyykwdicmg (MIP) and/or volume rendering reformats were acquired of the central intracranial vasculature and neck separately. For radiation dose reduction, the following was used: automated exposure control, adjustment of mA and/or kV according to patient size. COMPARISON: [facility], CT, CT ANGIO HEAD AND NECK, 11/25/2022, 12:12. FINDINGS: Image quality: Diagnostic. Cerebral CT Angiogram: Internal carotid arteries: No acute findings. Intracranial ICA are patent with no significant stenosis. No occlusion. No aneurysm. Anterior cerebral arteries: Unremarkable. No significant stenosis. No occlusion. No aneurysm. Middle cerebral arteries: Unremarkable. No significant stenosis. No occlusion. No aneurysm. Posterior cerebral arteries: Unremarkable. No significant stenosis. No occlusion. No aneurysm. Basilar artery: Unremarkable. No significant stenosis. No occlusion. No aneurysm. Vertebral arteries: Unremarkable as visualized. Dural venous sinuses: Unremarkable given phase of enhancement. Other: Arterial phase appearance of the brain parenchyma is unremarkable. Neck CT Angiogram: Internal carotid arteries: Unremarkable. No significant stenosis. No dissection or occlusion. Common carotid arteries: Unremarkable. No significant stenosis. No dissection or occlusion. External carotid arteries: Unremarkable. No occlusion. Vertebral arteries: Unremarkable. No significant stenosis. No dissection or occlusion. Aortic Arch and Mediastinum: Partially visualized aortic arch unremarkable without evidence of aneurysm. Origins of the great vessels unremarkable. Other: Arterial phase soft tissues of the neck and chest are unremarkable. IMPRESSION: No significant intracranial arterial abnormality is seen. No significant abnormality is seen within the arteries of the neck. Any quantitative measurements of stenosis were performed using NASCET criteria. Approved by: Ana Singleton M.D.,Ph.D. on 11/25/2024 at 8:30
--- NOTE | 2024-11-25 07:44 | DI.CT.S_ITS ---
PROCEDURE: CT STROKE INDICATIONS: stroke TECHNIQUE: Noncontrast 4.5 mm thick angled axial sections acquired from the foramen magnum to the vertex, with coronal reformats. For radiation dose reduction, the following was used: automated exposure control, adjustment of mA and/or kV according to patient size. COMPARISON: None. FINDINGS: Image quality: Diagnostic. CSF spaces: Basal cisterns are patent. No extra-axial fluid collections. The ventricles are symmetric in size and shape. Brain: No intracranial bleeds or mass effect. There is cerebral volume loss, with resultant ventricular and sulcal prominence. There are periventricular and deep white matter chronic small vessel ischemic changes. There is intracranial internal carotid artery atherosclerosis. Skull and face: Calvarium and visualized facial bones appear intact, without suspicious lesions. Sinuses: Visualized sinuses and mastoids are clear. IMPRESSION: No acute intracranial pathology. Findings were discussed with ordering ED provider Dr. Cisneros by Dr. Singleton at 8:15 a.m. On 11/25/2024. This study fulfills neurological imaging criteria for inclusion or exclusion of acute stroke therapies based on available published neurological guidelines. Dictated by: Ana Singleton M.D.,Ph.D. on 11/25/2024 at 8:25 Approved by: Ana Singleton M.D.,Ph.D. on 11/25/2024 at 8:26
--- NOTE | 2024-11-25 07:46 | EKG_ITS ---
[id number] [place] [address] Test Date: 2024-11-25 Pat Name: Cindy Mishra Department: Room: Gender: Female [employer] Supervisor: KRISTI : 1935 Requested By: Order Number: [id number] Reading MD: Juan Manuel Mishra Measurements Intervals [place] Rate: 84 P: 46 ME: 158 QRS: -6 QRSD: 64 T: 111 QT: 414 QTc: 489 Interpretive Statements Normal sinus rhythm Minimal voltage criteria for LVH, may be normal variant ( R in aVL ) Nonspecific ST and T wave abnormality Prolonged QT Electronically Signed On 11-27-2024 8:30:56 PDT by Juan Manuel Mishra
--- NOTE | 2024-11-25 07:46 | ED.NEUROSD ---
HPI - Neuro Symptoms/Deficit General Chief Complaint: Neuro Symptoms/Deficit Stated Complaint: Speech LKW 9 PM Time Seen by Provider: 11/25/24 07:44 Source: EMS Mode of arrival: Wheelchair History of Present Illness HPI Narrative: 89 F here with difficulties with speech. Arrives via EMs and history limited. LKW last night at 9pm (when symptoms began), seemed worse this morning and 911 was called. Pt denies associated pain/headache. Unknown if recent fall. No known anticoagulation or hx of stroke. History limited due to speech issues. On Anticoagulants: No Related Data Home Medications ?Medication ?Instructions ?Recorded ?Confirmed aspirin 81 mg tablet,delayed 81 mg PO DAILY 05/06/24 11/27/24 release Previous Rx's ?Medication ?Instructions ?Recorded levothyroxine 150 mcg tablet 150 mcg PO DAILY #90 tabs 02/13/24 anastrozole 1 mg tablet 1 mg PO DAILY #90 tabs 06/13/24 spironolactone 50 mg tablet 50 mg PO DAILY #90 tabs 10/17/24 tramadol 50 mg tablet 50 mg PO TID PRN pain #60 tabs 10/25/24 allopurinol 100 mg tablet 100 mg PO DAILY #90 tabs 11/01/24 amlodipine 5 mg tablet 5 mg PO DAILY #90 tabs 11/01/24 hydroxyzine HCl 25 mg tablet 25 mg PO BEDTIME #90 tabs 11/21/24 atorvastatin 40 mg tablet 40 mg PO DAILY #90 tabs 11/26/24 clopidogrel 75 mg tablet 75 mg PO DAILY #30 tabs 11/26/24 Allergies Allergy/AdvReac Type Severity Reaction Status Date / Time morphine AdvReac Severe Nausea Verified 11/25/24 07:37 Review of Systems Review of Systems ROS Unobtainable: Unobtainable due to medical condition Hematologic/Lymphatic On Anticoagulants: No Patient History Medical History Chronic pain of left knee Primary osteoarthritis of left knee Stress incontinence, female Urge incontinence Dementia Osteoarthritis, knee Mild cognitive impairment Breast cancer Appendicitis Abnormal mammogram Abnormal LFTs Hypothyroidism (acquired) (12/22/10) H/O malignant neoplasm of breast 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) Hypercholesteremia Urinary incontinence due to urethral sphincter incompetence Insomnia Benign essential hypertension Decreased vision Breast cancer, left breast (1998) Lymphedema of upper extremity (10/16/14) Stage 3 chronic kidney disease Surgical History S/P lumpectomy, left breast (03/30/21) S/P mastectomy History of tonsillectomy History of oophorectomy Status post hysterectomy (1990) Status post cholecystectomy (1997) Family History Brother Coronary artery disease Social History household members: spouse alcohol intake: never alcohol intake frequency: 0-2 drinks per day Exam Initial Vital Signs Initial Vital Signs: Vital Signs Pulse Rate 87 11/25/24 07:37 Respiratory Rate 18 11/25/24 07:37 Blood Pressure 174/73 H 11/25/24 07:37 Pulse Oximetry 96 11/25/24 07:37 Oxygen Delivery Method Room Air 11/25/24 07:37 Constitutional: 89-year-old female resting on the bed, alert Head: NCAT Cardiovascular: RRR, no murmur or rub Pulmonary: CTA bilaterally, no respiratory distress Abdominal: soft, non-tender Extremities: No LE edema Skin: warm and dry, no diaphoresis Neurological: Alert, oriented to self, not able to answer other orientation questions due to ? Aphasia. She has word salad type speech disruption. Moves all extremities no facial droop tongue protrudes midline follows commands symmetric and equal strength upper and lower extremities, normal [id number], no able to assess neglect. She reports able to since wiggling fingers in all visual hollis/all quadrants bilaterally Course Orders Ordered: Discontinued Medications Acetaminophen (Acetaminophen 325 Mg Tablet) 650 mg PO Q6H PRN PRN Reason: Fever/Mild Pain (1-3) Allopurinol (Allopurinol 100 Mg Tablet) 100 mg PO DAILY [facility] Last Admin: 11/26/24 08:54 Dose: 100 mg Documented By: JEFF Amlodipine Besylate (Amlodipine 5 Mg Tablet) 5 mg PO DAILY [facility] Last Admin: 11/26/24 08:54 Dose: 5 mg Documented By: JEFF Aspirin (Aspirin 81 Mg Chew Tab) 324 mg PO NOW ONE Stop: 11/25/24 07:47 Last Admin: 11/25/24 08:09 Dose: 324 mg Documented By: SGF Aspirin (Aspirin Ec 81 Mg Tablet) 81 mg PO DAILY [facility] [place] Last Admin: 11/26/24 08:54 Dose: 81 mg Documented By: JEFF Atorvastatin Calcium (Atorvastatin 20 Mg Tablet) 40 mg PO NOW ONE Stop: 11/25/24 13:48 Last Admin: 11/25/24 15:44 Dose: 40 mg Documented By: LDV Clopidogrel Bisulfate (Clopidogrel 75 Mg Tablet) 300 mg PO NOW ONE Stop: 11/25/24 09:16 Last Admin: 11/25/24 09:22 Dose: 300 mg Documented By: SGF Clopidogrel Bisulfate (Clopidogrel 75 Mg Tablet) 75 mg PO DAILY [facility] [place] Last Admin: 11/26/24 08:54 Dose: 75 mg Documented By: JEFF Enoxaparin Sodium (Enoxaparin 40 Mg/0.4 Ml Syringe) 40 mg SUBCUT DAILY [facility] Last Admin: 11/26/24 08:55 Dose: 40 mg Documented By: JEFF Hydroxyzine HCl (Hydroxyzine Hcl 25 Mg Tablet) 25 mg PO BEDTIME [facility] Last Admin: 11/25/24 21:27 Dose: 25 mg Documented By: JEFF(2) Sodium Chloride (Normal Saline 0.9%) 1,000 mls @ 1,000 mls/hr IV BOLUS ONE Stop: 11/25/24 08:43 Last Infusion: 11/25/24 09:22 Dose: Infused Documented By: Admin: 11/25/24 08:10 Dose: 1,000 mls/hr Documented By: SGF Levothyroxine Sodium (Levothyroxine 75 Mcg Tablet) 150 mcg PO 0600 [facility] [place] Last Admin: 11/26/24 06:04 Dose: 150 mcg Documented By: TD Naloxone HCl (Naloxone 0.4 Mg/Ml Vial) 0.2 mg IV Q2MIN PRN PRN Reason: Opiate Reversal Nf - Mirabegron ( Myrbetriq) 50 Mg Er Tablet 50 mg PO DAILY [facility] [place] Last Admin: 11/26/24 08:55 Dose: Not Given Documented By: JEFF Sodium Chloride (Sodium Chloride 0.9% Flush) 10 ml IV PRN PRN PRN Reason: Flush Sodium Chloride (Sodium Chloride 0.9% Flush) 10 ml IV BID [facility] Last Admin: 11/26/24 08:57 Dose: 10 ml Documented By: JEFF Spironolactone (Spironolactone 25 Mg Tablet) 50 mg PO DAILY [facility] Last Admin: 11/26/24 08:54 Dose: 50 mg Documented By: JEFF Tramadol HCl (Tramadol 50 Mg Tablet) 50 mg PO NOW ONE Stop: 11/25/24 09:34 Last Admin: 11/25/24 09:35 Dose: 50 mg Documented By: PATSY Tramadol HCl (Tramadol 50 Mg Tablet) 50 mg PO TID PRN PRN Reason: pain Vital Signs Vital signs: Vital Signs - 8 hr 11/25/24 07:37 Pulse Rate 87 Respiratory Rate 18 Blood Pressure 174/73 H Pulse Oximetry 96 Oxygen Delivery Method Room Air MDM - Neuro Symptoms/Deficit Lab Data 11/26/24 05:24 11/26/24 05:24 Labs: Lab Results 11/25/24 11/25/24 11/25/24 Range/Units 07:24 07:39 08:08 WBC 13.7 H (4.5-11.0) X10^3/uL RBC 5.60 H (4.0-5.2) X10^6/uL Hgb 16.9 H (12.0-16.0) g/dL Hct 49.2 H (36-46) % MCV 88.0 (80-100) fL MCH 30.2 (26-34) PG MCHC 34.3 (30-36) % RDW 13.3 (11.6-14.8) % Plt Count 285 (150-400) X10^3/uL Neut % (Auto) 73.5 (50-75) % Lymph % (Auto) 18.0 L (25-40) % [place] % (Auto) 8.1 (3-14) % Eos % (Auto) 0.0 L (2-4) % Baso % (Auto) 0.4 (0-2) % Neut # (Auto) 95060 H (4057-8612) /uL Lymph # (Auto) 2500 (9584-1368) /uL [place] # (Auto) 1100 H (0-900) /uL Eos # (Auto) 0 (0-450) /uL Baso # (Auto) 100 (0-100) /uL PT 12.1 (9.4-12.5) SECONDS INR 1.1 (0.9-1.3) APTT 28 (25.1-36.5) SECONDS Sodium 136 L (137-145) mmol/L Potassium 4.4 (3.4-5.1) mmol/L Chloride 103 (98-107) mmol/L Carbon Dioxide 22 (22-32) mmol/L BUN 22 H (7-17) mg/dL Creatinine 1.05 H (0.52-1.04) mg/dL Estimated GFR 51 L (>60) mL/min BUN/Creatinine Ratio 21.0 (6-22) Glucose 159 H (70-99) mg/dL POC Whole Bld Glucose 154 H (70-99) mg/dL Calcium 10.4 H (8.4-10.2) mg/dL Total Bilirubin 0.9 (0.2-1.3) mg/dL AST 48 H (14-36) IU/L ALT 50 H (<35) IU/L Alkaline Phosphatase 113 (38-126) U/L Total Protein 7.6 (6.3-8.2) g/dL Albumin 4.5 (3.5-5.0) g/dL Globulin 3.1 (1.7-4.1) g/dL Albumin/Globulin Ratio 1.5 (1.0-2.8) Urine Color Yellow Urine Appearance Clear Urine pH 7.0 (4.5-8.0) Ur Specific [place] 1.010 (1.000-1.035) Urine Protein Trace H (Negative) Urine Glucose (UA) Negative (Negative) g/dL Urine Ketones Trace H (NEGATIVE) Urine Occult Blood Negative (Negative) Urine Nitrate Negative (Negative) Urine Bilirubin Negative (NEGATIVE) Urine Urobilinogen 0.2 (0.2) E.U./dL Ur Leukocyte Esterase Negative (NEGATIVE) Urine RBC None seen (0-5/HPF) Urine WBC None seen (0-5/HPF) Ur Squamous Epith Cells None seen (0-5/HPF) Urine Bacteria None seen (None) Ur Culture Indicated? Cult not indicated Vol Urine Centrifuged 10ml (spun) U Opiates 300ng/mL cut Negative (Negative) Ur Oxycodone Screen Negative (Negative) Urine Methadone Screen Negative (Negative) Ur Barbiturates Screen Negative (Negative) U Tricyclic Antidepress Negative (Negative) Ur Phencyclidine Scrn Negative (Negative) Ur Amphetamines Screen Negative (Negative) U Methamphetamines Scrn Negative (Negative) Ur MDMA Scrn (Ecstasy) Negative (Negative) U Benzodiazepines Scrn Negative (Negative) Urine Cocaine Screen Negative (Negative) U Marijuana (THC) Screen Negative (Negative) Urine Specific [place] (Normal) Ethyl Alcohol < 10 (<10) mg/dL Ur Creatinine (Normal) SARS-CoV-2 (PCR) (Negative) 11/25/24 Range/Units 08:08 WBC (4.5-11.0) X10^3/uL RBC (4.0-5.2) X10^6/uL Hgb (12.0-16.0) g/dL Hct (36-46) % MCV (80-100) fL MCH (26-34) PG MCHC (30-36) % RDW (11.6-14.8) % Plt Count (150-400) X10^3/uL Neut % (Auto) (50-75) % Lymph % (Auto) (25-40) % [place] % (Auto) (3-14) % Eos % (Auto) (2-4) % Baso % (Auto) (0-2) % Neut # (Auto) (2243-9265) /uL Lymph # (Auto) (3567-0048) /uL [place] # (Auto) (0-900) /uL Eos # (Auto) (0-450) /uL Baso # (Auto) (0-100) /uL PT (9.4-12.5) SECONDS INR (0.9-1.3) APTT (25.1-36.5) SECONDS Sodium (137-145) mmol/L Potassium (3.4-5.1) mmol/L Chloride (98-107) mmol/L Carbon Dioxide (22-32) mmol/L BUN (7-17) mg/dL Creatinine (0.52-1.04) mg/dL Estimated GFR (>60) mL/min BUN/Creatinine Ratio (6-22) Glucose (70-99) mg/dL POC Whole Bld Glucose (70-99) mg/dL Calcium (8.4-10.2) mg/dL Total Bilirubin (0.2-1.3) mg/dL AST (14-36) IU/L ALT (<35) IU/L Alkaline Phosphatase (38-126) U/L Total Protein (6.3-8.2) g/dL Albumin (3.5-5.0) g/dL Globulin (1.7-4.1) g/dL Albumin/Globulin Ratio (1.0-2.8) Urine Color Urine Appearance Urine pH Normal (4.5-8.0) Ur Specific [place] (1.000-1.035) Urine Protein (Negative) Urine Glucose (UA) (Negative) g/dL Urine Ketones (NEGATIVE) Urine Occult Blood (Negative) Urine Nitrate (Negative) Urine Bilirubin (NEGATIVE) Urine Urobilinogen (0.2) E.U./dL Ur Leukocyte Esterase (NEGATIVE) Urine RBC (0-5/HPF) Urine WBC (0-5/HPF) Ur Squamous Epith Cells (0-5/HPF) Urine Bacteria (None) Ur Culture Indicated? Vol Urine Centrifuged U Opiates 300ng/mL cut (Negative) Ur Oxycodone Screen (Negative) Urine Methadone Screen (Negative) Ur Barbiturates Screen (Negative) U Tricyclic Antidepress (Negative) Ur Phencyclidine Scrn (Negative) Ur Amphetamines Screen (Negative) U Methamphetamines Scrn (Negative) Ur MDMA Scrn (Ecstasy) (Negative) U Benzodiazepines Scrn (Negative) Urine Cocaine Screen (Negative) U Marijuana (THC) Screen (Negative) Urine Specific [place] Normal (Normal) Ethyl Alcohol (<10) mg/dL Ur Creatinine Normal (Normal) SARS-CoV-2 (PCR) Negative (Negative) MDM Narrative Medical decision making narrative: In brief, this is a 89-year-old female who presents via EMS from facility due to concerns for acute stroke. Patient reported to at 9:00 a.m. last night have some slurred speech, woke up this morning with worsening symptoms. Patient is very aphasic on arrival and difficult to assess or glean any history from. In chart review: AC has history of insomnia, breast cancer, CKD 3, hypothyroidism, dementia Exam is pertinent for: Expressive and receptive aphasia. She participates with some portions of the neurologic exam but it is limited with testing of visual hollis and sensation. She follows most commands. Her NIHSS is 6 Differential diagnoses considered but not limited to: Normal glucose excluding hypoglycemia. Presentation is most concerning for acute CVA. She is not a TNK candidate due to duration of symptoms Initial treatment plan includes: Code stroke called at 7:45 a.m. shortly after arrival and my assessment of the patient. Airway intact. No respiratory distress. Patient is hypertensive, otherwise normal vital signs. Aspirin 324 chewed is ordered. Stroke laboratories, EKG ordered EKG 0746 sinus rhythm rate of 84, normal intervals normal axis. There is wavering baseline but no overt ST elevation or depression Laboratories modest leukocytosis ?hemoconcentration. CMP stable. CT/CTA negative. MR ordered and pending. PCP will admit. Family and patient updated regarding possible stroke. Confirmed no prior history of. Her speech seems to be improved at times, other times is slurred or word salad. Pertinent scoring tools used to guide clinical decision making, if applicable: NIH Stroke Scale/Score (NIHSS) from [employer] on 11/25/2024 All calculations should be rechecked by clinician prior to use RESULT SUMMARY: 6 points NIH Stroke Scale INPUTS: 1A: Level of consciousness ?> 0 = Alert; keenly responsive 1B: Ask month and age ?> 2 = 0 questions right 1C: 'Blink eyes' & 'squeeze hands' ?> 0 = Performs both tasks 2: Horizontal extraocular movements ?> 0 = Normal 3: Visual hollis ?> 0 = No visual loss 4: Facial palsy ?> 0 = Normal symmetry 5A: Left arm motor drift ?> 0 = No drift for 10 seconds 5B: Right arm motor drift ?> 0 = No drift for 10 seconds 6A: Left leg motor drift ?> 0 = No drift for 5 seconds 6B: Right leg motor drift ?> 0 = No drift for 5 seconds 7: Limb Ataxia ?> 0 = Does not understand 8: Sensation ?> 0 = Normal; no sensory loss 9: Language/aphasia ?> 2 = Severe aphasia: fragmentary expression, inference needed, cannot identify materials 10: Dysarthria ?> 2 = Severe dysarthria: unintelligible slurring or out of proportion to dysphasia 11: Extinction/inattention ?> 0 = No abnormality Discharge Plan Departure Patient Disposition: Admitted As Inpatient Clinical Impression: Stroke determined by clinical assessment Admit Date/Time: 11/25/24 09:31 Admit Provider: Wayne Steen
[2024-11-25 07:57] LABS: Add Manual Diff / Slide Review NO; Hematocrit 49.2 % (36-46); Hemoglobin 16.9 g/dL (12.0-16.0); Lymphocytes Absolute Auto 2500 /uL (1100-4500); Mean Corpuscular HGB Conc 34.3 % (30-36); Mean Corpuscular Hemoglobin 30.2 PG (26-34); Mean Corpuscular Volume 88.0 fL (80-100); Platelet Count 285 X10^3/uL (150-400)
[2024-11-25 08:01] LABS: INR 1.1 (0.9-1.3); Prothrombin Time 12.1 SECONDS (9.4-12.5)
[2024-11-25 08:04] LABS: PTT Partial Thromboplastin Tim 28 SECONDS (25.1-36.5)
[2024-11-25 08:06] LABS: Alanine Aminotransferase 50 IU/L (<35); Albumin 4.5 g/dL (3.5-5.0); Albumin Globulin Ratio 1.5 (1.0-2.8); Alkaline Phosphatase 113 U/L (38-126); Blood Urea Nitrogen 22 mg/dL (7-17); Calcium 10.4 mg/dL (8.4-10.2); Carbon Dioxide 22 mmol/L (22-32); Chloride 103 mmol/L (98-107); Estimated Glomerular Filt Rate 51 mL/min (>60); Ethanol (ETOH) < 10 mg/dL (<10); Globulin 3.1 g/dL (1.7-4.1); Glucose 159 mg/dL (70-99); HEMOLYSIS 17 (0-50); Potassium 4.4 mmol/L (3.4-5.1); Sodium 136 mmol/L (137-145); Total Protein 7.6 g/dL (6.3-8.2)
[2024-11-25] MEDS: ASPIRIN 81 MG CHEW TAB 324 MG PO (08:09)
[2024-11-25] MEDS: SODIUM CHLORIDE 0.9% 1,000 ML 1000 ML IV (08:10)
[2024-11-25 08:25] LABS: Ur Creatinine Normal (Normal); Ur Specific Gravity Normal (Normal); Urine MDMA Negative (Negative); Urine Methamphetamines Negative (Negative); Urine THC Negative (Negative); Urine pH Normal (Normal)
[2024-11-25 08:26] LABS: Appearance Urine UA CLEAR; Bilirubin Urine UA NEGATIVE (NEGATIVE); Color Urine UA YELLOW; Glucose Urine UA NEGATIVE (Negative); Ketones Urine UA TRACE (NEGATIVE); Leukocyte Esterase Urine UA NEGATIVE (NEGATIVE); Nitrite Urine UA NEGATIVE (Negative); Occult Blood Urine UA NEGATIVE (Negative); Protein Urine UA TRACE (Negative); Specific Gravity Urine UA 1.010 (1.000-1.035); Urine Tricyclic Antidepressant Negative (Negative); Urobilinogen Urine UA 0.2 E.U./dL (0.2)
[2024-11-25 08:27] LABS: pH Urine UA 7.0 (4.5-8.0)
[2024-11-25 08:30] LABS: Culture Indicated Urine Cult Not Indicated
[2024-11-25 08:35] LABS: COVID19 -Nasal RAPID Negative (Negative)
--- NOTE | 2024-11-25 09:03 | DI.MRI.S_ITS ---
PROCEDURE: MR HEAD/BRAIN WO CON INDICATIONS: aphasia TECHNIQUE: Non-contrast axial T1 spin echo, axial T2 fast spin echo, sagittal and axial FLAIR, coronal T2 fast spin echo, axial gradient echo, axial diffusion and ADC through the brain. COMPARISON: Same-day CT noncontrast 11/25/2024. FINDINGS: Image quality: Diagnostic CSF spaces: Ventricles appear symmetric in size and shape. Basal cisterns are patent. No extra-axial fluid collections. Brain: No intracranial bleeds or mass effects. There is cerebral volume loss for age. There are periventricular and deep white matter chronic small vessel ischemic changes. Brainstem appears normal. Diffusion-weighted images show no acute infarct. No chronic ischemic insults. Normal intravascular flow voids are present. Skull and face: Calvarial bone marrow is normal in signal. Orbits are normal. Sinuses: Sinuses and mastoids are clear. IMPRESSION: No acute intracranial process. Approved by: Ana Singleton M.D.,Ph.D. on 11/25/2024 at 11:34
[2024-11-25] MEDS: CLOPIDOGREL 75 MG TABLET 300 MG PO (09:22)
--- NOTE | 2024-11-25 09:31 | PM.HP.IH.1 ---
History of Present Illness History of Present Illness Date Patient Seen: 11/25/24 Time Patient Seen: 09:31 Chief complaint: Speech LKW 9 PM Narrative: 89-year-old female well known to me presented to the emergency department with alterations in her speech. She was evaluated in the ER felt to path a probable ongoing CVA. Last known well would have been about 21:00 night prior although symptoms have waxed and waned and time of admission are generally improving but seems to have kind of an expressive aphasia kind of process ongoing ER evaluation unremarkable mild leukocytosis but otherwise lab work unremarkable urinalysis unremarkable CT angiogram of the head and neck unremarkable CT scan of the head unremarkable Patient is admitted for further evaluation Her symptoms appear to be a waxing and waning difficulty with speech where she speaks but the words she is speaking are completely gibberish although very recognizable. Patient seems to have been much worse upon presentation to the emergency department and overall is improving even though series to be some sort of waxing and waning as above. [facility] Medical History (Updated 11/25/24 @ 10:42 by Wayne Steen MD) Chronic pain of left knee Primary osteoarthritis of left knee Stress incontinence, female Urge incontinence Dementia Osteoarthritis, knee Mild cognitive impairment Breast cancer Appendicitis Abnormal mammogram Abnormal LFTs Hypothyroidism (acquired) (12/22/10) H/O malignant neoplasm of breast 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) Hypercholesteremia Urinary incontinence due to urethral sphincter incompetence Insomnia Benign essential hypertension Decreased vision Breast cancer, left breast (1998) Lymphedema of upper extremity (10/16/14) Stage 3 chronic kidney disease Surgical History S/P lumpectomy, left breast (03/30/21) S/P mastectomy History of tonsillectomy History of oophorectomy Status post hysterectomy (1990) Status post cholecystectomy (1997) Family History Brother Coronary artery disease Social History household members: spouse alcohol intake: never Meds Home Medications and Allergies Home Medications ?Medication ?Instructions ?Recorded ?Confirmed ?Type levothyroxine 150 mcg tablet 150 mcg PO DAILY #90 tabs 02/13/24 11/25/24 Rx ondansetron 4 mg disintegrating 4 mg PO DAILY PRN nausea and 04/11/24 11/13/24 Rx tablet vomiting #30 tabs aspirin 81 mg tablet,delayed 81 mg PO DAILY 05/06/24 11/25/24 History release anastrozole 1 mg tablet 1 mg PO DAILY #90 tabs 06/13/24 11/25/24 Rx estradiol 0.01% (0.1 mg/gram) 1 g vaginal 3XW #42.5 grams 07/24/24 11/13/24 Rx vaginal cream (Estrace) mirabegron 50 mg tablet,extended 50 mg PO DAILY #30 tabs 07/24/24 11/13/24 Rx release 24 hr (Myrbetriq) simvastatin 20 mg tablet 20 mg PO DAILY #90 tabs 07/29/24 11/25/24 Rx spironolactone 50 mg tablet 50 mg PO DAILY #90 tabs 10/17/24 11/25/24 Rx tramadol 50 mg tablet 50 mg PO TID PRN pain #60 tabs 10/25/24 11/25/24 Rx allopurinol 100 mg tablet 100 mg PO DAILY #90 tabs 11/01/24 11/25/24 Rx amlodipine 5 mg tablet 5 mg PO DAILY #90 tabs 11/01/24 11/25/24 Rx hydroxyzine HCl 25 mg tablet 25 mg PO BEDTIME #90 tabs 11/21/24 11/25/24 Rx Allergies Allergy/AdvReac Type Severity Reaction Status Date / Time morphine AdvReac Severe Nausea Verified 11/25/24 07:37 Review of Systems Review of Systems ROS: Yes All systems reviewed with the patient and are negative except as otherwise documented Exam Vital Signs (past 8 hours): - 11/25/24 07:37 11/25/24 07:42 11/25/24 07:49 Pulse Rate 87 85 Respiratory Rate 18 Blood Pressure 174/73 H 159/71 H Pulse Oximetry 96 93 Oxygen Delivery Method Room Air 11/25/24 07:49 11/25/24 07:57 11/25/24 07:57 Pulse Rate 84 84 Respiratory Rate Blood Pressure 154/67 H Pulse Oximetry 92 93 Oxygen Delivery Method 11/25/24 08:00 11/25/24 08:00 11/25/24 08:30 Pulse Rate 80 80 Respiratory Rate 24 25 H Blood Pressure 153/65 H Pulse Oximetry 92 93 Oxygen Delivery Method 11/25/24 08:30 Pulse Rate Respiratory Rate Blood Pressure 153/66 H Pulse Oximetry Oxygen Delivery Method Oxygen Delivery Method Room Air Narrative Exam Narrative: Elderly female lying on a [facility] emergency department in no obvious distress HEENT-unremarkable Lungs-clear Heart-regular rate and rhythm Abdomen-benign Neuro-alert and oriented x3 speech seems normal for her, no focal neurologic findings, gait not tested Objective Labs 11/25/24 07:24 11/25/24 07:24 Labs: Laboratory Results - last 24 hr 11/25/24 11/25/24 11/25/24 07:24 07:39 08:08 WBC 13.7 H RBC 5.60 H Hgb 16.9 H Hct 49.2 H MCV 88.0 MCH 30.2 MCHC 34.3 RDW 13.3 Plt Count 285 Neut % (Auto) 73.5 Lymph % (Auto) 18.0 L Nuckolls % (Auto) 8.1 Eos % (Auto) 0.0 L Baso % (Auto) 0.4 Neut # (Auto) 63765 H Lymph # (Auto) 2500 [place]olls # (Auto) 1100 H Eos # (Auto) 0 Baso # (Auto) 100 PT 12.1 INR 1.1 APTT 28 Sodium 136 L Potassium 4.4 Chloride 103 Carbon Dioxide 22 BUN 22 H Creatinine 1.05 H Estimated GFR 51 L BUN/Creatinine Ratio 21.0 Glucose 159 H POC Whole Bld Glucose 154 H Calcium 10.4 H Total Bilirubin 0.9 AST 48 H ALT 50 H Alkaline Phosphatase 113 Total Protein 7.6 Albumin 4.5 Globulin 3.1 Albumin/Globulin Ratio 1.5 Urine Color Yellow Urine Appearance Clear Urine pH 7.0 Ur Specific Hoffman 1.010 Urine Protein Trace H Urine Glucose (UA) Negative Urine Ketones Trace H Urine Occult Blood Negative Urine Nitrate Negative Urine Bilirubin Negative Urine Urobilinogen 0.2 Ur Leukocyte Esterase Negative Urine RBC None seen Urine WBC None seen Ur Squamous Epith Cells None seen Urine Bacteria None seen Ur Culture Indicated? Cult not indicated Vol Urine Centrifuged 10ml (spun) U Opiates 300ng/mL cut Negative Ur Oxycodone Screen Negative Urine Methadone Screen Negative Ur Barbiturates Screen Negative U Tricyclic Antidepress Negative Ur Phencyclidine Scrn Negative Ur Amphetamines Screen Negative U Methamphetamines Scrn Negative Ur MDMA Scrn (Ecstasy) Negative U Benzodiazepines Scrn Negative Urine Cocaine Screen Negative U Marijuana (THC) Screen Negative Urine Specific Hoffman Ethyl Alcohol < 10 Ur Creatinine SARS-CoV-2 (PCR) 11/25/24 08:08 WBC RBC Hgb Hct MCV MCH MCHC RDW Plt Count Neut % (Auto) Lymph % (Auto) Nuckolls % (Auto) Eos % (Auto) Baso % (Auto) Neut # (Auto) Lymph # (Auto) N[place]olls # (Auto) Eos # (Auto) Baso # (Auto) PT INR APTT Sodium Potassium Chloride Carbon Dioxide BUN Creatinine Estimated GFR BUN/Creatinine Ratio Glucose POC Whole Bld Glucose Calcium Total Bilirubin AST ALT Alkaline Phosphatase Total Protein Albumin Globulin Albumin/Globulin Ratio Urine Color Urine Appearance Urine pH Normal Ur Specific Hoffman Urine Protein Urine Glucose (UA) Urine Ketones Urine Occult Blood Urine Nitrate Urine Bilirubin Urine Urobilinogen Ur Leukocyte Esterase Urine RBC Urine WBC Ur Squamous Epith Cells Urine Bacteria Ur Culture Indicated? Vol Urine Centrifuged U Opiates 300ng/mL cut Ur Oxycodone Screen Urine Methadone Screen Ur Barbiturates Screen U Tricyclic Antidepress Ur Phencyclidine Scrn Ur Amphetamines Screen U Methamphetamines Scrn Ur MDMA Scrn (Ecstasy) U Benzodiazepines Scrn Urine Cocaine Screen U Marijuana (THC) Screen Urine Specific Hoffman Normal Ethyl Alcohol Ur Creatinine Normal SARS-CoV-2 (PCR) Negative Assessment & Plan Assessment & Plan narrative: 1. Probable CVA-patient to have MR imaging to complement the CT based imaging as well. Will place her on telemetry looking for rhythm disturbance such as atrial fibrillation and obtain echocardiography as well looking for possible cardiac source of embolization etcetera. For now we will continue her aspirin which she has been taking but add Plavix 75 mg daily at least for the next 90 days. Will upgrade her statin therapy from simvastatin to more of a high-intensity statin therapy with atorvastatin 40 mg daily while in the hospital and consider rosuvastatin upon discharge. She will need to be evaluated with skilled therapies including PT OT and speech therapy. Start off with initial swallow screen by nursing staff and then have her seen by speech therapy. Dissipate probably okay to have normal consistency diet. 2. Major neurocognitive disorder/dementia-patient has some degree of a major neurocognitive disorder/dementia which may complicate her evaluation as above. No specific intervention at this time 3. Urinary incontinence-continue patient's usual meds 4. Hypertension-blood pressure just a little bit on the high side here. Continue to monitor for now no specific interventions if anything allowing a bit of permissive hypertension to start with 5. Hyperlipidemia-as above switch to a high-intensity statin therapy 6. Hypothyroidism-plan to recheck her TSH and T4 this admission, last checked January 2024 7. History of breast cancer-not an active issue at this time. 8. VTE prophylaxis-Lovenox makes sense and has been ordered 9. Code status-patient's previously expressed wishes for full code in the event of a sudden cardiac or respiratory arrest would like to be fully resuscitated 10. Transaminitis-patient with longstanding elevation of transaminases on lab work without evidence of progression or more significant liver disease. This has been present since at least 2007 and probably before. No need for further evaluation at this time (or ever unless clinical change suggests change in condition), in my opinion Time-Based Coding :: [TOTAL MINUTES] spent with patient and on the chart (including review of chart, obtaining history, exam, reviewing outside data, placing orders, documenting exam and treatment plan, and counseling patient) on [DATE]. [employer] Document charge(s): Yes Charge Codes Initial inpatient/observation care: 12675
--- NOTE | 2024-11-25 10:59 | PC.NURSE ---
Pt to MRI
--- NOTE | 2024-11-25 11:22 | PC.NURSE ---
Pt back from MRI. Per computer technical specialist, patient tolerated procedure well. Pt placed back in room, on monitor and given warm blanket for comfort
--- NOTE | 2024-11-25 13:47 | DI.ECHO.S_ITS ---
[place] +---------+ Hospital : : [address] : : [place] : : [address] : : Phone: [phone] Echocardiogram Report + + :Name: TAYLOR GONZALEZ Study Date: 11/26/2024 Height: 65 in : :[facility] ReadingLocation: Weight: 146 lb : : Gender: Female BSA: 1.7 m2 : :: 1935 Age: 89 yrs BP: 170/74 mmHg: :Reason For Study: CVA : :Ordering Physician: MATHEUS, : :RICH Albarran Performed By: Nikki Hogan : :Referring: RICH JARVIS : + + Interpretation Summary The ejection fraction is estimated to be 65-70%. There is mild mitral regurgitation. There is mild aortic regurgitation. There is mild tricuspid regurgitation. There is no Doppler evidence for an interatrial shunt. Procedure: A two-dimensional transthoracic echocardiogram with color flow and Doppler was performed. The study quality was technically adequate. Comparison is made with the echocardiogram of 11/25/2022. The patient was in sinus bradycardia with heart rates between 58-65 bpm during the exam. Left Ventricle: The left ventricle is normal in size. Proximal septal thickening is noted. The ejection fraction is estimated to be 65-70%. Left ventricular wall motion is normal. Normal diastolic function. Right Ventricle: The right ventricle is normal in size and function. Atria: The left atrial size is normal. Right atrial size is normal. There is no Doppler evidence for an interatrial shunt. Mitral Valve: The mitral valve leaflets appear mildly thickened. There is mild mitral regurgitation. Aortic Valve: The aortic valve is trileaflet. The aortic valve opens well. There is mild aortic valve sclerosis. There is no aortic valve stenosis. There is mild aortic regurgitation. Tricuspid Valve: The tricuspid valve leaflets are thin and pliable. There is mild tricuspid regurgitation. The right ventricular systolic pressure is estimated to be at least 18 mmHg based on an estimated right atrial pressure of 3 mm Hg. Pulmonic Valve: The pulmonic valve leaflets are thin and pliable; valve motion is normal. There is mild pulmonic regurgitation. Great Vessels: The aortic root is normal size. The dimensions of the ascending aorta are normal. The IVC is of normal diameter and collapses greater than 50% with a sniff. This suggests a low right atrial pressure of 3 mm Hg. Pericardium/ Pleura There is no pericardial effusion. There is no pleural effusion. MMode/2D Measurements & Calculations LVIDd: 3.8 cm LVOT diam: 2.0 cm LVIDs: 2.3 cm Ao root diam: 2.9 cm FS: 39.3 % asc Aorta Diam: 3.7 cm IVSd: 0.96 cm Ao Arch Diam (Prox Trans): 2.6 cm LVPWd: 0.84 cm LV tomlin. diameter/BSA (cm/m^2): 2.2 LV sys. diameter/BSA (cm/m^2): 1.3 LA A2 area: 10.6 cm2 RA long axis: 3.6 cm LA A4 area: 8.4 cm2 RA area: 7.4 cm2 LA length (vol): 3.4 cm RA vol: 13.1 ml LA vol: 22.2 ml RA : 7.6 ml/m2 LA vol index: 12.8 ml/m2 IVC diam: 1.6 cm RVD1 (basal): 2.8 cm TAPSE: 1.7 cm Doppler Measurements & Calculations Ao V2 max: 107.9 cm/sec LVOT Max Clint: 103.7 cm/sec Ao V2 mean: 75.9 cm/sec LV V1 max P.3 mmHg Ao max P.3 mmHg LV V1 VTI: 19.3 cm Ao mean P.7 mmHg ANTHONY(I,D): 2.6 cm2 Ao V2 VTI: 22.9 cm ANTHONY(V,D): 3.0 cm2 sev ratio: 0.84 ANTHONY indexed to BSA (cm^2/m^2): 1.5 MV E max clint: 49.2 cm/sec TR max clint: 195.7 cm/sec MV A max clint: 86.8 cm/sec TR max P.3 mmHg MV E/A: 0.57 PA V2 max: 86.4 cm/sec Med Peak E' Clint: 5.8 cm/sec PA V2 mean: 60.6 cm/sec E/E' med: 8.5 PA mean P.7 mmHg Lat Peak E' Clint: 4.9 cm/sec PA pr(Accel): 43.9 mmHg E/E' lat: 10.0 E/e' average: 9.3 MV dec time: 0.26 sec SV([facility]): 59.6 ml Reading Physician:11:38 AM
--- NOTE | 2024-11-25 15:04 | OT.IP.EVAL ---
Current Diagnoses Cerebral infarction, unspecified (11/25/24) Past Medical History (Last Updated 11/25/24 @ 10:42 by Wayne Steen MD) Abnormal LFTs Abnormal mammogram Appendicitis Benign essential hypertension 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) Breast cancer Breast cancer, left breast (1998) Chronic pain of left knee Decreased vision Dementia H/O malignant neoplasm of breast Hypercholesteremia Hypothyroidism (acquired) (12/22/10) Insomnia Lymphedema of upper extremity (10/16/14) Mild cognitive impairment Osteoarthritis, knee Primary osteoarthritis of left knee Stage 3 chronic kidney disease Stress incontinence, female Urge incontinence Urinary incontinence due to urethral sphincter incompetence Surgical History (Last Reviewed 11/25/24 @ 09:32 by Wayne Steen MD) History of oophorectomy History of tonsillectomy S/P lumpectomy, left breast (03/30/21) S/P mastectomy Status post cholecystectomy (1997) Status post hysterectomy (1990) Occupational Therapy Inpatient Evaluation/Re-Eval M1 PT/OT-IP Prior Functional Status Start: 11/25/24 14:44 Freq: NEEDED Status: Active Protocol: Document 11/25/24 14:44 GARRETT (Rec: 11/25/24 15:03 GARRETT [id number]) Medical Review Prior Functional Status Medical History Yes Reviewed Communication Pt able to make needs known. Pt presents with dysarthria and expressive aphasia. Mobility and Gait Pt and family report she amb with 4WW only when leaving her apartment, otherwise she did not use an AD Activities of Daily Pt performs her BADLs. Pt has assistance for cooking, Living and IADL's laundry, housework, and medication mgmt. Social History Household Members spouse Living Arrangements Apartment/Condo Number of Floors ( One Floor Floors) Number of Stairs To [place]. Pt has access to elevators for use of Enter/Railing? different floors, no steps to enter facility. Home Environment High Toilet,Walk in Shower,Built-In Shower Seat Home Equipment Four Wheel Walker,Grab Bars Near Toilet,Grab Bars In Shower Employment Status Retired M2 OT-IP Current Condition Start: 11/25/24 14:44 Freq: Status: Active Protocol: Document 11/25/24 14:44 GARRETT (Rec: 11/25/24 15:03 GARRETT [id number]) Occupational Therapy Current Condition Current Condition Evaluation Date 11/25/24 Treatment Diagnosis TIA, cognitive changes, decreased self care M3 OT- IP Subjective and Pain Start: 11/25/24 14:44 Freq: Status: Active Protocol: Document 11/25/24 14:44 GARRETT (Rec: 11/25/24 15:03 GARRETT [id number]) OT- Subjective Occupational Therapy Visit Type Type Initial Evaluation Visit Start Time 14:10 Visit Stop Time 14:42 Notes Pt reclined in bed with family present, willing to participate in OT eval. Occupational Therapy Visit Comments Patient Comments I don't know what I want. I've never had this before. Patient/Caregiver To go home when safe to do so. Goals OT Pain Assessment Pain When Pain Assessed After Treatment Pain Present Pain Present Denied Pain M4 OT- IP ADL's Start: 11/25/24 14:44 Freq: Status: Active Protocol: Document 11/25/24 14:44 GARRETT (Rec: 11/25/24 15:03 [id number]) OT [id number] Comments OT Self-Feeding not observed Comments OT ADL-Grooming General Evaluation Grooming Ability Standby Assistance Areas Needing Retrieving/Set-up of Grooming Items Assistance Comments OT Grooming Comments Pt performs hand hygiene and hair brushing sink side with S OT ADL-Oral Care Comments Oral Care Comments not observed OT ADL-Dressing General Eval Lower Body Dressing Contact Guard Assistance,Minimal Assistance Ability Areas Needing Underpants/Brief,Socks Assistance Comments OT Dressing Comments Pt doffed and donned B socks with CGA due to LOB while EOB. Pt needs min A to adjust velcro brief. OT ADL-Toileting General Evaluation Toileting Ability Minimal Assistance Devices Toileting Assistive Grab Bars Devices Comments OT Toileting Pt needs MIN A to manage velcro style brief Comments OT ADL-Bathing Comments OT Bathing Comments not observed M5 OT- IP IADL's Start: 11/25/24 14:44 Freq: Status: Active Protocol: Document 11/25/24 14:44 GARRETT (Rec: 11/25/24 15:03 GARRETT [id number]) OT-Instrumental Activities of Daily Living Deficits IADL Deficits No Deficits Identified Home Safety Awareness Awareness of Need Decreased Awareness for Assistance at Home Ability to Problem Unable to Problem Solve Solve Emergency Situations Home Safety Comments Pt leaves her FWW behind while amb around the room and needs OT to remind her to bring it with her. She also needs cues to correctly orient the FWW. Medication Management Medication Caregiver Provides Supervision Management Money Management Money Management Caregiver Provides Supervision Meal Preparation Meal Preparation Caregiver Provides Assist Exercise Physiologist Certified Exercise Physiologist Certified Caregiver Provides Assist Driving Driving Caregiver Provides Assist M6 OT- IP Functional Cognition Start: 11/25/24 14:44 Freq: Status: Active Protocol: Document 11/25/24 14:44 GARRETT (Rec: 11/25/24 15:03 [facility] [id number]) Cognitive Factors Limiting Selfcare Function Cognitive Ability Level of Alertness Alert,Confusional State Patient Orientation Name,Day of Week,Place,Situation Attention Span Capable of Focused Attention,Capable of Sustained Ability Attention Ability to Follow Able to Follow One Step Commands,Able to Follow Multi- Commands Step Commands Memory Description Short Term Impaired,Fdc Impaired Cognitive Comments Cognitive Assessment Pt may benefit from SLUMS assessment Comments OT- Vision and Hearing OT- Hearing Assessment OT- Hearing WFL Assessment OT- Vision Assessment Visual Acuity WFL,Glasses All The Time M7 OT- IP Mobility and Balance Start: 11/25/24 14:44 Freq: Status: Active Protocol: Document 11/25/24 14:44 GARRETT (Rec: 11/25/24 15:03 [facility] [id number]) OT- Bed Mobility Assessment Supine to Sit Supine to Sit Assist Standby Assistance,Head of Bed Elevated Sit to Supine Sit to Supine Assist Standby Assistance,Head of Bed Elevated Scooting Scooting to Edge of Standby Assistance Bed OT-Transfer Assessment Sit to and From Stand Sit to and from Contact Guard Assistance Stand Transfers Transfer Ability Contact Guard Assistance Technique Transfer Destination Bed,Toilet Transfer Technique Stand Step Pivot Devices Transfer Assistive Gait Belt,Front Wheeled Walker Devices Comments Mobility Comments Pt needs vcs for safety awareness during sit<>stand OT- Gait Assessment Gait Gait Assistance Standby Assistance,Contact Guard Assist Required: Distance (Feet) 15 Assistive Devices Assistive Device Gait Belt,Front Wheeled Walker Comments Gait Ability Pt amb throughout room for BADLs. Pt needs vcs to Comments attend to her FWW and to orient it correctly at times. OT- Balance Assessment Sitting Balance and Reactions Static Sitting Good Balance Ability Dynamic Sitting Fair Balance Ability Standing Balance and Reactions Static Standing Fair Balance Ability Dynamic Standing Fair Balance Ability Comments Other Balance Tests/ Pt with 1 LOB while don/doff socks sitting EOB, able to Deviations/Treatment self correct : M8 OT- IP Objective Assessments Start: 11/25/24 14:44 Freq: Status: Active Protocol: Document 11/25/24 14:44 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 (Rec: 11/25/24 15:03 [facility] [id number]) OT Summary Assessment and Plan Potential Rehabilitation Excellent Potential Analytic Complexity Low at Evaluation Summary OT Impairments Strength,Balance,Functional Cognition,Functional Mobility,Grooming,Dressing,Toileting,Bathing,Toilet Transfers,Shower Transfers,Activity Tolerance Progress Towards Progressing Toward Goals Goals Assessment Summary Pt is an 89 yo F who began having altered speech pattern last night that progressed into this morning. Pt was brought to the ED, where her MRI shows no acute infarct, TIA is suspected. Pt has some dementia at baseline. During the eval, pt presents with dysarthria and expressive aphasia during OT eval. Pt demonstrates no notable difference from R UE to L UE for strength or coordination assessments. Pt appears to have some baseline cognitive deficits and would benefit from further assessment with SLUMS. Pt presents with decreased functional cognition, decreased safety awareness, decreased functional mobility, impaired BADLs from her PLOF, skilled OT services are appropriate to address these deficits. OT recommends dc home with HH services when medical able. Goals Grooming Goal Independent Dressing Goal Independent Toileting Goal Independent Bathing Goal Independent Toilet Transfer Goal Independent Shower Transfer Goal Independent Days to Meet Goals 10 Frequency of Treatment Other frequency 5x/wk Treatment Plan OT Treatment Plan ADL Training,Functional Cognition Training,Functional Mobility,Therapeutic Exercises,Patient/Family Education ,Discharge Planning Other Treatment SLUMS Recommendations and Next Treatment Focus Discharge Recommendations OT Discharge Home with Assistance,Home Health Recommendations Transportation Needs Private Vehicle at Discharge
[2024-11-25] MEDS: ATORVASTATIN 20 MG TABLET 40 MG PO (15:44)
--- NOTE | 2024-11-25 15:45 | ST.IPCSEOM ---
Visit Care Team Role Provider Type Sandie Cisneros MD Emergency Provider Physician Referring Provider Specialty: Emergency Medicine Address: [address] [place] [address], [phone] Fax: Email: [email or web address] Wayne Steen MD Admit Provider Physician Attending Provider Primary Care Provider Specialty: Internal Medicine Address: [address] [place] [address], [address], [place], [address] Email: [email or web address] Current Diagnoses Cerebral infarction, unspecified (11/25/24) Past Medical History (Last Updated 11/25/24 @ 10:42 by Wayne Steen MD) Abnormal LFTs (Medical) no w/u back to 2007 Abnormal mammogram (Medical) comlex cyst on U/S 11/07 Appendicitis (Medical) Benign essential hypertension (Medical) 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) Breast cancer (Medical) Breast cancer, left breast (Medical 1998) Chronic pain of left knee (Medical) Decreased vision (Medical) OS Dementia (Medical) H/O malignant neoplasm of breast (Medical) Hypercholesteremia (Medical) Hypothyroidism (acquired) (Medical 12/22/10) Insomnia (Medical) Lymphedema of upper extremity (Medical 10/16/14) Results of lymph node dissection for breast cancer Mild cognitive impairment (Medical) Osteoarthritis, knee (Medical) Primary osteoarthritis of left knee (Medical) Stage 3 chronic kidney disease (Medical) CKD 3 Stress incontinence, female (Medical) Urge incontinence (Medical) 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 Seten Reason for Referral possible CVA Setting Assessment Location Acute Care Visit Type Note Type Initial evaluation Next Note Type Next Note Type Treatment Note Patient Information Identification Type Name History Per H&P: 89-year-old female well known to me presented to the emergency department with alterations in her speech. She was evaluated in the ER felt to path a probable ongoing CVA. Last known well would have been about 21:00 night prior although symptoms have waxed and waned and time of admission are generally improving but seems to have kind of an expressive aphasia kind of process ongoing ER evaluation unremarkable mild leukocytosis but otherwise lab work unremarkable urinalysis unremarkable CT angiogram of the head and neck unremarkable CT scan of the head unremarkable Patient is admitted for further evaluation Her symptoms appear to be a waxing and waning difficulty with speech where she speaks but the words she is speaking are completely gibberish although very recognizable. Patient seems to have been much worse upon presentation to the emergency department and overall is improving even though series to be some sort of waxing and waning as above. [facility] Medical History (Updated 11/25/24 @ 10:42 by Wayne Steen MD) Chronic pain of left knee Primary osteoarthritis of left knee Stress incontinence, female Urge incontinence Dementia Osteoarthritis, knee Mild cognitive impairment Breast cancer Appendicitis Abnormal mammogram Abnormal LFTs Hypothyroidism (acquired) (12/22/10) H/O malignant neoplasm of breast 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) Hypercholesteremia Urinary incontinence due to urethral sphincter incompetence Insomnia Benign essential hypertension Decreased vision Breast cancer, left breast (1998) Lymphedema of upper extremity (10/16/14) Stage 3 chronic kidney disease Pt referred for ST evaluation d/t Pt with possible stroke, and expressive aphasia observed when presented to ER. Subjective Pt laying reclined in bed with family present at Observations bedside. Pt oriented to person, and place, however confusion with year. Pt with hx of dementia diagnoses. Pt family reports her speech/language is 90% back to baseline. Pt was able to answer most of my questions with clear, intelligible words and sentences. ST educated Pt and her family on reason for visit with Pt compliant with evaluation. ST positioned Pt upright in bed utilizing bed controls for PO trials. Reported by Patient/Caregiver Current Diet Regular (IDDSI 7) Baseline Feeding Independent in self-feeding Method The IDDSI Framework Protocol: IDDSI.1 Objective Assessment Mental Status Alert,Responsive,Cooperative,Confused Oral Integrity WFL Dentition Within normal limits Lip Function Mild impairment Tongue Function Mild impairment Jaw Function Within normal limits Food and Liquid Trials Position During Upright (90 degrees) Assessment Liquids Trialed Thin (IDDSI 0) Solid Trials Regular (IDDSI 7) Oral Impairment Within functional limits Oral Phase Comments Pt consumed liu crackers and 4 oz of thin water via straw. Pt able to feed self. For thin water via straw, Pt exhibited adequate suction, good oral acceptance and containment, timely ap transport, no overt s/s of aspiration such as coughing or choking with clear vocal quality post swallows. For regular solid, Pt took adequate bite size, good rate, prolonged mastication however adequate bolus formation and control, minimal oral stasis, no overt s/s of aspiration such as coughing or choking. Pharyngeal Within functional limits Impairment Pharyngeal Phase See oral phase comments Comments Fatigue/Endurance Endurance WNL The IDDSI Framework Protocol: IDDSI.1 Findings Swallowing Function Within functional limits Severity of Swallow Within functional limits Impairment Prognosis Good Based on Family support Impact on Safety and No limitations Functioning Recommendations Instrumental No Assessment Swallowing Treatment No Recommended Solids Regular (IDDSI 7) Recommended Liquids Thin (IDDSI 0) Other Pt presents with swallow that is WFL. ST recommends Recommendations regular solids and thin liquids with the below safe swallowing strategies in place. ST informally assessed her speech/language with Pt and family reporting she has improved a lot since admitted and is communicating about 90% back to baseline. ST is not warranted at this time, however if Pt's speech/language does not improve or she has a change in status ST recommends another referral be placed. Safety Precautions/ Remain upright (90 degrees) during all oral intake, Swallowing Upright position at least 30 minutes after meals,Small Recommendations bites and sips when eating,Slow rate; swallow between bites,Alternate liquids and solids Medication As Tolerated Recommendations Education Patient/Caregiver Described results of evaluation,Patient expressed Education understanding of evaluation,Patient expressed agreement with goals & treatment plans,Family/caregivers expressed understanding of evaluation,Patient expressed understanding of safety precautions,Family/caregivers expressed understanding of safety precautions
[2024-11-26 04:00] VITALS: BP 122/54; PULSE 61; RESP 12; TEMP 36; O2SAT 96
[2024-11-26 05:39] LABS: Add Manual Diff / Slide Review NO; Hematocrit 47.0 % (36-46); Hemoglobin 15.7 g/dL (12.0-16.0); Lymphocytes Absolute Auto 3700 /uL (1100-4500); Mean Corpuscular HGB Conc 33.4 % (30-36); Mean Corpuscular Hemoglobin 29.8 PG (26-34); Mean Corpuscular Volume 89.3 fL (80-100); Platelet Count 223 X10^3/uL (150-400)
[2024-11-26 05:55] LABS: Alanine Aminotransferase 37 IU/L (<35); Albumin 3.9 g/dL (3.5-5.0); Albumin Globulin Ratio 1.3 (1.0-2.8); Alkaline Phosphatase 95 U/L (38-126); Blood Urea Nitrogen 19 mg/dL (7-17); Calcium 10.0 mg/dL (8.4-10.2); Carbon Dioxide 23 mmol/L (22-32); Chloride 106 mmol/L (98-107); Cholesterol 119 mg/dL (140-199); Estimated Glomerular Filt Rate 55 mL/min (>60); Globulin 2.9 g/dL (1.7-4.1); Glucose 139 mg/dL (70-99); HDL Cholesterol 34 mg/dL (40-60); HEMOLYSIS 22 (0-50); Hemoglobin A1C% w Est Avg Glu 7.1 % (4.0-6.0); Potassium 4.0 mmol/L (3.4-5.1); Sodium 136 mmol/L (137-145); Total Protein 6.8 g/dL (6.3-8.2); Triglycerides 176 mg/dL (35-150)
[2024-11-26] MEDS: LEVOTHYROXINE 75 MCG TABLET 150 MCG PO (06:04)
[2024-11-26 06:31] LABS: Free T4, Direct Thyroxine 1.69 ng/dL (0.78-2.19)
[2024-11-26 06:45] LABS: Thyroid Stimulating Hormone 0.018 uIU/mL (0.47-4.68)
[2024-11-26 08:00] VITALS: BP 132/47; PULSE 61; RESP 15; TEMP 36.1; O2SAT 94
[2024-11-26 08:15] VITALS: O2SAT 94
--- NOTE | 2024-11-26 08:22 | PM.DS.IH.1 ---
History of Present Illness History of Present Illness Date Patient Seen: 11/26/24 Time Patient Seen: 08:22 Chief complaint: Speech LKW 9 PM Narrative: 89-year-old female well known to me presented to the emergency department with alterations in her speech. She was evaluated in the ER felt to path a probable ongoing CVA. Last known well would have been about 21:00 night prior although symptoms have waxed and waned and time of admission are generally improving but seems to have kind of an expressive aphasia kind of process ongoing ER evaluation unremarkable mild leukocytosis but otherwise lab work unremarkable urinalysis unremarkable CT angiogram of the head and neck unremarkable CT scan of the head unremarkable Patient is admitted for further evaluation Her symptoms appear to be a waxing and waning difficulty with speech where she speaks but the words she is speaking are completely gibberish although very recognizable. Patient seems to have been much worse upon presentation to the emergency department and overall is improving even though series to be some sort of waxing and waning as above. Discharge Providers Provider Date of admission: 11/25/24 09:31 Discharge Date: 11/26/24 Primary care physician: Wayne Steen MD Consults: 11/25/24 13:47 Consult to Discharge Planning Routine Comment: Consult to Occupational Therapy Evaluate & Treat Comment: Physician Instructions: Evaluate and treat Consult to Physical Therapy Evaluate & Treat Comment: Physician Instructions: Evaluate and Treat Consult to Speech Therapy Evaluate & Treat Comment: Physician Instructions: Evaluate and treat Discharge provider: Wayne Steen MD Summary Hospital Course Discharge Diagnosis: 1. Acute CVA with expressive aphasia 2. Dementia 3. Hypertension 4. Hyperlipidemia 5. Chronic renal failure stage 3a 6. Hypothyroidism Hospital Course: As above patient was admitted to the hospital. MRI of the brain was unremarkable for an acute CVA. Telemetry did not show any rhythm disturbance. Echocardiography was performed prior to discharge Patient's clinical symptoms of her speech difficulty seem to if not completely resolve certainly 95% back to baseline. Her underlying dementia is a little bit of a contributing factor making it more difficult to determine level of improvement however she appeared to be functioning at baseline by time of discharge In effort to further risk reduce possibility of future events her current statin therapy will be discontinued in favor of high-intensity statin therapy with atorvastatin, and clopidogrel will be added to the aspirin for at least the next 3 weeks All of patient's other usual medications will be continued Status at Discharge Cognitive/behavioral status at discharge: at baseline, confused Functional status at discharge: independent ambulation Overall status at discharge: patient is progressing back to baseline Time Spent with Patient Time spent: Greater than 30 minutes Exam Vital Signs (past 8 hours): - 11/26/24 04:00 Temperature 96.8 F L Pulse Rate 61 Respiratory Rate 12 Blood Pressure 122/54 L Pulse Oximetry 96 Oxygen Flow Rate 0 Oxygen Delivery Method Room Air Oxygen Flow Rate 0 Objective Labs 11/26/24 05:24 11/26/24 05:24 Labs: Laboratory Results - last 24 hr 11/25/24 11/25/24 11/26/24 08:08 08:08 05:24 WBC 9.3 RBC 5.26 H Hgb 15.7 Hct 47.0 H MCV 89.3 MCH 29.8 MCHC 33.4 RDW 13.4 Plt Count 223 Neut % (Auto) 46.1 L D Lymph % (Auto) 39.9 D [place] % (Auto) 12.5 Eos % (Auto) 0.6 L Baso % (Auto) 0.9 Neut # (Auto) 4300 Lymph # (Auto) 3700 [place] # (Auto) 1200 H Eos # (Auto) 100 Baso # (Auto) 100 Sodium 136 L Potassium 4.0 Chloride 106 Carbon Dioxide 23 BUN 19 H Creatinine 0.99 Estimated GFR 55 L BUN/Creatinine Ratio 19.2 Glucose 139 H Hemoglobin A1c 7.1 H Calcium 10.0 Total Bilirubin 0.8 AST 39 H ALT 37 H Alkaline Phosphatase 95 Total Protein 6.8 Albumin 3.9 Globulin 2.9 Albumin/Globulin Ratio 1.3 Triglycerides 176 H Cholesterol 119 L LDL Cholesterol, Calc 50 HDL Cholesterol 34 L TSH 0.018 L Free T4 1.69 Urine Color Yellow Urine Appearance Clear Urine pH 7.0 Normal Ur Specific [place] 1.010 Urine Protein Trace H Urine Glucose (UA) Negative Urine Ketones Trace H Urine Occult Blood Negative Urine Nitrate Negative Urine Bilirubin Negative Urine Urobilinogen 0.2 Ur Leukocyte Esterase Negative Urine RBC None seen Urine WBC None seen Ur Squamous Epith Cells None seen Urine Bacteria None seen Ur Culture Indicated? Cult not indicated Vol Urine Centrifuged 10ml (spun) U Opiates 300ng/mL cut Negative Ur Oxycodone Screen Negative Urine Methadone Screen Negative Ur Barbiturates Screen Negative U Tricyclic Antidepress Negative Ur Phencyclidine Scrn Negative Ur Amphetamines Screen Negative U Methamphetamines Scrn Negative Ur MDMA Scrn (Ecstasy) Negative U Benzodiazepines Scrn Negative Urine Cocaine Screen Negative U Marijuana (THC) Screen Negative Urine Specific [place] Normal Ur Creatinine Normal SARS-CoV-2 (PCR) Negative PFSH Medical History Chronic pain of left knee Primary osteoarthritis of left knee Stress incontinence, female Urge incontinence Dementia Osteoarthritis, knee Mild cognitive impairment Breast cancer Appendicitis Abnormal mammogram Abnormal LFTs Hypothyroidism (acquired) (12/22/10) H/O malignant neoplasm of breast 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) Hypercholesteremia Urinary incontinence due to urethral sphincter incompetence Insomnia Benign essential hypertension Decreased vision Breast cancer, left breast (1998) Lymphedema of upper extremity (10/16/14) Stage 3 chronic kidney disease Surgical History S/P lumpectomy, left breast (03/30/21) S/P mastectomy History of tonsillectomy History of oophorectomy Status post hysterectomy (1990) Status post cholecystectomy (1997) Family History Brother Coronary artery disease Social History household members: spouse Smoking Status: Never smoker alcohol intake: never Discharge Assessment & Plan Assessment and Plan Plan of Treatment: Add Plavix to aspirin as stroke risk reduction Switch to atorvastatin 40 mg daily for high-intensity statin therapy to lower vascular stroke risk Close follow-up as an outpatient Discharge Plan Discharge Plan Patient Disposition: Home Discharge orders & Medications Prescriptions: New clopidogrel 75 mg Tablet 75 mg PO DAILY Qty: 30 1RF atorvastatin 40 mg tablet 40 mg PO DAILY Qty: 90 3RF Continued levothyroxine 150 mcg tablet 150 mcg PO DAILY Qty: 90 3RF anastrozole 1 mg tablet 1 mg PO DAILY Qty: 90 3RF spironolactone 50 mg tablet 50 mg PO DAILY Qty: 90 3RF tramadol 50 mg tablet 50 mg PO TID MDD 3 tabs PRN (Reason: pain) Qty: 60 0RF amlodipine 5 mg tablet 5 mg PO DAILY Qty: 90 3RF allopurinol 100 mg tablet 100 mg PO DAILY Qty: 90 3RF hydroxyzine HCl 25 mg tablet 25 mg PO BEDTIME Qty: 90 3RF aspirin 81 mg tablet,delayed release (DR/EC) 81 mg PO DAILY Discontinued simvastatin 20 mg tablet 20 mg PO DAILY Qty: 90 3RF Follow up/Referrals: Wayne Steen MD [Primary Care Provider, Internal Medicine] - 2 Weeks Discharge Health Status Multidrug resistant organism: No MDRO Diet/Activity/Treatments Diet: Diet as Tolerated, Regular and Low-sodium Visit Report/Discharge Packet Instructions: Atorvastatin, Clopidogrel Stand Alone Forms: Patient Portal/API, Stroke Signs & Symptoms Discharge Data Primary Care Provider: Wayne Steen Quality VTE Deep Vein Thrombosis/Pulmonary Embolism Present on Admission: No IH PROFEE Charge Codes Discharge inpatient/observation: [id number]
[2024-11-26] MEDS: CLOPIDOGREL 75 MG TABLET PO (08:54)
[2024-11-26] MEDS: ASPIRIN EC 81 MG TABLET PO (08:54)
[2024-11-26] MEDS: SPIRONOLACTONE 25 MG TABLET 50 MG PO (08:54)
[2024-11-26] MEDS: ENOXAPARIN 40 MG/0.4 ML SYRINGE SUBCUT (08:55)
[2024-11-26] MEDS: SODIUM CHLORIDE 0.9% FLUSH 10 ML IV (08:57)
--- NOTE | 2024-11-26 10:45 | PT.IIE ---
Current Diagnoses Cerebral infarction, unspecified (11/25/24) Surgical History (Last Reviewed 11/26/24 @ 08:24 by Wayne Steen MD) History of oophorectomy History of tonsillectomy S/P lumpectomy, left breast (03/30/21) S/P mastectomy Status post cholecystectomy (1997) Status post hysterectomy (1990) Medical History (Last Reviewed 11/26/24 @ 08:24 by Wayne Steen MD) Abnormal LFTs Abnormal mammogram Appendicitis Benign essential hypertension 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) Breast cancer Breast cancer, left breast (1998) Chronic pain of left knee Decreased vision Dementia H/O malignant neoplasm of breast Hypercholesteremia Hypothyroidism (acquired) (12/22/10) Insomnia Lymphedema of upper extremity (10/16/14) Mild cognitive impairment Osteoarthritis, knee Primary osteoarthritis of left knee Stage 3 chronic kidney disease Stress incontinence, female Urge incontinence Urinary incontinence due to urethral sphincter incompetence Physical Therapy Inpatient Evaluation/Re-Eval M1 PT/OT-IP Prior Functional Status Start: 11/25/24 14:44 Freq: NEEDED Status: Discharge Protocol: Document 11/25/24 14:44 GARRETT (Rec: 11/25/24 15:03 GARRETT [id number]) Medical Review Prior Functional Status Medical History Yes Reviewed Communication Pt able to make needs known. Pt presents with dysarthria and expressive aphasia. Mobility and Gait Pt and family report she amb with 4WW only when leaving her apartment, otherwise she did not use an AD Activities of Daily Pt performs her BADLs. Pt has assistance for cooking, Living and IADL's laundry, housework, and medication mgmt. Social History Household Members spouse Living Arrangements Apartment/Condo Number of Floors ( One Floor Floors) Number of Stairs To [place]. Pt has access to elevators for use of Enter/Railing? different floors, no steps to enter facility. Home Environment High Toilet,Walk in Shower,Built-In Shower Seat Home Equipment Four Wheel Walker,Grab Bars Near Toilet,Grab Bars In Shower Employment Status Retired M1 PT/OT-IP Prior Functional Status Start: 11/26/24 12:44 Freq: NEEDED Status: Active Protocol: Document 11/26/24 10:45 AB (Rec: 11/26/24 12:58 AB [id number]) Medical Review Prior Functional Status Medical History Yes Reviewed Communication Pt able to make needs known; refers to her daughter for info Mobility and Gait pt stated that she was independent with all mobilities and ambulation without AD but uses a 4WW for outdoor mobility; daughter stated that pt has chronic L knee problem and uses the 4WW due to this Activities of Daily per OT note: Pt performs her BADLs. Pt has assistance Living and IADL's for cooking, laundry, housework, and medication mgmt. Social History Household Members spouse Living Arrangements Alf Facility Number of Floors ( One Floor Floors) Number of Stairs To pt lives at [facility]: main level Enter/Railing? Home Environment Standard Height Toilet,Walk in Shower,Built-In Shower Seat,Elevator Home Equipment Four Wheel Walker,Hand Held Shower,Grab Bars Near Toilet,Grab Bars In Shower Employment Status Retired M2 PT-IP Current Condition Start: 11/26/24 12:44 Freq: NEEDED Status: Active Protocol: Document 11/26/24 10:45 AB (Rec: 11/26/24 12:58 AB [id number]) Physical Therapy Current Condition Current Condition Evaluation Date 11/26/24 Treatment Diagnosis r/o CVA; difficulty in walking Onset Date 11/25/24 M3 PT-IP Subjective Start: 11/26/24 12:44 Freq: NEEDED Status: Active Protocol: Document 11/26/24 10:45 AB (Rec: 11/26/24 12:58 AB [id number]) Subjective Physical Therapy Visit Type Type Initial Evaluation Visit Start Time 10:45 Visit Stop Time 11:05 Number of BLOWER OPERATOR Visits 0 Physical Therapy Visit Comments Patient Comments agreeable to do PT Therapy Pain Assessment Pain When Pain Assessed During Mobility Location Left Knee Scale Used pain scale not stated Pain Management Distraction,Modification of Treatment Techniques M4 PT-IP Mobility and Gait Start: 11/26/24 12:44 Freq: NEEDED Status: Active Protocol: Document 11/26/24 10:45 AB (Rec: 11/26/24 12:58 AB [id number]) PT-Bed Mobility Assessment Supine to Sit Supine to Sit Standby Assistance Sit to Supine Sit to Supine Standby Assistance PT-Transfer Assessment Sit to and From Stand Sit to and from Standby Assistance,1 Person Assistance,Use of Upper Stand Extremities Equipment Transfer Assistive None,Gait Belt,4 Wheeled Walker Device Orthotic/Prosthetic No Devices or Brace: Transfers Transfer Destination Chair Transfer Technique ambulated Transfer Ability Level of Assist Standby Assistance,Contact Guard Assistance,1 Person Assistance,Use of Upper Extremities Comments Mobility Comments pt sitting on EOB and daughter in room. obtained PLOF and home set up. pt required increase time to respond and usually refer to daughter for answers. completed bed mobility SBA. sit to stand SBA and ambulated in room without AD SBA to CGA ~ 40 ft with (+) LOB with pt tripping on L foot. pt with chronic L knee arthritis with c/o pain affecting mobility. pt also is impulsive with decrease safety awareness. Assessed ambulation using 4WW and completed SBA 40 ft. informed pt and daughter regarding use of 4WW. pt does not want to use 4WW indoors. agreed to have HHPT. pt sat on chair and positioned pt on the chair. call light and table placed within reach. Gait Assessment Gait Gait Assistance Standby Assistance,Contact Guard Assist Required: Distance (Feet) 40 Able to Maintain Yes Weight Bearing Status During Gait Assistive Devices Assistive Device None,Gait Belt,4 Wheeled Walker Orthotic/Prosthetic No Devices or Brace: Gait Deviations General Gait Pattern Decreased Stride Length,Decreased Feet Clearance Factors Limiting Gait Function Factors Limiting Decreased Activity Tolerance,Decreased Strength,Limited Gait Function Range of Motion,Pain,Poor Balance,Poor Safety Awareness PT-Balance Assessment Sitting Balance and Reactions Static Sitting Good Balance Ability Dynamic Sitting Good Balance Ability Standing Balance and Reactions Static Standing Good Balance Ability Dynamic Standing Fair Balance Ability Device Used without AD M5 PT-IP Objective Assessments Start: 11/26/24 12:44 Freq: NEEDED Status: Active Protocol: Document 11/26/24 10:45 AB (Rec: 11/26/24 12:58 AB [id number]) Orientation Orientation/Cognition Level of Alertness Alert Orientation Name Safety Awareness Decreased Safety Awareness Memory Description Short Term Impaired,[place] Impaired Gross Range of Motion Lower Extremity ROM Assessment Within Functional Limits Strength Lower Extremity Strength Assessment Within Functional Limits Sensation Assessment Sensation Gross Sensation WNL Muscle Tone Muscle Tone WNL Yes M6 PT-IP Treatment Start: 11/26/24 12:44 Freq: NEEDED Status: Active Protocol: Document 11/26/24 10:45 AB (Rec: 11/26/24 12:58 AB [id number]) Physical Therapy Treatment Education Education Provided Safety M7 PT-IP Assessment and Plan Start: 11/26/24 12:44 Freq: NEEDED Status: Active Protocol: Document 11/26/24 10:45 AB (Rec: 11/26/24 12:58 [id number]) PT Summary Assessment and Plan Potential Rehabilitation Fair Potential Status of Condition Evolving at Evaluation Summary Impairments Pain,ROM,Strength,Balance,Coordination,Sensation,Tone, Cognition,Bed Mobility,Transfers,Gait,Activity Tolerance Assessment Summary pt is an 89 y/o F who is admitted to r/o CVA. pt requiring SBA to CGA with ambulation without AD. Recommending use of 4WW at this time but pt refusing to use 4WW. pt will benefit from HHPT. Goals Bed Mobility Goal Independent Transfer Goal Independent Gait Goal Independent Gait Distance 200 Days to Meet Goals 10 Frequency of Treatment Frequency Of Once a Day Treatment Treatment Plan Physical Therapy Bed Mobility Training,Transfer Training,Gait Training, Treatment Plan Therapeutic Exercise,Balance Retraining,Discharge Planning,Hot or Cold Pack,Neuromuscular Re-ed, Coordination Retraining,Manual Therapy Precautions Other Precautions falls Recommendations To Nursing Amount of Assist 1 Person Assist Needed Discharge Recommendations PT Discharge Home with Assistance,Home Health Recommendations Transportation Needs Private Vehicle at Discharge - PT assist 1
--- NOTE | 2024-11-26 11:31 | PC.NURSE ---
Pt is dressed and ready for discharge home (back to [facility]) with Daughter Lory. IV, Tele, and harley have been removed and Pt has voided since removal. Went over d/c instructions with Pt and Daughter-discussed d/c meds, time of last dose,reviewed stroke education, reminded Pt to return to the ER if symptoms return. Pt to follow up in [address] Steen. Pt's daughter was concerned about redness to Pt's left arm-Pt has a hx of cellulitis to that arm. Took pictures of left arm and uploaded them to Pt's chart and sent a note to Dr. Steen about the pictures and concerns. Pt and Daughter denied further questions and Pt was taken out via w/c by PERFORMING [employer] MANAGER to POV with Daughter and all belongings.
--- NOTE | 2024-11-26 14:10 | CM.DANOTE ---
Initial DCP Assessment Note. Review EMR and PT Interview. Met with patient at bedside to discuss discharge needs.PT is alert x 4 sitting up in chair. Lives at [facility] with . Flora Cali, helps with MD appointments. Owns a walker. Her currently is on service with [facility]. Patient is agreeable to if needed. Payor:? MCR PCP: Dr. Steen. Summary & Plan:?89 y/o female arrived to ED via EMS. Aditted with TIA vs CVA. Plan: PT eval and MRI. Discharge Planning/Care Management CM Discharge Assessment Start: 11/25/24 14:26 Freq: Status: Discharge Protocol: Document 11/26/24 14:08 (Rec: 11/26/24 14:10 [id number]) Discharge Planning Assessment Assigned Discharge Bernadine Barba RN CM [employer] Provider Dr. Steen Insurance Medicare Advance Directives? Yes: DPOA and Health Directive, POLST Advance Directives Yes on File History Provided By Patient,Family Member,Medical Record Prior Living Intermediate Facility Arrangements Household Members spouse Type of Relies on Others transporation used prior to admit Facility Name [facility] Admitted From: Willing to Return to Yes Facility? Independent with ADL Yes 's Is patient alert and Yes oriented? Caregiver for Yes Another DME Already Rented / FWW / Walker Owned Discharge Plan Home Transportation Family can provide transport at d/c Arrangement Referrals Initiated None needed Review Status In Process Please Provide Date 11/26/24 Initial DC Assessment Was Performed Next Review Type Continued Stay Review
== END 2024-11-26 11:36 | disposition home or self-care (01) | DRG 66 ==
LOC: ED 07:44 → AC 09:33
PROVIDERS: Admitting Provider Internal Medicine; Emergency Provider Student in an Organized Health Care Education/Training Program; PCP Internal Medicine; Referring Provider Student in an Organized Health Care Education/Training Program; Visit Provider Internal Medicine
DX: I63.9 Cerebral infarction, unspecified (principal); F03.90 Unspecified dementia, unspecified severity, without behavioral disturbance, psychotic disturbance, mood disturbance, and anxiety; R32 Unspecified urinary incontinence; E78.5 Hyperlipidemia, unspecified; E03.9 Hypothyroidism, unspecified; R74.01 Elevation of levels of liver transaminase levels; R47.01 Aphasia; I12.9 Hypertensive chronic kidney disease with stage 1 through stage 4 chronic kidney disease, or unspecified chronic kidney disease; N18.31 Chronic kidney disease, stage 3a; R29.705 NIHSS score 5; R29.704 NIHSS score 4; Z85.3 Personal history of malignant neoplasm of breast; Z79.890 Hormone replacement therapy
CPT/HCPCS: 36415; 70450; 70496; 70498; 70551; 80053; 80061; 80305; 80320; 81001; 82962; 83036; 84439; 84443; 85025; 85610; 85730; 87635; 92610; 93005; 93306; 96360; 97162; 97165; 97530; 99223; 99239; 99285; A9270; J1650; J7030; Q9967